=== PATIENT | female | born 1945 | race Caucasian/White ===

== ENCOUNTER 2021-07-23 14:04 | Emergency (ER) | payer OTHER, SELFPAY ==
--- NOTE | 2021-07-23 14:10 | ED.URI ---
HPI - URI/Sore Throat General Chief Complaint: Upper Respiratory Infection Stated Complaint: cough Time Seen by Provider: 07/23/21 14:10 Source: patient and RN notes reviewed History of Present Illness HPI Narrative: Patient is a 75-year-old female who presents the urgent care with complaints of a harsh wet cough. Patient states that she does have an inhaler and has been using it approximately 3 times per day which does help with her symptoms. Patient also reports of using Tylenol. Denies of any fevers, nausea, vomiting. Denies of any chest pain. States that she has had one Covid vaccine in the denies of any known Covid exposure. Patient states that she gets bronchitis yearly and typically treats it with a Z-Michael . No other acute complaints. No acute distress noted. Patient aware of the plan of care. Some parts of this dictation were generated by voice recognition software and may contain typographical and/or grammatical inaccuracies. Related Data Allergies Allergy/AdvReac Type Severity Reaction Status Date / Time No Known Allergies Allergy Verified 07/23/21 14:24 Review of Systems Review of Systems: CONSTITUTIONAL: Denies fever, chills, or sweats. EYES: Denies visual changes, redness, or discharge. ENT: Denies rhinorrhea, congestion, sore throat, or otalgia. Reports of postnasal drainage CARDIOVASCULAR: Denies chest pain, palpitations, or edema. RESPIRATORY: Reports of wet cough with intermittent dyspnea GASTROINTESTINAL: Denies abdominal pain, nausea, vomiting, or diarrhea. GENITOURINARY: Denies dysuria or hematuria. SKIN: Denies rash or itching. MUSCULOSKELETAL: Denies back pain, joint pain, or myalgia. NEUROLOGIC: Denies headache, numbness, or weakness. All other systems reviewed are negative, except as documented in HPI. PMFSH Comments At the time of my signature, I reviewed and agree with the nursing past medical, surgical, social, and family history. There is no relevant family history pertinent to the patient complaint. Exam Narrative: GENERAL: This is a well-nourished, well-developed patient, in no apparent distress. HEAD: normocephalic, atraumatic. EYES: PERRL. Sclera clear/white. Vision is grossly intact. EARS: External ears normal, auditory canals clear and without drainage, TMs normal without perforation. Hearing grossly intact. NOSE: External nose normal with no obvious nasal discharge, nares without redness, no rhinorrhea. THROAT: Mucous membranes moist, posterior pharynx clear. Moderate postnasal drainage NECK: Neck supple, non-tender without lymphadenopathy, masses or thyromegaly. CARDIOVASCULAR: Regular rate and rhythm without murmurs, gallops, or rubs. RESPIRATORY: Wet productive cough. Coarse throughout. No wheezes SKIN: warm, intact with no suspicious lesions or rash, good texture and turgor. NEURO: awake, alert, and oriented to person, place and time. There were no obvious focal neurologic abnormalities. EXTREMITIES: No clubbing, cyanosis, or edema. Course Vital Signs Vital signs: Vital Signs Temperature 97.1 F L 07/23/21 14:18 Pulse Rate 77 07/23/21 14:18 Respiratory Rate 18 07/23/21 14:18 Blood Pressure 137/71 07/23/21 14:18 Pulse Oximetry 95 07/23/21 14:18 Temperature 97.1 F L 07/23/21 14:18 Pulse Rate 77 07/23/21 14:18 Respiratory Rate 18 07/23/21 14:18 Blood Pressure 137/71 07/23/21 14:18 Pulse Oximetry 95 07/23/21 14:18 Reviewed MDM - URI/Sore Throat MDM Narrative Medical decision making narrative: Advised the patient to complete the steroid regimen as prescribed. Be sure to eat and drink with the medication. Complete your oral antibiotic medication as prescribed. Use your inhaler as needed for shortness of breath. Continue your [id number] cough medication. If you develop any increase in symptoms associated with fever, chest pain or persistent shortness of breath?go to the emergency room. Follow-up with your PCP within 2 to 5 days or for wo
[2021-07-23 14:18] VITALS: BP 137/71; PULSE 77; RESP 18; TEMP 36.2; O2SAT 95
== END 2021-07-23 14:35 | disposition home or self-care (01) ==
PROVIDERS: Emergency Provider Nurse Practitioner Family
DX: J40 Bronchitis, not specified as acute or chronic (principal)
CPT/HCPCS: 99213; G0463

== ENCOUNTER 2022-11-20 14:48 | Observation (INO) | payer OTHER, SELFPAY ==
[2022-11-20] VITALS (13 sets, daily range): BP systolic 137–170; BP diastolic 63–80; PULSE 92–109; RESP 14–22; TEMP 36.3–36.6; O2SAT 92–100; BMI 31.8
--- NOTE | ~2022-11-20 | XR_ITS ---
EXAMINATION: XR chest 2V Exam Date/Time: 11/20/2022 15:05 [employer]ING [employer] HISTORY: sob Comparison: None available. RESULT: Lines, tubes, and devices: None. Lungs and pleura: Mild senescent change, with bibasilar scar/atelectasis, otherwise clear. Cardiomediastinal silhouette: Stable. Other: No acute osseous or upper abdominal finding. IMPRESSION: No acute cardiopulmonary process. Reviewed, dictated and finalized at location K. [employer]ING [employer]ER
--- NOTE | 2022-11-20 14:57 | ECG_ITS ---
Measurements Intervals [place] Rate: 104 P: 54 MS: 139 QRS: 50 QRSD: 94 T: 19 QT: 336 QTc: 443 Interpretive Statements SINUS TACHYCARDIA ATRIAL PREMATURE COMPLEX BORDERLINE ECG NO PREVIOUS ECG AVAILABLE FOR COMPARISON Electronically Signed On 11-20-2022 20:22:33 D[employer]RAKER by John Rivera D.O.
[2022-11-20] MEDS: IPRATROPIUM BR 0.02% INH SOLN 0.5 MG/2.5 ML VIAL INHALATION ×3 (16:36→20:48)
[2022-11-20] MEDS: ALBUTEROL SULFATE NEB 2.5 MG/3 ML INH 5 MG INHALATION ×3 (16:36→20:48)
--- NOTE | 2022-11-20 16:52 | ED.SOB ---
HPI - SOB/Dyspnea General Chief Complaint: Shortness of Breath/Dyspnea Stated Complaint: LOW O2 Time Seen by Provider: 11/20/22 15:54 Source: patient, EMS and RN notes reviewed Mode of arrival: EMS Limitations: no limitations History of Present Illness HPI Narrative: This is a 77 year old female that presents to the ER for worsening shortness of breath. Reports she was seen by her PCP and started on a steroid and antibiotic. She has history of COPD. She has been taking these medications and using her nebulizer with little relief. Noted to be hypoxic by EMS and is currently on 2L via NC. Denies chest pain or lower extremity edema. Related Data Home Medications Medication Instructions Recorded Confirmed albuterol sulfate 90 mcg/actuation 2 puff inhalation Q4-6H PRN 07/23/21 07/23/21 aerosol inhaler Shortness Of Breath atenolol 25 mg tablet 25 mg PO DAILY 07/23/21 07/23/21 atorvastatin 40 mg tablet 40 mg PO DAILY 07/23/21 07/23/21 Allergies Allergy/AdvReac Type Severity Reaction Status Date / Time No Known Allergies Allergy Unverified 02/16/22 12:53 Review of Systems Review of Systems: CONSTITUTIONAL: Denies fever ENT: Reports congestion CARDIOVASCULAR: Denies chest pain, or edema. RESPIRATORY: Reports cough and dyspnea. All systems reviewed & are unremarkable except as noted in HPI and below PMFSH Past Medical History Medical History (Updated 11/20/22 @ 17:54 by Evette Caro PA-C) History of COPD History of hyperlipidemia History of hypertension Family History Family History (System 02/16/22 @ 12:53 by Jaylene Vogel) Other Cerebrovascular accident Family history of arthritis Family history of blood dyscrasia Family history of seizure disorder Social History Social History (System 02/16/22 @ 12:53 by Jaylene Vogel) Smoking status: Current every day smoker Alcohol intake: never Exam Narrative: GENERAL: Well-appearing, well-nourished, and in no acute distress. HEAD: Normocephalic, atraumatic. EYES: EOMI. ENT: Nares clear, no rhinorrhea or epistaxis. Mucous membranes moist. Oropharynx without tonsillar hypertrophy exudate or other lesions. NECK: Supple. No adenopathy or masses. CHEST: Lungs sounds with diffuse wheezing. No respiratory distress. No rales or rhonchi HEART: Regular rate and rhythm. No murmur heard. Normal peripheral pulses. EXTREMITIES: Normal range of motion. No edema. SKIN: Warm, dry, no rash. NEURO: No focal deficits. Alert and oriented x3. PSYCH: Normal mood and affect Course Course Emergency Course: Patient and family updated on work-up and need for admission. She does report she feels better after her initial breathing treatment. She does have improved aeration, but still with diffuse wheezing. I did order another nebulizer treatment Consultations Consultation #1: Spoke with hospitalist about patient and workup who accepts admission Date: 11/20/22 Vital Signs Vital signs: Vital Signs Pulse Rate 104 H 11/20/22 14:51 Respiratory Rate 20 11/20/22 14:51 Blood Pressure 160/65 H 11/20/22 14:51 Pulse Oximetry 92 11/20/22 14:51 Oxygen Delivery Room Air 11/20/22 14:51 Oxygen Flow Rate 2 11/20/22 14:51 Temperature 97.3 F L 11/20/22 17:05 Pulse Rate 100 11/20/22 17:14 Respiratory Rate 16 11/20/22 17:14 Blood Pressure 138/67 11/20/22 17:05 Pulse Oximetry 100 11/20/22 17:05 Oxygen Delivery Nasal Cannula 11/20/22 14:51 Oxygen Flow Rate 2 11/20/22 14:51 MDM - SOB/Dyspnea MDM Narrative Medical decision making narrative: Patient presents to the ER for shortness of breath. History of COPD. Has been treated by her PCP with oral steroids and an antibiotic without relief. Hypoxic on arrival of EMS, placed on 2L via NC with relief. Noted to have diffuse wheezing on arrival. Given nebulizer treatments with improvement in aeration. She is afebrile and nontoxic-appearing. CBC is without leukocytosis. Metabolic panel
[2022-11-20 16:59] LABS: Alveolar/Arterial O2 Gradient 69.2 mmHg; Base Excess ABG 1.4 mEq/l (+/-2.0); Fractional Inspired Oxygen 26 %; HCO3 ABG 25.8 mEq/l (22.0-26.0); Methemoglobin ABG 0.3 %THb (0-1.5); Oxygen Content ABG 14.7 %vol (16.0-22.0); Oxygen Saturation ABG 94.4 % (95.0-100.0); Oxyhemoglobin 90.5 % THb (90.0-100.0); PCO2 ABG 39.6 mmHg (35.0-45.0); PO2 ABG 69.3 mmHg (80.0-100.0); PO2 FiO2 Ratio Arterial Blood 2.67 %; Reduced Hemoglobin 7.2 %THb (0-5.0); Total Hemoglobin 11.5 g/dL (12.0-18.0); pH ABG 7.431 (7.350-7.450)
[2022-11-20 17:01] LABS: Device NASAL CANNULA; Liters per Minute 1.5 LPM; Site Drawn LEFT BRACHIAL
[2022-11-20] MEDS: methylPREDNISolone SOD SUCC 125 MG VIAL IV PUSH (17:07)
[2022-11-20 17:19] LABS: Basophils Percent Auto 0.3 % (0.2-1.2); Eosinophils Percent Auto 0.3 % (0-4.4); Hematocrit 35.8 % (37.0-47.0); Hemoglobin 11.6 g/dL (12.0-15.0); Immature Granulocyte Absolute 0.11 K/mm3 (0.00-0.031); Immature Granulocyte Percent A 1.5 % (0-0.5); Lymphocytes Absolute Auto 1.38 K/mm3 (0.9-3.2); Lymphocytes Percent Auto 18.9 % (18.3-44.2); Mean Corpuscular HGB Conc 32.4 g/dl (32-36); Mean Corpuscular Hemoglobin 30.8 pg (26-34); Monocytes Absolute Auto 0.4 K/mm3 (0.1-0.6); Monocytes Percent Auto 4.8 % (2.6-8.5); Neutrophils Absolute Auto 5.4 K/mm3 (1.3-6.7); Neutrophils Percent Auto 74.2 % (45.5-73.1); Platelet Count Result 314 k/mm3 (150-375); Red Blood Count 3.77 M/mm3 (4.2-5.4); Red Cell Distribution Width 16.8 % (11.5-14.5); White Blood Count 7.3 K/mm3 (4.5-10.0)
[2022-11-20 17:31] LABS: Alanine Aminotransferase 28 U/L (6-35); Albumin Level 4.5 g/dL (3.5-5.1); Alkaline Phosphatase 71 U/L (38-126); Anion Gap 9 mmol/L (8-16); Aspartate Amino Transferase 35 U/L (14-36); Bilirubin,Total 0.5 mg/dL (0.2-1.3); Blood Urea Nitrogen 19 mg/dL (7-17); Calcium 9.5 mg/dL (8.4-10.2); Carbon Dioxide 30 mmol/L (22-30); Chloride 94 mmol/L (98-107); Estimated CRCL calculation 40 ml/min; Estimated Glomerular Filt Rate 54; Glucose 152 mg/dL (65-110); Potassium 4.4 mmol/L (3.4-5.0); Sodium 133 mmol/L (137-145)
[2022-11-20 17:40] LABS: NT Pro B Type Natriuretic Pept 231 pg/mL (19.9-100)
[2022-11-20 17:53] LABS: Influenza A QL RT-PCR Negative (Negative); Influenza B QL RT-PCR Negative (Negative); SARS-CoV-2 RNA PCR Negative
--- NOTE | 2022-11-20 18:00 | PM.IMHP ---
H&P: HPI History of Present Illness Date/Time: 11/20/22 18:00 Chief Complaint: Shortness of breath. Narrative: This is a 77-year-old female smoker with COPD who presented to the ED for evaluation of shortness of breath. At baseline she is pretty active, able to run her household, go to the grocery store, worked out in the yd, etc.. She does however avoid stairs and she uses a cart while shopping. It is not unusual for her to have a dry cough. Over the past week or so she has been coughing more than usual though it remains nonproductive. She has also had increasing dyspnea on lesser and lesser exertion and continues to have pretty significant wheezing despite using her nebulizers 3 to 4 times a day. She was started p.o. prednisone and doxycycline by her primary care provider several days ago unfortunately she has not felt any better. She denies fever, chills, sweats, sinus congestion, sore throat, chest and pleuritic pain, nausea, vomiting, and diarrhea. She came in today via EMS and on their arrival her SpO2 was 88% on room air. She received a DuoNeb in route to the ER with some benefit. She had another DuoNeb and was given Solu-Medrol in the ED with continued improvement. She continues to have oxygen requirement however and she is being admitted in this setting for further treatment. She tested negative for influenza and COVID. Chest x-ray showed no acute findings. Review of Systems Review of Systems: Twelve systems were reviewed and are negative except for as per HPI. [facility] Past Medical History Medical History (Updated 11/22/22 @ 01:36 by Luciana Nichols PA-C) Chronic obstructive pulmonary disease Gastroesophageal reflux disease Hyperlipidemia Hypertension Tobacco abuse Tobacco dependence Type 2 diabetes mellitus Surgical History Surgical History (Updated 11/22/22 @ 01:36 by Luciana Nichols PA-C) History of bladder suspension procedure History of cholecystectomy History of hysterectomy Family History Family History Other Cerebrovascular accident Family history of arthritis Family history of blood dyscrasia Family history of seizure disorder Social History Social History (Updated 11/22/22 @ 01:36 by Luciana Nichols PA-C) Social History: Surrogate medical decision maker: Rashmi Leger, daughter. Code status: Full code. Smoking status: Current every day smoker Alcohol intake: never Lack of Transportation: No Lack of Food: Never True Current Housing: I Have Housing Concerned About Future Housing: No Difficulty Paying Gas/Electric Bills: No Difficulty Paying for Meds: No Currently Unemployed: No Education: High School Diploma/GED Difficulty w/ Childcare or Family Care: No Spiritual care concerns: No Meds Home Medications and Allergies Home Medications Medication Instructions Recorded Confirmed Type albuterol sulfate 90 mcg/actuation 2 puff inhalation Q4-6H PRN 07/23/21 11/20/22 History aerosol inhaler Shortness Of Breath atenolol 25 mg tablet 25 mg PO HS 07/23/21 11/20/22 History atorvastatin 40 mg tablet 40 mg PO HS 07/23/21 11/20/22 History allopurinol 100 mg tablet 100 mg PO HS 11/20/22 11/20/22 History blood sugar diagnostic ([facility] 11/20/22 11/20/22 History Verio test strips) [facility] 11[facility] 11/20/22 History Verio Flex Meter) budesonide-formoterol HFA 160 2 inh inhalation BID 11/20/22 11/20/22 History mcg-4.5 mcg/actuation aerosol inhaler (Symbicort) celecoxib 100 mg capsule 100 mg PO BID 11/20/22 11/20/22 History doxycycline hyclate 100 mg capsule 100 mg PO BID 11/20/22 11/20/22 History fluticasone 250 mcg-salmeterol 50 1 inh inhalation BID 11/20/22 11/20/22 History mcg/dose blistr powdr for inhalation (Advair Diskus) hydrocodone 10 mg-acetaminophen 1 tablet PO Q8H PRN Insomnia 11/20/22 11/20/22 History 325 mg tablet pantoprazole 40 mg tabletkatherine
[2022-11-20] MEDS: SODIUM CHLORIDE 0.9% IV 500 ML 999 ML IV CONT (18:55)
--- NOTE | 2022-11-20 21:43 | ADMGEN ---
This patient, Janet Joiner, was admitted to [facility] Surg Room 317-02. Patient/family oriented to hospital policies and general routines including ID bracelet, bed and alarms, visiting hours, pain management, procedures, bathroom and other care routines, personal items, smoking policy, room service/diet, and visiting hours. Information on how to activate the Rapid Response Team has been discussed. Patient/Family are encouraged to report perceived risks to care and to ask questions if they do not understand what they are told or what they should do.
[2022-11-21] VITALS (16 sets, daily range): BP systolic 136–142; BP diastolic 62–71; PULSE 83–101; RESP 13–18; TEMP 36.3–36.6; O2SAT 87–96
[2022-11-21] MEDS: ALBUTEROL SULFATE NEB 2.5 MG/3 ML INH 5 MG INHALATION ×3 (01:57→13:33)
[2022-11-21] MEDS: IPRATROPIUM BR 0.02% INH SOLN 0.5 MG/2.5 ML VIAL INHALATION ×3 (01:58→13:34)
[2022-11-21] MEDS: methylPREDNISolone SOD SUCC 40 MG VIAL IV PUSH ×2 (06:32→12:15)
[2022-11-21] MEDS: FLUTICASONE/SALMETEROL 115-21 MCG INHALER 1 PUFF 2 PUFF INHALATION (08:29)
[2022-11-21] MEDS: CELECOXIB 100 MG CAPSULE PO (08:45)
[2022-11-21] MEDS: ENOXAPARIN 40 MG/0.4 ML SYRINGE SUB-Q (08:45)
[2022-11-21] MEDS: DOXYCYCLINE HYCLATE 100 MG TABLET PO (08:45)
[2022-11-21] MEDS: PREGABALIN (*CRX) 75 MG CAPSULE 150 MG PO ×2 (08:48→12:15)
--- NOTE | 2022-11-21 13:43 | HOMEO2EVAL ---
Evaluation was performed at [facility] Home Oxygen Evaluation RC: Home Oxygen (O2) Evaluation Start: 11/21/22 11:41 Freq: ONCE Status: Active Protocol: RPE Activity Type Activity Date Activity User E-sign Co-sign Detail Recorded Client Recorded Date Recorded By Document 11/21/22 13:00 MARK [email or web address] 11/21/22 13:43 MARK Document 11/21/22 13:03 MARK [email or web address] 11/21/22 13:43 MARK Document 11/21/22 13:05 MARK [email or web address] 11/21/22 13:43 MARK Document 11/21/22 13:06 MARK [id number] 11/21/22 13:43 MARK Document 11/21/22 13:15 MARK [email or web address] 11/21/22 13:43 MARK 11/21/22 11/21/22 11/21/22 13:00 13:03 13:05 Home O2 Evaluation [Oxygen] -Test Phase Resting Exercise Exercise -Oxygen Delivery Room Air Room Air Nasal Cannula -Oxygen Flow Rate (L/min) 1 [Pulse Oximetry] -Pulse Oximetry (90-100 %) 92 87 L 88 L [Exercise] -Ambulation Distance (feet) -Ambulation Distance (meters) [Comments] -Home Oxygen Evaluation Comments [Charges] -Treatment Charges O2 Evaluation - Inpatient 11/21/22 11/21/22 13:06 13:15 Home O2 Evaluation [Oxygen] -Test Phase Exercise Resting -Oxygen Delivery Nasal Cannula Room Air -Oxygen Flow Rate (L/min) 2 [Pulse Oximetry] -Pulse Oximetry (90-100 %) 90 93 [Exercise] -Ambulation Distance (feet) 600 -Ambulation Distance (meters) 182.87 [Comments] -Home Oxygen Evaluation Comments Pt requires 2 liters O2 with activity [Charges] -Treatment Charges
--- NOTE | 2022-11-21 13:49 | PM.DS ---
DS: Admitting Diagnosis Discharge Date 11/21/2022 Admitting Diagnosis COPD exacerbation DS: Discharge Diagnosis Discharge Diagnosis (1) Hypoxia: Code(s): R09.02 - Hypoxemia Status: Acute Assessment and Plan: (2) Acute exacerbation of chronic obstructive airways disease: Code(s): J44.1 - Chronic obstructive pulmonary disease with (acute) exacerbation Status: Acute Assessment and Plan: (3) Tobacco abuse: Code(s): Z72.0 - Tobacco use Status: Acute Assessment and Plan: DS: Summary Hospital Course Hospital Course: date of admission: 11/20/2022 date of discharge: 11/21/2022 Janet Joiner is a 77-year-old female with a history of COPD, hypertension, hyperlipidemia and tobacco abuse who presented to the emergency department on 11/20/2022 with complaints of worsening shortness of breath. She had recently started prednisone and doxycycline as an outpatient prescribed by her PCP. She was noted to be hypoxic on arrival and required 2 L supplemental O2 , her chest x-ray showed no acute cardiopulmonary disease. She was admitted to the hospitalist service for further evaluation and management. Please see above for further details. She received IV Solu-Medrol and scheduled albuterol and ipratropium nebs. Patient had significant symptomatic improvement, stating she was 100% better and felt back to her baseline state of health. Her wheezing resolved. 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 Did discuss with the patient that typically we would wean down steroids more slowly and transition back to oral prednisone, however patient adamant for discharge home. Patient aware that symptoms could worsen with discontinuation of IV steroids, however patient felt strongly that she was back to baseline and no longer required IV steroids. Home oxygen evaluation was completed on 11/21/2022 and patient requires 2 L supplemental oxygen with activity. She will continue p.o. prednisone 40 mg for 5 additional days and complete the course of doxycycline which was initiated by her PCP. Given prescriptions for albuterol and ipratropium nebs to continue at home as needed. She will follow-up with her PCP as an outpatient in 1 week and may consider referral to pulmonology. Discussed with the patient worrisome signs and symptoms for which to return and she was educated on her medications. She was discharged in hemodynamically stable condition on 11/21/2022. Time spent discussing smoking cessation with patient: 3 to 10 minutes Time Spent with Patient Time attestation: Total time spent providing and/or coordinating discharge services: 40 minutes Time spent: Greater than 30 minutes Exam Narrative: General: well-nourished, well-appearing 77year-old female, sitting up in bed , comfortable, NARD Neuro: awake, alert and oriented x4, speech clear, no focal neuro deficits noted HEENMT: normocephalic, atraumatic, EOMI, sclerae anicteric, moist oral mucosa Respiratory: clear to auscultation bilaterally, nonlabored breathing Cardio: regular rate, regular rhythm with S1-S2 Abdomen: nondistended, normoactive bowel sounds, soft, nontender to palpation Extremities: no edema, erythema, or tenderness to palpation, DP pulses 2+ bilaterally Skin: no rashes or lesions, warm and dry Psych: appropriate mood and affect, judgment and insight intact DS: Data Data Completed and Pending Labs on day of discharge: Labs from last 24 hours 11/20/22 11/20/22 11/20/22 17:05 17:05 17:04 WBC RBC Hgb Hct MCV MCH MCHC RDW Plt Count MPV Immature Gran % (Auto) Neut % (Auto) Lymph % (Auto) [place] % (Auto) Eos % (Auto) Baso % (Auto) Lymph # (Auto) [place] # (Auto) Eos # (Auto) Baso # (Auto) Abs Immat Gran (auto) Absolute Neuts (auto) Absolute
== END 2022-11-21 14:50 | disposition home or self-care (01) ==
LOC: ANHED 18:16 → ANH3MEDSUR 20:37
PROVIDERS: Physician Assistant; Admitting Provider Internal Medicine; Emergency Provider Emergency Medicine; Visit Provider Physician Assistant
DX: R09.02 Hypoxemia (principal); J44.1 Chronic obstructive pulmonary disease with (acute) exacerbation; E78.5 Hyperlipidemia, unspecified; I10 Essential (primary) hypertension; R00.0 Tachycardia, unspecified; K21.9 Gastro-esophageal reflux disease without esophagitis; E11.9 Type 2 diabetes mellitus without complications; E86.0 Dehydration; Z20.822 Contact with and (suspected) exposure to COVID-19; F17.210 Nicotine dependence, cigarettes, uncomplicated; Z79.51 Long term (current) use of inhaled steroids; Z79.52 Long term (current) use of systemic steroids; Z79.891 Long term (current) use of opiate analgesic; Z79.899 Other long term (current) drug therapy
CPT/HCPCS: 36415; 36600; 71046; 80053; 82375; 82805; 83050; 83880; 85025; 87636; 93005; 94618; 94640; 96361; 96372; 96374; 96376; 99291; A9270; G0378; G0379; J1650; J2920; J2930; J7040

== ENCOUNTER 2024-07-28 08:52 | Outpatient (CLI) | payer OTHER, SELFPAY ==
--- NOTE | ~2024-07-28 | XR_ITS ---
Lumbosacral Spine: AP and lateral views Clinical History: Pain Findings: The normal lordotic curve is maintained. There is 7 mm anterolisthesis of L4 over L5. There is probably chronic compression fracture for L5. There is minimal grade 1 retrolisthesis of L2 over L3. No instability evident on flexion or extension. There are mild disc changes throughout the lumbar spine. There is severe facet arthropathy throughout the lumbar spine, especially from L3 through S1. The sacroiliac joints are normally outlined. Impression: Advanced degenerative spondylosis. 7 mm anterolisthesis of L4 over L5. Minimal grade 1 retrolisthesis of L2 over L3. No instability evident. Chronic compression deformity of L5. Reviewed, dictated and finalized at location . Impression: Advanced degenerative spondylosis. 7 mm anterolisthesis of L4 over L5. Minimal grade 1 retrolisthesis of L2 over L3. No instability evident. Chronic compression deformity of L5.
--- NOTE | ~2024-07-28 | MR_ITS ---
EXAMINATION: MR cervical spine wo con DATE: 07/28/2024 09:25 INDICATION: Spondylolisthesis. Spinal stenosis. Bilateral leg numbness. TECHNIQUE: Magnetic resonance imaging (MRI) of the cervical spine was performed without intravenous c ontrast. COMPARISON: None FINDINGS: There is 2 mm anterolisthesis of C7 on T1. There is mild chronic anterior wedging of T4 kera tebral body. Intervertebral disc heights are normal. The spinal cord signal intensity is normal. The following disc levels are specifically discussed: C2-C3: There is a central extrusion. There is no uncovertebral joint osteoarthritis. There is mild bi lateral facet joint osteoarthritis. There is no neural foraminal stenosis. There is mild central danyelle l stenosis. C3-C4: There is a central extrusion. There is mild bilateral uncovertebral joint osteoarthritis. Ther e is severe bilateral facet joint osteoarthritis. There is mild bilateral neural foraminal stenosis. There is moderate central canal stenosis with ventral and dorsal indentation of the spinal cord. C4-C5: There is a central protrusion. There is mild bilateral uncovertebral joint osteoarthritis. The re is severe bilateral facet joint osteoarthritis. There is mild left neural foraminal stenosis. Ther e is mild central canal stenosis. C5-C6: The disc is bulging. There is mild bilateral uncovertebral joint osteoarthritis. There is mode rate right and severe left facet joint osteoarthritis. There is mild left neural foraminal stenosis. There is mild central canal stenosis. C6-C7: The disc does not extend beyond the endplate margin. There is mild bilateral uncovertebral [place] nt osteoarthritis. There is moderate right and severe left facet joint osteoarthritis. There is mild left neural foraminal stenosis. There is no central canal stenosis. C7-T1: The disc does not extend beyond the endplate margin. There is no uncovertebral joint osteoarth ritis. There is severe bilateral facet joint osteoarthritis. There is mild bilateral neural foraminal stenosis. There is no central canal stenosis. IMPRESSION: 1. Moderate spondylosis at C3-C4 and mild spondylosis at other levels. Reviewed, dictated and finalized at location A.
== END 2024-07-28 08:53 | disposition home or self-care (01) ==
LOC: ANHIMG 08:54
PROVIDERS: Visit Provider Neurological Surgery
DX: M43.16 Spondylolisthesis, lumbar region (principal); M48.061 Spinal stenosis, lumbar region without neurogenic claudication; M47.892 Other spondylosis, cervical region
CPT/HCPCS: 72110; 72141

== ENCOUNTER 2024-09-05 12:48 | Outpatient (CLI) | payer OTHER, SELFPAY ==
--- NOTE | ~2024-09-05 | XR_ITS ---
EXAMINATION: XR chest 2V DATE: 09/05/2024 15:27 INDICATION: COPD TECHNIQUE: PA and lateral views of the chest were obtained. COMPARISON: Chest radiograph dated 11/20/2022 FINDINGS: The lungs are clear with no focal airspace opacities, pulmonary edema, pleural effusion or pneumothor ax. The cardiomediastinal silhouette is normal. Mild thoracic spondylosis with bridging osteophytes a t multiple levels consistent with diffuse idiopathic skeletal hyperostosis (DISH). IMPRESSION: 1. No acute cardiopulmonary disease. Reviewed, dictated and finalized at location A.
--- NOTE | 2024-09-05 14:09 | ECG_ITS ---
Test Date: 2024-09-05 14:41:57 Measurements Intervals [place] Rate: 80 P: 53 ID: [id number] QRS: 42 QRSD: 90 T: 13 QT: 381 QTc: 440 Interpretive Statements SINUS RHYTHM POSSIBLE LEFT ATRIAL ENLARGEMENT BORDERLINE ST-T WAVE ABNORMALITY- INFERIOR LEADS BASELINE ARTIFACT- II, III, AVF, V3-V5 BORDERLINE ECG No previous ECG available for comparison Electronically Signed On 09-05-2024 14:45:18 CDT by John Rivera D.O.
[2024-09-05 15:07] LABS: Hematocrit 28.2 % (37.0-47.0); Hemoglobin 9.7 g/dL (12.0-15.0); Mean Corpuscular HGB Conc 34.4 g/dl (32-36); Mean Corpuscular Hemoglobin 33.6 pg (26-34); Mean Corpuscular Volume 97.6 fl (80-100); Mean Platelet Volume 9.8 fl (7.4-10.4); Platelet Count Result 156 k/mm3 (150-375); Red Blood Count 2.89 M/mm3 (4.2-5.4); Red Cell Distribution Width 15.1 % (11.5-14.5)
[2024-09-05 15:18] LABS: Anion Gap 6 mmol/L (4-12); Blood Urea Nitrogen 18 mg/dL (7-17); Calcium 9.4 mg/dL (8.4-10.2); Carbon Dioxide 29 mmol/L (22-30); Chloride 91 mmol/L (98-107); Estimated Glomerular Filt Rate 43; Glucose 77 mg/dL (65-110); Potassium 4.6 mmol/L (3.4-5.0); Sodium 126 mmol/L (137-145)
[2024-09-05 15:19] LABS: Partial Thromboplastin Time 33.8 Seconds (22.3-36.8)
[2024-09-05 15:36] LABS: Hemoglobin A1C 4.9 % (<5.7)
[2024-09-05 15:47] LABS: Add Urine Microscopic? YES; Appearance Urine Clear (Clear); Bacteria Urine None Seen /hpf; Bilirubin Urine Negative (Negative); Blood Urine Negative (Negative); Color Urine Yellow (Yellow); Glucose Urine UA Negative (Negative); Ketones Urine Negative (Negative); Leukocyte Esterase Ur Trace LEU/UL (Negative); Nitrate Urine Negative (Negative); Non Pathogenic Casts 0-2; Protein Urine Negative (Negative); RBC Urine 0-2 /hpf (0-2); Specific Grav Ur 1.007 (1.001-1.035); Squamous Epithelial Cell Urine None Seen /hpf (Few); Urobilinogen Urine 0.2 mg/dL (<2.0); WBC Urine 0-5 /hpf (0-3)
== END 2024-09-05 12:49 | disposition home or self-care (01) ==
PROVIDERS: PCP Physician Assistant; Referring Provider Physician Assistant; Visit Provider Neurological Surgery
DX: J44.9 Chronic obstructive pulmonary disease, unspecified (principal); G95.9 Disease of spinal cord, unspecified; I10 Essential (primary) hypertension
CPT/HCPCS: 36415; 71046; 80048; 81001; 83036; 85027; 85610; 85730; 86850; 86880; 86900; 86901; 86902; 86922; 93005

== ENCOUNTER 2024-09-17 10:41 | Observation (INO) | payer OTHER, SELFPAY ==
[2024-09-17] VITALS (8 sets, daily range): BP systolic 139–192; BP diastolic 50–71; PULSE 81–97; RESP 12–23; TEMP 36.4; O2SAT 97–100; BMI 23.9
--- NOTE | ~2024-09-17 | XR_ITS ---
HISTORY: status post cervical arthrodesis X 8 DAYS AGO COMPARISON: Reference is made to an MRI of the cervical spine dated 07/28/2024 TECHNIQUE: 3 views of the cervical spine were performed FINDINGS: Visualization of the cervical spine to the inferior endplate of C7. Fixation hardware within the C3 and C4 vertebral bodies. Preservation of the curvature of the cervical spine is identified. Expected perioperative prevertebral soft tissue swelling is appreciated. No acute compression fracture is noted. The dens is equidistant between the pillars, without asymmetry. Air column within the trachea is minimally to the left, of midline. The visualized portions of the bilateral upper lung [place] are unremarkable. IMPRESSION: Anterior fixation hardware in good position at the level of C3/C4. Mild to moderate amount of prevertebral soft tissue swelling - to be expected postoperative day 8. No acute fracture is appreciated. Reviewed, dictated and finalized at location A. R POLISHER IMPRESSION: Anterior fixation hardware in good position at the level of C3/C4. Mild to moderate amount of prevertebral soft tissue swelling - to be expected p ostoperative day 8. No acute fracture is appreciated.
--- NOTE | ~2024-09-17 | XR_ITS ---
EXAMINATION: XR chest 2V DATE: 09/17/2024 13:48 INDICATION: Weakness. TECHNIQUE: Frontal and lateral views of the chest were obtained. COMPARISON: Chest 2 views 09/05/2024, CT abdomen and pelvis 05/07/2014 FINDINGS: There is no pneumonia, pleural effusion, or pneumothorax. The heart size is normal. There a re changes of anterior fusion procedure in cervical spine. IMPRESSION: 1. No acute cardiopulmonary disease. Reviewed, dictated and finalized at location A. CAR LOADER
--- NOTE | 2024-09-17 13:00 | ED_ITS ---
HPI - Recheck/Abnormal Lab/Rx General Chief Complaint: Recheck/Abnormal Lab/Rx <Evette Caro PA-C - Last Filed: 09/19/24 10:58> Stated Complaint: post op problems <Evette Caro PA-C - Last Filed: 09/19/24 10:58> Time Seen by Provider: 09/17/24 13:00 <Evette Caro PA-C - Last Filed: 09/19/24 10:58> Focused HPI: This is a 79 year old female that presents to the ER for weakness. Reports she is very nauseated. Reports vomiting. She has not been able to eat or drink anything. Denies fever, chest pain, shortness of breath. GENERAL: Well-appearing, well-nourished, and in no acute distress. HEAD: Normocephalic, atraumatic. CHEST: Clear to auscultation. ?No respiratory distress. HEART: Regular rate and rhythm.? NEURO: ?Alert and oriented x3. Patient screened in triage and initial orders placed.? ?Additional care and disposition to be based upon?diagnostic testing and treatment. <Evette Caro PA-C - Last Filed: 09/19/24 10:58> History of Present Illness HPI narrative: 79-year-old female presenting with nausea and weakness. Patient's family is at bedside and helps with the history. Patient had an anterior fusion of some of her cervical vertebrae last week. Since going home she has been increasingly weak, nauseated. States that she has been barely able to eat or drink anything. Also complains of a lot of pain despite taking hydrocodone. No numbness or weakness. No pain other than in her neck. <Shilpa Valle MD - Last Filed: 09/19/24 12:23> Related Data Home Medications: Home Medications Medication Instructions Recorded Confirmed albuterol sulfate 90 mcg/actuation 2 puff inhalation Q4-6H PRN 07/23/21 09/17/24 aerosol inhaler Shortness Of Breath atenolol 25 mg tablet 25 mg PO HS 07/23/21 09/17/24 atorvastatin 40 mg tablet 40 mg PO HS 07/23/21 09/17/24 allopurinol 100 mg tablet 100 mg PO HS 11/20/22 09/17/24 budesonide-formoterol HFA 160 2 inh inhalation BID 11/20/22 09/17/24 mcg-4.5 mcg/actuation aerosol inhaler (Symbicort) hydrocodone 10 mg-acetaminophen 1 tablet PO Q8H PRN Pain 11/20/22 09/17/24 325 mg tablet pantoprazole 40 mg tablet,delayed 40 mg PO HS 11/20/22 09/17/24 release pregabalin 150 mg capsule 150 mg PO TID 11/20/22 09/17/24 tizanidine 4 mg tablet 4 mg PO Q6H PRN Muscle Spasm 11/20/22 09/17/24 trazodone 150 mg tablet 150 mg PO HS 11/20/22 09/17/24 azelastine 137 mcg (0.1 %) nasal 2 spray intranasal BID 09/02/24 09/17/24 spray celecoxib 200 mg capsule 200 mg PO BID 09/02/24 09/17/24 dulaglutide 3 mg/0.5 mL 3 mg subcut WEEKLY 09/02/24 09/17/24 subcutaneous pen injector (Trulicity) furosemide 40 mg tablet 40 mg PO QAM 09/02/24 09/17/24 hydroxychloroquine 200 mg tablet 400 mg PO DAILY 09/02/24 09/17/24 magnesium oxide 400 mg PO DAILY 09/02/24 09/17/24 omega 1-iwv-qgm-fish oil 1,000 mg 1 cap PO DAILY 09/02/24 09/17/24 (120 mg-180 mg) capsule (Fish Oil) pediatric multivitamin 2 tablet PO DAILY 09/02/24 09/17/24 potassium chloride 10 mEq 10 meq PO DAILY 09/02/24 09/17/24 tablet,extended release vitamins A,C,U-rwed-nrjkzl 4,296 1 cap PO DAILY 09/02/24 09/17/24 mcg-226 mg-90 mg capsule (PreserVision AREDS) ipratropium bromide 0.02 % 0.5 mg inhalation Q6HRT PRN 09/17/24 09/17/24 solution for inhalation Shortness of Breath <Evette Caro PA-C - Last Filed: 09/19/24 10:58> Allergies/Adverse Reactions: Allergies Allergy/AdvReac Type Severity Reaction Status Date / Time No Known Allergies Allergy Verified 09/17/24 21:19 <Evette Caro PA-C - Last Filed: 09/19/24 10:58> Review of Systems Review of Systems: All systems reviewed & are unremarkable except as noted in HPI and below <Shilpa Valle MD - Last Filed: 09/19/24 12:23> [facility] Past Medical History Medical History: Medical History Arthritis Cervical myelopathy s/p cervical arthrodesis on 09/10/24 Chronic obstructive pulmonary disease Gastroesophageal reflux disease Hyperlipidemia Hypertension Lumbar stenosis without neurogenic claudication Spondylolisthesis, lumbar region Tobacco abuse Tobacco dependence Type 2 diabetes mellitus <Evette Caro PA-C - Last Filed: 09/19/24 10:58> Surgical History Surgical History: Surgical History History of bladder suspension procedure History of cholecystectomy History of hysterectomy Status post cervical arthrodesis <Evette Caro PA-C - Last Filed: 09/19/24 10:58> Family History Family History: Family History Other Cerebrovascular accident Family history of arthritis Family history of blood dyscrasia Family history of seizure disorder <Evette Caro PA-C - Last Filed: 09/19/24 10:58> Social History Social History: Social History Social History: Surrogate medical decision maker: Rashmi Leger, daughter. Code status: Full code. Smoking packs per day: 0.5 Smoking cigarettes per day: 10.0 Years smoked: 69 Smoking pack-years: 34.50 Smoking status: Current every day smoker Tobacco type: cigarettes Second hand tobacco smoke exposure: Yes Alcohol intake: never Substance use: never Substance use type: does not use Do You Feel Safe in your Home?: Yes Lack of Transportation: No Lack of Food: Never True Current Housing: I Have Housing Concerned About Future Housing: No Difficulty Paying Gas/Electric Bills: No Difficulty Paying for Meds: No Currently Unemployed: No Education: Grade School Difficulty w/ Childcare or Family Care: No Living arrangements: with family Additional living arrangements comments: [facility] Spiritual care concerns: No <Evette Caro PA-C - Last Filed: 09/19/24 10:58> Exam Narrative: GENERAL: Nontoxic, no acute distress, pleasant cooperative HEAD: Normocephalic, atraumatic. EYES: PERRLA and EOMI. ENT: anterior neck incision appears to be well healing without evidence of infection Mucous membranes dry NECK: Supple. CHEST: Clear to auscultation. No respiratory distress. HEART: Regular rate and rhythm ABDOMEN: Soft, nontender, nondistended EXTREMITIES: Normal range of motion SKIN: Warm, dry, no rash. NEURO: Alert and oriented x3. PSYCH: Normal mood and affect. <Shilpa Valle MD - Last Filed: 09/19/24 12:23> Course Vital Signs Vital signs: Vital Signs Temperature 97.6 F 09/17/24 10:45 Pulse Rate 93 09/17/24 10:45 Respiratory Rate 20 09/17/24 10:45 Blood Pressure 150/65 H 09/17/24 10:45 Pulse Oximetry 98 09/17/24 10:45 Temperature 97.1 F L 09/18/24 14:00 Pulse Rate 80 09/18/24 14:00 Respiratory Rate 16 09/18/24 14:00 Blood Pressure 113/58 L 09/18/24 14:00 Pulse Oximetry 95 09/18/24 14:00 Oxygen Delivery Room Air 09/18/24 14:40 <Evette Caro PA-C - Last Filed: 09/19/24 10:58> Vital Signs Temperature 97.6 F 09/17/24 10:45 Pulse Rate 93 09/17/24 10:45 Respiratory Rate 20 09/17/24 10:45 Blood Pressure 150/65 H 09/17/24 10:45 Pulse Oximetry 98 09/17/24 10:45 Temperature 97.1 F L 09/18/24 14:00 Pulse Rate 80 09/18/24 14:00 Respiratory Rate 16 09/18/24 14:00 Blood Pressure 113/58 L 09/18/24 14:00 Pulse Oximetry 95 09/18/24 14:00 Oxygen Delivery Room Air 09/18/24 14:40 <Shilpa Valle MD - Last Filed: 09/19/24 12:23> MDM - Recheck/Abnormal Lab/Rx MDM Narrative Medical decision making narrative: 79-year-old female presenting with poor p.o. intake, weakness, pain the setting of recent anterior cervical fusion. <Evette Caro PA-C - Last Filed: 09/19/24 10:58> 79-year-old female presenting with poor p.o. intake, weakness, pain the setting of recent anterior cervical fusion. Vital stable. Exam remarkable for the above. Workup remarkable for UTI. Patient has been given fluids, Rocephin, Zofran, morphine. She requires admission for further management of her po stoperative nausea and vomiting. I spoke with the hospitalist who has accepted her for admission. <Shilpa Valle MD - Last Filed: 09/19/24 12:23> Differential Diagnosis Differential diagnosis: Likely other (Nausea and vomiting, postoperative complication, generalized weakness) <Shilpa Valle MD - Last Filed: 09/19/24 12:23> Medical Records Attestation: I reviewed the patient's medical records. <Shilpa Valle MD - Last Filed: 09/19/24 12:23> Lab Data Attestation: I reviewed the patient's lab results. <Shilpa Valle MD - Last Filed: 09/19/24 12:23> Result diagrams: 09/17/24 13:21 09/17/24 13:21 <Evette Caro PA-C - Last Filed: 09/19/24 10:58> Labs: Lab Results 09/17/24 09/17/24 Range/Units 13:21 14:54 WBC 7.2 (4.5-10.0) K/mm3 RBC 3.43 L (4.2-5.4) M/mm3 Hgb 11.2 L (12.0-15.0) g/dL Hct 34.4 L (37.0-47.0) % MCV 100.3 H (80-100) fl MCH 32.7 (26-34) pg MCHC 32.6 (32-36) g/dl RDW 14.4 (11.5-14.5) % Plt Count 280 D (150-375) k/mm3 MPV 9.7 (7.4-10.4) fl Immature Gran % (Auto) 1.4 H (0-0.5) % Neut % (Auto) 38.0 L (45.5-73.1) % Lymph % (Auto) 38.9 (18.3-44.2) % [place] % (Auto) 20.2 H (2.6-8.5) % Eos % (Auto) 0.3 (0-4.4) % Baso % (Auto) 1.2 (0.2-1.2) % Lymph # (Auto) 2.81 (0.9-3.2) K/mm3 [place] # (Auto) 1.5 H (0.1-0.6) K/mm3 Eos # (Auto) 0.0 (0-0.3) K/mm3 Baso # (Auto) 0.1 (0.0-0.1) K/mm3 Abs Immat Gran (auto) 0.10 H (0.00-0.031) K/mm3 Absolute Neuts (auto) 2.8 (1.3-6.7) K/mm3 Absolute Nucleated RBC 0.000 (0.0-0.012) K/mm3 Nucleated RBC % 0.0 (0.0-0.2) % Sodium 139 (137-145) mmol/L Potassium 4.1 (3.4-5.0) mmol/L Chloride 104 (98-107) mmol/L Carbon Dioxide 25 (22-30) mmol/L Anion Gap 10 (4-12) mmol/L BUN 19 H (7-17) mg/dL Creatinine 0.90 (0.7-1.0) mg/dL Estim Creat Clear Calc 35 ml/min Estimated GFR 60 (59 - ) Glucose 93 (65-110) mg/dL Calcium 10.0 (8.4-10.2) mg/dL Total Bilirubin 0.6 (0.2-1.3) mg/dL AST 38 H (14-36) U/L ALT 18 (6-35) U/L Alkaline Phosphatase 91 (38-126) U/L Total Protein 9.0 H (6.3-8.2) g/dL Albumin 4.7 (3.5-5.1) g/dL Lipase 151 (23-300) U/L Urine Color Dark yellow (Yellow) Urine Appearance Cloudy H (Clear) Urine pH 5.5 (5.0-9.0) Ur Specific [place] 1.025 (1.001-1.035) Urine Protein 2+ H (Negative) mg/dL Urine Glucose (UA) Negative (Negative) mg/dL Urine Ketones 1+ H (Negative) mg/dL Ur Blood (Man) Negative (Negative) Urine Nitrate Negative (Negative) Urine Bilirubin 1+ H (Negative) Urine Urobilinogen 1.0 (<2.0) mg/dL Add Ur Microanalysis Reviewed Leukocyte Esterase Rfl 1+ H (Negative) KAREN/UL Urine RBC 3-5 H (0-2) /hpf Urine WBC 11-20 H (0-3) /hpf Ur Squamous Epith Cells Moderate (Few) /hpf Urine Bacteria 3+ H /hpf Urine Casts 3-5 <Evette Caro PA-C - Last Filed: 09/19/24 10:58> Lab Results 09/17/24 09/17/24 Range/Units 13:21 14:54 WBC 7.2 (4.5-10.0) K/mm3 RBC 3.43 L (4.2-5.4) M/mm3 Hgb 11.2 L (12.0-15.0) g/dL Hct 34.4 L (37.0-47.0) % MCV 100.3 H (80-100) fl MCH 32.7 (26-34) pg MCHC 32.6 (32-36) g/dl RDW 14.4 (11.5-14.5) % Plt Count 280 D (150-375) k/mm3 MPV 9.7 (7.4-10.4) fl Immature Gran % (Auto) 1.4 H (0-0.5) % Neut % (Auto) 38.0 L (45.5-73.1) % Lymph % (Auto) 38.9 (18.3-44.2) % [place] % (Auto) 20.2 H (2.6-8.5) % Eos % (Auto) 0.3 (0-4.4) % Baso % (Auto) 1.2 (0.2-1.2) % Lymph # (Auto) 2.81 (0.9-3.2) K/mm3 [place] # (Auto) 1.5 H (0.1-0.6) K/mm3 Eos # (Auto) 0.0 (0-0.3) K/mm3 Baso # (Auto) 0.1 (0.0-0.1) K/mm3 Abs Immat Gran (auto) 0.10 H (0.00-0.031) K/mm3 Absolute Neuts (auto) 2.8 (1.3-6.7) K/mm3 Absolute Nucleated RBC 0.000 (0.0-0.012) K/mm3 Nucleated RBC % 0.0 (0.0-0.2) % Sodium 139 (137-145) mmol/L Potassium 4.1 (3.4-5.0) mmol/L Chloride 104 (98-107) mmol/L Carbon Dioxide 25 (22-30) mmol/L Anion Gap 10 (4-12) mmol/L BUN 19 H (7-17) mg/dL Creatinine 0.90 (0.7-1.0) mg/dL Estim Creat Clear Calc 35 ml/min Estimated GFR 60 (59 - ) Glucose 93 (65-110) mg/dL Calcium 10.0 (8.4-10.2) mg/dL Total Bilirubin 0.6 (0.2-1.3) mg/dL AST 38 H (14-36) U/L ALT 18 (6-35) U/L Alkaline Phosphatase 91 (38-126) U/L Total Protein 9.0 H (6.3-8.2) g/dL Albumin 4.7 (3.5-5.1) g/dL Lipase 151 (23-300) U/L Urine Color Dark yellow (Yellow) Urine Appearance Cloudy H (Clear) Urine pH 5.5 (5.0-9.0) Ur Specific [place] 1.025 (1.001-1.035) Urine Protein 2+ H (Negative) mg/dL Urine Glucose (UA) Negative (Negative) mg/dL Urine Ketones 1+ H (Negative) mg/dL Ur Blood (Man) Negative (Negative) Urine Nitrate Negative (Negative) Urine Bilirubin 1+ H (Negative) Urine Urobilinogen 1.0 (<2.0) mg/dL Add Ur Microanalysis Reviewed Leukocyte Esterase Rfl 1+ H (Negative) KAREN/UL Urine RBC 3-5 H (0-2) /hpf Urine WBC 11-20 H (0-3) /hpf Ur Squamous Epith Cells Moderate (Few) /hpf Urine Bacteria 3+ H /hpf Urine Casts 3-5 <Shilpa Valle MD - Last Filed: 09/19/24 12:23> Imaging Data Radiologist's impression: ITS Impressions Chest X-Ray 09/17/24 14:01 IMPRESSION: 1. No acute cardiopulmonary disease. <Evette Caro PA-C - Last Filed: 09/19/24 10:58> Critical Care Time Critical Care Time Critical Care Time: No <Evette Caro PA-C - Last Filed: 09/19/24 10:58> Discharge Plan Discharge Clinical Impression: Acute UTI, Weakness, Poor fluid intake <Evette Caro PA-C - Last Filed: 09/19/24 10:58> Patient Disposition: Still a Patient <Evette Caro PA-C - Last Filed: 09/19/24 10:58> Condition: Stable <Evette Caro PA-C - Last Filed: 09/19/24 10:58>
--- NOTE | 2024-09-17 13:02 | ECG_ITS ---
Test Date: 2024-09-17 13:20:48 Measurements Intervals Roff Rate: 92 P: 64 [place]: 152 QRS: 67 QRSD: 83 T: 44 QT: 348 QTc: 430 Interpretive Statements SINUS RHYTHM POSSIBLE LEFT ATRIAL ENLARGEMENT BASELINE ARTIFACT- I, II, III, AVR, AVL, V1-V2 BORDERLINE ECG Compared to ECG 09/05/2024 14:41:57 NO SIGNIFICANT CHANGE Electronically Signed On 09-17-2024 13:31:44 [employer] by John Rivera D.O.
[2024-09-17 13:41] LABS: Basophils Absolute Auto 0.1 K/mm3 (0.0-0.1); Basophils Percent Auto 1.2 % (0.2-1.2); Eosinophils Percent Auto 0.3 % (0-4.4); Hematocrit 34.4 % (37.0-47.0); Hemoglobin 11.2 g/dL (12.0-15.0); Immature Granulocyte Percent A 1.4 % (0-0.5); Lymphocytes Absolute Auto 2.81 K/mm3 (0.9-3.2); Lymphocytes Percent Auto 38.9 % (18.3-44.2); Mean Corpuscular HGB Conc 32.6 g/dl (32-36); Mean Corpuscular Hemoglobin 32.7 pg (26-34); Mean Corpuscular Volume 100.3 fl (80-100); Mean Platelet Volume 9.7 fl (7.4-10.4); Monocytes Absolute Auto 1.5 K/mm3 (0.1-0.6); Monocytes Percent Auto 20.2 % (2.6-8.5); Neutrophils Absolute Auto 2.8 K/mm3 (1.3-6.7); Platelet Count Result 280 k/mm3 (150-375); Red Blood Count 3.43 M/mm3 (4.2-5.4); Red Cell Distribution Width 14.4 % (11.5-14.5); White Blood Count 7.2 K/mm3 (4.5-10.0)
[2024-09-17 13:55] LABS: Lipase 151 U/L (23-300)
[2024-09-17 15:33] LABS: Add Urine Microscopic? YES; Appearance Urine Cloudy (Clear); Bacteria Urine 3+ /hpf; Bilirubin Urine 1+ (Negative); Blood Urine Negative (Negative); Color Urine Dark Yellow (Yellow); Glucose Urine UA Negative (Negative); Ketones Urine 1+ mg/dL (Negative); Leukocyte Esterase Ur 1+ LEU/UL (Negative); Need Manual Microscopic Reviewed; Nitrate Urine Negative (Negative); Protein Urine 2+ mg/dL (Negative); Specific Grav Ur 1.025 (1.001-1.035); Squamous Epithelial Cell Urine Moderate /hpf (Few); pH Urine 5.5 (5.0-9.0)
[2024-09-17 16:26] LABS: Alanine Aminotransferase 18 U/L (6-35); Albumin Level 4.7 g/dL (3.5-5.1); Alkaline Phosphatase 91 U/L (38-126); Anion Gap 10 mmol/L (4-12); Aspartate Amino Transferase 38 U/L (14-36); Bilirubin,Total 0.6 mg/dL (0.2-1.3); Blood Urea Nitrogen 19 mg/dL (7-17); Carbon Dioxide 25 mmol/L (22-30); Chloride 104 mmol/L (98-107); Estimated CRCL calculation 35 ml/min; Estimated Glomerular Filt Rate 60; Glucose 93 mg/dL (65-110); Potassium 4.1 mmol/L (3.4-5.0); Sodium 139 mmol/L (137-145)
[2024-09-17] MEDS: SODIUM CHLORIDE 0.9% IV 1,000 ML 999 ML IV CONT (16:56)
[2024-09-17] MEDS: ONDANSETRON INJ 4 MG/2 ML VIAL IV PUSH (16:56)
[2024-09-17] MEDS: MORPHINE SULFATE (*CRX) 4 MG/ML INJ IV PUSH (16:57)
[2024-09-17] MEDS: cefTRIAXone 2 GM/NS 100 ML 2 GM/100 ML BAG IVPB (17:03)
--- NOTE | 2024-09-17 19:28 | P.HP_ITS ---
H&P: HPI History of Present Illness Date/Time: 09/17/24 19:28 Chief Complaint: Weakness, Decreased Appetite Narrative: 79 y/o F presents here with weakness and decreased appetite with PMH of COPD, GERD, HLD, HTN, smoker, and diabetes. The patient presents here from home for further evaluation of generalized weakness, severe pain, and N/V. The patient underwent a anterior diskectomy C3- 4, anterior cervical arthrodesis C3-4 with i-factor, and anterior cervical interbody placement at C3-4 for cervical myelopathy on 09/10/24. She was able to be discharged home on 09/11 with instructions to follow-up with neurosurgery in 2-3 weeks and to take the oxycodone that was prescribed, once it was out to transition back to her home [place]. She reports taking one dose of the Oxycodone and had no relief, she self-transitioned back to her home [place] dose after that. Since then she reports since going home she has slowly been worsening and her appetite has been poor. Pain is most severe at the base of her skull and cervical spine. Due to the severity of her pain, she reports she has been noncompliant with her home medications since discharge and has only taken her pain medication. She denies dysuria, urinary frequency, fever, chills, or body aches. Denies any falls or trauma since surgery. Initial VS at presentation: 97.6? F HR 93, RR 21, 150/65, 98% on RA. ED workup showed: No leukocytosis, hemoglobin 11.2 (previously 9.7 on 09/05/24), creatinine 0.9 and GFR 60. UA suspicious for UTI. CXR showed no acute cardiopulmonary disease. EKG showed NSR, possible left atrial enlargement, and baseline artifact. Review of Systems Review of Systems: All systems reviewed & are unremarkable except as noted in HPI and below [facility] Past Medical History Medical History Arthritis Cervical myelopathy s/p cervical arthrodesis on 09/10/24 Chronic obstructive pulmonary disease Gastroesophageal reflux disease Hyperlipidemia Hypertension Lumbar stenosis without neurogenic claudication Spondylolisthesis, lumbar region Tobacco abuse Tobacco dependence Type 2 diabetes mellitus Surgical History Surgical History History of bladder suspension procedure History of cholecystectomy History of hysterectomy Status post cervical arthrodesis Family History Family History Other Cerebrovascular accident Family history of arthritis Family history of blood dyscrasia Family history of seizure disorder Social History Social History Social History: Surrogate medical decision maker: Rashmi Leger, daughter. Code status: Full code. Smoking packs per day: 0.5 Smoking cigarettes per day: 10.0 Years smoked: 69 Smoking pack-years: 34.50 Smoking status: Current every day smoker Tobacco type: cigarettes Second hand tobacco smoke exposure: Yes Alcohol intake: never Substance use: never Substance use type: does not use Do You Feel Safe in your Home?: Yes Lack of Transportation: No Lack of Food: Never True Current Housing: I Have Housing Concerned About Future Housing: No Difficulty Paying Gas/Electric Bills: No Difficulty Paying for Meds: No Currently Unemployed: No Education: Grade School Difficulty w/ Childcare or Family Care: No Living arrangements: with family Additional living arrangements comments: [facility] Spiritual care concerns: No Meds Home Medications and Allergies Home Medications Medication Instructions Recorded Confirmed Type albuterol sulfate 90 mcg/actuation 2 puff inhalation Q4-6H PRN 07/23/21 09/17/24 History aerosol inhaler Shortness Of Breath atenolol 25 mg tablet 25 mg PO HS 07/23/21 09/17/24 History atorvastatin 40 mg tablet 40 mg PO HS 07/23/21 09/17/24 History allopurinol 100 mg tablet 100 mg PO HS 11/20/22 09/17/24 History budesonide-formoterol HFA 160 2 inh inhalation BID 11/20/22 09/17/24 History mcg-4.5 mcg/actuation aerosol inhaler (Symbicort) hydrocodone 10 mg-acetaminophen 1 tablet PO Q8H PRN Pain 11/20/22 09/17/24 History 325 mg tablet pantoprazole 40 mg tablet,delayed 40 mg PO HS 11/20/22 09/17/24 History release pregabalin 150 mg capsule 150 mg PO TID 11/20/22 09/17/24 History tizanidine 4 mg tablet 4 mg PO Q6H PRN Muscle Spasm 11/20/22 09/17/24 History trazodone 150 mg tablet 150 mg PO HS 11/20/22 09/17/24 History albuterol sulfate 2.5 mg/3 mL 5 mg (6 mL) inhalation Q6HRT #75 mL 11/21/22 09/17/24 Rx (0.083 %) solution for nebulization azelastine 137 mcg (0.1 %) nasal 2 spray intranasal BID 09/02/24 09/17/24 History spray celecoxib 200 mg capsule 200 mg PO BID 09/02/24 09/17/24 History dulaglutide 3 mg/0.5 mL 3 mg subcut WEEKLY 09/02/24 09/17/24 History subcutaneous pen injector (Trulicity) furosemide 40 mg tablet 40 mg PO QAM 09/02/24 09/17/24 History hydroxychloroquine 200 mg tablet 400 mg PO DAILY 09/02/24 09/17/24 History magnesium oxide 400 mg PO DAILY 09/02/24 09/17/24 History omega 7-abt-coa-fish oil 1,000 mg 1 cap PO DAILY 09/02/24 09/17/24 History (120 mg-180 mg) capsule (Fish Oil) pediatric multivitamin 2 tablet PO DAILY 09/02/24 09/17/24 History potassium chloride 10 mEq 10 meq PO DAILY 09/02/24 09/17/24 History tablet,extended release vitamins A,C,U-etoq-njiddk 4,296 1 cap PO DAILY 09/02/24 09/17/24 History mcg-226 mg-90 mg capsule (PreserVision AREDS) cyclobenzaprine 10 mg tablet 10 mg PO TID PRN Muscle Spasms 10 09/10/24 09/17/24 Rx days #30 tabs ipratropium bromide 0.02 % 0.5 mg inhalation Q6HRT PRN 09/17/24 09/17/24 History solution for inhalation Shortness of Breath Allergies Allergy/AdvReac Type Severity Reaction Status Date / Time No Known Allergies Allergy Verified 09/17/24 21:19 Vital Signs Vital Signs - 24 hr 09/17/24 10:45 09/17/24 14:21 09/17/24 16:43 Temperature 97.6 F 97.5 F L Pulse Rate 93 97 81 Respiratory Rate 20 17 18 Blood Pressure 150/65 H 192/71 H 151/50 H Pulse Oximetry 98 100 99 Oxygen Delivery Room Air 09/17/24 18:16 Temperature Pulse Rate 85 Respiratory Rate 23 H Blood Pressure 142/66 H Pulse Oximetry 97 Oxygen Delivery Exam Narrative: anterior neck surgical incision is CDI, no erythema or echymosys, no active drainage. tenderess with palpation of c-spine. Const: General: comfortable and no acute distress Other: , female, nontoxic appearance HENMT: Face/Nose/Sinus: Normal nares present Mouth: Yes moist mucous membranes Eyes: General: appearance normal, both eyes and all related structures S clera: sclerae normal Pupils: Equal, round and reactive pupils present EOM: EOMs intact bilaterally Neck: Other: Postsurgical incision to air to her neck. Mild cervical tenderness without underlying deformity. Resp: Effort & Inspection: normal respiratory effort Auscultation: clear to auscultation bilaterally Cardio: Rate: regular rate Rhythm: regular rhythm Other: S1-S2 present without murmur, rub, ectopy GI: Other: Abdomen soft, nondistended, nontender Skin: General skin exam: normal color and no rashes or lesions noted Other: Postsurgical wound to anterior neck. CDI, no active drainage, no ecchymosis, no erythema. Neuro: Speech: normal speech Motor exam (neuro): 5/5 motor strength present throughout Sensory Exam: normal sensation Other: A&O x4 Extrem: General: normal to inspection Psych: Mental Status: mental status grossly normal Affect: normal affect Other: Good insight and judgment H&P: Results Labs Labs: Short CBC 09/17/24 Range/Units 13:21 WBC 7.2 (4.5-10.0) K/mm3 Hgb 11.2 L (12.0-15.0) g/dL Hct 34.4 L (37.0-47.0) % Plt Count 280 D (150-375) k/mm3 BMP 09/17/24 13:21 Sodium 139 Potassium 4.1 Chloride 104 Carbon Dioxide 25 BUN 19 H Creatinine 0.90 Glucose 93 Calcium 10.0 Liver Function 09/17/24 Range/Units 13:21 Total Bilirubin 0.6 (0.2-1.3) mg/dL AST 38 H (14-36) U/L ALT 18 (6-35) U/L Alkaline Phosphatase 91 (38-126) U/L Albumin 4.7 (3.5-5.1) g/dL Urine 09/17/24 Range/Units 14:54 Urine Color Dark yellow (Yellow) Urine Appearance Cloudy H (Clear) Urine pH 5.5 (5.0-9.0) Ur Specific [place] 1.025 (1.001-1.035) Urine Protein 2+ H (Negative) mg/dL Urine Glucose (UA) Negative (Negative) mg/dL Assessment and Plan Assessment and plan (1) Weakness: Code(s): R53.1 - Weakness Status: Acute Assessment and Plan: - CXR: No acute cardiopulmonary disease. - EKG, initial: NSR, rate 92, possible left atrial enlargement, and baseline artifact. - UA concerning for UTI - PT/OT eval and treat - suspect weakness is multifactorial: UTI and deconditioning secondary to pain/sedentary over the last week. PT/OT and abx. (2) UTI (urinary tract infection): Qualifiers: Hematuria presence: without hematuria Urinary tract infection type: acute cystitis Qualified Code(s): N30.00 - Acute cystitis without hematuria Code(s): N39.0 - Urinary tract infection, site not specified Status: Acute Assessment and Plan: - UA: Cloudy, 2+ protein, 1+ ketones, 1+ bilirubin disease, 1+ leuk esterase, 3-5 rbc's, 11-20 WBC, 3+ bacteria, moderate epithelial cells - UC pending - previous micro reviewed, none available - started on Ceftriaxone on 09/07 (3) Status post cervical arthrodesis: Code(s): Z98.1 - Arthrodesis status Status: Acute Assessment and Plan: - s/p cervical arthrodesis on 09/10 - follows with Alyssa PARKER, neurosurgery consulted - analgesics prn - PT/OT eval and treat (4) Type 2 diabetes mellitus: Qualifiers: Diabetes mellitus complication status: without complication Diabetes mellitus half-way insulin use: without intermediate designer use Qualified Code(s): E11.9 - Type 2 diabetes mellitus without complications Code(s): E11.9 - Type 2 diabetes mellitus without complications Status: Chronic Assessment and Plan: - hypoglycemia protocol - POC blood glucose ACHS - home medication: Hold Trulicity (NF), injection day on Sundays. - correct regimen ordered - low/high dose TIDWM - A1C 4.9% on 09/05/2024 (5) Hypertension: Qualifiers: Hypertension type: primary hypertension Qualified Code(s): I10 - Essential (primary) hypertension Code(s): I10 - Essential (primary) hypertension Status: Chronic Assessment and Plan: - chronic, currently 150/65 - continue home medications: Atenolol 25 mg HS, Lasix 40 mg daily - monitor Plan Diet: Heart healthy GI Prophylaxis: Not currently indicated DVT Prophylaxis: SCDs Lines: Peripheral Code Status: Full code Quality VTE Prophylaxis VTE prophylaxis: mechanical ordered Hospitalist MIPS Advance Care Plan I have confirmed that the patient's Advanced Care Plan is present, code status is documented, or surrogate decision maker is listed in patient medical record.: Yes Medication Reconciliation I have utilized all available resources to obtain, update and review the patients current medications (includes all prescriptions, OTC, herbals, cannabis, and nutritional supplements).: Yes
[2024-09-17] MEDS: MORPHINE SULFATE (*CRX) 2 MG/ML INJ IV PUSH (19:51)
[2024-09-17] MEDS: HYDROcodone/acetaminophen (*CRX) 10-325 MG TABLET 1 TAB PO (21:47)
[2024-09-17] MEDS: LACTATED RINGERS 1,000 ML 100 ML IV CONT (21:47)
[2024-09-18] VITALS (9 sets, daily range): BP systolic 113–125; BP diastolic 52–58; PULSE 80–91; RESP 16–20; TEMP 36.2–36.7; O2SAT 95–96; BMI 23.9
[2024-09-18] MEDS: ALBUTEROL SULFATE NEB 2.5 MG/3 ML INH 5 MG INHALATION ×3 (03:18→13:10)
[2024-09-18] MEDS: FLUTICASONE/SALMETEROL 115-21 MCG INHALER 1 PUFF 2 PUFF INHALATION (06:57)
[2024-09-18] MEDS: HYDROcodone/acetaminophen (*CRX) 10-325 MG TABLET 1 TAB PO ×2 (08:55→14:49)
[2024-09-18] MEDS: CYCLOBENZAPRINE HCL 10 MG TABLET PO (08:55)
[2024-09-18] MEDS: MAGNESIUM OXIDE 400 MG TABLET PO (08:56)
[2024-09-18] MEDS: FUROSEMIDE 40 MG TABLET PO (08:56)
[2024-09-18] MEDS: PREGABALIN (*CRX) 75 MG CAPSULE 150 MG PO ×2 (08:56→14:54)
[2024-09-18] MEDS: HYDROXYCHLOROQUINE SULFATE 200 MG TABLET 400 MG PO (08:56)
[2024-09-18] MEDS: OMEGA 3 POLYUNSAT FATTY ACIDS 1 GM CAP PO (08:56)
[2024-09-18] MEDS: OPTI-GEN TAB 1 TABLET PO (08:56)
[2024-09-18] MEDS: POTASSIUM CHLORIDE 10 MEQ ER TABLET PO (08:56)
[2024-09-18] MEDS: AZELASTINE HCL NASAL 0.1% 137 MCG/SPR 30 ML BTL 2 SPRAY NASAL (08:57)
[2024-09-18] MEDS: MULTIVITS W-FE,MIN CHEWABLE TABLET 2 TABLET PO (09:00)
[2024-09-18] MEDS: LACTATED RINGERS 1,000 ML 100 ML IV CONT (09:02)
--- NOTE | 2024-09-18 13:39 | P.CONNS_ITS ---
Assessment and Plan Assessment and plan (1) UTI (urinary tract infection): Qualifiers: Urinary tract infection type: acute cystitis Hematuria presence: without hematuria Qualified Code(s): N30.00 - Acute cystitis without hematuria Code(s): N39.0 - Urinary tract infection, site not specified Status: Acute (2) Status post cervical arthrodesis: Code(s): Z98.1 - Arthrodesis status Status: Acute Plan Ms. Joiner is a 79-year-old female who underwent ACDF C3-4 on September 10 for cervical myelopathy who was admitted yesterday with pain at the base of the neck, a UTI, and anorexia. Today she is feeling somewhat improved and has been able to eat and drink difficulty. Her incision appears to be healing well, I do not detect any new or focal neurologic deficits. I suspect that her symptoms are due to a combination of poor oral intake, difficulty with pain control due to chronic narcotic use, and not taking her home medications. We discussed that it is very normal to have pain at the base of the neck after this type of surgery, and while I do not want her pain to be excruciating, I also do not e xpect her to be pain-free at this time. We discussed that it can be more difficult to manage people's pain when they have been regularly taking narcotics prior to surgery. We discussed the importance of her taking her home medications as prescribed and that including the muscle relaxer I had prescribed at discharge could also be helpful for pain management. She can try ice or heat as well as OTC lidocaine patches. I would like to check an x-ray of her cervical spine to ensure there is no complication regarding her hardware. I would recommend physical therapy assessments to help mobilize her during her hospitalization. I had sent a prescription for Medrol Dosepak yesterday, but it may be helpful to have her on a short course of steroids in the hospital to help with her pain as well. Consult date: 09/18/24 HPI: Janet Joiner is a 79 year old female with history of chronic narcotic use who underwent ACDF C3-4 on September 10 for cervical myelopathy. She did very well after that surgery and was discharged home on postoperative day 1. She and her daughter state that, the way home from the hospital, she started to develop more pain at the base of her neck. Since leaving the hospital, she has had progressive pain in this area as well as headaches, to the point that she has not felt like eating or drinking. She developed some issues with phlegm in her throat that made it difficult to swallow, but this has since improved. Because of her pain, she has not been taking her normal home medications and also has not been very mobile. She presented to the hospital yesterday and was found to have a UTI. Today, she states that she is feeling somewhat better and has been able to eat and drink. She denies any significant difficulty with swallowing currently. She again expressed that she has been having significant pain at the base of her neck and headaches. She feels a sense of weakness when walking. She did start taking the [place] upon discharge home and said the oxycodone as she found this m ore helpful but was not taking any of her other normal medications. Review of Systems Review of Systems: All systems reviewed & are unremarkable except as noted in HPI and below PMFSH Past Medical History Medical History Arthritis Cervical myelopathy s/p cervical arthrodesis on 09/10/24 Chronic obstructive pulmonary disease Gastroesophageal reflux disease Hyperlipidemia Hypertension Lumbar stenosis without neurogenic claudication Spondylolisthesis, lumbar region Tobacco abuse Tobacco dependence Type 2 diabetes mellitus Surgical History Surgical History History of bladder suspension procedure History of cholecystectomy History of hysterectomy Status post cervical arthrodesis Family History Family History Other Cerebrovascular accident Family history of arthritis Family history of blood dyscrasia Family history of seizure disorder Social History Social History Social History: Surrogate medical decision maker: Rashmi Leger, daughter. Code status: Full code. Smoking packs per day: 0.5 Smoking cigarettes per day: 10.0 Years smoked: 69 Smoking pack-years: 34.50 Smoking status: Current every day smoker Tobacco type: cigarettes Second hand tobacco smoke exposure: Yes Alcohol intake: never Substance use: never Substance use type: does not use Do You Feel Safe in your Home?: Yes Lack of Transportation: No Lack of Food: Never True Current Housing: I Have Housing Concerned About Future Housing: No Difficulty Paying Gas/Electric Bills: No Difficulty Paying for Meds: No Currently Unemployed: No Education: Grade School Difficulty w/ Childcare or Family Care: No Living arrangements: with family Additional living arrangements comments: [facility] Spiritual care concerns: No Meds Home Medications and Allergies Home Medications Medication Instructions Recorded Confirmed Type albuterol sulfate 90 mcg/actuation 2 puff inhalation Q4-6H PRN 07/23/21 09/17/24 History aerosol inhaler Shortness Of Breath atenolol 25 mg tablet 25 mg PO HS 07/23/21 09/17/24 History atorvastatin 40 mg tablet 40 mg PO HS 07/23/21 09/17/24 History allopurinol 100 mg tablet 100 mg PO HS 11/20/22 09/17/24 History budesonide-formoterol HFA 160 2 inh inhalation BID 11/20/22 09/17/24 History mcg-4.5 mcg/actuation aerosol inhaler (Symbicort) hydrocodone 10 mg-acetaminophen 1 tablet PO Q8H PRN Pain 11/20/22 09/17/24 History 325 mg tablet pantoprazole 40 mg tablet,delayed 40 mg PO HS 11/20/22 09/17/24 History release pregabalin 150 mg capsule 150 mg PO TID 11/20/22 09/17/24 History tizanidine 4 mg tablet 4 mg PO Q6H PRN Muscle Spasm 11/20/22 09/17/24 History trazodone 150 mg tablet 150 mg PO HS 11/20/22 09/17/24 History albuterol sulfate 2.5 mg/3 mL 5 mg (6 mL) inhalation Q6HRT #75 mL 11/21/22 09/17/24 Rx (0.083 %) solution for nebulization azelastine 137 mcg (0.1 %) nasal 2 spray intranasal BID 09/02/24 09/17/24 History spray celecoxib 200 mg capsule 200 mg PO BID 09/02/24 09/17/24 History dulaglutide 3 mg/0.5 mL 3 mg subcut WEEKLY 09/02/24 09/17/24 History subcutaneous pen injector (Trulicity) furosemide 40 mg tablet 40 mg PO QAM 09/02/24 09/17/24 History hydroxychloroquine 200 mg tablet 400 mg PO DAILY 09/02/24 09/17/24 History magnesium oxide 400 mg PO DAILY 09/02/24 09/17/24 History omega 2-xky-eax-fish oil 1,000 mg 1 cap PO DAILY 09/02/24 09/17/24 History (120 mg-180 mg) capsule (Fish Oil) pediatric multivitamin 2 tablet PO DAILY 09/02/24 09/17/24 History potassium chloride 10 mEq 10 meq PO DAILY 09/02/24 09/17/24 History tablet,extended release vitamins A,C,E-fshk-zspyse 4,296 1 cap PO DAILY 09/02/24 09/17/24 History mcg-226 mg-90 mg capsule (PreserVision AREDS) cyclobenzaprine 10 mg tablet 10 mg PO TID PRN Muscle Spasms 10 09/10/24 09/17/24 Rx days #30 tabs ipratropium bromide 0.02 % 0.5 mg inhalation Q6HRT PRN 09/17/24 09/17/24 History solution for inhalation Shortness of Breath Allergies Allergy/AdvReac Type Severity Reaction Status Date / Time No Known Allergies Allergy Verified 09/17/24 21:19 Vital Signs Vital Signs - 24 hr 09/17/24 14:21 09/17/24 16:43 09/17/24 18:16 Temperature 97.5 F L Pulse Rate 97 81 85 Respiratory Rate 17 18 23 H Blood Pressure 192/71 H 151/50 H 142/66 H Pulse Oximetry 100 99 97 Oxygen Delivery Room Air 09/17/24 19:54 09/17/24 20:12 09/17/24 21:17 Temperature 97.6 F Pulse Rate 88 83 84 Respiratory Rate 16 12 16 Blood Pressure 150/61 H 150/61 H 139/65 Pulse Oximetry 97 97 98 Oxygen Delivery 09/18/24 03:19 09/18/24 03:25 09/18/24 06:00 Temperature 98.0 F Pulse Rate 84 81 91 Respiratory Rate 16 18 20 Blood Pressure 125/52 L Pulse Oximetry 96 Oxygen Delivery 09/18/24 06:55 09/18/24 06:55 09/18/24 07:05 Temperature Pulse Rate 81 81 83 Respiratory Rate 18 18 18 Blood Pressure Pulse Oximetry 96 Oxygen Delivery Room Air 09/18/24 13:10 09/18/24 13:20 09/17/24 21:35 Temperature 97.6 F Pulse Rate 85 84 84 Respiratory Rate 18 18 16 Blood Pressure 139/65 Pulse Oximetry 98 Oxygen Delivery Exam Narrative: Incision c/d/i with skin glue intact Unless otherwise stated above, the patient's physical exam is as follows: General: -Well developed and well nourished. No a cute distress. Cooperative with exam. Mental status: -Awake and oriented to person, place, an d time. Integumentary: -No obvious skin lesions or masses Motor: -Muscle tone normal without spasticity o f flaccidity. No atrophy. No fasci culations. -No pronator drift -Right upper extremity: deltoid 5/5, bic eps 5/5, triceps 5/5, wrist extensors 5/5, wrist flexors 5/5, intrinsics 5/5 -Left upper extremity: deltoid 5/5, adriana ps 5/5, triceps 5/5, wrist extensors 5/5, wrist flexors 5/5, intrinsics 5/5 -Right lower extremity: iliopsoas 5/5, q uadriceps 5/5, hamstrings 5/5, tibialis anterior 5/5, gastroc-soleus 5/5, EHL 5/5 -Left lower extremity: iliopsoas 5/5, qu adriceps 5/5, hamstrings 5/5, tibialis anterior 5/5, gastroc-soleus 5/5, EHL 5/5 Sensory: -Intact to light touch throughout -Normal proprioception throughout Results Labs 09/17/24 13:21 09/17/24 13:21 Labs: Short CBC 09/17/24 Range/Units 13:21 WBC 7.2 (4.5-10.0) K/mm3 Hgb 11.2 L (12.0-15.0) g/dL Hct 34.4 L (37.0-47.0) % Plt Count 280 D (150-375) k/mm3 BMP 09/17/24 13:21 Sodium 139 Potassium 4.1 Chloride 104 Carbon Dioxide 25 BUN 19 H Creatinine 0.90 Glucose 93 Calcium 10.0 Liver Function 09/17/24 Range/Units 13:21 Total Bilirubin 0.6 (0.2-1.3) mg/dL AST 38 H (14-36) U/L ALT 18 (6-35) U/L Alkaline Phosphatase 91 (38-126) U/L Albumin 4.7 (3.5-5.1) g/dL Urine 09/17/24 Range/Units 14:54 Urine Color Dark yellow (Yellow) Urine Appearance Cloudy H (Clear) Urine pH 5.5 (5.0-9.0) Ur Specific [place] 1.025 (1.001-1.035) Urine Protein 2+ H (Negative) mg/dL Urine Glucose (UA) Negative (Negative) mg/dL
[2024-09-18] MEDS: ACETAMINOPHEN 325 MG TABLET PO (14:49)
--- NOTE | 2024-09-18 16:08 | PM.IMPN ---
Progress Note: A&P Assessment and Plan (1) Weakness: Code(s): R53.1 - Weakness Status: Acute Assessment and Plan: - CXR: No acute cardiopulmonary disease. - EKG, initial: NSR, rate 92, possible left atrial enlargement, and baseline artifact. - UA concerning for UTI - PT/OT eval and treat - suspect weakness is multifactorial: UTI and deconditioning secondary to pain/sedentary over the last week. monitor urine culture (2) UTI (urinary tract infection): Qualifiers: Urinary tract infection type: acute cystitis Hematuria presence: without hematuria Qualified Code(s): N30.00 - Acute cystitis without hematuria Code(s): N39.0 - Urinary tract infection, site not specified Status: Acute Assessment and Plan: - UA: Cloudy, 2+ protein, 1+ ketones, 1+ bilirubin disease, 1+ leuk esterase, 3-5 rbc's, 11-20 WBC, 3+ bacteria, moderate epithelial cells - UC pending - started on Ceftriaxone on 09/07 (3) Status post cervical arthrodesis: Code(s): Z98.1 - Arthrodesis status Status: Acute Assessment and Plan: - s/p cervical arthrodesis on 09/10 - follows with Alyssa PARKER, neurosurgery consulted - analgesics prn - PT/OT eval and treat (4) Type 2 diabetes mellitus: Qualifiers: Diabetes mellitus ferry terminal agent insulin use: without senior care use Diabetes mellitus complication status: without complication Qualified Code(s): E11.9 - Type 2 diabetes mellitus without complications Code(s): E11.9 - Type 2 diabetes mellitus without complications Status: Chronic Assessment and Plan: - hypoglycemia protocol - POC blood glucose ACHS - home medication: Hold Trulicity (NF), injection day on Sundays. - correct regimen ordered - low/high dose TIDWM - A1C 4.9% on 09/05/2024 (5) Hypertension: Qualifiers: Hypertension type: primary hypertension Qualified Code(s): I10 - Essential (primary) hypertension Code(s): I10 - Essential (primary) hypertension Status: Chronic Assessment and Plan: - chronic, currently 150/65 - continue home medications: Atenolol 25 mg HS, Lasix 40 mg daily - monitor Plan FTT/protein energy malnutrition Patient noted loss of appetite and daughter noted that patient ahs not been eating the past week Dronabinol started and Dietitian consulted Headache patient complained of throbbing headache CT head ordered continue [place] PRN monitor Diet: Heart healthy GI Prophylaxis: Not currently indicated DVT Prophylaxis: Lovenox Lines: Peripheral Code Status: Full code Subjective Date/time seen: 09/18/24 16:08 Interval history: Patient was comfortable at bedside at the time of encounter this morning, denies any chest pain or SOB. However daughter noted she has not been eating well the past week and patient complained of loss of appetite. SHe also complained of headache. Review of Systems Review of Systems: All systems reviewed & are unremarkable except as noted in HPI and below Exam Narrative: anterior neck surgical incision is CDI, no erythema or echymosys, no active drainage. tenderess with palpation of c-spine. Const: General: comfortable and no acute distress Other: , female, nontoxic appearance HENMT: Face/Nose/Sinus: Normal nares present Mouth: Yes moist mucous membranes Eyes: General: appearance normal, both eyes and all related structures Sclera: sclerae normal Pupils: Equal, round and reactive pupils present EOM: EOMs intact bilaterally Neck: Other: Postsurgical incision to air to her neck. Mild cervical tenderness without underlying deformity. Resp: Effort & Inspection: normal respiratory effort Auscultation: clear to auscultation bilaterally Cardio: Rate: regular rate Rhythm: regular rhythm Other: S1-S2 present without murmur, rub, ectopy GI: Other: Abdomen soft, nondistended, nontender Skin: General skin exam: normal color and no rashes or lesions noted Other: Postsurgical wound to anterior neck. CDI, no active drainage, no ecchymosis, no erythema. Neuro: Cranial nerves: Yes Equal, round and reactive pupils present Speech: normal speech Motor exam (neuro): 5/5 motor strength present throughout Sensory Exam: normal sensation Other: A&O x4 Extrem: General: normal to inspection Psych: Mental Status: mental status grossly normal Affect: normal affect Other: Good insight and judgment Objective Data Vital Signs Vital Signs: Vital Signs - 24 hr 09/17/24 16:43 09/17/24 18:16 09/17/24 19:54 Temperature Pulse Rate 81 85 88 Respiratory Rate 18 23 H 16 Blood Pressure 151/50 H 142/66 H 150/61 H Pulse Oximetry 99 97 97 Oxygen Delivery 09/17/24 20:12 09/17/24 21:17 09/18/24 03:19 Temperature 97.6 F Pulse Rate 83 84 84 Respiratory Rate 12 16 16 Blood Pressure 150/61 H 139/65 Pulse Oximetry 97 98 Oxygen Delivery 09/18/24 03:25 09/18/24 06:00 09/18/24 06:55 Temperature 98.0 F Pulse Rate 81 91 81 Respiratory Rate 18 20 18 Blood Pressure 125/52 L Pulse Oximetry 96 96 Oxygen Delivery Room Air 09/18/24 06:55 09/18/24 07:05 09/18/24 13:10 Temperature Pulse Rate 81 83 85 Respiratory Rate 18 18 18 Blood Pressure Pulse Oximetry Oxygen Delivery 09/18/24 13:20 09/18/24 14:00 09/18/24 14:40 Temperature 97.1 F L Pulse Rate 84 80 Respiratory Rate 18 16 Blood Pressure 113/58 L Pulse Oximetry 95 Oxygen Delivery Room Air 09/18/24 08:00 09/17/24 21:35 Temperature 97.6 F Pulse Rate 80 84 Respiratory Rate 16 16 Blood Pressure 139/65 Pulse Oximetry 95 98 Oxygen Delivery Room Air Intake/Output Intake/Output: Intake & Output 09/15/24 09/16/24 09/17/24 09/18/24 23:59 23:59 23:59 23:59 Intake Total 1100 1630 Balance 1100 1630 Meds/Results Medications: Active Medications Generic Name Dose Route Start Last Admin Trade Name Freq PRN Reason Stop Dose Admin Acetaminophen 325 mg 09/17/24 19:33 09/18/24 14:49 Acetaminophen 325 Mg Tablet PO 325 mg Q6H PRN Administration Mild Pain (1-3) or Fever Hydrocodone Bitart/Acetaminophen 1 tab 09/17/24 19:33 09/18/24 14:49 Hydrocodone/Acetaminophen (*Crx) 10-325 Mg Tablet PO 1 tab Q6H PRN Administration Pain Rated 4-6 Albuterol 5 mg 09/18/24 02:00 09/18/24 13:10 Albuterol Sulfate Neb 2.5 Mg/3 Ml Inh INHALATION 5 mg Q6HRT ALICE Administration Albuterol 2 puff 09/18/24 00:41 Albuterol Sulfate (*Sp) Aerosol 1 Puff INHALATION Q4-6H PRN Shortness Of Breath Allopurinol 100 mg 09/18/24 21:00 Allopurinol 100 Mg Tablet PO HS ALICE Atenolol 25 mg 09/18/24 21:00 Atenolol 25 Mg Tablet PO HS ALICE Atorvastatin Calcium 40 mg 09/18/24 21:00 Atorvastatin 40 Mg Tablet PO HS ALICE Azelastine HCl 2 spray 09/18/24 09:00 09/18/24 08:57 Azelastine Hcl Nasal 0.1% 137 Mcg/Spr 30 Ml Btl NASAL 2 spray BID ALICE Administration Cyclobenzaprine HCl 10 mg 09/18/24 00:41 09/18/24 08:55 Cyclobenzaprine Hcl 10 Mg Tablet PO 10 mg TID PRN Administration Muscle Spasms Fish Oil 1 gm 09/18/24 09:00 09/18/24 08:56 [place] 3 Polyunsat Fatty Acids 1 Gm Cap PO 1 gm DAILY ALICE Administration Furosemide 40 mg 09/18/24 09:00 09/18/24 08:56 Furosemide 40 Mg Tablet PO 40 mg QAM ALICE Administration Hydroxychloroquine Sulfate 400 mg 09/18/24 09:00 09/18/24 08:56 Hydroxychloroquine Sulfate 200 Mg Tablet PO 400 mg DAILY ALICE Administration Lactated Ringer's 1,000 mls @ 100 mls/hr 09/17/24 20:30 09/18/24 09:02 Lr - Lactated Ringers Iv IV CONT 09/18/24 16:29 100 mls/hr .Q10H ALICE Administration Ceftriaxone Sodium 1 gm in 50 mls @ 100 mls/hr 09/18/24 17:00 Rocephin 1 Gm/Ns 50 Ml IVPB Q24H ALICE Ipratropium [place] 0.5 mg 09/18/24 00:41 Ipratropium Br 0.02% Inh Soln 0.5 Mg/2.5 Ml Vial INHALATION Q6HRT PRN Shortness of Breath Magnesium Oxide 400 mg 09/18/24 09:00 09/18/24 08:56 Magnesium Oxide 400 Mg Tablet PO 400 mg DAILY ALICE Administration Morphine Sulfate 2 mg 09/17/24 19:34 09/17/24 19:51 Morphine Sulfate (*Crx) 2 Mg/Ml Inj IV PUSH 2 mg Q4H PRN Administration Pain Rated 7-10 Multivitamins/Minerals 2 tablet 09/18/24 09:00 09/18/24 09:00 Multivits W-Fe,Min Chewable Tablet PO 2 tablet DAILY [facility] Administration Multivitamins/Minerals 1 tablet 09/18/24 09:00 09/18/24 08:56 Opti-Gen Tab PO 1 tablet QAM [facility] Administration Pantoprazole Sodium 40 mg 09/18/24 21:00 Pantoprazole [address] [facility] Potassium Chloride 10 meq 09/18/24 09:00 09/18/24 08:56 Potassium Chloride 10 Meq Er Tablet PO 10 meq DAILY ALICE Administration Pregabalin 150 mg 09/18/24 09:00 09/18/24 14:54 Pregabalin (*Crx) 75 Mg Capsule PO 150 mg TID [facility] Administration Fluticasone/Salmeterol 2 puff 09/18/24 08:00 09/18/24 06:57 Fluticasone/Salmeterol 115-21 Mcg Inhaler 1 Puff INHALATION 2 puff Q12HRT [facility] Administration Tizanidine HCl 4 mg 09/18/24 00:41 Tizanidine Hcl 4 Mg Tablet PO Q6H PRN Muscle Spasm Trazodone HCl 150 mg 09/18/24 21:00 Trazodone Hcl [address] [facility] Radiology Results: ITS Impressions Chest X-Ray 09/17/24 14:01 IMPRESSION: 1. No acute cardiopulmonary disease. Cervical Spine X-Ray 09/18/24 15:35 IMPRESSION: Anterior fixation hardware in good position at the level of C3/C4. Mild to moderate amount of prevertebral soft tissue swelling - to be expected postoperative day 8. No acute fracture is appreciated. Labs Labs: Laboratory Results - last 24 hr 09/17/24 13:21 Sodium 139 Potassium 4.1 Chloride 104 Carbon Dioxide 25 Anion Gap 10 BUN 19 H Creatinine 0.90 Estim Creat Clear Calc 35 Estimated GFR 60 Glucose 93 Calcium 10.0 Total Bilirubin 0.6 AST 38 H ALT 18 Alkaline Phosphatase 91 Total Protein 9.0 H Albumin 4.7 Quality VTE Prophylaxis VTE prophylaxis: mechanical ordered
--- NOTE | 2024-09-18 16:31 | PC.NURSE ---
Pt requesting to sign herself out AMA due to not receiving even a damn tylenol for pain. This RN administered hydrocodone/acetaminophen to pt twice during this shift at approximately [address] Bradshaw called and made aware. Pt was instructed on risks of leaving AMA and signed paper form.
== END 2024-09-18 16:25 | disposition left against medical advice (07) ==
LOC: ANHED 14:23 → ANH3MEDSUR 21:44
PROVIDERS: Admitting Provider Hospitalist; Emergency Provider Physician Assistant; PCP Physician Assistant; Visit Provider Internal Medicine
DX: N30.90 Cystitis, unspecified without hematuria (principal); R53.1 Weakness; R11.2 Nausea with vomiting, unspecified; Z98.1 Arthrodesis status; F17.210 Nicotine dependence, cigarettes, uncomplicated; R51.9 Headache, unspecified; R62.7 Adult failure to thrive; E46 Unspecified protein-calorie malnutrition; Z68.23 Body mass index [BMI] 23.0-23.9, adult; J44.9 Chronic obstructive pulmonary disease, unspecified; K21.9 Gastro-esophageal reflux disease without esophagitis; E78.5 Hyperlipidemia, unspecified; I10 Essential (primary) hypertension; E11.9 Type 2 diabetes mellitus without complications; M48.061 Spinal stenosis, lumbar region without neurogenic claudication; M43.16 Spondylolisthesis, lumbar region; Z79.85 Long-term (current) use of injectable non-insulin antidiabetic drugs; Z79.51 Long term (current) use of inhaled steroids; Z79.899 Other long term (current) drug therapy
CPT/HCPCS: 36415; 71046; 72040; 80053; 81001; 83690; 85025; 93005; 94640; 96361; 96365; 96375; 96376; 97161; 99285; A9270; G0378; G0379; J0696; J2270; J2405; J7030; J7120

== ENCOUNTER 2024-12-31 11:34 | Outpatient (CLI) | payer OTHER, SELFPAY ==
--- NOTE | ~2024-12-31 | XR_ITS ---
EXAMINATION: XR_[id number]_CR DATE: 12/31/2024 12:03 INDICATION: Arthrodesis status. TECHNIQUE: 3 views of cervical spine were obtained. COMPARISON: Cervical spine radiographs 09/18/2024 FINDINGS: There is 10 degrees levoscoliosis of cervicothoracic spine. There are changes of anterior f usion procedure at C3-C4 with interbody device and anterior plate and screws. Vertebral body heights are normal. Intervertebral disc heights are normal. There is multilevel severe facet joint osteoarthr itis. No central canal stenosis or prevertebral soft tissue swelling. IMPRESSION: 1. Anterior fusion procedure at C3-C4. 2. Multilevel severe cervical facet joint osteoarthritis. 3. Cervicothoracic levoscoliosis. Reviewed, dictated and finalized at location A. NET FINISHER
--- OUTSIDE RECORDS SUMMARY | 2024-12-31 13:31 | XMS_ITS | Patient Health Summary ---
Author Organization [facility] Address [address] [place] [address] Care Team Providers Care Mold Operator Name Role Phone Luz Maria Riggins MD Primary Care Provider [phone] Note from [facility],non-owned Affiliates and Associated Physician Practices is amultiple site organization consisting of ambulatory clinics and hospital sitesin [place], [place], [place] and [place]. This disclosure is being madepursuant to the Care Everywhere program and may not contain all information available regarding this patient. Last updated 18.[facility] Allergies No known active allergies Medications * Be aware that medications may not be up to date on this document. Alwaysverify current medications with the patient. * ASPIRIN LOW DOSE 81 MG(Started 04/08/2019) Take 81 mg by mouth once daily * atorvastatin (LIPITOR) 40 MG tablet(Started 04/08/2019) Take 40 mg by mouth once daily * tiZANidine (ZANAFLEX) 4 MG tablet(Started 05/03/2020) TAKE 1 TABLET BY MOUTH EVERY 6 HOURS NEEDED FOR MUSCLE SPASMS * traZODone (DESYREL) 150 MG tablet(Started 05/20/2020) trazodone 150 mg tablet TAKE ONE TABLET BY MOUTH EVERY NIGHT AT BEDTIME * atenolol (TENORMIN) 25 MG tablet(Started 02/08/2021) Take 25 mg by mouth once daily * metFORMIN (GLUCOPHAGE) 500 MG tablet(Started 02/28/2021) * nicotine (NICODERM CQ) 21 MG/24HR patch(Started 01/10/2021) Apply 1 patch to skin * pregabalin (LYRICA) 150 MG capsule(Started 01/28/2021) Take 150 mg by mouth 3 times daily * albuterol HFA (PROVENTIL;VENTOLIN;PROAIR) 108 (90 Base) MCG/ACT inhaler Inhale 2 puffs by mouth * pantoprazole EC (PROTONIX) 40 MG tablet(Started 05/30/2021) Take 40 mg by mouth once daily Active Problems Problem Noted Date Diagnosed Date 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 Chronic renal disease 12/29/2020 Fatigue 12/29/2020 Gastroesophageal reflux disease 12/29/2020 Knee pain 12/29/2020 Neuropathy 12/29/2020 Onychomycosis 12/29/2020 Pleuritic pain 12/29/2020 Diabetes mellitus 12/29/2020 Facet arthropathy 12/05/2018 Spinal stenosis at L4-L5 level 12/05/2018 Lymphocytosis 11/27/2018 Numbness and tingling in both hands 11/20/2018 COPD with acute bronchitis 12/20/2017 Diabetic peripheral neuropathy 12/20/2017 Hyperlipidemia 12/20/2017 Renal cyst 12/20/2017 Hip pain 02/28/2017 Chronic low back pain 02/01/2017 Midline cystocele Rectocele Perineocele Social History Tobacco Use Types Packs/Day Years Used Date Smoking Tobacco: Smoker, Current Status Unknown Cigarettes 1 50 Smokeless Tobacco: Never Alcohol Use Standard Drinks/Week Comments No 0 (1 standard drink = 0.6 oz pur e alcohol) Sex and Gender Information Value Date Recorded Sex Assigned at Not on file Gender Identity Not on file Sexual Orientation Not on file Last Filed Vital Signs Vital Sign Reading Time Taken Comments Blood Pressure 132/68 07/20/2021 1:14 PM CDT Pulse 76 02/22/2021 7:20 AM CDT Temperature 36.7 C (98.1 F) 02/22/2021 7:20 AM CDT Respiratory Rate 18 02/22/2021 7:20 AM CDT Oxygen Saturation 98% 02/22/2021 7:20 AM CDT Inhaled Oxygen Concentration - - Weight 81.6 kg (180 lb) 07/20/2021 1:14 PM CDT Height 157.5 cm (5' 2 ) 07/20/2021 1:14 PM CDT Body Mass Index 32.92 07/20/2021 1:14 PM CDT Procedures * FLOW CYTOMETRY BONE MARROW(Performed 02/14/2024) Performed for Abnormality of plasma protein, unspecified, Anemia, unspecified * BONE MARROW BIOPSY (STL)(Performed 02/14/2024) Performed for Illness, unspecified * CARDIAC RHYTHM STRIP ORDER(Performed 02/23/2021) * GLUCOSE - POINT OF CARE(Performed 02/22/2021) * GLUCOSE - POINT OF CARE(Performed 02/21/2021) * GLUCOSE - POINT OF CARE(Performed 02/21/2021) * GLUCOSE - POINT OF CARE(Performed 02/21/2021) * CBC W AUTO DIFFERENTIAL(Performed 02/21/2021) Performed for Midline cystocele, Lateral cystocele, Rectocele, Perineocele, Vaginal vault prolapse * BASIC METABOLIC PANEL (CALCIUM TOTAL)(Performed 02/21/2021) Performed for Midline cystocele, Lateral cystocele, Rectocele, Perineocele, Vaginal vault prolapse * ENDOTRACHEAL TUBE NOTE(Performed 02/21/2021) * COLPORRHAPHY ANTERIOR/POSTERIOR REPAIR(Performed 02/21/2021) Performed for Diagnosis unknown * FL CYSTOURETHROSCOPY(Performed 01/04/2021) Performed for Urge incontinence, Nocturia * CULTURE URINE COMPREHENSIVE(Performed 12/29/2020) Performed for Urge incontinence, Nocturia * FL INSERT NON-INDWELLING BLADDER(Performed 12/29/2020) Performed for Urge incontinence, Nocturia * URINALYSIS AUTO - POINT OF CARE (AMB) [facility](Performed 12/29/2020) Performed for Urge incontinence, Nocturia * XR KNEE RIGHT 4VW OR MORE(Performed 06/20/2016) Performed for Right knee pain, unspecified chronicity Results * FLOW CYTOMETRY BONE MARROW (02/14/2024 8:15 AM CDT) Case Report Flow Cytometry Case: [id number] Authorizing Provider: Emanuel De Oliveira MD Collected: 02/14/2024 08:15 AM Ordering Location: [facility] - Received: 02/14/2024 12:18 PM Pathology Lab Pathologist: Sydney Penn MD Specimen: Bone Marrow 02/14/2024 4:38 PM CDT [facility] Final Diagnosis Bone marrow, flow cytometric immunophenotypic analysis: - No evidence of a monoclonal B-cell population, high-grade myeloid neoplasm, or plasma cell dyscrasia - See interpretation 02/14/2024 4:38 PM [facility] Flow Cytometry Interpretation Viability: 92% B-cells: polytypic, kappa:lambda ratio 1.3:1 Blasts: 0.5% of events Plasma cells: polytypic, kappa:lambda ratio 2.3:1, 0.1% of events A bone marrow aspirate smear prepared from the flow cytometry specimen has been reviewed for quality nurse purposes. 02/14/2024 4:38 PM [facility] Flow Cytometry Results Differential Result Comment Flow Cell Count /uL 65,500 Total Viability % 92.0 Lymphocytes % 5 Dim CD45 Region % 2 Monocytes % 16 Granulocytes % 77 02/14/2024 4:38 PM [facility] Reason for test Abnormality of plasma protein, unspecified Anemia, unspecified 285.9 02/14/2024 4:38 PM [facility] Client Specimen ID # [id number] 02/14/2024 4:38 PM [facility] Number of markers 14 were performed. A-2 Flow CD10 A-3 Flow CD13 A-5 Flow CD20 A-13 Flow CD117 A-14 FLOW CD138 A-1 Flow CD5 A-4 Flow CD19 A-6 Flow CD33 A-7 Flow CD34 A-8 Flow CD45 A-11 Flow CD38 A-12 Flow CD56 A-9 Rosholt+CD19+ A-10 Lambda+CD19+ A-15 cyKappa+CD138+ A-16 cyLambda+CD138 02/14/2024 4:38 PM [facility] Pathologist Location at [facility] 02/14/2024 4:38 PM [facility] Disclaimer Test performed at [facility], [address] [place] [address], [address]. *The established laboratory minimum viability is 70%. Values below the minimum may result in the failure to find an abnormal population of cells. This test was developed and its performance characteristics determined by the Flow Cytometry Laboratory. It has not been cleared by the [place] Food and Drug Administration (FDA). The FDA has determined that such clearance or approval is not necessary. This test is used for clinical purposes. It should not be regarded as investigational or for research. This laboratory is regulated under the Clinical Laboratory Improvement Amendments of 1998 (CLIA) as a qualified to perform high complexity clinical testing. 02/14/2024 4:38 PM CDT [facility] Embedded Images 4:38 PM CDT [facility] Pathology/Cytolo gy BONE MARROW SPECIMEN / Unknown 02/14/2024 8:15 AM CDT 02/14/2024 12:18 PM CDT Emanuel De Oliveira MD LAB - PATHOLOGY/CYTO LOGY ORDERABLES Performing Organization Address City/State/[facility] Co de Phone Number [facility] [address] [phone] * BONE MARROW BIOPSY (STL) (02/14/2024 8:14 AM CDT) Case Report Bone Marrow Patholog y Report Case: [id number] Authorizing Provider: Emanuel De Oliveira MD Collected: 02/14/2024 08:14 AM Ordering Location: [facility] - Received: 02/15/2024 02:55 PM Pathology Lab Pathologist: Sydney Penn MD Specimens: A) - Bone Marrow Core B) - Bone Marrow Clot 02/18/2024 9:30 AM CDT [facility] Final Diagnosis Bone marrow, aspirate, clot section, and core biopsy: - Hypercellular marrow with maturing trilineage hematopoiesis - No evidence of lymphoma, high-grade myeloid neoplasm, or plasma cell dyscrasia - See description Peripheral blood smear: - Macrocytic anemia - See description 02/18/2024 9:30 AM CDT [facility] Comment Overall, the bone marrow specimen is hypercellular for age with maturing trilineage hematopoiesis and no evidence of lymphoma, a high-grade myeloid neoplasm, significant dyspoiesis, or plasma cell dyscrasia. Correlation with clinical findings and relevant cytogenetic/molecular testing is required. 02/18/2024 9:30 AM [facility] Peripheral Smear Description CBC Data: WBC - 7.36, Hgb - 11.3, MCV - 96.5, MCHC - 33.8, and Platelets - 224. Manual Differential Count (100 cells): 40% neutrophils, 48% lymphocytes, and 12% monocytes. Leukocyte number: normal. Granulocyte morphology: normal. Lymphocyte morphology: normal. Erythrocyte number: decreased. Erythrocyte morphology: macrocytic. Anisopoikilocytosis: mild. Polychromasia: mild. Platelet number: normal. Platelet morphology: normal. 02/18/2024 9:30 AM [facility] Bone Marrow Aspirate Differential count (200 cells): 0.5% blasts, 63% maturing myeloid precursors, 32% erythroid progenitors, 0.5% monocytes, and 4% lymphocytes. Specimen quality: adequate. Spicules: present. Trilineage Hematopoiesis: present. Myeloid:Erythroid ratio: 2:1. Myeloid Maturation: normal. Erythroid Maturation: normal. Megakaryocyte morphology: normal nuclear lobation. Storage iron (by special stain): focal. Sideroblastic iron (by special stain): no ring sideroblasts. Control is appropriately reactive. 02/18/2024 9:30 AM [facility] Bone Marrow Core Biopsy and Clot Section Description Specimen quality: The decalcified bone marrow core biopsy is short with ~0.7 cm of evaluable marrow. Cellularity: hypercellular, ~60%. Trilineage Hematopoiesis: present. Myeloid to Erythroid ratio: normal. Myeloid maturation and localization: normal. Erythroid maturation and localization: normal. Megakaryocyte number: normal. Megakaryocyte distribution: small, loose clusters. Lymphoid aggregates: absent. Plasma cells: normal. Reticulin special stain shows no increase in marrow fibrosis (MF-0). Core biopsy iron (by special stain): focal. Clot section marrow particles: present, few/small. Clot section morphology: similar to core biopsy. Clot section iron (by special stain): absent, but limited particles present. To further assess the plasma cells given the patient's reported serum monoclonal protein, immunohistochemistry is performed on the core biopsy. All controls are appropriately reactive. CD138 shows that plasma cells are normally distributed and are not increased, comprising less than 5% of the marrow cellularity. Rosholt and lambda show a mix of expression with no demonstrable monoclonality. 02/18/2024 9:30 AM [facility] Flow Cytometry Summary Concurrent flow cytometry ([id number]) shows no evidence of a monoclonal B-cell population, high-grade myeloid neoplasm, or plasma cell dyscrasia. 02/18/2024 9:30 AM [facility] Clinical History 78 year old woman with anemia, exclude MDS. 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 02/18/2024 9:30 AM [facility] Materials Received Received are 20 slides and 2 blocks labeled [id number] along with a copy of the outside pathology report. The materials originate from [facility], [address] [place] [address]. All original materials are returned to the referring institution, along with a copy of our final report. 02/18/2024 9:30 AM [facility] Pathologist Location at [facility] 02/18/2024 9:30 AM [facility] Disclaimer The performance characteristics of all immunohistochemical and indirect immunofluorescence stains (if any) cited in this report were determined by the [facility] of [facility]. Some of these tests were developed by our own laboratory and have not been cleared or approved by the US Food and Drug Administration. The FDA does not require this test to go through premarket FDA review. These tests are used for clinical purposes. They should not be regarded as investigational or for research. This laboratory is certified under the Clinical Laboratory Improvement Amendments (CLIA) as qualified to perform high complexity clinical laboratory testing. This case has been personally reviewed and interpreted by the attending (teaching) pathologist. 02/18/2024 9:30 AM [facility] Embedded Images 02/18/2024 9:30 AM [facility] Pathology/Cytology BONE MARROW CLOT SPECIMEN / Unknown 02/14/2024 8:14 AM CDT 02/15/2024 2:55 PM CDT Miscellaneous samples (specimen) BONE MARROW CLOT SPECIMEN / Unknown 02/14/2024 8:14 AM CDT 02/15/2024 2:55 PM CDT Emanuel De Oliveira MD LAB - PATHOLOGY/CYTO LOGY ORDERABLES [facility] [address] [phone] * CARDIAC RHYTHM STRIP ORDER (02/23/2021 11:46 PM CDT) Narrative 02/23/2021 11:46 PM CDT Ordered by an unspecified provider. Scanned Document CARDIAC SERVICES ORD ERABLES * GLUCOSE - POINT OF CARE (02/22/2021 7:26 AM CDT) Only the most recent of4 resultswithin the time period is included. [facility] Glucose WB/POC 102 70 - 106 mg/dL 02/22/2021 7:36 AM CDT [facility] Specimen Type Arterial/C apillary 02/22/2021 7:36 AM CDT [facility] Blood BLOOD SPECIMEN / Unknown 02/22/2021 7:26 AM CDT 02/22/2021 7:36 AM CDT Rama Felix MD LAB - POINT OF CARE ORDERABLES Performing Organization Address [facility]/ZIP Co de Phone Number [facility] [address] [place] [address] * (ABNORMAL) CBC W AUTO DIFFERENTIAL (02/21/2021 12:57 PM CDT) [facility] WBC 8.1 4.4 - 10.7 x10E9/L 02/21/2021 1:16 PM CDT [facility] WBC Corrected 02/21/2021 1:16 PM CDT [facility] RBC 4.26 3.80 - 5.20 x10E12/L 02/21/2021 1:16 PM CDT [facility] Hemoglobin 12.9 12.0 - 15.6 gm/dL 02/21/2021 1:16 PM CDT [facility] Hematocrit 40.3 35.9 - 45.5 % 02/21/2021 1:16 PM CDT [facility] MCV 94.6 80.7 - 98.3 fl 02/21/2021 1:16 PM CDT [facility] MCH 30.3 26.7 - 34.0 pg 02/21/2021 1:16 PM CDT [facility] MCHC 32.0 30.8 - 35.9 gm/dL 02/21/2021 1:16 PM CDT [facility] Platelet Count 247 153 - 416 x10E9/L 02/21/2021 1:[facility] RDW-CV 14.6 12.1 - 14.9 % 02/21/2021 1:16 PM T [facility] MPV 9.8 9.4 - 12.9 fl 02/21/2021 1:16 [facility] Neutrophils % 79.3(H) 44.0 - 73.0 % 02/21/2021 1:[address] [facility] Lymphocytes % 17.8(L) 20.0 - 43.0 % 02/21/2021 1:[address] [facility] Monocytes % 1.7(L) 5.0 - 13.0 % 02/21/2021 1:[address] [facility] Eosinophils % 0.2 0.0 - 6.0 % 02/21/2021 1:[address] [facility] Basophils % 0.6 0.0 - 2.0 % 02/21/2021 1:[address] [facility] Immature Granulocytes 0.4 0 - 1 % 02/21/2021 1:16 PM [facility] Neutrophil Absolute 6.43 2.01 - 7.14 x10E9/L 02/21/2021 1:[address] [facility] Lymphocytes Absolute 1.44 1.07 - 3.94 x10E9/L 02/21/2021 1:[address] [facility] Monocytes Absolute 0.14(L) 0.26 - 1.07 x10E9/L 02/21/2021 1:16 PM CDT [facility] Eosinophils Absolute 0.02 0 - 0.47 x10E9/L 02/21/2021 1:16 PM CDT [facility] Basophils Absolute 0.05 0 - 0.08 x10E9/L 02/21/2021 1:16 PM CDT [facility] Immature Granulocytes Absolute 0.03 0.00 - 0.06 x10E9/L 02/21/2021 1:16 PM CDT [facility] nRBC Auto 0 /100 WBC 02/21/2021 1:16 PM CDT [facility] Blood BLOOD SPECIMEN / Unknown Lab Venipuncture / Unknown 02/21/2021 12:57 PM CDT 02/21/2021 1:12 PM CDT Rama Felix MD LAB - HEMATOLOGY ORD ERABLES [facility] [address] [place] [address] * (ABNORMAL) BASIC METABOLIC PANEL (CALCIUM TOTAL) (02/21/2021 12:57 PM CDT) Glucose 135(H) 70 - 105 mg/dL 02/21/2021 1:37 PM CDT [facility] Sodium 140 136 - 145 mmol/L 02/21/2021 1:37 PM CDT [facility] Potassium 4.1 3.5 - 5.1 mmol/L 02/21/2021 1:37 PM CDT [facility] Chloride 106 98 - 107 mmol/L 02/21/2021 1:37 PM CDT [facility] CO2 23 23 - 31 mmol/L 02/21/2021 1:37 PM CDT [facility] Calcium 9.1 8.4 - 10.4 mg/dL 02/21/2021 1:37 PM CDT [facility] Anion Gap 11 8 - 18 mmol/L 02/21/2021 1:37 PM CDT [facility] Comment:Attention clinician: Reference Range change. BUN 16 9.8 - 20.1 mg/dL 02/21/2021 1:37 PM CDT [facility] Creatinine 1.08 0.57 - 1.11 mg/dL 02/21/2021 1:37 PM CDT [facility] eGFR by MDRD 49 mL/min/1.7 3m2 02/21/2021 1:37 PM CDT [facility] eGFR by MDRD 60 mL/min/1.7 3m2 02/21/2021 1:37 PM CDT [facility] Blood BLOOD SPECIMEN / Unknown Lab Venipuncture / Unknown 02/21/2021 12:57 PM CDT 02/21/2021 1:12 PM CDT Rama Felix MD LAB - CHEMISTRY [facility] [address] [place] [address] * ETT LINE PERFORMABLE (02/21/2021 9:11 AM CDT) Narrative Ivan Mott APRN-CRNA - 02/21/2021 9:11 AM CDT Ivan Mott APRN-CRNA 02/21/2021 9:12 AM Endotracheal Tube Placement: Patient Location: OR. Intubation Event Date/Time: 02/21/2021 9:02 AM Procedure: intubation ([id number]). Procedure Section: Sedation: IV sedation. Indications for Airway Management: airway protection Induction: standard IV Patient Position: sniffing and supine Mask Ventilation: easy. Blade Type: Thomas Blade Size: 4 Laryngoscopy View: grade 1 (full cords) Intubation Adjuncts: stylet Tube: endotracheal tube Placement: oral Tube type: cuff - inflated Tube Size (MM): 7 Depth of Insertion (CM): 20 Measured From: gums Cuff volume (mL): 6 Cuff Inflated With: air Number of Attempts: 1. Placement Verified By: direct visualization, bilateral breath sounds, chest auscultation, CO2 monitor and CO2 detector Tube secured with: adhesive tape. Dentition unchanged? Yes Difficult Airway? No. Procedure Start Time: 02/21/2021 9:02 AM. Staff Section Anesthesia Provider: Ivan Mott APRN-CRNA, Performed the procedure Provider #1: Raji Win MD. Additional Comments: Teeth, oral tissue and gums in same condition as prior to intubation. . Raji Win MD GENERAL ANESTHESIA ORDERABLES * FL CYSTOURETHROSCOPY (01/04/2021 1:24 PM CONTENT STRATEGIST) Narrative Rama Felix Che, MD - 01/04/2021 1:24 PM CONTENT STRATEGIST Rama Felix Che, MD 01/04/2021 1:25 PM Cystoscopy Procedure Note Indications: frequency and urgency Procedure Details: The patient was counseled about the procedure including risks, benefits, alternatives, and given a detailed description of what to expect. Cystoscopy was performed with a rigid 70 degree cystoscopy with a 17F sheath under aseptic conditions. The urethra was cleaned with Betadine solution (unless she was allergic to topical iodine when hibiclens was used). A careful examination of all quadrants was performed in a systematic fashion. The patient tolerated the procedure well and was allowed to watch the examination on a video monitor. Urethral visualization was also done. Findings: She was found to have trabeculations and bladder diverticula bilaterally. Efflux was noted from the both ureteral orifice. Squamous metaplasia was noted. No stones or other lesions. Condition: Good Complications: None Rama Felix MD PROCEDURE/MINOR SURG ICAL ORDERABLES * CULTURE URINE COMPREHENSIVE (12/29/2020 12:00 PM CONTENT STRATEGIST) Culture [facility] Comment: CULTURE, URINE, SPECIAL Micro Number: [id number] Test Status: Final Specimen Source: URINE, CATHETER Specimen Quality: Adequate Result: No Growth Test Performed at: [facility] [id number] [place] [address] MARCO ANTONIO KUMAR DO,MPH Microbiology URINE SPECIMEN COLLECTION, CATHETERIZED / Unknown 12/29/2020 12:00 PM CONTENT STRATEGIST 12/29/2020 12:48 PM CONTENT STRATEGIST Rama Felix MD LAB - MICROBIOLOGY O RDERABLES [facility] [address] [place] [address] * FL INSERT NON-INDWELLING BLADDER (12/29/2020 11:42 AM CONTENT STRATEGIST) Narrative Rama Felix Che, MD - 12/29/2020 11:42 AM CONTENT STRATEGIST Rama Felix Che, MD 12/29/2020 11:42 AM The patient was prepped with betadine (or with hibiclens or other antiseptic agent if allergic to topical iodine). She understood the rationale for the procedure and agreed to the procedure. A 14F short female catheter was then advanced into the urethra and urine was collected for bedside urinalysis as well as a urine culture and/or formal urinalysis as needed. The post void residual is as noted in the progress note, as are results of the dipstick taken. The patient tolerated the procedure well. Rama Felix MD PROCEDURE/MINOR SURG ICAL ORDERABLES * URINALYSIS AUTO - POINT OF CARE (AMB) [facility] (12/29/2020) Glucose UA neg Bilirubin UA POCT neg Ketones UA POCT neg Specific [place] UA 1.015 Blood Urine POCT neg pH UA 6.0 Protein UA neg Urobilinogen UA 0.2 Nitrite UA neg WBC UA neg Urine URINE / Unknown 12/29/2020 Rama Felix MD LAB - POINT OF CARE ORDERABLES * XR KNEE 4+ VW RIGHT (06/20/2016 9:13 AM CDT) Anatomical Region Laterality Modality Lower Extremity Radiographic Kiah ging 06/20/2016 10:3 4 AM CDT Impressions 06/20/2016 10:35 AM CDT Patellar spur. Narrative 06/20/2016 10:35 AM CDT Right knee 4 views. HISTORY: Knee pain. 4 views knee show well-maintained joint space. There is no fracture lytic or blastic lesion. Minimal spurring seen on the patella. Procedure Note Eliseo Castillo MD - 06/20/2016 Right knee 4 views. HISTORY: Knee pain. 4 views knee show well-maintained joint space. There is no fracture lytic or blastic lesion. Minimal spurring seen on the patella. IMPRESSION Patellar spur. Boyd Roberson MD DIAGNOSTIC IMAGING O [facility] Care Teams Mold Operator Relationship Specialty Start Date End Date Luz Maria Riggins MD PCP - General 12/29/20
--- OUTSIDE RECORDS SUMMARY | 2024-12-31 13:31 | XMS_ITS | Referral Summary ---
Author Organization [facility] Address [address] [place] [address] Care Team Providers Care Machinery Erector Name Role Phone Luz Maria Riggins MD Primary Care Provider [phone] Source Comments [facility],non-owned Affiliates and Associated Physician Practices is amultiple site organization consisting of ambulatory clinics and hospital sitesin [place], [place], [place] and [place]. This disclosure is being madepursuant to the Care Everywhere program and may not contain all information available regarding this patient. Last updated 18.[facility] Allergies No known active allergies Medications * Be aware that medications may not be up to date on this document. Alwaysverify current medications with the patient. Medication Sig Dispensed Refills Start Date End Date Status ASPIRIN LOW DOSE 81 MG Take 81 mg by mouth once daily 04/08/2019 Active atorvastatin (LIPITOR) 40 MG tablet Take 40 mg by mouth once daily 04/08/2019 Active tiZANidine (ZANAFLEX) 4 MG tablet TAKE 1 TABLET BY MOUTH EVERY 6 HOURS NEEDED FOR MUSCLE SPASMS 05/03/2020 Active traZODone (DESYREL) 150 MG tablet trazodone 150 mg tablet TAKE ONE TABLET BY MOUTH EVERY NIGHT AT BEDTIME 05/20/2020 Active atenolol (TENORMIN) 25 MG tablet Take 25 mg by mouth once daily 02/08/2021 Active metFORMIN (GLUCOPHAGE) 500 MG tablet 02/28/2021 Active nicotine (NICODERM CQ) 21 MG/24HR patch Apply 1 patch to skin 01/10/2021 Active pregabalin (LYRICA) 150 MG capsule Take 150 mg by mouth 3 times daily 01/28/2021 Active albuterol HFA (PROVENTIL;VENTOLIN;P ROAIR) 108 (90 Base) MCG/ACT inhaler Inhale 2 puffs by mouth Active pantoprazole EC (PROTONIX) 40 MG tablet Take 40 mg by mouth once daily 05/30/2021 Active Active Problems Problem Noted Date Diagnosed Date [...] Mass Index 32.92 07/20/2021 1:14 PM CDT Functional Status Functional Status Response Date of Assess ment Is person deaf or have serious hearing difficult y? No 02/22/2021 Is person blind or have serious difficulty seein g? No 02/22/2021 Does person have serious dif ficulty walking/climbing stairs? No 02/22/2021 Does person have difficulty dressing/bathing? No 02/22/2021 Does person have difficulty doing errands alone? No 02/22/2021 Cognitive Status Response Date of Assessm ent Does person have difficulty concentrating/remembering/making decisions? No 02/22/2021 Plan of Treatment Not on file Procedures Procedure Name Priority Date/Time Associated Diagnosis Comments BASIC METABOLIC PANEL (CALCIUM TOTAL) STAT 02/21/2021 12:57 PM CDT Midline cystocele Lateral cystocele Rectocele Perineocele Vaginal vault prolapse from Last 3 Months or Most Recently Relevant to Health Maintenance Results * (ABNORMAL) BASIC METABOLIC PANEL (CALCIUM TOTAL) (02/21/2021 12:57 PM CDT) Glucose 135(H) 70 - 105 mg/dL 02/21/2021 1:37 PM CDT [facility] Sodium 140 136 - 145 mmol/L 02/21/2021 1:37 PM CDT [facility] Potassium 4.1 3.5 - 5.1 mmol/L 02/21/2021 1:37 PM CDT [facility] Chloride 106 98 - 107 mmol/L 02/21/2021 1:37 PM CDT [facility] CO2 23 23 - 31 mmol/L 02/21/2021 1:37 PM CDT [facility] Calcium 9.1 8.4 - 10.4 mg/dL 02/21/2021 1:37 PM CDT [facility] Anion Gap 11 8 - 18 mmol/L 02/21/2021 1:37 PM CDT [facility] Comment:Attention clinician: Reference Range change. BUN 16 9.8 - 20.1 mg/dL 02/21/2021 1:37 PM CDT [facility] Creatinine 1.08 0.57 - 1.11 mg/dL 02/21/2021 1:37 PM CDT [facility] eGFR by MDRD 49 mL/min/1.7 3m2 02/21/2021 1:37 PM CDT [facility] eGFR by MDRD 60 mL/min/1.7 3m2 02/21/2021 1:37 PM CDT [facility] Blood BLOOD SPECIMEN / Unknown Lab Venipuncture / Unknown 02/21/2021 12:57 PM CDT 02/21/2021 1:12 PM CDT [facility] Kay Felix MD LAB - CHEMISTRY MIL SIDHU [facility] Organization Address City/State/ZIP Co de Phone Number [facility] [address] [place] [address] from Last 3 Months or Most Recently Relevant to Health Maintenance Care Teams Machinery Erector Relationship Specialty Start Date End Date Luz Maria Riggins MD PCP - General 12/29/20
--- OUTSIDE RECORDS SUMMARY | 2024-12-31 13:31 | XMS_ITS | Encounter Summary ---
Author Organization [facility] Address [address] [facility] [place] [address] Phone Care Team Providers Care Vehicle Safety Inspector Name Role Phone Dav Barillas MD Unavailable [phone] Reggie Lazar MD Unavailable [phone] Angie Egan [facility] Primary Care Provider + Alvarez Rivera MD Unavailable Bunny Cruz MD Unavailable [phone] Reason for Visit * Reason Comments Medication Refill Encounter Details Date Type Department Care Team (Late st Contact Info) Description 06/04/[address] [facility] - Family Medicine [facility] [address] [place] [address] Luz Maria Riggins MD [address] [place] [address] Medication Refill Social History Tobacco Use Types Packs/Day Years Used Date Smoking Tobacco: Some Days Cigarettes 0.5 69.6 Started: 05/25/1955 Smokeless Tobacco: Never Alcohol Use Standard Drinks/Week Comments No 0 (1 standard drink = 0.6 oz pur e alcohol) PHQ-2 Answer Date Recorded Total Score - Questions 1-9 0 07/07 Sexually Active Control Partners Comments Not Currently Male Comments No Sex and Gender Information Value Date Recorded Sex Assigned at Not on file Legal Sex Female 12:07 PM CDT Gender Identity Not on file Sexual Orientation Not on file COVID-19 Exposure Response Date Recorded In the last 10 days, have yo u been in contact with someone who was confirmed or suspected to have Coronavirus/COVID-19? No / Unsure 05/24/2022 1:39 PM CDT documented as of this encounter Miscellaneous Notes * Telephone Encounter - Sofía Joe RN - 06/05/2022 1:00 PM CDT Medication failed the protocol, provider to review and approve the medication order if appropriate. Requested Prescriptions Pending Prescriptions Disp Refills pregabalin (LYRICA) 150 MG Capsule [Pharmacy Med Name: PREGABALIN 150MG CAPSULES] 90 Capsule 0 Sig: TAKE 1 CAPSULE BY MOUTH THREE TIMES DAILY Not Delegated - Anticonvulsants Excluding Benzodiazepines Protocol Failed - 06/04/2022 10:05 AM Failed - This refill cannot be delegated Passed - Visit with relevant provider in past 12 months or upcoming 90 days Recent Visits Date Type Provider Dept 05/23/22 Office Visit Angie Egan, PAC [facility] 03/20/22 Office Visit Angie Egan, PAC [facility] 03/14/22 Office Visit Angie Egan, PAC [facility] 12/13/21 Office Visit Angie Egan, PAC [facility] 09/13/21 Office Visit Angie Egan, PAC [facility] 08/19/21 Office Visit Angie Egan, PAC [facility] 07/29/21 Office Visit Angie Egan, PAC [facility] Showing recent visits within past 365 days and meeting all other requirements Future Appointments No visits were found meeting these conditions. Showing future appointments within next 90 days and meeting all other requirements documented in this encounter Plan of Treatment Upcoming Encounters Date Type Department Care Team (Late st Contact Info) Description 03/24/2025 10:30 AM CDT Office Visit [facility] - Family Medicine - [address] [place] [address] Angie Egan PAC [address] [place] [address] documented as of this encounter Visit Diagnoses Diagnosis Neuropathy Mononeuritis of unspecified site documented in this encounter Additional Health Concerns Infection Onset Date Last Indicated Resolved Time COVID - 19 Confirmed 05/24/2022 05/24/2022 022 12:16 AM CDT COVID - 19 03/08/2023 03/08/2023 03/18/2023 12:1 6 AM CDT Assessment Noted Time PHQ-9 Depression Total Score: 0 07/29/20 11:00 AM CDT documented as of this encounter Care Teams Vehicle Safety Inspector Relationship Specialty Start Date End Date Angie Egan [facility] [address] [place] [address] PCP - General Physician Cray Fishing Hand 12/07/17 Dav Barillas MD Consulting Physician Nephrology 03/26/17 Reggie Lazar MD Consulting Physician Urology 07/27/17 Alvarez Rivera MD [address] [place] [address] Consulting Physician Pulmonary Disease 07/19/23 Bunny Cruz MD [address] [place] [address] Consulting Physician Medical Oncology 02/25/24 documented as of this encounter
--- OUTSIDE RECORDS SUMMARY | 2024-12-31 13:31 | XMS_ITS | Encounter Summary ---
Author Organization [facility] Address [address] [place] [address] Phone Care Team Providers Care Survey Research Center Director Name Role Phone Dav Barillas MD Unavailable [phone] Reggie Lazar MD Unavailable [phone] Angie Egan PAC Primary Care Provider + Alvarez Rivera MD Unavailable Bunny Cruz MD Unavailable [phone] Reason for Visit * Reason Comments Medication Refill Encounter Details Date Type Department Care Team (Late st Contact Info) Description 09/08/2024 Refill [facility] - Family Medicine [facility] [address] [place] [address] Angie Egan, BLAYNE [address] [place] [address] Medication Refill Social History Tobacco Use Types Packs/Day Years Used Date Smoking Tobacco: Some Days Cigarettes 0.5 69.6 Started: 05/25/1955 Smokeless Tobacco: Never Alcohol Use Standard Drinks/Week Comments No 0 (1 standard drink = 0.6 oz pur e alcohol) [facility] Utilities Answer Date Recorded In the past 12 months has [employer] electric, gas, oil, or water company threatened to shut off services in your home? No 04/08/2024 Social Connection and Isolat ion Panel [NHANES] Answer Date Recorded In a typical week, how many times do you talk on the phone with family, friends, or neighbors? More than three times a week 04/08/2024 How often do you get togethe r with friends or relatives? More than three times a week 04/08/2024 How often do you attend chur ch or orthodoxy services? Never 04/08/2024 Do you belong to any clubs o r organizations such as jewish groups, unions, fraternal or athletic groups, or school groups? No 04/08/2024 How often do you attend meet ings of the clubs or organizations you belong to? Never 04/08/2024 Are you , , di vorced, , never , or living with a partner? 04/08/2024 AUDIT-C Answer Date Recorded Q1: How often do you have a drink containing alcohol? Never 04/08/2024 Q2: How many drinks containi ng alcohol do you have on a typical day when you are drinking? Patient does not drink Q3: How often do you have si x or more drinks on one occasion? Never 04/08/2024 Overall Financial Resource Strain (CARDIA) Answe r Date Recorded How hard is it for you to pa y for the very basics like food, housing, medical care, and heating? Somewhat hard 12/03/2023 PHQ-2 Answer Date Recorded Total Score - Questions 1-9 0 08/07 [facility] Answer Date Recorded Do you feel stress - tense, restless, nervous, or anxious, or unable to sleep at night because your mind is troubled all the time - these days? Not at all 04/08/2024 Exercise Vital Sign Answer Date Recorde d On average, how many days pe r week do you engage in moderate to strenuous exercise (like a brisk walk)? 0 days 04/08/2024 On average, how many minutes do you engage in exercise at this level? 0 min 04/08/2024 Hunger Vital Sign Answer Date Recorded Within the past 12 months, y ou worried that your food would run out before you got the money to buy more. Patient declined Within the past 12 months, t he food you bought just didn't last and you didn't have money to get more. Patient declined 02/2024 PRAPARE - Transportation Answer Date Re corded In the past 12 months, has l ack of transportation kept you from medical appointments or from getting medications? No 02/2024 In the past 12 months, has l ack of transportation kept you from meetings, work, or from getting things needed for daily living? No 04/08/2024 Housing Stability Vital Sign Answer Shemar e Recorded In the last 12 months, was t here a time when you were not able to pay the mortgage or rent on time? No 04/08/2024 In the last 12 months, how many places have you lived? 1 04/08/2024 In the last 12 months, was t here a time when you did not have a steady place to sleep or slept in a custodial (including now)? No 04/08/2024 Education Answer Date Recorded What is the highest level of school you have completed or the highest degree you have received? 12th grade 04/06/2023 Sexually Active Control Partners Comments Not Currently Male Comments No Sex and Gender Information Value Date Recorded Sex Assigned at Not on file Legal Sex Female 12:07 PM CDT Gender Identity Not on file Sexual Orientation Not on file documented as of this encounter Miscellaneous Notes * Telephone Encounter - Sofía Joe RN - 09/08/2024 1:21 PM CST Refill on file according to last Rx and fill Hx. ED EDGE SEWING MACHINE OPERATOR documented in this encounter Plan of Treatment Upcoming Encounters Date Type Department Care Team (Late st Contact Info) Description 03/24/2025 10:30 AM CDT Office Visit [facility] - [facility] - [facility] [address] [place] [address] Angie Egan, BLAYNE [address] [place] [address] documented as of this encounter Visit Diagnoses Diagnosis Type 2 diabetes mellitus with diabetic neuropathy, without long-term current use of insulin (HCC) documented in this encounter Additional Health Concerns Assessment Noted Time PHQ-9 Depression Total Score: 0 09/03/20 10:53 AM CDT documented as of this encounter Care Teams Survey Research Center Director Relationship Specialty Start Date End Date Josedalila Angie JacobsenBLAYNE [address] [place] [address] PCP - General Physician Surgical Appliances Salesperson 12/07/17 Dav Barillas MD Consulting Physician Nephrology 03/26/17 Reggie Lazar MD Consulting Physician Urology 07/27/17 Alvarez Rivera MD [address] [place] [id number] Consulting Physician Pulmonary Disease 07/19/23 Bunny Cruz MD [address] [place] [address] Consulting Physician Medical Oncology 02/25/24 documented as of this encounter
--- OUTSIDE RECORDS SUMMARY | 2024-12-31 13:31 | XMS_ITS | Clinical Summary ---
Author Organization [facility] Address [address] [place] [address] Care Team Providers Care Bearing Ring Assembler Name Role Phone Luz Maria Riggins MD Primary Care Provider [phone] Source Comments [facility] [employer] [employer],non-owned Affiliates and Associated Physician Practices is amultiple site organization consisting of ambulatory clinics and hospital sitesin [place] and [place]. This disclosure is being madepursuant to the Care Everywhere program and may not contain all information available regarding this patient. Last updated 18.[facility] Allergies No known active allergies Medications * [...] back pain 02/01/2017 Midline cystocele Rectocele Perineocele Family History Medical History Relation Name Comments CAD (Coronary Artery Disease) Other Diabetes - Type 2 Other Relation Name Status Comments Other Social History Tobacco Use Types Packs/Day Years [...] Mass Index 32.92 07/20/2021 1:14 PM CDT Plan of Treatment Health Maintenance Due Date Last Done Comments BONE DENSITY TESTING 1945 DTAP/TDAP/TD VACCINES (1 - Tdap) 1964 PNEUMOCOCCAL VACCINE 50+ (1 of 2 - PCV) 1964 LUNG CANCER SCREENING 1995 ZOSTER VACCINE (1 of 2) 1995 Respiratory Syncytial Virus (RSV) Vaccine Pt: or over 60 yrs (1 - 1-dose 75+ series) 2020 DIABETES RETINOPATHY SCREENING 12/29/2020 DIABETES-FOOT EXAM WITH MONOFILAMENT 12/29/2020 DIABETES-HGB A1C 07/14/2021 01/11/2021, 01/08/2019 DIABETES-SERUM CREATININE 04/26/20222020, 02/21/2021, 02/17/2021, Additional history exists COVID-19 VACCINE (2 - season) 2024 12/08/2020 INFLUENZA VACCINE (#1) 2024 0, 08/11/2019, 09/04/2018, Additional history exists DEPRESSION SCREENING 11/05/2024 DIABETES - URINE PROTEIN SCREENING 11/05/2024 01/08/2019 HEPATITIS B VACCINE Aged Out No longe r eligible based on patient's age to complete this topic HIB VACCINE Aged Out No longer eligi ble based on patient's age to complete this topic HPV VACCINE Aged Out No longer eligi ble based on patient's age to complete this topic MENINGOCOCCAL (Group B) VACCINE Aged Out No longer eligible based on patient's age to complete this topic MENINGOCOCCAL VACCINE Aged Out No fabienne dewey eligible based on patient's age to complete this topic Procedures Procedure Name Priority Date/Time Associated Diagnosis [...] - 20.1 mg/dL 02/21/2021 1:37 PM CDT [facility] Creatinine 1.08 0.57 - 1.11 mg/dL 02/21/2021 1:37 PM CDT [facility] eGFR by MDRD 49 mL/min/1.7 3m2 02/21/2021 1:37 PM CDT [facility] eGFR by MDRD 60 mL/min/1.7 3m2 02/21/2021 1:37 PM CDT [facility] Blood BLOOD SPECIMEN / Unknown Lab Venipuncture / Unknown 02/21/2021 12:57 PM CDT 02/21/2021 1:12 PM CDT Rama Felix MD LAB - CHEMISTRY MIL SIDHU [facility] Organization Address City/State/ZIP Co de Phone Number [facility] [address] [place] [address] from Last 3 Months or Most Recently Relevant to Health Maintenance Care Teams Bearing Ring Assembler Relationship Specialty Start Date End Date Luz Maria Riggins MD PCP - General 12/29/20
--- OUTSIDE RECORDS SUMMARY | 2024-12-31 13:32 | XMS_ITS ---
Author Organization [facility] Address [address], [address] [address] Phone Care Team Providers Care Basting Machine Operator Name Role Phone Dav Barillas MD Unavailable [phone] Reggie Lazar MD Unavailable [phone] Angie Egan [facility] Primary Care Provider + Alvarez Rivera MD Unavailable Bunny Cruz MD Unavailable [phone] [facility] Chronic Condition Monitoring Status:Enrolled (Active) Start date:10/17/2023 Enrollment date:10/18/2023 Current support & services provided:Diabetes Management, Hypertension Management Related social drivers of health:Intimate Partner Violence, Social Connections, Alcohol Use, Tobacco Use, Financial Resource Strain,Depression, Stress, Physical Activity, Food Insecurity, Transportation Needs, Housing Stability, Utilities Continued Care and Services Coordination
--- OUTSIDE RECORDS SUMMARY | 2024-12-31 13:32 | XMS_ITS | Encounter Summary ---
Author Organization [facility] Address [address] [facility] [place] [address] Phone Care Team Providers Care Hand Launderer Name Role Phone Dav Barillas MD Unavailable Reggie Lazar MD Unavailable Angie Egan PAC Primary Care Provider + Alvarez Rievra MD Unavailable Bunny Cruz MD Unavailable [phone] Reason for Visit * Reason Comments Medication Refill Encounter Details Date Type Department Care Team (Late st Contact Info) Description 08/24/2023 Refill [facility] - Family Medicine [facility] [address] [place] [address] Angie Egan, BLAYNE [address] [place] [address] Medication Refill Social History Tobacco Use Types Packs/Day Years Used Date Smoking Tobacco: Some Days Cigarettes 0.5 69.6 Started: 05/25/1955 Smokeless Tobacco: Never Alcohol Use Standard Drinks/Week Comments No 0 (1 standard drink = 0.6 oz pur e alcohol) PHQ-2 Answer Date Recorded Total Score - Questions 1-9 0 09/0 03/2023 Education Answer Date Recorded What is the [...] suspected to have Coronavirus/COVID-19? No / Unsure 08/01/2023 12:12 PM CDT documented as of this encounter Miscellaneous Notes * Telephone Encounter - Sofía Joe RN - 08/27/2023 8:10 AM CDT Medication failed the protocol, provider to review and approve the medication order if appropriate. Requested Prescriptions Pending Prescriptions Disp Refills Trulicity 1.5 MG/0.5ML Solution Pen-injector [Pharmacy Med Name: TRULICITY 1.5MG/0.5ML 4CT 1.5 INSU] 2 mL 2 Sig: INJECT 1.5MG SUBCUTANEOUSLY EVERY 7 DAYS GLP-1 Agonists Protocol Failed - 08/24/2023 5:55 PM Failed - HgA1C result on record in past 6 months HGB-A1C Date Value Ref Range Status 09/27/2022 5.9 4.0 - 6.0 % Final Passed - Lipid panel result on file in past 12 months LDL Date Value Ref Range Status 09/27/2022 56 5 - 130 mg/dL Final HDL CHOLESTEROL Date Value Ref Range Status 09/27/2022 58.5 >40 mg/dL Final CHOLESTEROL Date Value Ref Range Status 09/27/2022 148 <=200 mg/dL Final TRIGLYCERIDES Date Value Ref Range Status 09/27/2022 166 (H) <150 mg/dL Final VLDL Date Value Ref Range Status 09/27/2022 33 5 - 55 mg/dL Final CHOL/HDL RATIO Date Value Ref Range Status 09/27/2022 2.5 0.0 - 4.4 Final NON-HDL CHOLESTEROL Date Value Ref Range Status 09/27/2022 89.5 <130 mg/dL Final Passed - Visit with relevant provider in past 6 months or upcoming 90 days Recent Visits Date Type Provider Dept 07/19/23 Office Visit Angie Egan, BLAYNE [facility] 07/10/23 Office Visit Josedalila MoniBLAYNE [facility] 04/06/23 [facility] visits within past 182 days and meeting all other requirements Future Appointments Date Type Provider Dept 10/10/23 Appointment [facility] Showing future appointments within next 90 days and meeting all other requirements Passed - GFR on record in past 6 months GFR, EST. NONAFRICAN Date Value Ref Range Status 07/10/2023 45 (L) >=60 Final documented in this encounter Plan of Treatment Upcoming Encounters Date Type Department Care Team (Late st Contact Info) Description 03/24/2025 10:30 AM CDT Office Visit [facility] - Family [facility] [address] [place] [address] Angie Egan PAC [address] [place] [address] documented as of this encounter Visit Diagnoses Diagnosis Type 2 diabetes mellitus with diabetic neuropathy, without long-term current use of insulin (HCC) documented in this encounter Additional Health Concerns Assessment Noted Time PHQ-9 Depression Total Score: 0 07/10/20 10:27 AM CDT documented as of this encounter Care Teams Hand Launderer Relationship Specialty Start Date End Date Angie Egan PAC [address] [place] [address] PCP - General Physician [employer] Registrar 12/07/17 Dav Barillas MD Consulting Physician Nephrology 03/26/17 Reggie Lazar MD Consulting Physician Urology 07/27/17 Alvarez Rivera MD [address] [place] [address] Consulting Physician Pulmonary Disease 07/19/23 Bunny Cruz MD [address] [place] [address] Consulting Physician Medical Oncology 02/25/24 documented as of this encounter
--- OUTSIDE RECORDS SUMMARY | 2024-12-31 13:32 | XMS_ITS | Data Portability ---
Author Organization Kayy BABCOCKjenna Gutiérrez Address [address] [facility] [place] [address] Care Team Providers Care Water Superintendent Name Role Phone DAVIS THORNTON Primary Care Provider Assessment No assessment recorded. Plan of Treatment Reminders Order Date Submit Date Provider Last Modified By Organization Details Last Modified Time Details Appointments None recorded. Lab unlisted lab - complianc e drug analysis, ur 2016 017 [facility], [address], [address], [place], [address], 7 06:13:16 HbA1c (hemoglob in A1c), blood 2016 017 [facility], [address], [address], [place], [address], 7 08:19:53 CMP, serum or plasma 2016 017 [facility], [address], [address], [place], [address], 7 08:19:52 microalbu min, urine 2016 017 [facility] In-Office Order, Internal Use Only DO Not Attach Compendium DO Not Attach Compendium, Do Not Delete/merge, [id number] 7 15:16:20 lipid panel, serum 2016 017 [facility], [address], [address], [place], [address], 7 08:19:53 CBC 2016 017 [facility], [address], [address], [place], [address], 7 08:19:52 CBC 2015 016 [facility], [address], [address], [place], [address], 6 06:14:10 CMP, serum or plasma 2015 016 [facility], [address], [place], [address], 6 06:14:10 TSH, serum or plasma 2015 016 [facility], [address], [address], [place], [address], 6 06:14:11 HbA1c (hemoglob in A1c), blood 2015 016 [facility], [address], [address], [place], [address], 6 06:14:12 lipid panel, serum 2015 016 [facility], [address], [address], [place], [address], 6 06:14:11 albumin, urine 2015 016 [facility], [address], [address], [place], [address], 6 13:57:21 Referral urologist referral 2016 017 [email or web address] Lazar MD, [address] [place], [address], 7 13:20:27 physical therapy back referral - Please call patient to schedule. 2016 017 [email or web address] [facility], [address] [place], [address], 7 13:25:17 podiatris t referral - Please call patient to schedule 2015 016 [email or web address] Not available 7 00:30:12 Procedures None recorded. Surgeries None recorded. Imaging MAMMO, screening , bilateral 2016 017 [email or web address] Not available 7 10:03:57 XR, hip, unilatera l 2016 017 [facility] Not available 7 09:33:32 Medication Orders Premarin 0.625 mg/gram vaginal cream 2016 017 [email or web address] Not available 7 17:27:06 hydrocodo ne 5 mg-acetam inophen 325 mg tablet 2016 017 [facility], [address] [place], [address], 7 15:53:01 tramadol 50 mg tablet 2016 017 [email or web address] [facility], [address] [place], [address], 7 15:36:09 metformin 500 mg tablet 2015 016 DBA_PATCH_2 [id number] [facility], [address] [place], [address], 6 04:30:33 gabapenti n 600 mg tablet 2015 016 DBA_PATCH_2 [id number] [facility], [address] [place], [address], 6 04:31:17 tramadol 50 mg tablet 2015 016 DBA_PATCH_2 [id number] [facility], [address] [place], [address], 6 04:30:52 aspirin 81 mg tablet,de layed release 2015 016 INTERFACE [facility], [address] [place], [address], 6 13:56:48 gabapenti n 600 mg tablet 2015 016 [email or web address] [facility], [address] [place], [address], 6 17:45:19 Patient TargetsNo targets recorded. 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 Referring Physician: Davis Thornton, Internal Medicine, Encounter Date: 02/01/2017 Urologist Referral for Cysto sera history of hysterectomy and cystocele repair years ago Referring Physician: Salas Fletcher, EXCELSIOR MACHINE TENDER, Encounter Date: 03/29/2017 Results Created Date Observation Date Name Description Value Unit Range Abnormal Flag Note LastModifiedBy Organization Detail LastModifiedTime 06/29/20 16 06/30/2016 CMP, serum or plasm a glucose, serum 95 mg/dL 65-99 Not Available [facility]) [address] [facility] [place], [address], 07/04/2016 06:14:10 06/29/20 16 06/30/2016 CMP, serum or plasm a BUN 14 mg/dL 8-27 Not Available [facility] ([facility]) [address] [facility] [place], [address], 07/04/2016 06:14:10 06/29/20 16 06/30/2016 CMP, serum or plasm a creatinine, serum 0.96 mg/dL 0.57-1 .00 Not Available [facility] ([facility]) [address] [facility] [place], [address], 07/04/2016 06:14:10 06/29/20 16 06/30/2016 CMP, serum or plasm a eGFR if nonafricn AM 60 mL/mi n/1.7 3 >59 Not Available [facility] ([facility]) [address] [facility] [place], [address], 07/04/2016 06:14:10 06/29/20 16 06/30/2016 CMP, serum or plasm a eGFR if africn AM 69 mL/mi n/1.7 3 >59 Not Available [facility] ([facility]) [address] [facility], [place], [address], 07/04/2016 06:14:10 06/29/20 16 06/30/2016 CMP, serum or plasm a BUN/creatini ne ratio 15 11-26 Not Available [facility]) [address] [facility] [place], [address], 07/04/2016 06:14:10 06/29/20 16 06/30/2016 CMP, serum or plasm a sodium, serum 141 mmol/ L 134-14 4 Not Available [facility] ([facility]) [address] [facility] [place], [address], 07/04/2016 06:14:10 06/29/20 16 06/30/2016 CMP, serum or plasm a potassium, serum 4.8 mmol/ L 3.5-5. 2 Not Available [facility] ([facility]) [address] [place], [address], 07/04/2016 06:14:10 06/29/20 16 06/30/2016 CMP, serum or plasm a chloride, serum 97 mmol/ L 97-108 Not Available [facility] ([facility]) [address] [place], [address], 07/04/2016 06:14:10 06/29/20 16 06/30/2016 CMP, serum or plasm a carbon dioxide, total 25 mmol/ L 18-29 Not Available [facility] ([facility]) [address] [place], [address], 07/04/2016 06:14:10 06/29/20 16 06/30/2016 CMP, serum or plasm a calcium, serum 9.6 mg/dL 8.7-10 .3 Not Available [facility] ([facility]) [address] [place], [address], 07/04/2016 06:14:10 06/29/20 16 06/30/2016 CMP, serum or plasm a protein, total, serum 7.3 g/dL 6.0-8. 5 Not Available [facility] ([facility]) [address] [place], [address], 07/04/2016 06:14:10 06/29/20 16 06/30/2016 CMP, serum or plasm a albumin, serum 4.5 g/dL 3.5-4. 8 Not Available [facility] ([facility]) [address] [place], [address], 07/04/2016 06:14:10 06/29/20 16 06/30/2016 CMP, serum or plasm a globulin, total 2.8 g/dL 1.5-4. 5 Not Available [facility] ([facility]) [address] [place], [address], 07/04/2016 06:14:10 06/29/20 16 06/30/2016 CMP, serum or plasm a A/G ratio 1.6 1.1-2. 5 Not Available [facility] ([facility]) [address] [facility] [place], [address], 07/04/2016 06:14:10 06/29/20 16 06/30/2016 CMP, serum or plasm a bilirubin, total 0.4 mg/dL 0.0-1. 2 Not Available [facility] ([facility]) [address] [facility] [place], [address], 07/04/2016 06:14:10 06/29/20 16 06/30/2016 CMP, serum or plasm a alkaline phosphatase, S 62 IU/L 39-117 Not Available [facility]) [address] [place], [address], 07/04/2016 06:14:10 06/29/20 16 06/30/2016 CMP, serum or plasm a AST (SGOT) 18 IU/L 0-40 Not Available [facility]) [address] [facility] [place], [address], 07/04/2016 06:14:10 06/29/20 16 06/30/2016 CMP, serum or plasm a ALT (SGPT) 17 IU/L 0-32 Not Available [facility] ([facility]) [address] [place], [address], 07/04/2016 06:14:10 06/29/20 16 06/30/2016 CBC WBC 9.6 x10e3 /uL 3.4-10 .8 Not Available [facility] ([facility]) [address] [facility] [place], [address], 07/04/2016 06:14:10 06/29/20 16 06/30/2016 CBC RBC 4.14 x10e6 /uL 3.77-5 .28 Not Available [facility] ([place] [facility]) [address] [facility] [place], [address], 07/04/2016 06:14:10 06/29/20 16 06/30/2016 CBC hemoglobin 12.1 g/dL 11.1-1 5.9 Not Available [facility] ([facility]) [address] [facility] [place], [address], 07/04/2016 06:14:10 06/29/20 16 06/30/2016 CBC hematocrit 37.5 % 34.0-4 6.6 Not Available [facility] ([facility]) [address] [facility] [place], [address], 07/04/2016 06:14:10 06/29/20 16 06/30/2016 CBC MCV 91 fL 79-97 Not Available [facility]) [address] [facility] [place], [address], 07/04/2016 06:14:10 06/29/20 16 06/30/2016 CBC MCH 29.2 pg 26.6-3 3.0 Not Available [facility] ([facility]) [address] [facility] [place], [address], 07/04/2016 06:14:10 06/29/20 16 06/30/2016 CBC MCHC 32.3 g/dL 31.5-3 5.7 Not Available [facility]) [address] [facility] [place], [address], 07/04/2016 06:14:10 06/29/20 16 06/30/2016 CBC RDW 14.9 % 12.3-1 5.4 Not Available [facility]) [address] [facility] [place], [address], 07/04/2016 06:14:10 06/29/20 16 06/30/2016 CBC platelets 309 x10e3 /uL 150-37 9 Not Available [facility] ([facility]) [address], [place], [address], 07/04/2016 06:14:10 06/29/20 16 06/30/2016 CBC NRBC SOFTWARE TECHNICAL LEAD Not Available [facility] ([facility]) [address], [place], [address], 07/04/2016 06:14:10 06/29/20 16 06/30/2016 lipid panel , serum cholesterol, total 181 mg/dL 100-19 9 Not Available [facility] ([facility]) [address], [place], [address], 07/04/2016 06:14:11 06/29/20 16 06/30/2016 lipid panel , serum triglyceride s 244 mg/dL 0-149 above high normal Not Available [facility] ([facility]) [address] [facility], [place], [address], 07/04/2016 06:14:11 06/29/20 16 06/30/2016 lipid panel , serum HDL cholesterol 51 mg/dL >39 ACCOR DING TO ATP-I II GUIDE LINES , HDL-C >59 MG/DL IS CONSI DERED A NEGAT ANTONETTE RISK FACTO R FOR CHD. Not Available [facility] ([facility]) [address] [facility], [place], [address], 07/04/2016 06:14:11 06/29/20 16 06/30/2016 lipid panel , serum VLDL cholesterol yenny 49 mg/dL 5-40 above high normal Not Available [facility] ([facility]) [address] [facility], [place], [address], 07/04/2016 06:14:11 06/29/20 16 06/30/2016 lipid panel , serum LDL cholesterol calc 81 mg/dL 0-99 Not Available [facility]) [address] [facility], [place], [address], 07/04/2016 06:14:11 06/29/20 16 06/30/2016 lipid panel , serum comment: SOFTWARE TECHNICAL LEAD Not Available [facility] ([facility]) [address] [facility], [place], [address], 07/04/2016 06:14:11 06/29/20 16 06/30/2016 lipid panel , serum LDL/HDL ratio 1.6 ratio _unit s 0.0-3. 2 LDL/H DL RATIO MEN WOMEN 1/2 AVG.R ISK 1.0 1.5 AVG.R ISK 3.6 3.2 2X AVG.R ISK 6.2 5.0 3X AVG.R ISK 8.0 6.1 Not Available [facility] ([facility]) [address] [facility], [place], [address], 07/04/2016 06:14:11 06/29/20 16 07/03/2016 TSH, serum or plasm a TSH-icma 1.7 uu/mL REFER ENCE RANGE : PUBER ADRIANA CHILD JULIANA AND ADULT S: 0.5 - 4.8 Not Available [facility] [address] [place] [address], [address], 07/04/2016 06:14:11 06/29/20 16 06/30/2016 HbA1c (hemo globi n A1c), blood hemoglobin A1C 5.8 % 4.8-5. 6 above high normal PRE-D IABET ES: 5.7 - 6.4 DIABE VIOLA: >6.4 GLYCE LISSA CONTR OL FOR ADULT S WITH DIABE VIOLA: <7.0 Not Available [facility] ([facility]) [address] [facility], [place], [address], 07/04/2016 06:14:12 06/29/20 16 06/30/2016 micro album in, urine microalbumin , urine 17.7 ug/mL not estab. Not Available [facility] ([facility]) [address] [facility], [place], [address], 07/04/2016 06:14:12 02/02/20 17 02/02/2017 CMP, serum or plasm a glucose, serum 95 mg/dL 65-99 Not Available [facility]) [address] [place], [address], 02/02/2017 08:19:52 02/02/20 17 02/02/2017 CMP, serum or plasm a BUN 20 mg/dL 8-27 Not Available [facility] ([facility]) [address] [place], [address], 02/02/2017 08:19:52 02/02/20 17 02/02/2017 CMP, serum or plasm a creatinine, serum 0.96 mg/dL 0.57-1 .00 Not Available [facility] ([facility]) [address] [place], [address], 02/02/2017 08:19:52 02/02/20 17 02/02/2017 CMP, serum or plasm a eGFR if nonafricn AM 60 mL/mi n/1.7 3 >59 Not Available [facility] ([facility]) [address] [place], [address], 02/02/2017 08:19:52 02/02/2002/02/2017 CMP, serum or plasm a eGFR if africn AM 69 mL/mi n/1.7 3 >59 Not Available [facility] ([facility]) [address] [place], [address], 02/02/2017 08:19:52 02/02/20 17 02/02/2017 CMP, serum or plasm a BUN/creatini ne ratio 09-30 EFF ECTIV E FEBRUARY 05, 2017 BUN/C REATI NINE RATIO REFER ENCE INTER NATANAEL WILL BE BUTLER ING TO: AGE MALE FEMAL E 0 DAYS - 7 DAYS 9 - 25 9 - 26 8 DAYS - 30 DAYS 8 - 32 10 - 33 1 MONTH - 6 MONTH S 11 - 57 11 - 54 7 MONTH S - 1 YEAR 20 - 71 20 - 71 2 YEARS - 5 YEARS 19 - 51 19 - 49 6 YEARS - 12 YEARS 14 - 34 13 - 32 13 YEARS - 17 YEARS 10 - 22 10 - 22 18 YEARS - 59 YEARS 9 - 20 9 - 23 >59 YEARS 10 - 24 12 - 28 Not Available [facility] ([facility]) [address] [facility] [place], [address], 02/02/2017 08:19:52 02/02/20 17 02/02/2017 CMP, serum or plasm a sodium, serum 141 mmol/ L 134-14 4 Not Available [facility] ([facility]) [address] [facility] [place], [address], 02/02/2017 08:19:52 02/02/20 17 02/02/2017 CMP, serum or plasm a potassium, serum 4.9 mmol/ L 3.5-5. 2 Not Available [facility] ([facility]) [address] [place], [address], 02/02/2017 08:19:52 02/02/20 17 02/02/2017 CMP, serum or plasm a chloride, serum 97 mmol/ L 96-106 Not Available [facility] ([facility]) [address] [place], [address], 02/02/2017 08:19:52 02/02/20 17 02/02/2017 CMP, serum or plasm a carbon dioxide, total 26 mmol/ L 18-29 Not Available [facility] ([facility]) [address] [place], [address], 02/02/2017 08:19:52 02/02/20 17 02/02/2017 CMP, serum or plasm a calcium, serum 9.5 mg/dL 8.7-10 .3 Not Available [facility] ([facility]) [address] [place], [address], 02/02/2017 08:19:52 02/02/20 17 02/02/2017 CMP, serum or plasm a protein, total, serum 6.8 g/dL 6.0-8. 5 Not Available [facility] ([facility]) [address] [place], [address], 02/02/2017 08:19:52 02/02/20 17 02/02/2017 CMP, serum or plasm a albumin, serum 4.1 g/dL 3.5-4. 8 Not Available [facility] ([facility]) [address] [facility], [place], [address], 02/02/2017 08:19:52 02/02/20 17 02/02/2017 CMP, serum or plasm a globulin, total 2.7 g/dL 1.5-4. 5 Not Available [facility] ([facility]) [address] [facility] [place], [address], 02/02/2017 08:19:52 02/02/2002/02/2017 CMP, serum or plasm a A/G ratio 1.5 1.2-2. 2 PLE ASE NOTE REFER ENCE GABRIELA BUTLER E Not Available [facility] ([facility]) [address] [facility], [place], [address], 02/02/2017 08:19:52 02/02/2002/02/2017 CMP, serum or plasm a bilirubin, total 0.3 mg/dL 0.0-1. 2 Not Available [facility] ([facility]) [address] [facility], [place], [address], 02/02/2017 08:19:52 02/02/2002/02/2017 CMP, serum or plasm a alkaline phosphatase, S 60 IU/L 39-117 Not Available [facility] [address] [facility] [place], [address], 02/02/2017 08:19:52 02/02/2002/02/2017 CMP, serum or plasm a AST (SGOT) 12 IU/L 0-40 Not Available [facility]) [address] [facility] [place], [address], 02/02/2017 08:19:52 02/02/2002/02/2017 CMP, serum or plasm a ALT (SGPT) 15 IU/L 0-32 Not Available [facility]) [address] [facility] [place], [address], 02/02/2017 08:19:52 02/02/20 17 02/02/2017 CBC WBC 12.3 x10e3 /uL 3.4-10 .8 above high normal Not Available [facility]) [address] [facility] [place], [address], 02/02/2017 08:19:52 02/02/20 17 02/02/2017 CBC RBC 4.38 x10e6 /uL 3.77-5 .28 Not Available [facility]) [address] [facility] [place], [address], 02/02/2017 08:19:52 02/02/20 17 02/02/2017 CBC hemoglobin 12.5 g/dL 11.1-1 5.9 Not Available [facility]) [address] [facility] [place], [address], 02/02/2017 08:19:52 02/02/2002/02/2017 CBC hematocrit 37.5 % 34.0-4 6.6 Not Available [facility]) [address] [facility] [place], [address], 02/02/2017 08:19:52 02/02/2002/02/2017 CBC MCV 86 fL 79-97 Not Available [facility]) [address] [facility] [place], [address], 02/02/2017 08:19:52 02/02/2002/02/2017 CBC MCH 28.5 pg 26.6-3 3.0 Not Available [facility]) [address] [facility] [place], [address], 02/02/2017 08:19:52 02/02/2002/02/2017 CBC MCHC 33.3 g/dL 31.5-3 5.7 Not Available [facility]) [address] [facility] [place], [address], 02/02/2017 08:19:52 02/02/20 17 02/02/2017 CBC RDW 13.9 % 12.3-1 5.4 Not Available [facility] [address] [facility] [place], [address], 02/02/2017 08:19:52 02/02/20 17 02/02/2017 CBC platelets 364 x10e3 /uL 150-37 9 Not Available [facility] [address] [facility] [place], [address], 02/02/2017 08:19:52 02/02/20 17 02/02/2017 CBC NRBC SOFTWARE TECHNICAL LEAD Not Available [facility] [address] [facility] [place], [address], 02/02/2017 08:19:52 02/02/20 17 02/02/2017 lipid panel , serum cholesterol, total 172 mg/dL 100-19 9 Not Available [facility] [address] [facility] [place], [address], 02/02/2017 08:19:53 02/02/20 17 02/02/2017 lipid panel , serum triglyceride s 211 mg/dL 0-149 above high normal Not Available [facility] [address] [facility] [place], [address], 02/02/2017 08:19:53 02/02/20 17 02/02/2017 lipid panel , serum HDL cholesterol 50 mg/dL >39 Not Available [facility] [address] [facility] [place], [address], 02/02/2017 08:19:53 02/02/20 17 02/02/2017 lipid panel , serum VLDL cholesterol yenny 42 mg/dL 5-40 above high normal Not Available [facility] [address] [facility], [place], [address], 02/02/2017 08:19:53 02/02/2002/02/2017 lipid panel , serum LDL cholesterol calc 80 mg/dL 0-99 Not Available [facility] [address] [facility], [place], [address], 02/02/2017 08:19:53 02/02/2002/02/2017 lipid panel , serum comment: SOFTWARE TECHNICAL LEAD Not Available [facility]) [address] [facility], [place], [address], 02/02/2017 08:19:53 02/02/2002/02/2017 HbA1c (hemo globi n A1c), blood hemoglobin A1C 6.0 % 4.8-5. 6 above high normal PRE-D IABET ES: 5.7 - 6.4 DIABE VIOLA: >6.4 GLYCE LISSA CONTR OL FOR ADULT S WITH DIABE VIOLA: <7.0 Not Available [facility] ([facility]) [address] [facility], [place], [address], 02/02/2017 08:19:53 02/29/2003/06/2017 drug scree n, urine summary FINAL ===== ===== ===== ===== ===== ===== ===== ===== ===== ===== ===== ===== ===== === TOXAS SURE COMP DRUG KAREN SIS,U R ===== ===== ===== ===== ===== ===== ===== ===== ===== ===== ===== ===== ===== === TEST RESUL T FLAG UNITS DRUG PRESE NT HYDRO CODON E 827 NG/MG CREAT HYDRO MORPH ONE 73 NG/MG CREAT DIHYD ROCOD EINE 58 NG/MG CREAT NORHY DROCO DONE 862 NG/MG CREAT SOURC ES OF HYDRO CODON E INCLU DE SCHED ULED PRESC RIPTI ON MEDIC ATION S. HYDRO MORPH ONE, DIHYD ROCOD EINE AND NORHY DROCO DONE ARE EXPEC RANDY METAB OLITE S OF HYDRO CODON E. HYDRO MORPH ONE AND DIHYD ROCOD EINE ARE ALSO AVAIL ABLE SCHED ULED PRESC RIPTI ON MEDIC ATION S. TRAMA DOL PRESE NT O-CLIF METHY LTRAM ADOL PRESE NT N-CLIF METHY LTRAM ADOL PRESE NT SOURC E OF TRAMA DOL IS A PRESC RIPTI ON MEDIC ATION . O-CLIF METHY LTRAM ADOL AND N-CLIF METHY LTRAM ADOL ARE EXPEC RANDY METAB OLITE S OF TRAMA DOL. GABAP ENTIN PRESE NT TRAZO DONE PRESE NT 1,3 CHLOR OPHEN YL PIPER AZINE PRESE NT 1,3-C HLORO PHENY L PIPER AZINE IS AN EXPEC RANDY METAB OLITE OF TRAZO DONE. ACETA MINOP HEN PRESE NT ATENO LOL PRESE NT ===== ===== ===== ===== ===== ===== ===== ===== ===== ===== ===== ===== ===== === TEST RESUL T FLAG UNITS REF RANGE CREAT ININE 165 MG/DL >=20 ===== ===== ===== ===== ===== ===== ===== ===== ===== ===== ===== ===== ===== === DECLA RED MEDIC ATION S: MEDIC ATION LIST WAS NOT PROVI DED. ===== ===== ===== ===== ===== ===== ===== ===== ===== ===== ===== ===== ===== === FOR CLINI YENNY CONSU LTATI ON, PLEAS E CALL . ===== ===== ===== ===== ===== ===== ===== ===== ===== ===== ===== ===== ===== === Not Available [facility] [address] [place], [address], 03/06/2017 06:13:16 02/29/20 17 03/06/2017 drug scree n, urine pdf . Not Available [facility] [address], [place], [address], 03/06/2017 06:13:16 01/16/20 17 01/15/2017 CT, lumba r spine , w/o contr ast No observ ation record ed. [address] (Imaging) [address] [place], [address], 01/19/2017 01:40:04 03/02/20 17 03/01/2017 XR, hip, unila teral No observ ation record ed. [facility] ([facility]) [address] [place], [address], 03/29/2017 18:27:29 11/20/19 23 11/20/2022 XR, chest , 2 view No observ ation record ed. [address], [address], 11/21/2022 11:42:21 Result Notes None recorded. Problems Name Problem SNOMED Code Status Onset Date Resolution Date Notes Provider Name and Address Organization Details Recorded Time Diabetes mellitus 92582921 Active SELWYN Torres, [place] - [facility] 7 15:51:49 Essential hypertension 06630395 Active SEL[place]YN [place] - [facility] 7 15:51:49 Chronic renal impairment Active SELWYN Torres, [place] - [facility] 7 15:51:49 Scapulalgia 07660174 Active Lexis Elise [place] null, [place] - [facility] 7 15:51:49 Pleuritic pain 7268258 Active [place]is El[place] [facility] 7 15:51:49 Hyperlipidemia 14138646 Active [place]is El[place] [facility] 7 15:51:49 Shoulder pain 40784849 Active [place]is El[place] [facility] 7 15:51:49 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 [place]is El[place] [facility] 7 15:51:49 Neuropathy 432242152 Active [place]is [place] [facility] 7 15:51:49 Gastroesophage al reflux disease 463376892 Active [place]is El[place] [facility] 7 15:51:49 Knee pain Active SELWYN [place] [facility] 7 15:51:49 Onychomycosis 017376942 Active [place]is [place] [facility] 7 15:51:49 Fatigue 48616986 Active [place]is [place] [facility] 7 15:51:49 Active immunization Active 2015 Lexis Elise MA [place], [place] [facility] 7 15:51:49 Chronic low back pain 867183737 Active 2016 Lexis Elise [place], [place] [facility] 7 15:51:49 Hip pain 28974760 Active 2016 Lexis El[place] [facility] 7 15:51:49 Medication monitoring Active 2016 SELWYN Torres, [place] [facility] 7 15:51:49 Problem Notes None recorded. Procedures Surgical History Date Name Laterality Status Provider Name and Address Organization Details Recorded Time 11/05/19 14 Date of Last Pap Smear completed SELWYN Torres - [facility] 03/29/2017 15:54:55 11/05/19 14 Most Recent Mammogram completed SELWYN Torres - [facility] 03/29/2017 15:55:56 Total hysterectomy completed Lexis CobbSELWYN caban [facility] 03/29/2017 16:04:35 Tubal Ligation completed Lexis CobbSELWYN caban [facility] 03/29/2017 16:04:41 Other completed Lexis CobbSELWYN caban [facility] 03/29/2017 16:05:08 Orthopedic Surgery completed Lexis SELWYN Elise [facility] 03/29/2017 16:05:41 Eye Surgery completed Kurt Cortés MA [facility] 12/09/2015 14:51:55 Imaging Results Imaging Date Name Status LastModified by Organiz ation Details LastModified Time 01/15/2017 CT, lumbar spine, w/o contrast completed [address] (Imaging) [address] [place], [address], 01/19/2017 01:40:04 03/01/2017 XR, hip, unilateral completed [facility] (Imaging) [address] [place], [address], 03/29/2017 18:27:29 11/20/2022 XR, chest, 2 view completed [address], [address], 11/21/2022 11:42:21 Procedure Notes None recorded. Medical Equipment None Reported. Allergies No known drug allergies Medications Name Sig Start Date Stop Date Status Note LastModified by Organization Details LastModified Time metformin 500 mg tablet TAKE ONE TABLET BY MOUTH TWICE DAILY. NEEDS APPOINTME NT FOR FUTHER REFILLS. 2016 active Not Available Not Available Not Avai lable gabapentin 600 mg tablet Take 1 tablet twice a day by oral route. 10/12 completed Not Available Not Available Not Available doxycycline hyclate 100 mg capsule active Not Available Not Available N ot Available albuterol sulfate 2.5 mg/3 mL (0.083 %) solution for nebulizatio n INHALE ONE VIAL VIA NEBULIZER EVERY 6 HOURS DIRECTED active Not Available Not Available No t Available azithromyci n 250 mg tablet 03/29 completed Not Available Not Available Not Available pravastatin 40 mg tablet active Not Available Not Available Not Available hydrocodone 5 mg-acetamin ophen 325 mg tablet Take 1 tablet every 12 hours by oral route. 03/29 completed Not Available Not Available Not Available prednisone 20 mg tablet active Not Available Not Available Not Available atenolol 25 mg tablet TAKE ONE TABLET BY MOUTH TWO TIMES A DAY active Not Available Not Available No t Available metronidazo le 500 mg tablet Take 1 tablet twice a day by oral route as directed for 10 days. active Not Available Not Available No t Available acetaminoph en 300 mg-codeine 30 mg tablet 03/29 completed Not Available Not Available Not Available ciprofloxac in 500 mg tablet active Not Available Not Available Not Available omeprazole 40 mg capsule,del ayed release TAKE ONE CAPSULE BY MOUTH EVERY MORNING BEFORE BREAKFAST active Not Available Not Available No t Available aspirin 81 mg tablet,adrianna yed release active Not Available Not Available Not Available tramadol 50 mg tablet Take 1 tablet every 12 hours by oral route as needed. active Not Available Not Available No t Available oxycodone-a cetaminophe n 5 mg-325 mg tablet 03/29 completed Not Available Not Available Not Available prednisolon e acetate 1 % eye drops,suspe nsion active Not Available Not Available Not Available baclofen 10 mg tablet 03/29 completed Not Available Not Available Not Available hydrocodone 7.5 mg-acetamin ophen 325 mg tablet active Not Available Not Available No t Available pantoprazol e 40 mg tablet,adrianna yed release TAKE 1 TABLET(S) EVERY DAY BY ORAL ROUTE BEFORE MEALS. active Not Available Not Available No t Available trazodone 150 mg tablet TAKE ONE TABLET BY MOUTH EVERY NIGHT AT BEDTIME active Not Available Not Available No t Available prednisone 50 mg tablet active Not Available Not Available Not Available gabapentin 300 mg capsule TAKE TWO CAPSULES BY MOUTH TWICE DAILY active Not Available Not Available No t Available omeprazole 20 mg capsule,del ayed release take two tablets by mouth once daily 10/18 completed Not Available Not Available Not Available allopurinol 300 mg tablet TAKE ONE TABLET BY MOUTH EVERY DAY 2014 active Not Available Not Available Not Avai lable levofloxaci n 500 mg tablet 03/29 completed Not Available Not Available Not Available methylpredn isolone 4 mg tablets in a dose pack 03/29 completed Not Available Not Available Not Available oxybutynin chloride 5 mg tablet 03/29 completed Not Available Not Available Not Available fluticasone propionate 50 mcg/actuati on nasal spray,suspe nsion 03/29 completed Not Available Not Available Not Available naproxen 500 mg tablet active Not Available Not Available Not Available metoclopram nicky 10 mg tablet active Not Available Not Available Not Available Ventolin HFA 90 mcg/actuati on aerosol inhaler active Not Available Not Available Not Available tobramycin 0.3 %-dexametha sone 0.1 % eye drops,suspe nsion active Not Available Not Available Not Available Lotrimin Ultra 1 % topical cream APPLY TO THE AFFECTED AND SURROUNDI NG AREAS OF SKIN BY TOPICAL ROUTE Twice DAILY 2015 active Not Available Not Available Not Avai lable Premarin 0.625 mg/gram vaginal cream INSERT 1 GRAM BY VAGINAL ROUTE TWO TIMES A WEEK active Not Available Not Available No t Available Premarin 0.625 mg tablet insert 1 gram by route by vaginal route two times a week active Not Available Not Available No t Available albuterol sulfate concentrate 2.5 mg/0.5 mL solution for nebulizatio n active Not Available Not Available Not Available Lyrica 300 mg capsule TAKE ONE CAPSULE BY MOUTH TWO TIMES A DAY active Not Available Not Available No t Available omeprazole 20 mg tablet,adrianna yed release TAKE TWO TABLETS BY MOUTH DAILY active Not Available Not Available No t Available Fermin Potter [facility] spacer active Not Available Not Available Not Available Vitals Date Recorded Body weight Body mass index (BMI) Body temperature Body height Systolic blood pressure Diastolic blood pressure Provider Name and Address Organization Details Last Updated DateTime 6 37447.8 8163 g 36.4 kg/m2 97.6 [degF] 157.48 cm 140 mm[Hg] 72 mm[Hg] Teresa Mercedes [place] - [facility] 6 13:12:01 Date Recorded Body height Body weight Body mass index (BMI) Body temperature Heart rate Oxygen saturation Oxygen saturation in Arterial blood by Pulse oximetry Systolic blood pressure Diastolic blood pressure Provider Name and Address Organization Details Last Updated DateTime 6 157.48 cm 96267.0 9 g 37 kg/m2 98 [degF] 84 /min 97 % 97 % 122 mm[Hg] 80 mm[Hg] Teresa Mercedes MA [facility] 6 12:06:14 Date Recorded Body height Body weight Body mass index (BMI) Heart rate Oxygen saturation Oxygen saturation in Arterial blood by Pulse oximetry Body temperature Systolic blood pressure Diastolic blood pressure Provider Name and Address Organization Details Last Updated DateTime 7 157.48 cm 30774.6 5 g 34.3 kg/m2 84 /min 97 % 97 % 98.3 [degF] 106 mm[Hg] 68 mm[Hg] Hellen Mendieta MA [facility] 7 14:43:52 Date Recorded Body height Body weight Body mass index (BMI) Body temperature Heart rate Oxygen saturation Oxygen saturation in Arterial blood by Pulse oximetry Systolic blood pressure Diastolic blood pressure Provider Name and Address Organization Details Last Updated DateTime 7 157.48 cm 46741.0 2 g 35.1 kg/m2 98.3 [degF] 78 /min 95 % 95 % 108 mm[Hg] 76 mm[Hg] Teresa Mercedes MA [facility] 7 10:43:49 Date Recorded Body height Body weight Body mass index (BMI) Systolic blood pressure Diastolic blood pressure Provider Name and Address Organization Details Last Updated DateTime 03/29/2017 157.48 cm 79351.74 g 35.1 kg/m2 102 mm[Hg] 60 mm[Hg] Lexis Elise MA [facility] 7 16:09:09 Social History Question Answer Notes LastModified by Organizat ion Details LastModified Time Tobacco Smoking Status Former Smoker SELWYN Escobar, [facility] 12/09/2015 14:51:55 Do You Have An Advance Directive? No Information not available 03/29/2017 What Is Your Level Of Alcohol Consumption? None Information not available 03/29/2017 Is Blood Transfusion Acceptable In An Emergency? Yes Information not available 03/29/2017 What Is Your Level Of Caffeine Consumption? Heavy Information not available 03/29/2017 How Much Tobacco Do You Chew? None Information not available 03/29/2017 Are You Currently Employed? No Information not available 03/29/2017 What Type Of Diet Are You Following? REGULAR Information not available 03/29/2017 Education Less Than 8th Grade Information not available 03/29/2017 What Is Your Occupation? [employer] Information not available 03/29/2017 Live Alone Or With Others? Alone Information not available 03/29/2017 How Many Children Do You Have? 4 Information not available 03/29/2017 Performs Monthly Self-breast Exam? Yes Information no t available 03/29/2017 What Is Your Relationship Status? Information not available 03/29/2017 Seat Belts Used Routinely Yes Information not available 03/29/2017 Are You Sexually Active? No Information not available 03/29/2017 At What Age Did You Start Smoking Tobacco? 10 Information not available 03/29/2017 How Much Tobacco Do You Smoke? 1 PPD Information not available 03/29/2017 General Stress Level Low Information not available 03/29/2017 Do You Use Sunscreen Routinely? No Information not available 03/29/2017 How Many Years Have You Smoked Tobacco? 60 Information not available 03/29/2017 Sex: Unknown Functional Status Question Answer Note LastModified by Organization D etails LastModified Time What is your exercise level? None Information not available 03/29/2017 Mental Status None recorded. Family History Relationship Description Onset Age of this Age Resolved Age Notes LastModified by Organization Details LastModified Time Brother Multiple sclerosis [email or web address] Not available 2016 14:45:11 Brother Myocardial infarction Not available 03/29 16:01:01 Son Multiple sclerosis X3 brothe rs Not available 03/29/2017 16:01:40 Sister Malignant neoplasm of skin Not available 2016 16:02:11 Medical History Condition Response Diabetes Y Ovarian Cancer N Muscle, Joint, or Bone Problems N Other N Blood Transfusions N High Blood Pressure Y Seizures/Epilepsy N Polyps N Breast Cancer N Acid Reflux (GERD) Y Cancer N Thyroid Problems N Kidney or Bladder Problems Y Asthma N GI Problems N Blood Clots N COPD Y Depression N Breast Problem N Eating Disorder N Endometriosis N High Cholesterol Y Liver Disease N Pre-Eclampsia N Osteoporosis N Gynecological History Statement/Question Response Abnormal Pap N On BCP's at Conception? N STIs/STDs N HPV Vaccine N Most Recent Mammogram 11/05/2013 Age at Menarche 10 Current Control Method Tubal Ligat ion Age at First Child 18 Sexually Active? N Menses Monthly N Date of Last Pap Smear 11/05/2013 Sexual Problems? N Obstetrics History GPAL:G 4 P 4 0 0 4 Type Value Full Term 4 Living 4 Total 4 Immunizations Vaccine Type Date Status Note Provider Nam e and Address Organization Details Recorded Time COVID-19, mRNA, LNP-S, PF, 100 mcg/0.5mL dose or 50 mcg/0.25mL dose 1 completed [facility] 05/10/2021 15:37:33 Influenza, split virus, quadrivalent, preservative 6 completed Not Available [facility] 11/22/2019 02:32:37 Past Encounters Encounter ID Performer Location Encounter Start Date Encounter Closed Date Diagnosis/Indication Diagnosis SNOMED-CT Code Diagnosis ICD10 Code Diagnosis Note [id number] Elana Doherty is [facility] ([facility]ult [facility] [address] [place] [address]9401-[address] 0 12/09/2015 14:31:33 12/09/2015 17:51:18 Diabetes mellitus 47182653 E13.9 Essential hypertension 13298532 I10 Chronic re nal impairment 571985044 N18.9 Scapulalgia 35119899 M89 .8X1 Need recent labs before possible nsaid use. 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 Neuropathy 643683542 G62 .9 Gastroesop hageal reflux disease 803738683 K21.9 [id number] Elana Doherty is [facility] (Adult [facility]) [address] [place] [address] 15371-535 0 05/15/2016 15:17:58 05/15/2016 18:08:54 Diabetes mellitus 56965697 E13.9 Neuropathy 740504704 G62 .9 Essential hypertension 76045170 I10 Knee pain 85199344 M25.5 [id number] Kurt Alfonso (Adult Med) [address] [place] [address] [id number] 0 06/29/2016 12:03:51 06/30/2016 10:30:05 Essential hypertension 25381512 I10 Diabetes mellitus 560955 09 E13.9 Onychomycosis 712922864 B35.1 Fatigue 93582560 R53.83 Hyperlipidemia 90844621 E78.5 Gastroesop hageal reflux disease 999671783 K21.9 Neuropathy 949678598 G62 .9 Awaiting PA for lyrica [id number] MD Naty Go[facility] (Adult Med) [address] [place] [address] [id number] 0 09/13/2016 11:43:31 09/13/2016 13:09:26 Diabetes mellitus 03466106 E13.9 Essential hypertension 75169562 I10 Hyperlipidemia 04474132 E78.5 Knee pain 07179091 M25.5 69 Chronic re nal impairment 734063458 N18.9 Gastroesop hageal reflux disease 142081482 K21.9 Neuropathy 255053840 G62 .9 Active immunization 3387 9002 Z23 [id number] MD Naty Goel (Adult Med) [address] [place] [address] [id number] 02/01/2017 14:33:44 02/01/2017 16:01:47 Diabetes mellitus 02638999 E13.9 Essential hypertension 21852074 I10 Shoulder pain 82276295 M 25.519 Also in right arm Knee pain 70576988 M25.5 69 Chronic low back pain 27 7727250 M54.5 [id number] MD Naty Goel (Adult Med) [address] [place] [address] [id number] 0 02/28/2017 10:12:47 02/28/2017 17:44:51 Chronic low back pain 362368206 M54.5 Hip pain 94384220 M25.55 2 Knee pain 58729881 M25.5 69 Medication monitoring 39 5843722 Z51.81 [id number] Salas Alfonso ([employer]) [address] [place] [address] 03/29/2017 15:03:24 04/04/2017 10:03:54 Screening mammography 23013036 Z12.31 Atrophic vaginitis 10701 000 N95.2 Cystocele 351637883 N81. 10 Health Concerns Section Related Observation LastModified by Organization Detai ls LastModified Time None Recorded Concern Status LastModified by Organization Details LastModified Time None Recorded Advance Directives Directive N: Payers Encounter Date Sequence Insurance Name Policy Number Policy Johnson Covered Member ID Johnson Member ID Guarantor Name 06/29/2016 1 [facility] PRIOR TO 05/05/2021 (MEDICAID REPLACEMENT - HMO) Janet Gonzalez [id number] Janet Gonzalez 09/13/2016 1 [facility] PRIOR TO 05/05/2021 (MEDICAID REPLACEMENT - HMO) Janet Gonzalez [id number] Janet Gonzalez 02/01/2017 1 [facility] PRIOR TO 05/05/2021 (MEDICAID REPLACEMENT - HMO) Janet Gonzalez [id number] Janet Gonzalez 02/28/2017 1 [facility] PRIOR TO 05/05/2021 (MEDICAID REPLACEMENT - HMO) Janet Gonzalez [id number] Janet Gonzalez 03/29/2017 1 [facility] PRIOR TO 05/05/2021 (MEDICAID REPLACEMENT - HMO) Janet Gonzalez [id number] Janet Gonzalez Notes Date Note Type Note Provider Name and Address Organization Details Recorded Time 06/29/2016 text/html Has been fatigue d for 3 months. falls asleep easily. No benefit from gabapentin. Needs to see doper. Davis Thornton MD Attn: Accounting,[address] [place], [address], [facility] 06/29/2016 13:58:44 02/01/2017 text/html Has had pain ion her lower back for at least two months. CT lumbar spine shows degenerative changes similar to findings from 2014 Davis Thornton MD Attn: Accounting,[address], [place], [address], [facility] 02/01/2017 15:45:30 02/28/2017 text/html Seen in ER for l ow back pain with radiation into herleft groin. Pain relieved by hydrocodone and prednisone 60mg/d x 5 days Davis Thornton MD Attn: Accounting[address] , [place], [address], [facility] - [facility] 02/28/2017 11:32:05 03/29/2017 text/html problems-FemaleRep orted bypatient.Onset/Ti miri:better Context:not sexually active; no sexual dysfunction; no prior history of STDs Associated Symptoms:no flank pain; no jaundice; no blood in the urine; no pain during urination; no vaginal discharge; no urgency 71 yowf , here to re-establish care. Voices no concerns. Salas ji, [facility] 03/29/2017 18:36:43 OBGyn Episode Ob Episode Information Episode Created Date Number of Fetuses Patient Bloodtype Patient rh Status Prepregnancy Weight lbs Domestic Partner Domestic Partner Phone Father Name J2Ee Developer Status 03/29/20 17 1 CLOSED Fetus Data First Name Last Name Admitted to NICU Weight (g) Sex Living Outcome Pediatric Complications Fetus ID Race Codes Race Delivery Type 2721.55 2 F Full Term [id number] Vaginal Hector Calculation Initial Hector Date Initial Exam Date Initial Exam Provider Initial Ultrasound Date Last Menstrual Period Date Ultra Sound Weeks Gestation 0 Eighteen To Twenty Week Hector Update Ultra Sound Date Fundal Height At Umbil Quickening Date Ultra Sound Latest Weeks Gestation Final Hector Confirmed By Final Hector Confirmed Date Final Hector Date Ultra Sound Latest Days Gestation 0 0 Menstrual History Last Menstrual Date Menses Monthly On Bcp Conception Prior Menses Frequency Hcg Plus Date Menarche Onset Age Delivery Information Delivery Date Delivery Type Labor Anesthesia Weeks Gestation Incision Type Labor Labor Length Hrs Delivered By Post Complications Tubal Sterilization Discharge Date Comments 8 40 false Baby was born in [facility] Discharge Information Feeding Method Contraceptive Method Maternal HG B and HCT Levels Ob Episode Information Episode Created Date Number of Fetuses Patient Bloodtype Patient rh Status Prepregnancy Weight lbs Domestic Partner Domestic Partner Phone Father Name J2Ee Developer Status 03/29/20 17 1 CLOSED Fetus Data First Name Last Name Admitted to NICU Weight (g) Sex Living Outcome Pediatric Complications Fetus ID Race Codes Race Delivery Type 3175.14 4 M Full Term 80212 Vaginal Hector Calculation Initial Hector Date Initial Exam Date Initial Exam Provider Initial Ultrasound Date Last Menstrual Period Date Ultra Sound Weeks Gestation 0 Eighteen To Twenty Week Hector Update Ultra Sound Date Fundal Height At Umbil Quickening Date Ultra Sound Latest Weeks Gestation Final Hector Confirmed By Final Hector Confirmed Date Final Hector Date Ultra Sound Latest Days Gestation 0 0 Menstrual History Last Menstrual Date Menses Monthly On Bcp Conception Prior Menses Frequency Hcg Plus Date Menarche Onset Age Delivery Information Delivery Date Delivery Type Labor Anesthesia Weeks Gestation Incision Type Labor Labor Length Hrs Delivered By Post Complications Tubal Sterilization Discharge Date Comments 9 General 40 false [place] wa s born in [facility] Discharge Information Feeding Method Contraceptive Method Maternal HG B and HCT Levels Ob Episode Information Episode Created Date Number of Fetuses Patient Bloodtype Patient rh Status Prepregnancy Weight lbs Domestic Partner Domestic Partner Phone Father Name J2Ee Developer Status 03/29/20 17 1 CLOSED Fetus Data First Name Last Name Admitted to NICU Weight (g) Sex Living Outcome Pediatric Complications Fetus ID Race Codes Race Delivery Type 2267.96 F Full Term 23151 Vaginal Hector Calculation Initial Hector Date Initial Exam Date Initial Exam Provider Initial Ultrasound Date Last Menstrual Period Date Ultra Sound Weeks Gestation 0 Eighteen To Twenty Week Hector Update Ultra Sound Date Fundal Height At Umbil Quickening Date Ultra Sound Latest Weeks Gestation Final Hector Confirmed By Final Hector Confirmed Date Final Hector Date Ultra Sound Latest Days Gestation 0 0 Menstrual History Last Menstrual Date Menses Monthly On Bcp Conception Prior Menses Frequency Hcg Plus Date Menarche Onset Age Delivery Information Delivery Date Delivery Type Labor Anesthesia Weeks Gestation Incision Type Labor Labor Length Hrs Delivered By Post Complications Tubal Sterilization Discharge Date Comments 7 General 40 false Baby w as born in [facility] Discharge Information Feeding Method Contraceptive Method Maternal HG B and HCT Levels Ob Episode Information Episode Created Date Number of Fetuses Patient Bloodtype Patient rh Status Prepregnancy Weight lbs Domestic Partner Domestic Partner Phone Father Name J2Ee Developer Status 03/29/20 17 1 CLOSED Fetus Data First Name Last Name Admitted to NICU Weight (g) Sex Living Outcome Pediatric Complications Fetus ID Race Codes Race Delivery Type 3175.14 4 F Full Term 14086 Vaginal Hector Calculation Initial Hector Date Initial Exam Date Initial Exam Provider Initial Ultrasound Date Last Menstrual Period Date Ultra Sound Weeks Gestation 0 Eighteen To Twenty Week Hector Update Ultra Sound Date Fundal Height At Umbil Quickening Date Ultra Sound Latest Weeks Gestation Final Hector Confirmed By Final Hector Confirmed Date Final Hector Date Ultra Sound Latest Days Gestation 0 0 Menstrual History Last Menstrual Date Menses Monthly On Bcp Conception Prior Menses Frequency Hcg Plus Date Menarche Onset Age Delivery Information Delivery Date Delivery Type Labor Anesthesia Weeks Gestation Incision Type Labor Labor Length Hrs Delivered By Post Complications Tubal Sterilization Discharge Date Comments 5 General 40 false Baby w as born in [facility] Discharge Information Feeding Method Contraceptive Method Maternal HG B and HCT Levels
--- OUTSIDE RECORDS SUMMARY | 2024-12-31 13:32 | XMS_ITS | Encounter Summary ---
Author Organization [facility] Address [address] [place] [address] Phone Care Team Providers Care Computer Network Engineer Name Role Phone Dav Barillas MD Unavailable Reggie Lazar MD Unavailable [phone] Angie Egan PAC Primary Care Provider + Alvarez Rivera MD Unavailable Bunny Cruz MD Unavailable Reason for Visit * Reason Onset Date Comments Medication Refill 10/01/2020 norco Encounter Details Date Type Department Care Team (Late st Contact Info) Description 10/01/2020 Refill [facility] - Family [facility] [address] [place] [address] Angie Egan, PAC [address] [place] [address] Medication Refill (norco ) Social History Tobacco Use Types Packs/Day Years Used Date Smoking Tobacco: Former Cigarettes 1 50 Smokeless Tobacco: Never Alcohol Use Standard Drinks/Week Comments No 0 (1 standard drink = 0.6 oz pur e alcohol) PHQ-2 Answer Date Recorded Total Score - Questions 1-9 0 11/2019 Comments No Sex and Gender Information Value Date Recorded Sex Assigned at Not on file Legal Sex Female 12:07 PM CDT Gender Identity Not on file Sexual Orientation Not on file documented as of this encounter Miscellaneous Notes * Telephone Encounter - Kathryn Jimenez APN, CNP - 10/01/2020 4:05 PM BIOFUELS RESEARCH SCIENTIST [place] monitoring site reviewed, UDS UTD. approved UELS RESEARCH SCIENTIST * Telephone Encounter - Sofía Joe RN - 10/01/2020 3:44 PM CST Last OV 08/05/20 - follow up 12/07/20 - last fill 09/03/20 - next fill 10/03/20 Medication failed the protocol, provider to review and approve the medication order if appropriate. Requested Prescriptions Pending Prescriptions Disp Refills HYDROcodone-acetaminophen (NORCO) 10-325 MG Tablet 90 Tab 0 Sig: Take 1 Tab by mouth every 8 hours as needed for Severe pain. Not Delegated - Analgesics: Opioid Agonist Combinations Failed - 10/01/2020 3:07 PM Failed - This refill cannot be delegated Passed - Valid encounter within last 6 months Past Office Visits Recent Outpatient Visits 1 month ago Type 2 diabetes mellitus with diabetic neuropathy, without long-term current use of insulin ([facility]) [facility] Angie Salgado PAC 5 months ago Type 2 diabetes mellitus with diabetic neuropathy, without long- term current use of insulin ([facility]) [facility] Angie Salgado PAC 10 months ago Type 2 diabetes mellitus with diabetic neuropathy, without long- term current use of insulin ([facility]) [facility] Angie Salgado PAC 1 year ago Type 2 diabetes mellitus with diabetic neuropathy, without long-term current use of insulin ([facility]) [facility] Angie Salgado PAC 1 year ago Other diabetic neurological complication associated with type 2 diabetes mellitus ([facility]) [facility] Angie Salgado PAC Upcoming Appointments Future Appointments In 2 months Angie Egan PAC [facility] months Bunny Cruz MD [facility], [facility] COTTON MACHINE OPERATOR - Recent and Past Visits Recent Visits Date Type Provider Dept 08/05/20 Office Visit Angie Egan, PAC [facility] 04/27/20 Office Visit Angie Egan, PAC [facility] 11/11/19 Office Visit Angie Egan, PAC [facility] 08/11/19 Office Visit Angie Egan, PAC [facility] Showing recent visits within past 460 days with a meds authorizing provider and meeting all other requirements Future Appointments Date Type Provider Dept 12/07/20 Appointment Angie Egan PAC [facility] Showing future appointments within next 90 days with a meds authorizing provider and meeting all other requirements UELS RESEARCH SCIENTIST * Telephone Encounter - Leigh Cota - 10/01/2020 3:05 PM CST Received: []FAX [x]TELEPHONE CALL []MYCHART from: []PHARMACY [x]PATIENT/OTHER regarding medication management. Medication name and dose: Requested Prescriptions Pending Prescriptions Disp Refills ??? HYDROcodone-acetaminophen (NORCO) 10-325 MG Tablet 90 Tab 0 Sig: Take 1 Tab by mouth every 8 hours as needed for Severe pain. Script pended Quantity: (30 day, 90 day, 3 monthly scripts) 30 day Pharmacy preference for this medication: Juanito Outcome: [x]Medication pended, routed to surescripts []Medication refused []Informed caller of refills at pharmacy []Additional message to medication management RN []Verbal authorization for written order to pharmacy []Additional message to provider []Verified medication with pharmacy ramandeep Medication Management UELS RESEARCH SCIENTIST documented in this encounter Plan of Treatment Upcoming Encounters Date Type Department Care Team (Late st Contact Info) Description 03/24/2025 10:30 AM CDT Office Visit [facility] - [facility] [address] [place] [address] Angie Egan, PAC [address] [place] [address] documented as of this encounter Visit Diagnoses Diagnosis Chronic bilateral thoracic back pain documented in this encounter Additional Health Concerns Infection Onset Date Last Indicated Resolved Time COVID - 19 07/25/2021 07/25/2021 08/14/2021 12:1 6 AM CDT COVID - 19 09/30/2021 09/30/2021 10/20/2021 12:1 6 AM BIOFUELS RESEARCH SCIENTIST COVID - 19 Confirmed 05/24/2022 05/24/2022 022 12:16 AM CDT COVID - 19 03/08/2023 03/08/2023 03/18/2023 12:1 6 AM CDT Assessment Noted Time PHQ-9 Depression Total Score: 0 08/05/20 1:56 PM CDT documented as of this encounter Care Teams Computer Network Engineer Relationship Specialty Start Date End Date Angie Egan, BLAYNE [address] [place] [address] PCP - General Physician Parts Control Clerk 12/07/17 Dav Barillas MD Consulting Physician Nephrology 03/26/17 Reggie Lazar MD Consulting Physician Urology 07/27/17 Alvarez Rivera MD [address] [place] [phone] Consulting Physician Pulmonary Disease 07/19/23 Bunny Cruz MD [address] [place] [address] Consulting Physician Medical Oncology 02/25/24 documented as of this encounter
--- OUTSIDE RECORDS SUMMARY | 2024-12-31 13:32 | XMS_ITS | Encounter Summary ---
Author Organization [facility] Address [address] [facility] [address] [place] [address] Phone Care Team Providers Care Enforcement Manager Name Role Phone Dav Barillas MD Unavailable Reggie Lazar MD Unavailable Angie Egan PAC Primary Care Provider + Alvarez Rivera MD Unavailable Bunny Cruz MD Unavailable [phone] Reason for Visit * Reason Comments Medication Refill Encounter Details Date Type Department Care Team (Late st Contact Info) Description 10/06/[address] [facility] Medical [facility] - Family Medicine [facility] [address] [place] [address] Angie Egan, BLAYNE [address] [place] [address] Medication Refill Social History Tobacco Use Types [...] encounter Miscellaneous Notes * Telephone Encounter - Jesika Croft RN - 10/06/2023 2:35 PM LOAN SUPERVISOR Medication failed the protocol, provider to review and approve the medication order if appropriate. Requested Prescriptions Pending Prescriptions Disp Refills celecoxib (CeleBREX) 200 MG Capsule [Pharmacy Med Name: CELECOXIB 200MG CAPSULES] 60 Capsule 2 Sig: TAKE 1 CAPSULE BY MOUTH TWICE DAILY NSAIDs Protocol Failed - 10/06/2023 5:49 AM Failed - Normal serum creatinine in past 12 months CREATININE, BLOOD Date Value Ref Range Status 07/10/2023 1.17 (H) 0.60 - 1.00 mg/dL Final Failed - Not delegated, patient not between 1 and 65 years of age Passed - Visit with relevant provider in past 12 months or upcoming 90 days Recent Visits Date Type Provider Dept 07/19/23 Office Visit Angie Egan, PAC [facility] 07/10/23 Office Visit Angie Egan, PAC [facility] 04/06/23 Office Visit Angie Egan, PAC [facility] 02/23/23 Office Visit Angie Egan, PAC [facility] 01/01/23 Office Visit Angie Egan PAC [facility] 11/30/22 Office Visit Angie Egan, PAC [facility] 11/02/22 Office Visit Angie Egan, PAC [facility] Showing recent visits within past 365 days and meeting all other requirements Future Appointments Date Type Provider Dept 10/10/23 Appointment Angie Egan PAC [facility] Showing future appointments within next 90 days and meeting all other requirements Passed - No matching NSAID med order in past 45 days No matching medication orders between 08/22/2023 2:35 PM and 10/06/2023 2:35 PM Passed - AST less than 55 or ALT less than 90 in past 12 months SGOT (AST) Date Value Ref Range Status 07/10/2023 18 5 - 34 U/L Final SGPT (ALT) Date Value Ref Range Status 07/10/2023 13 0 - 55 U/L Final Passed - HGB greater than 10 or HCT greater than 30 in past 12 months HEMOGLOBIN (HGB) Date Value Ref Range Status 07/10/2023 11.9 (L) 12.0 - 15.8 g/dL Final HEMATOCRIT (HCT) Date Value Ref Range Status 07/10/2023 37.0 36.0 - 47.0 % Final SUPERVISOR documented in this encounter Plan of Treatment Upcoming Encounters Date Type Department Care Team (Late st Contact Info) Description 03/24/2025 10:30 AM CDT Office Visit [facility] Medical Group - [facility] [address] [place] [address] Angie Egan PAC [address] [place] [address] documented as of this encounter Visit Diagnoses Diagnosis Rheumatoid arthritis involving both hands, unspecified whether rheumatoid factor present (HCC) documented in this encounter Additional Health Concerns Assessment Noted Time PHQ-9 Depression Total Score: 0 07/10/20 10:27 AM CDT documented as of this encounter Care Teams Enforcement Manager Relationship Specialty Start Date End Date Angie Egan PAC [address] [place] [address] PCP - General Physician Braider Setter 12/07/17 Dav Barillas MD Consulting Physician Nephrology 03/26/17 Reggie Lazar MD Consulting Physician Urology 07/27/17 Alvarez Rivera MD [address] [place] [address] Consulting Physician Pulmonary Disease 07/19/23 Bunny Cruz MD [address] [place] [address] Consulting Physician Medical Oncology 02/25/24 documented as of this encounter
--- OUTSIDE RECORDS SUMMARY | 2024-12-31 13:32 | XMS_ITS | Encounter Summary ---
Author Organization [facility] Address [address] [facility] [place] [address] Phone Care Team Providers Care Hoisting Engine Operator Name Role Phone Dav Barillas MD Unavailable Reggie Lazar MD Unavailable [phone] Angie Egan [facility] Primary Care Provider + Alvarez Rivera MD Unavailable Bunny Cruz MD Unavailable Reason for Visit * Reason Comments Medication Refill Encounter Details Date Type Department Care Team (Late st Contact Info) Description 07/10/2021 [facility]ill [facility] [address] [place] [phone] Rolf Haider MD [address] [address] Medication Refill Social History Tobacco Use Types Packs/Day Years Used Date Smoking Tobacco: Some Days Cigarettes 0.5 69.6 Started: 05/25/1955 Smokeless Tobacco: Never Alcohol Use Standard Drinks/Week Comments No 0 (1 standard drink = 0.6 oz pur e alcohol) PHQ-2 Answer Date Recorded Total Score - Questions 1-9 0 10/0 11/2019 Sexually Active Control Partners Comments Not Currently Male Comments No Sex and Gender Information Value Date Recorded Sex Assigned at Not on file Legal Sex Female 12:07 PM CDT Gender Identity Not on file Sexual Orientation Not on file documented as of this encounter Miscellaneous Notes * Telephone Encounter - Uyen Garcia RN - 07/12/2021 7:47 AM CDT Duplicate request. Original request forwarded to Dr. Haider for approval. documented in this encounter Plan of Treatment Upcoming Encounters Date Type Department Care Team (Late st Contact Info) Description 03/24/2025 10:30 AM CDT Office Visit [facility] Medical Group - [facility] [address] [place] [address] Angie Egan PAC [address] [place] [address] documented as of this encounter Visit Diagnoses Not on filedocumented in this encounter Additional Health Concerns Infection Onset Date Last Indicated Resolved Time COVID - 19 07/25/2021 07/25/2021 08/14/2021 12:1 6 AM CDT COVID - 19 09/30/2021 09/30/2021 10/20/2021 12:1 6 AM IGNITION MECHANIC COVID - 19 Confirmed 05/24/2022 05/24/2022 022 12:16 AM CDT COVID - 19 03/08/2023 03/08/2023 03/18/2023 12:1 6 AM CDT Assessment Noted Time PHQ-9 Depression Total Score: 0 08/05/20 1:56 PM CDT documented as of this encounter Care Teams Hoisting Engine Operator Relationship Specialty Start Date End Date Angie Egan PAC [address] [place] [address] PCP - General Physician Testing Projects Administrator 12/07/17 Dav Barillas MD Consulting Physician Nephrology 03/26/17 Reggie Lazar MD Consulting Physician Urology 07/27/17 Alvarez Rivera MD [address] [place] [phone] Consulting Physician Pulmonary Disease 07/19/23 Bunny Cruz MD [address] [place] [address] Consulting Physician Medical Oncology 02/25/24 documented as of this encounter
--- OUTSIDE RECORDS SUMMARY | 2024-12-31 13:32 | XMS_ITS | Encounter Summary ---
Author Organization [facility] Address [address] [place] [address] Phone Care Team Providers Care Language Instructor Name Role Phone Dav Barillas MD Unavailable [phone] Reggie Lazar MD Unavailable Angie Egan PAC Primary Care Provider + Alvarez Rivera MD Unavailable Bunny Cruz MD Unavailable [phone] Reason for Visit * Reason Comments Medication Refill Encounter Details Date Type Department Care Team (Late st Contact Info) Description 01/08/2020 [facility] [address] [place] [address] Angie Egan, PAC [address] [place] [address] Medication Refill Social History Tobacco Use Types Packs/Day Years Used Date Smoking Tobacco: Former Cigarettes 1 50 Smokeless Tobacco: Never Alcohol Use Standard Drinks/Week Comments No 0 (1 standard drink = 0.6 oz pur e alcohol) PHQ-2 Answer Date Recorded PHQ-2 Score 0 07/03/2019 Comments No Sex and Gender Information Value Date Recorded Sex Assigned at Not on file Legal Sex Female 12:07 PM CDT Gender Identity Not on file Sexual Orientation Not on file documented as of this encounter Miscellaneous Notes * Telephone Encounter - Elaine Guo RN - 01/08/2020 8:28 AM POOL INSTALLER Medication(s) refilled and signed per [facility] Chronic Medication Refill Standing Order for Pediatric and Adult Patients. INSTALLER documented in this encounter Plan of Treatment Upcoming Encounters Date Type Department Care Team (Late st Contact Info) Description 03/24/2025 10:30 AM CDT Office Visit [facility] - Family [facility] [address] [place] [address] Angie Egan PAC [address] [place] [address] documented as of this encounter Visit Diagnoses Diagnosis Mixed hyperlipidemia documented in this encounter Additional Health Concerns Infection Onset Date Last Indicated Resolved Time COVID - 19 07/25/2021 07/25/2021 08/14/2021 12:1 6 AM CDT COVID - 19 09/30/2021 09/30/2021 10/20/2021 12:1 6 AM POOL INSTALLER COVID - 19 Confirmed 05/24/2022 05/24/2022 022 12:16 AM CDT COVID - 19 03/08/2023 03/08/2023 03/18/2023 12:1 6 AM CDT Assessment Noted Time PHQ-9 Depression Total Score: 0 11/11/19 20 1:48 PM POOL INSTALLER documented as of this encounter Care Teams Language Instructor Relationship Specialty Start Date End Date Angie Egan PAC [address] [place] [address] PCP - General Physician Eye Glass Frame Polisher 12/07/17 Dav Barillas MD Consulting Physician Nephrology 03/26/17 Reggie Lazar MD Consulting Physician Urology 07/27/17 Alvarez Rivera MD [address] [place] [address] Consulting Physician Pulmonary Disease 07/19/23 Bunny Cruz MD [address] [place] [address] Consulting Physician Medical Oncology 02/25/24 documented as of this encounter
--- OUTSIDE RECORDS SUMMARY | 2024-12-31 13:32 | XMS_ITS | Encounter Summary ---
Author Organization [facility] Address [address] [facility] [place] [address] Phone Care Team Providers Care Skidder Runner Name Role Phone Dav Barillas MD Unavailable Reggie Lazar MD Unavailable Angie Egan Primary Care Provider + Alvarez Rivera MD Unavailable Bunny Cruz MD Unavailable [phone] Reason for Visit * Reason Comments Medication Refill Encounter Details Date Type Department Care Team (Late st Contact Info) Description 04/09/2023 Refill [facility] Medical [facility] - Family Medicine [facility] [address] [place] [address] Angie Egan PAC [address] [place] [address] Medication Refill Social History Tobacco Use Types Packs/Day Years Used Date Smoking Tobacco: Some Days Cigarettes 0.5 69.6 Started: 05/25/1955 Smokeless Tobacco: Never Alcohol Use Standard Drinks/Week Comments No 0 (1 standard drink = 0.6 oz pur e alcohol) PHQ-2 Answer Date Recorded Total Score - Questions 1-9 0 07/07 Education Answer Date Recorded What is the [...] suspected to have Coronavirus/COVID-19? No / Unsure 04/06/2023 9:48 AM CDT documented as of this encounter Miscellaneous Notes * Telephone Encounter - Sofía Joe RN - 04/09/2023 4:28 PM CDT Should have refill on file according to last Rx documented in this encounter Plan of Treatment Upcoming Encounters Date Type Department Care Team (Late st Contact Info) Description 03/24/2025 10:30 AM CDT [facility] [place] [address] Angie Egan PAC [address] [place] [address] documented as of this encounter Visit Diagnoses Not on filedocumented in this encounter Additional Health Concerns Assessment Noted Time PHQ-9 Depression Total Score: 0 07/25/20 22 9:00 AM CDT documented as of this encounter Care Teams Skidder Runner Relationship Specialty Start Date End Date Angie Egan PAC [address] [place] [address] PCP - General Physician Frame Nailer 12/07/17 Dav Barillas MD Consulting Physician Nephrology 03/26/17 Reggie Lazar MD Consulting Physician Urology 07/27/17 Alvarez Rivera MD [address] [place] [address] Consulting Physician Pulmonary Disease 07/19/23 Bunny Cruz MD [address] [place], [place] [id number] Consulting Physician Medical Oncology 02/25/24 documented as of this encounter
--- OUTSIDE RECORDS SUMMARY | 2024-12-31 13:32 | XMS_ITS | Encounter Summary ---
Author Organization [facility] Address [address] [facility] [place] [address] Phone Care Team Providers Care Ssis Developer Name Role Phone Dav Barillas MD Unavailable [phone] Reggie Lazar MD Unavailable [phone] Angie Egan PAC Primary Care Provider + Alvarez Rivera MD Unavailable Bunny Cruz MD Unavailable Reason for Visit * Reason Comments Medication Refill Encounter Details Date Type Department Care Team (Late st Contact Info) Description 10/06/2023 Refill [facility] Medical [facility] - Family Medicine [facility] [address] [place] [address] Angie Egan, BLAYNE [address] [place] [address] Medication Refill Social History Tobacco Use Types [...] Notes * Telephone Encounter - Kathryn Jimenez APRN, CNP - 10/09/2023 8:41 AM REJECTED ITEMS CLERK duplicate CTED ITEMS CLERK * Telephone Encounter - Sofía Joe RN - 10/08/2023 8:42 AM CST Medication failed the protocol, provider to review and approve the medication order if appropriate. Requested Prescriptions Pending Prescriptions Disp Refills celecoxib (CeleBREX) 200 MG Capsule [Pharmacy Med Name: CELECOXIB 200MG CAPSULES] 60 Capsule 2 Sig: TAKE 1 CAPSULE BY MOUTH TWICE DAILY NSAIDs Protocol Failed - 10/06/2023 4:12 PM Failed - Normal serum creatinine in past [...] 07/19/23 Office Visit Angie Egan, PAC [facility] 07/10/23 Office Visit Angie Egan PAC [facility] 04/06/23 Office Visit Angie Egan, PAC [facility] 02/23/23 Office Visit Angie Egan PAC [facility] 01/01/23 Office Visit Angie Egan, PAC [facility] 11/30/22 Office Visit Angie Egan, PAC [facility] 11/02/22 Office Visit Angie Egan, PAC [facility] Showing recent visits within past 365 days and meeting all other requirements Future Appointments Date Type Provider Dept 12/06/23 Appointment Angie Egan PAC [facility] Showing future appointments within next 90 days and meeting all other requirements Passed - No matching NSAID med order in past 45 days No matching medication orders between 08/24/2023 8:42 AM and 10/08/2023 8:42 AM Passed - AST less than 55 or [...] 07/10/2023 37.0 36.0 - 47.0 % Final CTED ITEMS CLERK documented in this encounter Plan of Treatment Upcoming Encounters Date Type Department Care Team (Late st Contact Info) Description 03/24/2025 10:30 AM CDT [facility] Visit [facility] [address] [place] [address] Angie Egan PAC [address] [place] [address] documented as of this encounter Visit Diagnoses Diagnosis Rheumatoid arthritis involving both hands, unspecified whether rheumatoid factor present (HCC) documented in this encounter Additional Health Concerns Assessment Noted Time PHQ-9 Depression Total Score: 0 07/10/20 23 10:27 AM CDT documented as of this encounter Care Teams Ssis Developer Relationship Specialty Start Date End Date Angie Egan PAC [address] [place] [address] PCP - General Physician Forestry Support Specialist 12/07/17 Dav Barillas MD Consulting Physician Nephrology 03/26/17 Reggie Lazar MD Consulting Physician Urology 07/27/17 Alvarez Rivera MD [address] [place] [address] Consulting Physician Pulmonary Disease 07/19/23 Bunny Cruz MD [address] [place] [address] Consulting Physician Medical Oncology 02/25/24 documented as of this encounter
--- OUTSIDE RECORDS SUMMARY | 2024-12-31 13:32 | XMS_ITS | Encounter Summary ---
Author Organization [facility] Address [address] [facility] [place] [address] Phone Care Team Providers Care Motorized Squad Captain Name Role Phone Dav Barillas MD Unavailable [phone] Reggie Lazar MD Unavailable [phone] Angie Egan [facility] Primary Care Provider + Alvarez Rivera MD Unavailable Bunny Cruz MD Unavailable Reason for Visit * Reason Comments Medication Refill Encounter Details Date Type Department Care Team (Late st Contact Info) Description 07/09/2021 [facility]ill [facility] [address] [place] [phone] Rolf Haider MD [address] [address] Medication Refill Social History Tobacco Use Types [...] Exposure Response Date Recorded In the last month, have you been in contact with someone who was confirmed or suspected to have Coronavirus / COVID-19? No / Unsure 06/09/2021 8:27 AM CDT documented as of this encounter Miscellaneous Notes * Telephone Encounter - Rolf Haider MD - 07/12/2021 11:22 AM CDT One month should have been enough. documented in this encounter Plan of Treatment Upcoming Encounters Date Type Department Care Team (Late st Contact Info) Description 03/24/2025 10:30 AM CDT Office Visit [facility] Medical Group - Family [facility] [address] [place] [address] Angie Egan PAC [address] [place] [address] documented as of this encounter Visit Diagnoses Not on filedocumented in this encounter Additional Health Concerns Infection Onset Date Last Indicated Resolved Time COVID - 19 07/25/2021 07/25/2021 08/14/2021 12:1 6 AM CDT COVID - 19 09/30/2021 09/30/2021 10/20/2021 12:1 6 AM MESSENGER FLOORPERSON COVID - 19 Confirmed 05/24/2022 05/24/2022 022 12:16 AM CDT COVID - 19 03/08/2023 03/08/2023 03/18/2023 12:1 6 AM CDT Assessment Noted Time PHQ-9 Depression Total Score: 0 08/05/20 1:56 PM CDT documented as of this encounter Care Teams Motorized Squad Captain Relationship Specialty Start Date End Date Angie Egan PAC [address] [place] [address] PCP - General Physician Plastic Manager 12/07/17 Dav Barillas MD Consulting Physician Nephrology 03/26/17 Reggie Lazar MD Consulting Physician Urology 07/27/17 Alvarez Rivera MD [address] [place] [address] Consulting Physician Pulmonary Disease 07/19/23 Bunny Cruz MD [address] [place] [address] Consulting Physician Medical Oncology 02/25/24 documented as of this encounter
--- OUTSIDE RECORDS SUMMARY | 2024-12-31 13:32 | XMS_ITS | Clinical Summary ---
Author Organization Formerly [facility] Facility Address [address] [address] Care Team Providers Care Cnc Wood Lathe Operator Name Role Phone Unavailable Primary Care Provider Unavailabl e Allergies No known active allergies Medications albuterol (2.5 MG/3ML) 0.083% nebulizer solution albuterol sulfate 2.5 mg/3 mL (0.083 %) solution for nebulization Active allopurinol (ZYLOPRIM) 300 MG tablet Take 1 tablet by mouth 1 (one) time each day Active atenolol (TENORMIN) 25 MG tablet Take 1 tablet by mouth 1 (one) time each day 1 Active doxycycline (VIBRAMYCIN) 100 MG capsule Take 100 mg by mouth 1 (one) time each day Active HYDROcodone-vale taminophen (NORCO) 7.5-325 MG per tablet Take 1 tablet by mouth every 6 (six) hours if needed Active naproxen (NAPROSYN) 500 MG tablet Take 500 mg by mouth if needed Active pantoprazole (PROTONIX) 40 MG EC tablet Take 40 mg by mouth at bed time Active pravastatin (PRAVACHOL) 40 MG tablet Take 1 tablet by mouth at bed time Active pregabalin (LYRICA) 100 MG capsule Take 1 capsule by mouth 2 (two) times a day Active traZODone (DESYREL) 150 MG tablet trazodone 150 mg tablet TAKE ONE TABLET BY MOUTH EVERY NIGHT AT BEDTIME 1 Active Cholecalciferol (Vitamin D3) 50 MCG (1999) tablet Take 1 tablet by mouth 1 (one) time each day Active Calcium Carbonate (CALCIUM 500 PO) Take 1 tablet by mouth 1 (one) time each day Active predniSONE 5 MG tablet Take 5 mg by mouth 1 (one) time each day 2 Active Active Problems Problem Noted Date Diagnosed Date Smoker 05/02/2022 Benign hypertensive renal disease 09/14/2021 Chronic gouty arthritis 09/14/2021 Chronic kidney disease, stage 2 (mild) Chronic obstructive pulmonary disease 09/14/2021 Essential hypertension 09/14/2021 Gastroesophageal reflux disease 09/14/2021 Fatigue 09/14/2021 Hyperkalemia 09/14/2021 Hyperlipidemia 09/14/2021 Neuropathy 09/14/2021 Obstructive sleep apnea syndrome 09/14/2021 Onychomycosis 09/14/2021 Osteoarthritis 09/14/2021 Diabetes mellitus 09/14/2021 Immunizations Name Administration Dates Next Due Influenza TIV (IM) 10/13/2019,08/26/2018, 017 Influenza, Quadrivalent, Pre servative Free 08/05/2020,08/11/2019,09/04/2018,07/27 Influenza, Quadrivalent, Wit h Preservative 09/13/2016,08/30/2015 Moderna SARS-COV-2 12/08/2020 Pneumococcal Conjugate 13-Valent 07/27/2017 Pneumococcal Polysaccharide 04/09/2016, 2 Tdap 04/11/2019 Social History Tobacco Use Types Packs/Day Years Used Date Smoking Tobacco: Every Day Cigarettes Smokeless Tobacco: Never Alcohol Use Standard Drinks/Week Comments No 0 (1 standard drink = 0.6 oz pur e alcohol) Comments Unknown Sex and Gender Information Value Date Recorded Sex Assigned at Not on file Legal Sex Female 2:51 PM EDT Gender Identity Not on file Sexual Orientation Not on file Last Filed Vital Signs Vital Sign Reading Time Taken Comments Blood Pressure 122/60 10/17/2022 11:[address] JUDGE Pulse 84 10/17/2022 11:[address] JUDGE Temperature 36.2 C (97.2 F) 10/17/2022 11:[address] JUDGE Respiratory Rate 18 10/17/2022 11:[address] JUDGE Oxygen Saturation 90% 10/17/2022 11:[address] JUDGE Inhaled Oxygen Concentration - - Weight 78.9 kg (174 lb) 10/17/2022 11:[address] JUDGE Height 157.5 cm (5' 2 ) 10/17/2022 11:[address] JUDGE Body Mass Index 31.83 10/17/2022 11:[address] JUDGE Plan of Treatment Health Maintenance Due Date Last Done Comments Hepatitis B Vaccine (1 of 3 - Risk 3-dose series) 2005 Diabetes: Ophthalmology Exam 03/31/2021 Diabetes: Pedal Pulse Checked 03/31/2021 Diabetes: Sensory Foot Exam 03/31/2021 Diabetes: Visual Foot Exam 03/31/2021 Diabetes: Hemoglobin A1C 01/14/2023 022, 09/27/2022, 05/01/2022, Additional history exists Influenza Vaccine (#1) 2024 2, 08/19/2021, 08/05/2020, Additional history exists Pneumococcal Vaccine: 65+ Years Completed 07/27/2017, 04/09/2016, 11/05/2011 Procedures Procedure Name Priority Date/Time Associated Diagnosis Comments EXT RESULT ENTRY Routine 10/16/2022 from Last 3 Months or Most Recently Relevant to Health Maintenance Results * (ABNORMAL) EXT RESULT ENTRY (10/16/2022) WBC 12.8(A) 3.3 - 10.0 10*3/ML Red Blood Cell Count 3.99 Hemoglobin 12.1 12.0 - 16.0 Hematocrit 37.8 36.0 - 46.0 Platelets 280 150 - 399 10*3/UL Sodium 132(A) 137 - 147 Potassium 4.6 3.4 - 5.5 Chloride 97.0(A) 99.0 - 108.0 Carbon Dioxide 27 mmol/L Anion Gap 13 <=30 MMOL/L Glucose 114 60 - 200 BUN 22(A) 4 - 21 mg/dL Creatinine 1.07 0.50 - 1.10 mg/dL Total Protein 6.9 6.4 - 8.2 G/DL Albumin 4.1 3.5 - 5.0 g/dL Calcium 9.6 8.7 - 10.7 mg/dL Phosphorus, Serum 3.7 eGFR Non-Afr Rwandan 50 Vitamin D, 25-OH, Total 45.4 ng/mL Hemoglobin A1C 6.4(A) 4.0 - 6.0 Protein Urine Random 9 Creatinine, Urine Random 62.35 mg/dL Urine Protein/Creatin ine Ratio 0.1 mg/g creat 10/16/2022 us Historical Provider LAB BLOOD ORDERABLES Felisa l Result from Last 3 Months or Most Recently Relevant to Health Maintenance Insurance [employer]
--- OUTSIDE RECORDS SUMMARY | 2024-12-31 13:32 | XMS_ITS | Continuity of Care Document ---
Author Organization [facility] Address [address] [place] [address] [address] [place] [address] Phone Care Team Providers Care Exchange Trouble Shooter Name Role Phone Estrellita Garrido Unavailable Unavailable Procedures Procedure Date Eye Exam, New Patient Advance Directives Directive Yes / No Effective Date File Name No Information Encounters Encounter Description Practice Location Reason(s) For Visit Diagnoses Date Provider Providers Copied on Encounter [facility], [id number] [place] [address] [address], [place], [place], [id number], [place] tel:[phone] SEC [facility] No Information [address] Radhika Haro. [address] , [address], [place], [address], [place]. tel:[phone] Family History Family Member Type Diagnosis Age At Onset No Information Payers Payer name Insurance type Covered libertarian ID Authoriza tion(s) Medicaid [facility] [id number] Social History Type Description Quantity Date Captured Comments Sex Female Smoking Status No Information Chief Complaint And Reason For Visit No Information Reason For Referral Reason For Referral No Information History Of Present Illness Encounter Date Complaint History Of Prese nt Illness No Information Functional Status Date Functional Assessmen t No Information Instructions Date Instruction Additional Infor mation No Information Assessments Type Assessment Date No Information Patient Care Teams Name Effective Dates (start - stop) Status Members No Information
--- OUTSIDE RECORDS SUMMARY | 2024-12-31 13:32 | XMS_ITS | Encounter Summary ---
Author Organization [facility] Address [address] [facility] [place] [address] Phone Care Team Providers Care Nitro Worker Name Role Phone Dav Barillas MD Unavailable Reggie Lazar MD Unavailable [phone] Angie Egan PAC Primary Care Provider + Alvarez Rivera MD Unavailable Bunny Cruz MD Unavailable Reason for Visit * Reason Comments Medication Refill Encounter Details Date Type Department Care Team (Late st Contact Info) Description 05/10/2022 Refill [facility] - Family Medicine [facility] [address] [place] [address] Angie Egan, [facility] [address] [place] [address] Medication Refill Social History Tobacco Use Types [...] on file documented as of this encounter Plan of Treatment Upcoming Encounters Date Type Department Care Team (Late st Contact Info) Description 03/24/2025 10:30 AM CDT Office Visit [facility] Medical Group - [facility] [address] [place] [address] Angie Egan PAC [address] [place] [address] documented as of this encounter Visit Diagnoses Not on filedocumented in this encounter Additional Health Concerns Infection Onset Date Last Indicated Resolved Time COVID - 19 Confirmed 05/24/2022 05/24/2022 022 12:16 AM CDT COVID - 19 03/08/2023 03/08/2023 03/18/2023 12:1 6 AM CDT Assessment Noted Time PHQ-9 Depression Total Score: 0 07/29/20 21 11:00 AM CDT documented as of this encounter Care Teams Nitro Worker Relationship Specialty Start Date End Date Angie Egan PAC [address] [place] [address] PCP - General Physician Java Lead 12/07/17 Dav Barillas MD Consulting Physician Nephrology 03/26/17 Reggie Lazar MD Consulting Physician Urology 07/27/17 Alvarez Rivera MD [address] [place] [address] Consulting Physician Pulmonary Disease 07/19/23 Bunny Cruz MD [address] [place] [address] Consulting Physician Medical Oncology 02/25/24 documented as of this encounter
--- OUTSIDE RECORDS SUMMARY | 2024-12-31 13:32 | XMS_ITS | Encounter Summary ---
Author Organization [facility] Address [address] [facility] [place] [address] Care Team Providers Care Inspector Motor Vehicles Name Role Phone Luz Maria Riggins MD Primary Care Provider [phone] Encounter Details Date Type Department Care Team (Late st Contact Info) Description 02/15/2024 Lab Requisition [facility] - Pathology Lab [address] [place] [address] Emanuel De Oliveira MD [facility] [address] [address] Illness, unspecified Social History Tobacco Use Types Packs/Day Years [...] on file documented as of this encounter Functional Status Functional Status Response Date of [...] person have difficulty concentrating/remembering/making decisions? No 02/22/2021 documented as of this encounter Plan of Treatment Not on file documented as of this encounter Procedures Procedure Name Priority Date/Time Associated Diagnosis Comments BONE MARROW BIOPSY (STL) Routine 02/14/2024 8:14 AM CDT Illness, unspecified documented in this encounter Results * BONE MARROW BIOPSY (STL) (02/14/2024 8:14 AM CDT) Case Report Bone Marrow Patholog y Report Case: [id number] Authorizing Provider: Emanuel De Oliveira MD Collected: 02/14/2024 08:14 AM Ordering Location: [facility] - Received: 02/15/2024 02:55 PM Pathology Lab Pathologist: Sydney Penn MD Specimens: A) - Bone Marrow Core B) - Bone Marrow Clot 02/18/2024 9:30 AM T [facility] Final Diagnosis Bone marrow, aspirate, clot section, and core biopsy: - Hypercellular marrow with maturing trilineage hematopoiesis - No evidence of lymphoma, high-grade myeloid neoplasm, or plasma cell dyscrasia - See description Peripheral blood smear: - Macrocytic anemia - See description 02/18/2024 9:30 AM T [facility] Comment Overall, the bone marrow specimen is hypercellular for age with maturing trilineage hematopoiesis and no evidence of lymphoma, a high-grade myeloid neoplasm, significant dyspoiesis, or plasma cell dyscrasia. Correlation with clinical findings and relevant cytogenetic/molecular testing is required. 02/18/2024 9:30 AM CDT [facility] Peripheral Smear Description CBC Data: WBC - 7.36, Hgb - 11.3, MCV - 96.5, MCHC - 33.8, and Platelets - 224. Manual Differential Count (100 cells): 40% neutrophils, 48% lymphocytes, and 12% monocytes. Leukocyte number: normal. Granulocyte morphology: normal. Lymphocyte morphology: normal. Erythrocyte number: decreased. Erythrocyte morphology: macrocytic. Anisopoikilocytosis: mild. Polychromasia: mild. Platelet number: normal. Platelet morphology: normal. 02/18/2024 9:30 AM [facility] Bone Marrow Aspirate [...] Control is appropriately reactive. 02/18/2024 9:30 AM [facility] Bone Marrow Core [...] less than 5% of the marrow cellularity. False Pass and lambda show a mix of expression with no demonstrable monoclonality. 02/18/2024 9:30 AM [facility] Flow Cytometry Summary Concurrent flow cytometry ([id number]) shows no evidence of a monoclonal B-cell population, high-grade myeloid neoplasm, or plasma cell dyscrasia. 02/18/2024 9:30 AM [facility] Clinical History 78 year old woman with anemia, exclude MDS. 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 02/18/2024 9:30 AM [facility] Materials Received Received are 20 slides and 2 blocks labeled [id number] along with a copy of the outside pathology report. The materials originate from [facility], [address] [facility] [id number]. All original materials are returned to the referring institution, along with a copy of our final report. 02/18/2024 9:30 AM CDT [facility] Pathologist Location at [facility] 02/18/2024 9:30 AM CDT [facility] PATH[facility] LAB Disclaimer The performance characteristics of all immunohistochemical and indirect immunofluorescence stains (if any) cited in this report were determined by the Histopathology Laboratory of [facility]. Some of these tests were developed by [...] the attending (teaching) pathologist. 02/18/2024 9:30 AM CDT [facility] PATH[facility] Embedded Images 02/18/2024 9:30 AM CDT [facility] Pathology/Cytology BONE MARROW CLOT SPECIMEN / Unknown 02/14/2024 8:14 AM CDT 02/15/2024 2:55 PM CDT Miscellaneous samples (specimen) BONE MARROW CLOT SPECIMEN / Unknown 02/14/2024 8:14 AM CDT 02/15/2024 2:55 PM CDT Emanuel De Oliveira MD LAB - PATHOLOGY/CYTO LOGY ORDERABLES [facility] [address] [phone] documented in this encounter Visit Diagnoses Diagnosis Illness, unspecified documented in this encounter Care Teams Inspector Motor Vehicles Relationship Specialty Start Date End Date Luz Maria Riggins MD PCP - General 12/29/20 documented as of this encounter
--- OUTSIDE RECORDS SUMMARY | 2024-12-31 13:32 | XMS_ITS | Encounter Summary ---
Author Organization [facility] Address [address] [facility] [address] [facility] [place] [place] [address] Phone Care Team Providers Care Business Office Representative Name Role Phone Dav Barillas MD Unavailable [phone] Reggie Lazar MD Unavailable [phone] Angie Egan PAC Primary Care Provider + Alvarez Rievra MD Unavailable Bunny Cruz MD Unavailable [phone] Reason for Visit * Reason Comments Medication Refill Encounter Details Date Type Department Care Team (Late st Contact Info) Description 02/18/2023 Refill [facility] - Family Medicine [facility] [address] [place] [address] Angie Egan, [facility] [address] [place] [address] Medication Refill Social History Tobacco Use Types [...] CDT Office Visit [facility] [address] [place] [address] Angie Egan PAC [address] [place] [address] documented as of this encounter Visit Diagnoses Diagnosis Rheumatoid arthritis involving both hands, unspecified whether rheumatoid factor present (HCC) documented in this encounter Additional Health Concerns Infection Onset Date Last Indicated Resolved Time COVID - 19 03/08/2023 03/08/2023 03/18/2023 12:1 6 AM CDT Assessment Noted Time PHQ-9 Depression Total Score: 0 07/25/20 9:00 AM CDT documented as of this encounter Care Teams Business Office Representative Relationship Specialty Start Date End Date Angie Egan PAC [address] [place] [address] PCP - General Physician Janitorial Tech 12/07/17 Dav Barillas MD Consulting Physician Nephrology 03/26/17 Reggie Lazar MD Consulting Physician Urology 07/27/17 Alvarez Rivera MD [address] [place] [address] Consulting Physician Pulmonary Disease 07/19/23 Bunny Cruz MD [address] [place] [address] Consulting Physician Medical Oncology 02/25/24 documented as of this encounter
--- OUTSIDE RECORDS SUMMARY | 2024-12-31 13:32 | XMS_ITS | Encounter Summary ---
Author Organization [facility] Address [address] [facility] [place] [address] Care Team Providers Care Antiquer Name Role Phone Luz Maria Riggins MD Primary Care Provider [phone] Encounter Details Date Type Department Care Team (Late st Contact Info) Description 02/14/2024 Lab Requisition [facility] - Pathology Lab [address] [place] [address] Emanuel De Oliveira MD [facility] [address] [address] Abnormality of plasma protein, unspecified; Anemia, unspecified Social History Tobacco Use Types Packs/Day [...] Procedure Name Priority Date/Time Associated Diagnosis Comments FLOW CYTOMETRY BONE MARROW Routine 02/14/2024 8:15 AM CDT Abnormality of plasma protein, unspecified Anemia, unspecified documented in this encounter Results * FLOW CYTOMETRY BONE MARROW (02/14/2024 8:15 AM CDT) Case Report Flow Cytometry Case: [id number] Authorizing Provider: Emanuel De Oliveira MD Collected: 02/14/2024 08:15 AM Ordering Location: [facility] - Received: 02/14/2024 12:18 PM Pathology Lab Pathologist: Sydney Penn MD Specimen: Bone Marrow 02/14/2024 4:38 PM CDT [facility] PATH[facility] Final Diagnosis Bone marrow, flow cytometric immunophenotypic analysis: - No evidence of a monoclonal B-cell population, high-grade myeloid neoplasm, or plasma cell dyscrasia - See interpretation 02/14/2024 4:38 PM CDT [facility] PATH[facility] Flow Cytometry Interpretation Viability: 92% B-cells: polytypic, kappa:lambda ratio 1.3:1 Blasts: 0.5% of events Plasma cells: polytypic, kappa:lambda ratio 2.3:1, 0.1% of events A bone marrow aspirate smear prepared from the flow cytometry specimen has been reviewed for business quality assurance analyst purposes. 02/14/2024 4:38 PM CDT [facility] PATH[facility] Flow Cytometry Results Differential Result Comment Flow Cell Count /uL 65,500 Total Viability % 92.0 Lymphocytes % 5 Dim CD45 Region % 2 Monocytes % 16 Granulocytes % 77 02/14/2024 4:38 PM CDT [facility] PATH[facility] Reason for test Abnormality of plasma protein, unspecified Anemia, unspecified 285.9 02/14/2024 4:38 PM CDT [facility] PATH[facility] LAB Client Specimen ID # [id number] 02/14/2024 4:38 PM CDT [facility] Number of markers 14 were performed. A-2 Flow CD10 A-3 Flow CD13 A-5 Flow CD20 A-13 Flow CD117 A-14 FLOW CD138 A-1 Flow CD5 A-4 Flow CD19 A-6 Flow CD33 A-7 Flow CD34 A-8 Flow CD45 A-11 Flow CD38 A-12 Flow CD56 A-9 Crete+CD19+ A-10 Lambda+CD19+ A-15 cyKappa+CD138+ A-16 cyLambda+CD138 02/14/2024 4:38 PM CDT U PATHOLOGY LAB Pathologist Location at [facility] 02/14/2024 4:38 PM CDT U PATHOLOGY LAB Disclaimer Test performed at [facility], [address] [place] [address], [address]. *The established laboratory minimum viability is 70%. [...] complexity clinical testing. 02/14/2024 4:38 PM CDT U PATHOLOGY LAB Embedded Images 4:38 PM CDT [facility] Pathology/Cytolo gy BONE MARROW SPECIMEN / Unknown 02/14/2024 8:15 AM CDT 02/14/2024 12:18 PM CDT Emanuel De Oliveira MD LAB - PATHOLOGY/CYTO LOGY ORDERABLES [facility] [address] [place] [address]. [address] [phone] documented in this encounter Visit Diagnoses Diagnosis Abnormality of plasma protein, unspecified Anemia, unspecified documented in this encounter Care Teams Antiquer Relationship Specialty Start Date End Date Luz Maria Riggins MD PCP - General 12/29/20 documented as of this encounter
--- OUTSIDE RECORDS SUMMARY | 2024-12-31 13:32 | XMS_ITS | Encounter Summary ---
Author Organization [facility] Address [address] [facility] [place] [address] Phone Care Team Providers Care Numerical Tool Programmer Name Role Phone Dav Barillas MD Unavailable Reggie Lazar MD Unavailable Angie Egan Primary Care Provider + Alvarez Rivera MD Unavailable Bunny Cruz MD Unavailable Reason for Visit * Reason Comments Medication Refill Encounter Details Date Type Department Care Team (Late st Contact Info) Description 04/20/2023 Refill [facility] - Family Medicine [facility] [address] [place] [address] Angie Egan PAC [address] [place] [address] Medication Refill Social History Tobacco Use Types [...] Telephone Encounter - Sofía Joe RN - 04/20/2023 11:21 AM CDT Medication failed the protocol, provider to review and approve the medication order if appropriate. Requested Prescriptions Pending Prescriptions Disp Refills pregabalin (LYRICA) 150 MG Capsule [Pharmacy Med Name: PREGABALIN 150MG CAPSULES] 90 Capsule 3 Sig: TAKE 1 CAPSULE BY MOUTH THREE TIMES DAILY Not Delegated - Anticonvulsants Excluding Benzodiazepines Protocol Failed - 04/20/2023 10:22 AM Failed - This refill cannot be delegated Passed - Visit with relevant provider in past 12 months or upcoming 90 days Recent Visits Date Type Provider Dept 04/06/23 Office Visit Angie Egan PAC [facility] 02/23/23 Office Visit Angie Egan, PAC [facility] 01/01/23 Office Visit Angie Egan PAC [facility] 11/30/22 Office Visit Angie Egan PAC [facility] 11/02/22 Office Visit Angie Egan PAC [facility] 09/27/22 Office Visit Angie Egan PAC [facility] 07/25/22 Office Visit Kathryn Jimenez APRN, CHAIRMAN & [employer] F[employer]ER [facility] 05/23/22 Office Visit Angie Egan PAC [facility] Showing recent visits within past 365 days and meeting all other requirements Future Appointments Date Type Provider Dept 07/10/23 Appointment Angie Egan PAC [facility] Showing future appointments within next 90 days and meeting all other requirements documented in this encounter Plan of Treatment Upcoming Encounters Date Type Department Care Team (Late st Contact Info) Description 03/24/2025 10:30 AM CDT Office Visit [facility] - [facility] [address] [place] [address] Angie Egan PAC [address] [place] [address] documented as of this encounter Visit Diagnoses Diagnosis Neuropathy Mononeuritis of unspecified site documented in this encounter Additional Health Concerns Assessment Noted Time PHQ-9 Depression Total Score: 0 07/25/20 9:00 AM CDT documented as of this encounter Care Teams Numerical Tool Programmer Relationship Specialty Start Date End Date Angie Egan PAC [address] [place] [address] PCP - General Physician Data Quality Consultant 12/07/17 Dav Barillas MD Consulting Physician Nephrology 03/26/17 Reggie Lazar MD Consulting Physician Urology 07/27/17 Alvarez Rivera MD [address] [place] [address] Consulting Physician Pulmonary Disease 07/19/23 Bunny Cruz MD [address] [place] [address] Consulting Physician Medical Oncology 02/25/24 documented as of this encounter
--- OUTSIDE RECORDS SUMMARY | 2024-12-31 13:32 | XMS_ITS | Encounter Summary ---
Author Organization [facility] Address [address] [place] [address] Phone Care Team Providers Care Vein Pumper Name Role Phone Dav Barillas MD Unavailable Reggie Lazar MD Unavailable [phone] Angie Egan [facility] Primary Care Provider + Alvarez Rivera MD Unavailable Bunny Cruz MD Unavailable [phone] Reason for Visit * Reason Onset Date Comments Home Health Admission 12/05/2023 Encounter Details Date Type Department Care Team (Late st Contact Info) Description 12/05/2023 Telephone [facility] [address] [place] [id number] Cassie Ramirez, PT [place] Home Health Admission Social History Tobacco Use Types Packs/Day Years Used Date Smoking Tobacco: Some Days Cigarettes 0.5 69.6 Started: 05/25/1955 Smokeless Tobacco: Never Alcohol Use Standard Drinks/Week Comments No 0 (1 standard drink = 0.6 oz pur e alcohol) [facility] Utilities Answer Date Recorded In the past 12 months has [employer], gas, oil, or water company threatened to shut off services in your home? No 12/03/2023 Social Connection and Isolat ion Panel [NHANES] Answer Date Recorded In a typical week, how many times do you talk on the phone with family, friends, or neighbors? More than three times a week 12/03/2023 Frequency of Social Gatherin gs with Friends and Family Not on file 12/03/2023 Attends Scientology Services Not on file 12/03 Active Member of Clubs or Organizations Not on f ile 12/03/2023 Attends Club or Organization Meetings Not on leonel e 12/03/2023 Marital Status Not on file 12/03/2023 AUDIT-C Answer Date Recorded Q1: How often do you have a drink containing alcohol? Never 12/03/2023 Q2: How many drinks containi ng alcohol do you have on a typical day when you are drinking? Patient does not drink Q3: How often do you have si x or more drinks on one occasion? Never 12/03/2023 Overall Financial Resource Strain (CARDIA) Answe r Date Recorded How hard is it for you to pa y for the very basics like food, housing, medical care, and heating? Somewhat hard 12/03/2023 PHQ-2 Answer Date Recorded Total Score - Questions 1-9 0 09/0 03/2023 [facility] - Occupational Stress Questionnaire Answer Date Recorded Do you feel stress - tense, restless, nervous, or anxious, or unable to sleep at night because your mind is troubled all the time - these days? Not at all 12/03/2023 Exercise Vital Sign Answer Date Recorde d On average, how many days pe r week do you engage in moderate to strenuous exercise (like a brisk walk)? 0 days 12/03/2023 On average, how many minutes do you engage in exercise at this level? 0 min 12/03/2023 Hunger Vital Sign Answer Date Recorded Within the past 12 months, y ou worried that your food would run out before you got the money to buy more. Never true 12/03/19 24 Within the past 12 months, t he food you bought just didn't last and you didn't have money to get more. Never true 12/03/2023 PRAPARE - Transportation Answer Date Re corded In the past 12 months, has l ack of transportation kept you from medical appointments or from getting medications? No 11/06 In the past 12 months, has l ack of transportation kept you from meetings, work, or from getting things needed for daily living? No 12/03/2023 Housing Stability Vital Sign Answer Shemar e Recorded In the last 12 months, was t here a time when you were not able to pay the mortgage or rent on time? No 12/03/2023 In the last 12 months, how many places have you lived? 1 12/03/2023 In the last 12 months, was t here a time when you did not have a steady place to sleep or slept in a care home (including now)? No 12/03/2023 Education Answer Date Recorded What is the [...] encounter Miscellaneous Notes * Telephone Encounter - Cassie Ramirez, PT - 12/05/2023 4:18 PM CST Patient was admitted to home health on 12/04/23. Will you please follow and sign orders for PT/OT? Please advise, thank you GATION EXAMINER documented in this encounter Plan of Treatment Upcoming Encounters Date Type Department Care Team (Late st Contact Info) Description 03/24/2025 10:30 AM CDT [facility] [address] [place] [address] Angie Egan PAC [address] [place] [address] documented as of this encounter Visit Diagnoses Not on filedocumented in this encounter Additional Health Concerns Assessment Noted Time PHQ-9 Depression Total Score: 0 07/10/20 10:27 AM CDT documented as of this encounter Care Teams Vein Pumper Relationship Specialty Start Date End Date Angie Egan PAC [address] [place] [address] PCP - General Physician Pharmacy Scheduler 12/07/17 Dav Barillas MD Consulting Physician Nephrology 03/26/17 Reggie Lazar MD Consulting Physician Urology 07/27/17 Alvarez Rivera MD [address] [place] [address] Consulting Physician Pulmonary Disease 07/19/23 Bunny Cruz MD [address] [place] [address] Consulting Physician Medical Oncology 02/25/24 documented as of this encounter
--- OUTSIDE RECORDS SUMMARY | 2024-12-31 13:32 | XMS_ITS | Encounter Summary ---
Author Organization [facility] Address [address] [facility] [place] [address] Phone Care Team Providers Care Sensor Specialist Name Role Phone Dav Barillas MD Unavailable Reggie Lazar MD Unavailable [phone] Angie Egan PAC Primary Care Provider + Alvarez Rivera MD Unavailable Bunny Cruz MD Unavailable Reason for Visit * Reason Comments Medication Refill Encounter Details Date Type Department Care Team (Late st Contact Info) Description 01/02/2024 Refill [facility] [address] [place] [address] Angie Egan, BLAYNE [address] [place] [address] Medication Refill Social History Tobacco Use Types Packs/Day Years Used Date Smoking Tobacco: Some Days Cigarettes 0.5 69.6 Started: 05/25/1955 Smokeless Tobacco: Never Alcohol Use Standard Drinks/Week Comments No 0 (1 standard drink = 0.6 oz pur e alcohol) [facility] Utilities Answer Date Recorded In the past 12 months has [employer] electric, gas, oil, or water company threatened [...] and Family Not on file 12/03/2023 Attends [employer] Not on file 12/03 Active Member [...] Score - Questions 1-9 0 09/0 03/2023 [facility] - Occupational Stress Questionnaire Answer Date [...] place to sleep or slept in a detention (including now)? No 12/03/2023 Education Answer Date [...] Telephone Encounter - Sofía Joe RN - 01/02/2024 11:48 AM CST Images from the original note were not included. Name from pharmacy: TRULICITY 0.75MG/0.5ML SDP 0.5ML Will file in chart as: Trulicity 0.75 MG/0.5ML Solution Pen-injector The original prescription was discontinued on 06/20/2023 by Kathryn Jimenez APRN, SUBMARINE CABLE EQUIPMENT TECHNICIAN. Incorrect dose. TROPHYSIOLOGY TECH documented in this encounter Plan of Treatment Upcoming Encounters Date Type Department Care Team (Late st Contact Info) Description 03/24/2025 10:30 AM CDT [facility] [address] [place] [address] Angie Egan, PAC [address] [place] [address] documented as of this encounter Visit Diagnoses Diagnosis Type 2 diabetes mellitus with diabetic neuropathy, without long-term current use of insulin (HCC) documented in this encounter Additional Health Concerns Assessment Noted Time PHQ-9 Depression Total Score: 0 07/10/20 10:27 AM CDT documented as of this encounter Care Teams Sensor Specialist Relationship Specialty Start Date End Date Angie Egan PAC [address] [place] [address] PCP - General Physician Maintenance Department Technician 12/07/17 Dav Barillas MD Consulting Physician Nephrology 03/26/17 Reggie Lazar MD Consulting Physician Urology 07/27/17 Alvarez Rivera MD [address] [place] [address] Consulting Physician Pulmonary Disease 07/19/23 Bunny Cruz MD [address] [place] [address] Consulting Physician Medical Oncology 02/25/24 documented as of this encounter
--- OUTSIDE RECORDS SUMMARY | 2024-12-31 13:32 | XMS_ITS | Encounter Summary ---
Author Organization [facility] Address [address] [place] [address] Phone Care Team Providers Care Acid Dumper Name Role Phone Dav Barillas MD Unavailable Reggie Lazar MD Unavailable Angie Egan PAC Primary Care Provider + Alvarez Rivera MD Unavailable Bunny Cruz MD Unavailable [phone] Reason for Visit * Reason Comments Medication Refill Encounter Details Date Type Department Care Team (Late st Contact Info) Description [facility] [address] [place] [address] Angie Egan, PAC [address] [place] [address] Medication Refill Social History Tobacco Use Types [...] Telephone Encounter - Sofía Joe RN - 06/07/2021 12:18 PM CDT The original prescription was reordered on 06/07/2021 by Angie Egan PAC. documented in this encounter Plan of Treatment Upcoming Encounters Date Type Department Care Team (Late st Contact Info) Description 03/24/2025 10:30 AM CDT Office Visit [facility] [address] [place] [address] Angie Egan PAC [address] [place] [address] documented as of this encounter Visit Diagnoses Not on filedocumented in this encounter Additional Health Concerns Infection Onset Date Last Indicated Resolved Time COVID - 19 07/25/2021 07/25/2021 08/14/2021 12:1 6 AM CDT COVID - 19 09/30/2021 09/30/2021 10/20/2021 12:1 6 AM DOCUMENTATION SPEC COVID - 19 Confirmed 05/24/2022 05/24/2022 022 12:16 AM CDT COVID - 19 03/08/2023 03/08/2023 03/18/2023 12:1 6 AM CDT Assessment Noted Time PHQ-9 Depression Total Score: 0 08/05/20 1:56 PM CDT documented as of this encounter Care Teams Acid Dumper Relationship Specialty Start Date End Date Angie Egan PAC [address] [place] [address] PCP - General Physician Utility Hand 12/07/17 Dav Barillas MD Consulting Physician Nephrology 03/26/17 Reggie Lazar MD Consulting Physician Urology 07/27/17 Alvarez Rivera MD [address] [place] [address] Consulting Physician Pulmonary Disease 07/19/23 Bunny Cruz MD [address] [place], [place] [address] Consulting Physician Medical Oncology 02/25/24 documented as of this encounter
--- OUTSIDE RECORDS SUMMARY | 2024-12-31 13:32 | XMS_ITS | Encounter Summary ---
Author Organization [facility] Address [address] [place] [address] Phone Care Team Providers Care Benefits Coordinator Name Role Phone Dav Barillas MD Unavailable [phone] Reggie Lazar MD Unavailable Angie Egan PAC Primary Care Provider + Alvarez Rivera MD Unavailable Bunny Cruz MD Unavailable Reason for Visit * Reason Comments Medication Refill Encounter Details Date Type Department Care Team (Late st Contact Info) Description 08/29/2023 Refill [facility] - Family Medicine [facility] [address] [place] [address] Angie Egan, BLAYNE [address] [place] [address] Medication Refill Social History Tobacco Use Types [...] Telephone Encounter - Sofía Joe RN - 08/30/2023 9:42 AM CDT Signed Yesterday (08/29/2023): Trulicity 1.5 MG/0.5ML Solution Pen-injector Sig: INJECT 1.5MG SUBCUTANEOUSLY EVERY 7 DAYS Disp: 2 mL ? Refills: 2 Signed by: Angie Egan PAC [facility] documented in this encounter Plan of Treatment Upcoming Encounters Date Type Department Care Team (Late st Contact Info) Description 03/24/2025 10:30 AM CDT Office Visit [facility] [address] [place] [address] Angie Egan PAC [address] [place] [address] documented as of this encounter Visit Diagnoses Diagnosis Type 2 diabetes mellitus with diabetic neuropathy, without long-term current use of insulin (HCC) documented in this encounter Additional Health Concerns Assessment Noted Time PHQ-9 Depression Total Score: 0 07/10/20 10:27 AM CDT documented as of this encounter Care Teams Benefits Coordinator Relationship Specialty Start Date End Date Angie Egan PAC [address] [place] [address] PCP - General Physician Clinical Research Director 12/07/17 Dav Barillas MD Consulting Physician Nephrology 03/26/17 Reggie Lazar MD Consulting Physician Urology 07/27/17 Alvarez Rivera MD [address] [place] [address] Consulting Physician Pulmonary Disease 07/19/23 Bunny Cruz MD [address] [place] [address] Consulting Physician Medical Oncology 02/25/24 documented as of this encounter
--- OUTSIDE RECORDS SUMMARY | 2024-12-31 13:32 | XMS_ITS | Encounter Summary ---
Author Organization [facility] Address [address] [facility] [place] [address] Phone Care Team Providers Care Aws Architect Name Role Phone Dav Barillas MD Unavailable Reggie Lazar MD Unavailable [phone] Angie Egan PAC Primary Care Provider + Alvarez Rivera MD Unavailable Bunny Cruz MD Unavailable Reason for Visit * Reason Comments Medication Refill Encounter Details Date Type Department Care Team (Late st Contact Info) Description 01/16/2024 Refill [facility] - Family Medicine [facility] [address] [place] [address] Angie Egan, BLAYNE [address] [place] [address] Medication Refill Social History Tobacco Use Types Packs/Day Years Used Date Smoking Tobacco: Some Days Cigarettes 0.5 69.6 Started: 05/25/1955 Smokeless Tobacco: Never Alcohol Use Standard Drinks/Week Comments No 0 (1 standard drink = 0.6 oz pur e alcohol) [facility] Utilities Answer Date Recorded In the past 12 months has [employer] electric, gas, oil, or water company threatened [...] and Family Not on file 12/03/2023 Attends [employer] Services Not on file 12/03 Active Member [...] Recorded Total Score - Questions 1-9 0 03/0 02/2024 [facility] Occupat ional [facility] - Occupational Stress Questionnaire Answer Date [...] slept in a custodial (including now)? No 12/03/2023 Education Answer Date [...] Telephone Encounter - Sofía Joe RN - 01/17/2024 10:10 AM CDT Medication(s) refilled and signed per [facility] Chronic Medication Refill Standing Order for Pediatricand Adult Patients. Requested Prescriptions Pending Prescriptions Disp Refills allopurinol (ZYLOPRIM) 100 MG Tablet [Pharmacy Med Name: ALLOPURINOL 100 MG TABS 100 Tablet] 30 Tablet 10 Sig: Take 1 Tablet by mouth daily. Gout Agents Protocol Passed - 01/16/2024 6:24 PM Passed - Uric acid on record in past 12 months URIC ACID Date Value Ref Range Status 02/23/2023 5.5 2.4 - 5.7 mg/dL Final Passed - Visit with relevant provider in past 12 months or upcoming 90 days Recent Visits Date Type Provider Dept 01/07/24 Office Visit Angie Egan, BLAYNE [facility] 12/03/23 Office Visit Ira Jack APRN, MARGIN TRIMMER [facility] 10/10/23 Office Visit Angie Egan, PAC [facility] 07/19/23 Office Visit Angie Egan, PAC [facility] 07/10/23 Office Visit Julisa Angie JacobsenBLAYNE [facility] 04/06/23 Office Visit Viviennemarshadalila Angie JacobsenBLAYNE [facility] 02/23/23 Office Visit Viviennemarshadalila Angie JacobsenBLAYNE [facility] Showing recent visits within past 365 days and meeting all other requirements Future Appointments Date Type Provider Dept 02/12/24 Appointment Angie Egan PAC [facility] 04/10/24 Appointment Angie Egan MariBLAYNE montes [facility] Showing future appointments within next 90 days and meeting all other requirements Passed - Serum creatinine on record in past 12 months CREATININE, BLOOD Date Value Ref Range Status 01/07/2024 1.00 0.60 - 1.00 mg/dL Final documented in this encounter Plan of Treatment Upcoming Encounters Date Type Department Care Team (Late st Contact Info) Description 03/24/2025 10:30 AM CDT [facility] [address] [place] [address] Angie Egan PAC [address] [place] [address] documented as of this encounter Visit Diagnoses Not on filedocumented in this encounter Additional Health Concerns Assessment Noted Time PHQ-9 Depression Total Score: 0 01/07/20 10:02 AM MARINE SERVICES TECHNICIAN documented as of this encounter Care Teams Aws Architect Relationship Specialty Start Date End Date Angie Egan PAC [address] [place] [address] PCP - General Physician Veneer Supervisor 12/07/17 Dav Barillas MD Consulting Physician Nephrology 03/26/17 Reggie Lazar MD Consulting Physician Urology 07/27/17 Alvarez Rivera MD [address] [place] [address] Consulting Physician Pulmonary Disease 07/19/23 Bunny Cruz MD [address] [place] [address] Consulting Physician Medical Oncology 02/25/24 documented as of this encounter
--- OUTSIDE RECORDS SUMMARY | 2024-12-31 13:33 | XMS_ITS | Encounter Summary ---
Author Organization [facility] Address [address] [facility] [place] [address] Phone Care Team Providers Care Manager Immunology Name Role Phone Dav Barillas MD Unavailable [phone] Reggie Lazar MD Unavailable [phone] Angie Egan PAC Primary Care Provider + Alvarez Rivera MD Unavailable Bunny Cruz MD Unavailable Reason for Visit * Reason Comments Medication Refill Encounter Details Date Type Department Care Team (Late st Contact Info) Description 02/15/2024 Refill [facility] [address] [place] [address] Angie Egan, BLAYNE [address] [place] [address] Medication Refill Social History Tobacco Use Types Packs/Day Years Used Date Smoking Tobacco: Some Days Cigarettes 0.5 69.6 Started: 05/25/1955 Smokeless Tobacco: Never Alcohol Use Standard Drinks/Week Comments No 0 (1 standard drink = 0.6 oz pur e alcohol) [facility] Utilities Answer Date Recorded In the past 12 months has [employer], gas, oil, or water company threatened [...] and Family Not on file 12/03/2023 Attends [employer] Not on file 12/03 Active Member [...] Score - Questions 1-9 0 03/0 02/2024 [facility] - Occupational Stress Questionnaire Answer Date [...] place to sleep or slept in a [place] health care facility (including now)? No 12/03/2023 Education Answer Date [...] Telephone Encounter - Jesika Croft RN - 02/16/2024 2:10 PM CDT Medication failed the protocol, provider to review and approve the medication order if appropriate. Requested Prescriptions Pending Prescriptions Disp Refills traZODone (DESYREL) 150 MG Tablet [Pharmacy Med Name: TRAZODONE 150 MG TABS 150 Tablet] 30 Tablet 10 Sig: Take 1 Tablet by mouth nightly. Serotonin Modulators (6 Month Refill Only) Protocol Failed - 02/15/2024 5:51 PM Failed - Has an encounter in the past 6 months with a depression or anxiety visit diagnosis Passed - Visit with relevant provider in past 6 months or upcoming 90 days Recent Visits Date Type Provider Dept 01/07/24 Office Visit Angie Egan PAC [facility] 12/03/23 Office Visit Ira Jack APRN, TRANSMISSION CALIBRATION ENGINEER [facility] 10/10/23 Office Visit Angie Egan PAC [facility] Showing recent visits within past 182 days and meeting all other requirements Future Appointments Date Type Provider Dept 03/19/24 Appointment Angie Egan PAC [facility] 04/10/24 Appointment Angie Egan PAC [facility] Showing future appointments within next 90 days and meeting all other requirements Passed - No PRN Use for Trazodone Passed - Patient has established therapy with Serotonin Modulators for at least 6 months documented in this encounter Plan of Treatment Upcoming Encounters Date Type Department Care Team (Late st Contact Info) Description 03/24/2025 10:30 AM CDT Office Visit [facility] - [facility] Medicine [facility] [address] [place] [address] Angie Egan PAC [address] [place] [address] documented as of this encounter Visit Diagnoses Not on filedocumented in this encounter Additional Health Concerns Assessment Noted Time PHQ-9 Depression Total Score: 0 01/07/20 10:02 AM PERSONAL BANKER documented as of this encounter Care Teams Manager Immunology Relationship Specialty Start Date End Date Angie Egan PAC [address] [place] [address] PCP - General Physician Buzzle Buffer 12/07/17 Dav Barillas MD Consulting Physician Nephrology 03/26/17 Reggie Lazar MD Consulting Physician Urology 07/27/17 Alvarez Rivera MD [address] [facility] [place] [address] Consulting Physician Pulmonary Disease 07/19/23 [place] [address] [place] [address] Consulting Physician Medical Oncology 02/25/24 documented as of this encounter
--- OUTSIDE RECORDS SUMMARY | 2024-12-31 13:33 | XMS_ITS | Encounter Summary ---
Author Organization [facility] Address [address] [facility] [place] [address] Phone Care Team Providers Care Adult Basic Education Instructor Name Role Phone aDv Barillas MD Unavailable Reggie Lazar MD Unavailable [phone] Angie Egan Primary Care Provider + Alvarez Rivera MD Unavailable Bunny Cruz MD Unavailable Reason for Visit * Reason Comments Medication Refill Encounter Details Date Type Department Care Team (Late st Contact Info) Description 06/19/2023 Refill [facility] - Family Medicine [facility] [address] [place] [address] Angie Egan PAC [address] [place] [address] Medication Refill Social History Tobacco Use Types [...] encounter Miscellaneous Notes * Telephone Encounter - Brenna Meyer RN - 06/20/2023 9:15 AM CDT PDMP 05/25/23 28 day supply Medication failed the protocol, provider to review and approve the medication order if appropriate. Requested Prescriptions Pending Prescriptions Disp Refills Trulicity 0.75 MG/0.5ML Solution Pen-injector [Pharmacy Med Name: TRULICITY 0.75MG/0.5ML SDP 0.5ML]2 mL 0 Sig: ADMINISTER 0.75 MG UNDER THE SKIN 1 TIME WEEKLY GLP-1 Agonists Protocol Failed - 06/19/2023 7:23 PM Failed - HgA1C result on record [...] 04/06/23 Office Visit Angie Egan PAC [facility] 02/23/23 Office Visit Angie Egan PAC [facility] 01/01/23 Office Visit Angie Egan PAC [facility] Showing recent visits within past 182 days and meeting all other requirements Future Appointments Date Type Provider Dept 07/10/23 Appointment Angie Egan PAC [facility] Showing future appointments within next 90 days and meeting all other requirements Passed - GFR on record in past 6 months GFR, EST. NONAFRICAN Date Value Ref Range Status 03/08/2023 >60 >=60 Final documented in this encounter Plan of Treatment Upcoming Encounters Date Type Department Care Team (Late st Contact Info) Description 03/24/2025 10:30 AM CDT [facility] [address] [place] [address] Angie Egan PAC [address] [place] [address] documented as of this encounter Visit Diagnoses Diagnosis Type 2 diabetes mellitus with diabetic neuropathy, without long-term current use of insulin (HCC) documented in this encounter Additional Health Concerns Assessment Noted Time PHQ-9 Depression Total Score: 0 07/25/20 22 9:00 AM CDT documented as of this encounter Care Teams Adult Basic Education Instructor Relationship Specialty Start Date End Date Angie Egan PAC [address] [place] [address] PCP - General Physician Verse Writer 12/07/17 Dav Barillas MD Consulting Physician Nephrology 03/26/17 Reggie Lazar MD Consulting Physician Urology 07/27/17 Alvarez Rivera MD [address] [place] [address] Consulting Physician Pulmonary Disease 07/19/23 Bunny Cruz MD [address] [place] [address] Consulting Physician Medical Oncology 02/25/24 documented as of this encounter
--- OUTSIDE RECORDS SUMMARY | 2024-12-31 13:33 | XMS_ITS | Clinical Summary ---
Author Organization [facility] Address [address] [address] Phone Care Team Providers Care Chemical Dependency Counselor Name Role Phone Dav Barillas MD Unavailable [phone] Reggie Lazar MD Unavailable [phone] Angie Egan [facility] Primary Care Provider + Alvarez Rivera MD Unavailable Bunny Cruz MD Unavailable [phone] Allergies No known active allergies Medications Misc. Devices MiscIndications:T ype 2 diabetes mellitus with diabetic neuropathy, without long-term current use of insulin ([facility]) Supply and instructions: 1 Each 021 Active Multiple Vitamin (MULTIVITAMIN PO) Take 1 Tablet by mouth daily. [facility] Active Blood Glucose Monitoring Suppl (OneTouch Verio Flex System) w/Device Kit Use to check blood glucose daily 1 Kit 022 Active hydroxychloroquin e (PLAQUENIL) 200 MG Tablet Take 200 mg by mouth in the morning and at bedtime. [id number] 023 Active potassium chloride CR (KLORCON) 10 MEQ Tablet Controlled ReleaseIndication s:Bilateral leg edema Take 1 Tablet by mouth daily as needed (take potassium if takes furosemide). 30 Tablet 2 023 Active fluticasone-salme terol (Advair Diskus) 250-50 MCG/ACT AEROSOL POWDER, BREATH ACTIVATEDIndicati ons:Pulmonary emphysema, unspecified emphysema type (HCC) take 1 Puff by inhalation 2 times daily. 60 Each 3 Active OXYGEN CONCENTRATOR 2 L/ minute via nasal cannula continuously. Titrate O2 liter flow via pulse oximetry to achieve SpO2 of greater than 90% at rest and during activities of daily living. Active OXYGEN TANK PORTABLE 2 L/ minute via nasal cannula continuously. Titrate O2 liter flow via pulse oximetry to achieve SpO2 of greater than 90% at rest and during activities of daily living. Use portable tank when concentrator not available. Active Cholecalciferol 50 mcg Tablet Take 50 mcg by mouth daily. Active loratadine (CLARITIN) 10 MG Tablet Take 10 mg by mouth Daily as needed for Allergies. Active tiZANidine (ZANAFLEX) 4 MG TabletIndications :Spinal stenosis of lumbar region, unspecified whether neurogenic claudication present,Chronic bilateral thoracic back pain TAKE 1 TABLET BY MOUTH EVERY 6 HOURS NEEDED FOR MUSCLE SPASMS. 60 Tablet Active atenolol (TENORMIN) 25 MG Tablet TAKE 1 TABLET BY MOUTH DAILY. 30 Tablet Active magnesium oxide (MAG-OX) 400 MG TabletIndications :Low magnesium level TAKE 1 TABLET BY MOUTH DAILY. 30 Tablet Active pantoprazole (PROTONIX) 40 MG Tablet Delayed Response TAKE 1 TABLET BY MOUTH DAILY. 30 Tablet Active Trulicity 3 MG/0.5ML Solution Pen-injector injectionIndicati ons:Type 2 diabetes mellitus with diabetic neuropathy, without long-term current use of insulin ([facility]) ADMINISTER 3 MG UNDER THE SKIN 1 TIME A WEEK 6 mL 1 Active traZODone (DESYREL) 150 MG Tablet Take 1 Tablet by mouth nightly. 90 Tablet 1 Active OneTouch Ultra Test StripIndications: Type 2 diabetes mellitus with diabetic neuropathy, without long-term current use of insulin ([facility]) USE TO CHECK BLOOD GLUCOSE DAILY 50 Each 5 Active atorvastatin (LIPITOR) 40 MG TabletIndications :Mixed hyperlipidemia TAKE 1 TABLET BY MOUTH DAILY. 30 Tablet 5 Active Easy Touch Lancets 33G/Twist MiscIndications:T ype 2 diabetes mellitus with diabetic neuropathy, without long-term current use of insulin ([facility]) USE TO CHECK BLOOD GLUCOSE DAILY 100 Each 3 Active Glucose Blood (Glucose Meter Test) StripIndications: Type 2 diabetes mellitus with diabetic neuropathy, without long-term current use of insulin ([facility]) Test once daily 90 Strip 3 Active Shelby-3 Fatty Acids (FISH OIL PO) Take by mouth. Activ e cycloSPORINE (Restasis) 0.05 % EmulsionIndicatio ns:Dry Eye Syndrome Place 1 Drop in both eyes 2 times daily. Indications: Drying and Inflammation of Cornea and Conjunctiva of Eyes 60 Each 4 Active ipratropium (ATROVENT) 0.02 % Solution INHALE 1.25ML VIA NEBULIZER EVERY 6 HOURS 300 mL 10 Active furosemide (LASIX) 40 MG Tablet TAKE 1 TABLET BY MOUTH DAILY NEEDED FOR SWELLING IN LEGS 30 Tablet 10 Active Azelastine HCl 137 MCG/SPRAY Solution INSTILL TWO (2) SPRAYS IN EACH NOSTRIL TWICE DAILY DIRECTED 30 mL 10 Active albuterol 108 (90 Base) MCG/ACT Aerosol SolutionIndicatio ns:COPD without exacerbation ([facility]) INHALE 2 PUFFS BY MOUTH EVERY 4 HOURS NEEDED FOR WHEEZING OR COUGH 8.5 g 10 Active celecoxib (CeleBREX) 200 MG CapsuleIndication s:Rheumatoid arthritis involving both hands, unspecified whether rheumatoid factor present ([facility]) TAKE ONE (1) CAPSULE BY MOUTH TWICE DAILY 60 Capsule 10 024 Active pregabalin (LYRICA) 150 MG CapsuleIndication s:Neuropathy TAKE 1 CAPSULE BY MOUTH THREE TIMES DAILY 90 Capsule 3 025 Active triamcinolone (KENALOG) 0.1 % CreamIndications: Dermatitis Application Site: apply to hand as needed 45 g 025 Active HYDROcodone-aceta minophen (NORCO) 5-325 MG TabletIndications :Chronic bilateral thoracic back pain,Spinal stenosis of lumbar region, unspecified whether neurogenic claudication present Take 2 Tablets by mouth every 8 hours as needed for Moderate or more severe pain. 180 Tablet 025 Active allopurinol (ZYLOPRIM) 100 MG Tablet TAKE 1 TABLET BY MOUTH DAILY 90 Tablet 3 025 Active allopurinol (ZYLOPRIM) 100 MG Tablet TAKE 1 TABLET BY MOUTH DAILY. 30 Tablet 10 024 2024 Discontinued HYDROcodone-aceta minophen (NORCO) 5-325 MG TabletIndications :Chronic bilateral thoracic back pain,Spinal stenosis of lumbar region, unspecified whether neurogenic claudication present Take 2 Tablets by mouth every 8 hours as needed for Moderate or more severe pain. 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 chronic kidney disease Iron deficiency 02/25/2024 MGUS (monoclonal gammopathy of unknown significa nce) 02/25/2024 Anemia 01/25/2024 Other emphysema 07/19/2023 Rheumatoid arthritis involving both hands 2021 Tobacco use disorder 05/31/2020 Numbness and tingling of both lower extremities 12/13/2018 Spinal stenosis at L4-L5 level 12/05/2018 Facet arthropathy 12/05/2018 Lymphocytosis 11/27/2018 Acute midline low back pain without sciatica Numbness and tingling in both hands 11/20/2018 Right kidney mass 07/05/2018 DM2 (diabetes mellitus, type 2) Hyperlipidemia Hypertension, essential CKD (chronic kidney disease) Diabetic peripheral neuropathy Encounters Date Type Department Care Team Description 12/29/2024 Telephone [facility] [address] [place] [address] 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 12/22/2024 Telephone [facility] [address] [place] [address] eDanna Barragan RN Diabetes Mellitus 12/12/2024 Refill [facility] [address] [place] [address] Angie Egan, PAC Medication Refill 12/11/2024 [facility] [place] [address] Angie Egan, PAC 12/11/2024 [facility] [place] [address] Angie Egan, PAC Medication Refill 12/09/2024 11:20 AM DRAINLAYER Lab [facility] [address] [address] [facility]Ancillary Anemia, unspecified type; Paresthesia; Dysuria Discharge Disposition: Discharged to home or Selfcare 12/09/2024 10:30 AM DRAINLAYER Office Visit [facility] [address] [place] [address] Angie Egan, PAC Anemia, unspecified type (Primary Dx); Paresthesia; Dermatitis; Dysuria; Encounter for screening for lung cancer; Spinal stenosis of lumbar region, unspecified whether neurogenic claudication present Discharge Disposition: Discharged to home or Selfcare 12/09/2024 Travel 11/17/[address] [phone] Angie Egan, PAC Appointment 11/13/2024 [facility] [place] [address] Angie Egan, PAC Medication Refill 11/13/2024 Results Follow-Up [facility] [address] [place] [address] Angie Egan, PAC 10/15/2024 Documentation Only [facility] [address] [place] [address] Angie Egan, PAC 10/13/2024 [facility] [address] [place] [address] Angie Egan, PAC Medication Refill 10/13/2024 Refill [facility] [address] [place] [address] Angie Egan, PAC Medication Refill from Last 3 Months Immunizations Immunization Administration Dates Next Due Covid-19, Mrna, Lnp-s, PF, 1 00 mcg/0.5 mL Dose (Moderna) 12/08/2020 Influenza Vaccine greater than 3 yrs 07/27/2017 Influenza Vaccine, Quadrivalent, PF 07/07,08/19/2021,08/05/2020,2018,09/04/2018,07/27/2017 Influenza, Injectable, Quadrivalent 09/13/2016,1 Influenza, Quadrivalent, Adjuvanted 10/10/2023 Influenza, Seasonal, Injecta ble, Undefined 10/13/2019,08/26/2018,07/23/2017,2013 Influenza, Trivalent, Adjuvanted, PF 09/03/2024 PNEUMONIA ADULT IM [id number] 11/05/2011 Pneumococcal Vaccine - 13 Valent 07/27/2017,07/07 Pneumococcal Vaccine Adult - 23 Valent 04/09/2016,11/05/2011 TDAP Vaccine 04/11/2019 Family History Medical History Relation Name Comments Heart Surgery Brother 1 José Miguel Hypertension Brother 1 José Miguel Multiple Sclerosis Brother 1 José Miguel Other-comment Brother 1 José Miguel Shot when he w as young Alcohol Abuse Brother 2 Everett Heart Surgery Brother 2 Everett Hypertension Brother 2 Everett Alcohol Abuse Brother 3 Tu Congestive Heart Failure Brother 3 Tu Heart Disease Brother 3 Tu Heart Surgery Brother 3 Tu Congestive Heart Failure Brother 4 Elzie Heart Surgery Brother 4 Elzie Other-comment Brother 4 Elzie Agent [place] Heart Surgery Brother 5 Neftali Other-comment Brother 6 kimberlee at 2 from aspirin Heart Disease Daughter 1 Ada High Cholesterol Daughter 1 Ada Hypertension Daughter 1 Ada Rheumatoid Arthritis Daughter 1 Ada High Cholesterol Daughter 2 Kimberlee Rheumatoid Arthritis Daughter 3 Fouzia No Known Problems Father 40s Other-comment Mother accident Chronic Obstructive Pulmonary Disease Sister 1 Irma da Hypertension Sister 1 Shell Obstructive Sleep Apnea Sister 1 Shell No Known Problems Sister 2 Jimmy Cancer Sister 3 Donnell Heart Attack Son Henry Heart Disease Son Henry Heart Surgery Son Henry Stent placemen t High Cholesterol Son Henry Relation Name Status Comments Brother 1 José Miguel Alive Brother 2 Everett Brother 3 Tu Brother 4 Elzie Brother 5 Neftali Brother 6 kimberlee Brother 7 alexander Daughter 1 Ada Alive Daughter 2 Kimberlee Alive Daughter 3 Fouzia Alive Father Mother Sister 1 Shell Sister 2 Jimmy Alive Sister 3 Donnell Son Henry Alive Social History Tobacco Use Types Packs/Day Years Used Date Smoking Tobacco: Some Days Cigarettes 0.5 69.6 Started: 05/25/1955 Smokeless Tobacco: Never Tobacco Cessation:Ready to Q uit: Not Asked; Counseling Given: Not Answered Alcohol Use Standard Drinks/Week Comments No 0 (1 standard drink = 0.6 oz pur e alcohol) [facility] Utilities Answer Date Recorded In the past 12 months has [employer], gas, oil, or water [facility] threatened to shut off services in your [...] often do you attend chur ch or evangelical services? Never 04/08/2024 Do you belong to any clubs o r organizations such as amish groups, unions, fraternal or athletic groups, or [...] Recorded Total Score - Questions 1-9 0 02/2025 [facility] - Occupational Stress [...] place to sleep or slept in a fdc (including now)? No 04/08/2024 Education Answer Date [...] Sign Reading Time Taken Comments Blood Pressure 110/62 12/09/2024 10:26 AM DRAINLAYER Pulse 76 12/09/2024 10:26 AM DRAINLAYER Temperature 36.6 C (97.8 F) 12/09/2024 10:26 AM DRAINLAYER Respiratory Rate 16 09/03/2024 10:44 AM CDT Oxygen Saturation 94% 09/03/2024 10:44 AM CDT Inhaled Oxygen Concentration - - Weight 58.1 kg (128 lb) 12/09/2024 10:26 AM DRAINLAYER Height 157.5 cm (5' 2 ) 12/09/2024 10:26 AM DRAINLAYER Body Mass Index 23.41 12/09/2024 10:26 AM DRAINLAYER Plan of Treatment Upcoming Encounters Date Type Department Care Team (Late st Contact Info) Description 03/24/2025 10:30 AM CDT [facility] Visit [facility] [address] [place] [address] Angie Egan, PAC [address] [place] [address] Health Maintenance Due Date Last Done Comments Diabetes: Foot Exam 1945 Zoster Immunization (1 of 2) 1964 Respiratory Syncytial Virus (RSV) Immunization (Adult) (1 - 1-dose 75+ series) 2020 SARS-COV-2 Immunization (2 - Moderna risk series) 01/05/2021 12/08/2020 DEXA Bone Density 06/19/2024 06/19/2022 Lung Cancer Screening 07/26/2024 07/26/2023 , 03/23/2023, 11/29/2021, Additional history exists Diabetes: Eye Exam 12/19/2024 12/19/2023, 0 02/28/2021, 04/10/2018 Diabetes: Hemoglobin A1c 03/05/2025 024, 07/04/2024, 04/02/2024, Additional history exists Diabetes: Nephropathy Screening 12/09/2025 12/09/2024, 09/22/2024, 09/05/2024, Additional history exists Td Immunization Every 10 Years (Adults With 1 Tdap) 04/11/2029 04/11/2019 Pneumococcal Immunization (50+ years) Completed 07/27/2017, 07/27/2017, 04/09/2016, Additional history exists Pneumococcal Immunization Combined Discontinued 07/27/2017, 07/27/2017, 04/09/2016, Additional history exists Mammogram Discontinued 06/25/2020 Colonoscopy High Risk Discontinued 06/09/2021 Colonoscopy Discontinued 06/09/2021, 06/09/2021 Hepatitis C Virus (HCV) Screening Completed 07/10/2023 Influenza Immunization Completed , 10/10/2023, 07/25/2022, Additional history exists Cologuard Discontinued 10/28/2024, 12/14/2020 Colorectal Cancer Screening Discontinued Hepatitis B Immunization Aged Out No longer eligible based on patient's age to complete this topic Immunochemical Fecal Occult Blood Discontinued Meningococcal Immunization (ACWY) Aged Out No longer eligible based on patient's age to complete this topic Rotavirus Immunization Aged Out No lo nger eligible based on patient's age to complete this topic Procedures Procedure Name Priority Date/Time Associated Diagnosis Comments CBC WITH AUTO DIFFERENTIAL Routine 12/09/2024 11:23 AM DRAINLAYER Anemia, unspecified type URINALYSIS REFLEX IF INDICATED BY ABNORMAL RESULTS Routine 12/09/2024 11:23 AM DRAINLAYER Dysuria FOLIC ACID (FOLATE) Routine 12/09/2024 1 1:23 AM DRAINLAYER Paresthesia VITAMIN B12 Routine 12/09/2024 11:23 AM DRAINLAYER Paresthesia COMPLETE BLOOD COUNT (CBC) WITH DIFF Routine 12/09/2024 11:23 AM DRAINLAYER Anemia, unspecified type CMP (COMPREHENSIVE METABOLIC PANEL) Routine 12/09/2024 11:23 AM DRAINLAYER Anemia, unspecified type COLOGUARD Routine 10/28/2024 10:00 AM DRAINLAYER Screening for colon cancer HEMOGLOBIN A1C W/ ESTIMATED GLUCOSE Routine 09/05/2024 12:00 AM CDT Type 2 diabetes mellitus with diabetic neuropathy, without long-term current use of insulin (HCC) HM DILATED EYE EXAM 12/19/2023 1 2:[address] CHEST W/O CONTRAST Routine 07/26/2023 12:55 PM CDT Chronic obstructive pulmonary disease, unspecified COPD type (HCC) HEPATITIS C ANTIBODY Routine 07/10/2023 11:06 AM CDT Encounter for hepatitis C screening test for low risk patient MARK BONE DENSITOMETRY AXIAL SKELETON Routine 06/19/2022 1:31 PM CDT Post-menopausal MARK SCREENING BILATERAL DIGITAL W CAD W PATTIE Routine 06/25/2020 3:10 PM CDT Screening for breast cancer from Last 3 Months or Most Recently Relevant to Health Maintenance Results * (ABNORMAL) URINALYSIS REFLEX IF INDICATED BY ABNORMAL RESULTS (12/09/2024 11:23 AM DRAINLAYER) SPECIFIC GRAVITY 1.015 1.003 - 1.030 12/09/2024 1:27 PM DRAINLAYER [facility] URINE PH 6.0 5.0 - 9.0 12/09/2024 1:[address] [facility] WBC ESTERASE 25 /ul(A) Negative 12/09/2024 1:[address] [facility] NITRITE Negative Negative 12/09/2024 1:[address] [facility] PROTEIN, RANDOM URINE 30 mg/dL(A) Negative 12/09/2024 1:[address] [facility] URINE GLUCOSE, QUAL Negative Negative 12/09/2024 1:[address] [facility] URINE KETONES Negative Negative 12/09/2024 1:[address] [facility] UROBILINOGEN Normal Normal mg/dL 12/09/2024 1:27 PM DRAINLAYER [facility] URINE BLOOD Negative Negative conner/ul 12/09/2024 1:27 PM DRAINLAYER [facility] URINALYSIS COLOR Dark Yellow 025 1:[address] [facility] URINALYSIS CLARITY Clear 12/09/2024 1:27 PM DRAINLAYER [facility] WBC (Urine) 0-5 Negative, 0-5 /hpf 12/09/2024 1:27 PM DRAINLAYER [facility] URINE RBC'S 0-2 Negative, 0-2 /hpf 12/09/2024 1:27 PM DRAINLAYER [facility] EPITHELIAL CELLS Moderate amount /lpf 12/09/2024 1:27 PM DRAINLAYER [facility] BACTERIA, URINE Few(A) Negative /hpf 12/09/2024 1:27 PM DRAINLAYER [facility] URINE MUCOUS Few 12/09/2024 1:27 PM DRAINLAYER [facility] CASTS 5-10/LPF Finely Granular Casts(A) Negative, 0-2/lpf, 3-5/lpf, 6-10/lpf, 11-20/lpf, >20/lpf /lpf 12/09/2024 1:27 PM DRAINLAYER [facility] Urine URINE SPECIMEN COLLECTION, CLEAN CATCH / Unknown Non-Phlebotomy Collection / Unknown 12/09/2024 11:23 AM DRAINLAYER 12/09/2024 11:23 AM DRAINLAYER us Angie Egan PAC URINE ORDERABLES Final R esult [facility] [address] [place] [address] * (ABNORMAL) CBC WITH AUTO DIFFERENTIAL (12/09/2024 11:23 AM DRAINLAYER) [facility] WBC 7.80 4.00 - 12.00 10(3)/mcL 12/09/2024 1:05 PM [facility] RBC 2.76(L) 3.80 - 5.30 10(6)/mcL 12/09/2024 1:05 PM [facility] HEMOGLOBIN (HGB) 9.3(L) 12.0 - 15.8 g/dL 12/09/2024 1:05 PM [facility] HEMATOCRIT (HCT) 28.3(L) 36.0 - 47.0 % 12/09/2024 1:05 PM [facility] MCV 102.5(H) 82.0 - 96.0 fL 12/09/2024 1:05 PM [facility] MCH 33.7 26.0 - 34.0 pg 12/09/2024 1:05 PM [facility] MCHC 32.9 31.0 - 36.0 g/dL 12/09/2024 1:05 PM [facility] PLATELET COUNT 163 140 - 440 10(3)/[facility] 12/09/2024 1:05 PM [facility] RDW 17.4(H) 11.8 - 15.5 % 12/09/2024 1:05 PM [facility] MPV 10.1 9.7 - 12.4 fL 12/09/2024 1:05 PM [facility] NEUTROPHILS 32.2(L) 47.0 - 73.0 % 12/09/2024 1:05 PM [facility] LYMPHOCYTES 42.6(H) 18.0 - 42.0 % 12/09/2024 1:05 PM [facility] MONOCYTES 23.1(H) 4.0 - 12.0 % 12/09/2024 1:05 PM [facility] EOSINOPHILS 1.3 0.0 - 5.0 % 12/09/2024 1:05 PM [facility] BASOPHILS 0.8 0.0 - 1.0 % 12/09/2024 1:05 PM [facility] ABSOLUTE NEUTROPHILS 2.52 1.60 - 7.70 10(3)/[facility] 12/09/2024 1:05 PM [facility] ABSOLUTE LYMPHOCYTES 3.32(H) 1.30 - 3.20 10(3)/[facility] 12/09/2024 1:05 PM [facility] ABSOLUTE MONOCYTES 1.80(H) 0.20 - 1.00 10(3)/[facility] 12/09/2024 1:05 PM [facility] ABSOLUTE EOSINOPHIL 0.10 0.00 - 0.40 10(3)/[facility] 12/09/2024 1:05 PM [facility] ABSOLUTE BASOPHILS 0.06 0.00 - 0.10 10(3)/[facility] 12/09/2024 1:05 PM [facility] NRBC PER 100 WBC 0 12/09/19 1:05 PM [facility] RESULTS ARE CONSISTENT WITH PERIPHERAL SMEAR REVIEW Yes 12/09/2024 1:05 PM [facility] RBC MORPHOLOGY CONSISTENT WITH INDICES Yes 12/09/2024 1:05 PM [facility] OVAL MACROCYTES Present 1:05 PM [facility] Blood Venipuncture / Unknown 12/09/2024 11:23 AM DRAINLAYER 12/09/2024 11:23 AM DRAINLAYER Narrative [facility] - 12/09/2024 1:05 PM DRAINLAYER Macrocytosis us Angie Egan PAC HEMATOLOGY ORDERABLES Fi nal Result [facility] [address] [place] [address] * VITAMIN B12 (12/09/2024 11:23 AM DRAINLAYER) VITAMIN B12 805 213 - 816 pg/mL 12/09/2024 1:25 PM [facility] Blood Venipuncture / Unknown 12/09/2024 11:23 AM DRAINLAYER 12/09/2024 11:23 AM DRAINLAYER Angie Egan PAC CHEMISTRY ORDERABLES Fin al Result Performing Organization Address City/[facility]/ZIP Co de Phone Number [facility] [address] [place] [address] * FOLIC ACID (FOLATE) (12/09/2024 11:23 AM DRAINLAYER) FOLATE 12.8 7.0 - 31.4 ng/mL 12/09/2024 1:[address] [facility] IS THE PATIENT REQUIRED TO BE FASTING? No 12/09/2024 1:[address] [facility] Blood Venipuncture / Unknown 12/09/2024 11:23 AM DRAINLAYER 12/09/2024 11:23 AM DRAINLAYER Angie Palafoxdagoberto PAC CHEMISTRY ORDERABLES Fin al Result Performing Organization Address City/[facility] Co de Phone Number [facility] [address] [place] [address] * (ABNORMAL) CMP (COMPREHENSIVE METABOLIC PANEL) (12/09/2024 11:23 AM DRAINLAYER) SODIUM 135(L) 136 - 145 mmol/L 12/09/2024 12:[address] [facility] POTASSIUM 4.2 3.5 - 5.1 mmol/L 12/09/2024 12:[address] [facility] CHLORIDE 102 98 - 107 mmol/L 12/09/2024 12:49 [address] [facility] CO2, VENOUS 26 22 - 30 mmol/L 12/09/2024 12:49 [address] [facility] ANION GAP 11.2 <18.0 mmol/L 12/09/2024 12:49 [address] [facility] GLUCOSE 75 70 - 99 mg/dL 12/09/2024 12:49 PM [facility] BUN 14 10 - 20 mg/dL 12/09/2024 12:49 PM [facility] CREATININE, BLOOD 1.10(H) 0.60 - 1.00 mg/dL 12/09/2024 12:49 PM [facility] BUN/CREATININE RATIO 13 12 - 20 ratio 12/09/2024 12:49 PM [facility] TOTAL PROTEIN 7.6 6.0 - 8.0 g/dL 12/09/2024 12:49 PM [facility] ALBUMIN 4.2 3.5 - 5.0 g/dL 12/09/2024 12:49 PM [facility] A/G RATIO 1.2 1.0 - 2.2 12/09/2024 12:49 PM [facility] CALCIUM 9.0 8.7 - 10.5 mg/dL 12/09/2024 12:49 PM [facility] T BILI 0.4 0.2 - 1.2 mg/dL 12/09/2024 12:49 PM [facility] SGOT (AST) 28 6 - 42 U/L 12/09/2024 12:49 PM [facility] SGPT (ALT) 12 6 - 55 U/L 12/09/2024 12:49 PM [facility] ALKALINE PHOSPHATASE 66 40 - 150 U/L 12/09/2024 12:49 PM [facility] IS THE PATIENT REQUIRED TO BE FASTING? No 12/09/2024 12:49 PM [facility] GFR, ESTIMATED 51(L) >=60 12/09/2024 12:49 PM [facility] Comment: Creatinine Clearance is the preferred criteria for selecting drug dose adjustments in renally impaired patients. The GFR is provided as additional pertinent clinical information. GFR is reported in mL/min/1.73 sq m. Calculation based on the Chronic Kidney Disease Epidemiology Collaboration (CKD- EPI) equation refit without adjustment for race. GFR, EST. 58(L) >=60 025 12:49 PM DRAINLAYER [facility] GFR, EST. NONAFRICAN 48(L) >=60 12/09/2024 12:49 PM DRAINLAYER [facility] Blood Venipuncture / Unknown 12/09/2024 11:23 AM DRAINLAYER 12/09/2024 11:23 AM DRAINLAYER us Angie Egan PAC CHEMISTRY ORDERABLES Fin al Result [facility] [address] [place] [address] * COLOGUARD (10/28/2024 10:00 AM DRAINLAYER) Cologuard Negative Negative [facility] Comment: NEGATIVE TEST RESULT. A negative Cologuard result indicates a low likelihood that a colorectal cancer (CRC) or advanced adenoma (adenomatous polyps with more advanced pre-malignant features) is present. The chance that a person with a negative Cologuard test has a colorectal cancer is less than 1 in 1500 (negative predictive value >99.9%) or has an advanced adenoma is less than 5.3% (negative predictive value 94.7%). These data are based on a prospective cross-sectional study of 10,000 individuals at average risk for colorectal cancer who were screened with both Cologuard and colonoscopy. (Reilly Dias et al, N Engl J Med 2014;370(14):3726-7398) The normal value (reference range) for this assay is negative. COLOGUARD RE-SCREENING RECOMMENDATION: Periodic colorectal cancer screening is an important part of preventive healthcare for asymptomatic individuals at average risk for colorectal cancer. Following a negative Cologuard result, the [place] [employer] and U.S. Multi-Society Task Force screening guidelines recommend a Cologuard re-screening interval of 3 years. References: [place] [employer] Guideline for Colorectal Cancer Screening: https://www.cancer.org/cancer/swxhj-kfewop-kvdatm/wxlfgvuda-uzygcrlxu-nqwvsio/ acs-recommendations.html.; Roland TRINIDAD, Clara HERNANDEZ, Travis MARIE, Colorectal Cancer Screening: Recommendations for Physicians and Patients from the U.S. Multi-Society Task Force on Colorectal Cancer Screening , Am J Gastroenterology 2017; 112:1107-4108. TEST DESCRIPTION: Composite algorithmic analysis of stool DNA-biomarkers with hemoglobin immunoassay. Quantitative values of individual biomarkers are not reportable and are not associated with individual biomarker result reference ranges. Cologuard is intended for colorectal cancer screening of adults of either sex, 45 years or older, who are at average-risk for colorectal cancer (CRC). Cologuard has been approved for use by the U.S. FDA. The performance of Cologuard was established in a cross sectional study of average-risk adults aged 50-84. Cologuard performance in patients ages 45 to 49 years was estimated by sub-group analysis of near-age groups. Colonoscopies performed for a positive result may find as the most clinically significant lesion: colorectal cancer [4.0%], advanced adenoma (including sessile serrated polyps greater than or equal to 1cm diameter) [20%] or non- advanced adenoma [31%]; or no colorectal neoplasia [45%]. These estimates are derived from a prospective cross-sectional screening study of 10,000 individuals at average risk for colorectal cancer who were screened with both Cologuard and colonoscopy. (Reilly Carty al, N Engl J Med 2014;370(14):6148-2405.) Cologuard may produce a false negative or false positive result (no colorectal cancer or precancerous polyp present at colonoscopy follow up). A negative Cologuard test result does not guarantee the absence of CRC or advanced adenoma (pre-cancer). The current Cologuard screening interval is every 3 years. ([place] [employer] and U.S. Multi-Society Task Force). Cologuard performance data in a 10,000 patient pivotal study using colonoscopy as the reference method can be accessed at the following location: www.[employer]sens[employer]/results. Additional description of the Cologuard test process, warnings and precautions can be found at www.[employer].com. Stool 10/28/2024 10:0 0 AM DRAINLAYER 10/30/2024 9:04 AM DRAINLAYER Angie Egan PAC BODY FLUIDS & STOOLS ORD ERABLES Final Result Performing Organization Address [facility] de Phone Number [address] [place] [address], [place] [phone] [employer] [address] [place] [address] * HEMOGLOBIN A1C W/ ESTIMATED GLUCOSE (09/05/2024 12:00 AM CDT) HGB-A1C 4.9 SCAN Blood Angie Garcia PAC CHEMISTRY ORDERABLES Fin al Result Performing Organization Address [facility] de Phone Number SCAN * HM DILATED EYE EXAM (12/19/2023 12:00 AM DRAINLAYER) 12/19/2023 Angie Egan PAC PROCEDURE/MINOR SURGICAL ORDERABLES Final Result Performing Organization Address [facility] de Phone Number SCAN * CT CHEST W/O CONTRAST (07/26/2023 12:55 PM CDT) Anatomical Region Laterality Modality Chest N/A Computed Tomogra phy 07/31/2023 7:13 AM CDT Impressions 07/31/2023 7:16 AM CDT IMPRESSION: 1. Interval resolution of consolidation in the left lingula compatible with pneumonia. No pulmonary mass or suspicious noncalcified pulmonary nodule. Recommend return to routine annual low-dose CT lung screen. 2. Mucous plugging in the left lingula and left lower lobe. Narrative 07/31/2023 7:16 AM CDT EXAM DESCRIPTION: CT CHEST W/O CONTRAST REASON FOR STUDY: follow up to prior CT lung Screening on 03/13/23 showing nodules area of consolidation in the lingula. TECHNIQUE: CT scan of the chest performed without intravenous contrast using helical scanning technique. Reconstructed coronal and sagittal MPR images reviewed. All images stored on PACS. Automated exposure control was used as a dose optimization technique for this examination. COMPARISON: Low-dose CT lung screen March 23, 2023 November 29, 2021 FINDINGS: The sensitivity for detection of solid visceral lesions is diminished without the use of intravenous contrast. LUNGS: Mild emphysema. Mucous plugging in the left lower lobe and to a lesser degree left lingula. Scattered benign calcified granulomas. Stable tiny micronodule in the right middle lobe measuring 0.2 cm. No pulmonary mass. Improved aeration of the left lingula with resolution of previously described consolidation. PLEURA: No pleural effusion or pneumothorax. MEDIASTINUM/RACHEL: Calcified left hilar lymph nodes. No lymphadenopathy. HEART: Heart size is normal with no pericardial effusion. CORONARY ARTERY CALCIFICATION: Present. VASCULATURE: No thoracic aortic aneurysm. AXILLA: No adenopathy. UPPER ABDOMEN: Fluid density lesion exophytic from the upper pole of the left kidney likely cyst, no follow-up recommended. MUSCULOSKELETAL: Spondylosis of the thoracic spine. Thoracic vertebral body heights are intact. Mild kyphotic curvature of the upper thoracic spine. OTHER: No other significant abnormality. THIS IS AN ELECTRONICALLY VERIFIED FINAL REPORT 07/31/2023 7:13 AM - Electronically signed by Concepcion Donnelly D.O. AC: FELICITA Report ID: [id number] Reading Location: [id number] Procedure Note Concepcion Donnelly, - 07/31/2023 EXAM DESCRIPTION: CT CHEST W/O CONTRAST REASON FOR STUDY: follow up to prior CT lung Screening on 03/13/23 showing nodules area of consolidation in the lingula. TECHNIQUE: CT scan of the chest performed without intravenous contrast using helical scanning technique. Reconstructed coronal and sagittal MPR images reviewed. All images stored on PACS. Automated exposure control was used as a dose optimization technique for this examination. COMPARISON: Low-dose CT lung screen March 23, 2023 November 29, 2021 FINDINGS: The sensitivity for detection of solid visceral lesions is diminished without the use of intravenous contrast. LUNGS: Mild emphysema. Mucous plugging in the left lower lobe and to a lesser degree left lingula. Scattered benign calcified granulomas. Stable tiny micronodule in the right middle lobe measuring 0.2 cm. No pulmonary mass. Improved aeration of the left lingula with resolution of previously described consolidation. PLEURA: No pleural effusion or pneumothorax. MEDIASTINUM/RACHEL: Calcified left hilar lymph nodes. No lymphadenopathy. HEART: Heart size is normal with no pericardial effusion. CORONARY ARTERY CALCIFICATION: Present. VASCULATURE: No thoracic aortic aneurysm. AXILLA: No adenopathy. UPPER ABDOMEN: Fluid density lesion exophytic from the upper pole of the left kidney likely cyst, no follow-up recommended. MUSCULOSKELETAL: Spondylosis of the thoracic spine. Thoracic vertebral body heights are intact. Mild kyphotic curvature of the upper thoracic spine. OTHER: No other significant abnormality. THIS IS AN ELECTRONICALLY VERIFIED FINAL REPORT 07/31/2023 7:13 AM - Electronically signed by Concepcion Donnelly D.O. AC: FELICITA Report ID: [id number] Reading Location: [id number] IMPRESSION: 1. Interval resolution of consolidation in the left lingula compatible with pneumonia. No pulmonary mass or suspicious noncalcified pulmonary nodule. Recommend return to routine annual low-dose CT lung screen. 2. Mucous plugging in the left lingula and left lower lobe. Angie Egan PAC IMG CT ORDERABLES Final Result * HEPATITIS C ANTIBODY (07/10/2023 11:06 AM CDT) hepatitis C antibody 0.11 <1 S/CO [facility] ARCH [id number] B 07/10/2023 8:57 PM CDT [facility] Comment: Signal/Cutoff ratio < 0.79 is Nondetected Signal/Cutoff ratio 0.80-0.99 is Grayzone Signal/Cutoff ratio > 0.99 is Detected Supplemental assays are recommended if signal/cutoff ratio is >/=1.00. Signal/cutoff ratio result >/= 5.00 is 97% predictive of positivity for recombinant immunoblot assay (RIBA) and will be reported to the [place] Department of Public Health as required. Blood Venipuncture / Unknown 07/10/2023 11:06 AM CDT 07/10/2023 11:06 AM CDT Angie Egan PAC CHEMISTRY ORDERABLES Fin al Result [facility] [address] [place] [address], * [facility] BONE DENSITOMETRY AXIAL SKELETON (06/19/2022 1:31 PM CDT) Anatomical Region Laterality Modality BODY N/A Computed Radiogr aphy 06/19/2022 4:04 PM CDT Impressions 06/19/2022 4:07 PM CDT IMPRESSION: 1. Normal bone mineral density. REFERENCE: Bone mineral density: Normal (T-score above or = -1.0) Low bone mass (T-score between -1.0 and -2.5) replaces the previously used term osteopenia Osteoporosis (T-score = or below -2.5) Medical evaluation for secondary causes of low bone mineral density may be appropriate. FRAX is a World Health Organization validated fracture risk assessment tool that calculates a person's 10 year probability of a major osteoporosis related fracture and hip fracture. According to the National Osteoporosis Foundation guidelines, postmenopausal women and men age 50 or older with low bone mass and a 10 year probability of a major osteoporosis related fracture = or greater than 20% or a 10 year probability of a hip fracture = or greater than 3% should be considered for treatment. For further information, including treatment recommendations, please refer to the 2013 ISCD Official Positions (http://www.iscd.org) and the NOF's Clinician's Guide to Prevention and Treatment of Osteoporosis (http://www.nof.org/professionals/clinical-guidelines) Narrative 06/19/2022 4:07 PM CDT EXAM DESCRIPTION: [facility] BONE DENSITOMETRY AXIAL SKELETON REASON FOR STUDY: 76 y/o year old F with given history of screening. Rehabilitation Aide/Model: [employer] (S/N [id number]) CLINICAL INFORMATION: Current height: 62 inches Maximum height: 62 inches Weight: 165 pounds Risk factors: Current smoker. COMPARISON: None available. FINDINGS: AP LUMBAR SPINE L1-L4: Total BMD is 1.525 g/cm2 T-score is 2.7 There is degenerative sclerosis affecting the L3 and L4 vertebrae. Excluding L3 and L4, and utilizing only L1 and L2, the following values are obtained: Total BMD is 1.406 g/cm2 T-score is 1.9 LEFT HIP: Total BMD is 1.061 g/cm2 T-score is 0.4 Femoral neck BMD is 0.940 g/cm2 T-score is -0.7 FRAX: FRAX not reported due to T-scores of hip, femoral neck and/or spine being at or above -1.0 (Normal). THIS IS AN ELECTRONICALLY VERIFIED FINAL REPORT 06/19/2022 4:04 PM - Electronically signed by Darin Mello M.D. BC: VIDAL Report ID: [id number] [place] Location: [place] [address] Procedure Note Darin Mello MD - 06/19/2022 EXAM DESCRIPTION: [facility] BONE DENSITOMETRY AXIAL SKELETON REASON FOR STUDY: 76 y/o year old F with given history of screening. Rehabilitation Aide/Model: [employer] (S/N [id number]) CLINICAL INFORMATION: Current height: 62 inches Maximum height: 62 inches Weight: 165 pounds Risk factors: Current smoker. COMPARISON: None available. FINDINGS: AP LUMBAR SPINE L1-L4: Total BMD is 1.525 g/cm2 T-score is 2.7 There is degenerative sclerosis affecting the L3 and L4 vertebrae. Excluding L3 and L4, and utilizing only L1 and L2, the following values are obtained: Total BMD is 1.406 g/cm2 T-score is 1.9 LEFT HIP: Total BMD is 1.061 g/cm2 T-score is 0.4 Femoral neck BMD is 0.940 g/cm2 T-score is -0.7 FRAX: FRAX not reported due to T-scores of hip, femoral neck and/or spine being at or above -1.0 (Normal). THIS IS AN ELECTRONICALLY VERIFIED FINAL REPORT 06/19/2022 4:04 PM - Electronically signed by Darin Mello M.D. BC: VIDAL Report ID: [id number] Reading Location: [place] [address] IMPRESSION: 1. Normal bone mineral density. REFERENCE: Bone mineral density: Normal (T-score above or = -1.0) Low bone mass (T-score between -1.0 and -2.5) replaces the previously used term osteopenia Osteoporosis (T-score = or below -2.5) Medical evaluation for secondary causes of low bone mineral density may be appropriate. FRAX is a World Health Organization validated fracture risk assessment tool that calculates a person's 10 year probability of a major osteoporosis related fracture and hip fracture. According to the National Osteoporosis Foundation guidelines, postmenopausal women and men age 50 or older with low bone mass and a 10 year probability of a major osteoporosis related fracture = or greater than 20% or a 10 year probability of a hip fracture = or greater than 3% should be considered for treatment. For further information, including treatment recommendations, please refer to the 2013 ISCD Official Positions (http://www.iscd.org) and the NOF's Clinician's Guide to Prevention and Treatment of Osteoporosis (http://www.nof.org/professionals/clinical-guidelines) us Angie Egan PAC IMG DEXA ORDERABLES Felisa ervin Result * MARK SCREENING BILATERAL DIGITAL W CAD W PATTIE (06/25/2020 3:10 PM CDT) Anatomical Region Laterality Modality breast Bilateral Mammography 06/25/2020 2:41 PM CDT Narrative 07/08/2020 3:34 PM CDT - MARK SCREENING BILATERAL DIGITAL W CAD W PATTIE BILATERAL DIGITAL SCREENING MAMMOGRAM 3D/2D WITH CAD WITH MEDIOLATERAL OBLIQUE CRANIOCAUDAL: 06/25/2020 The study was acquired using digital technology and interpreted from soft copy. Current study was also evaluated with ICAD version 7.2. CLINICAL: Routine screening. Patient has no complaints. No personal history of cancer. No family history of breast cancer. COMPARISONS: Comparison is made to exams dated: 02/27/2014 and 10/02/2008 [facility]. BREAST TISSUE:There are scattered fibroglandular densities in both breasts. FINDINGS: No significant masses, calcifications, or other findings are seen in either breast. There has been no significant interval change. IMPRESSION: BI-RAD 1 NEGATIVE There is no mammographic evidence of malignancy. A 1 year screening mammogram is recommended. The patient has been or will be contacted. The patient will be entered into a reminder system with a target due date of 1 year for her next screening exam. Electronically signed by: Grey peacock/penrad:07/08/2020 11:37:55 Shop Service Technician: Jayla MARTINEZ (R)), [facility] letter sent: Normal Exam Reading location: [place] BI-RADS: 1 Negative Procedure Note Grey Hinkle MD - 07/08/2020 - MARK SCREENING BILATERAL DIGITAL W CAD W PATTIE BILATERAL DIGITAL SCREENING MAMMOGRAM 3D/2D WITH CAD WITH MEDIOLATERAL OBLIQUE CRANIOCAUDAL: 06/25/2020 The study was acquired using digital technology and interpreted from soft copy. Current study was also evaluated with ICAD version 7.2. CLINICAL: Routine screening. Patient has no complaints. No personal history of cancer. No family history of breast cancer. COMPARISONS: Comparison is made to exams dated: 02/27/2014 and 10/02/2008 [facility]. BREAST TISSUE:There are scattered fibroglandular densities in both breasts. FINDINGS: No significant masses, calcifications, or other findings are seen in either breast. There has been no significant interval change. IMPRESSION: BI-RAD 1 NEGATIVE There is no mammographic evidence of malignancy. A 1 year screening mammogram is recommended. The patient has been or will be contacted. The patient will be entered into a reminder system with a target due date of 1 year for her next screening exam. Electronically signed by: Grey peacock/penrad:07/08/2020 11:37:55 Shop Service Technician: Jayla AGUILA (R)(Neel), [facility] sent: Normal Exam Reading location: [place] BI-RADS: 1 Negative Bunny Monserrat Cruz MD IMG MAMMO ORDERABLES Fin al Result from Last 3 Months or Most Recently Relevant to Health Maintenance Insurance MEDICAID [place] Advance Directives * Full Code (Latest Code Status on File) Date Activated Date Inactivated Comments 12/19/2023 10:11 AM 02/14/2024 6:28 AM Care Teams Chemical Dependency Counselor Relationship Specialty Start Date End Date Angie Egan PAC [address] [place] [address] PCP - General Physician Farmhand 12/07/17 Dav Barillas MD Consulting Physician Nephrology 03/26/17 Reggie Lazar MD Consulting Physician Urology 07/27/17 Alvarez Rivera MD [address] [place] [address] Consulting Physician Pulmonary Disease 07/19/23 Bunny Cruz MD [address] [place] [address] Consulting Physician Medical Oncology 02/25/24
--- OUTSIDE RECORDS SUMMARY | 2024-12-31 13:33 | XMS_ITS | Encounter Summary ---
Author Organization [facility] Address [address] [place] [address] Phone Care Team Providers Care Body Straightener Name Role Phone Dav Barillas MD Unavailable [phone] Reggie Lazar MD Unavailable Angie Egan PAC Primary Care Provider + Alvarez Rivera MD Unavailable Bunny Cruz MD Unavailable [phone] Reason for Visit * Reason Comments Medication Refill Encounter Details Date Type Department Care Team (Late st Contact Info) Description 08/07/2023 Refill [facility] - Family Medicine [facility] [address] [place] [address] Angie Egan, BLAYNE [address] [place] [address] Medication Refill Social History Tobacco Use Types [...] PM CDT documented as of this encounter Plan of Treatment Upcoming Encounters Date Type Department Care Team (Late st Contact Info) Description 03/24/2025 10:30 AM CDT Office Visit [facility] [address] [place] [address] Angie Egan PAC [address] [place] [address] documented as of this encounter Visit Diagnoses Diagnosis Hypertension, essential Unspecified essential hypertension documented in this encounter Additional Health Concerns Assessment Noted Time PHQ-9 Depression Total Score: 0 07/10/20 10:27 AM CDT documented as of this encounter Care Teams Body Straightener Relationship Specialty Start Date End Date Angie Egan PAC [address] [place] [address] PCP - General Physician Industrial Maintenance Tech 12/07/17 Dav Barillas MD Consulting Physician Nephrology 03/26/17 Reggie Lazar MD Consulting Physician Urology 07/27/17 Alvarez Rivera MD [address] [place] [address] Consulting Physician Pulmonary Disease 07/19/23 Bunny Cruz MD [address] [place] [address] Consulting Physician Medical Oncology 02/25/24 documented as of this encounter
--- OUTSIDE RECORDS SUMMARY | 2024-12-31 13:33 | XMS_ITS | Encounter Summary ---
Author Organization [facility] Address [address] [place] [address] Phone Care Team Providers Care Labeling Machine Operator Name Role Phone Dav Barillas MD Unavailable Reggie Lazar MD Unavailable Angie Egan PAC Primary Care Provider + Alvarez Rivera MD Unavailable Bunny Cruz MD Unavailable Reason for Visit * Reason Comments Medication Refill Encounter Details Date Type Department Care Team (Late st Contact Info) Description 03/14/2024 Refill [facility] [address] [place] [address] Angie Egan, BLAYNE [address] [place] [address] Medication Refill Social History Tobacco Use Types Packs/Day Years Used Date Smoking Tobacco: Some Days Cigarettes 0.5 69.6 Started: 05/25/1955 Smokeless Tobacco: Never Alcohol Use Standard Drinks/Week Comments No 0 (1 standard drink = 0.6 oz pur e alcohol) [facility] Utilities Answer Date Recorded In the past 12 months has [employer] electric, gas, oil, or water company threatened [...] and Family Not on file 12/03/2023 Attends [employer] Services Not on file 12/03 Active Member [...] Score - Questions 1-9 0 03/0 02/2024 [facility] - Occupational Stress Questionnaire Answer Date Recorded [...] Telephone Encounter - Sofía Joe RN - 03/17/2024 7:51 AM CDT Medication failed the protocol, provider to review and approve the medication order if appropriate. Requested Prescriptions Pending Prescriptions Disp Refills pregabalin (LYRICA) 150 MG Capsule [Pharmacy Med Name: PREGABALIN 150 MG CAPS 150 Capsule] 90 Capsule 3 Sig: TAKE 1 CAPSULE BY MOUTH 3 TIMES DAILY. *FILL 11/21/23* Not Delegated - Anticonvulsants Excluding Benzodiazepines Protocol Failed - 03/14/2024 6:01 PM Failed - This refill cannot be delegated Passed - Visit with relevant provider in past 12 months or upcoming 90 days Recent Visits Date Type Provider Dept 01/07/24 Office Visit Angie Egan, PAC [facility] 12/03/23 Office Visit Ira Jack APRN, POLISHING MACHINE OPERATOR HELPER [facility] 10/10/23 Office Visit Angie Egan, PAC [facility] 07/19/23 Office Visit Angie Egan, PAC [facility] 07/10/23 Office Visit Angie Egan, PAC [facility] 04/06/23 Office Visit Angie Egan, PAC [facility] Showing recent visits within past 365 days and meeting all other requirements Future Appointments Date Type Provider Dept 03/19/24 Appointment Angie Egan, PAC [facility] 04/10/24 Appointment Angie Egan, PAC [facility] Showing future appointments within next 90 days and meeting all other requirements tiZANidine (ZANAFLEX) 4 MG Tablet [Pharmacy Med Name: TIZANIDINE 4MG TAB 4 Tablet] 60 Tablet 10 Sig: Take 1 Tablet by mouth every 6 hours as needed for Muscle spasms. Not Delegated - Muscle Relaxants Protocol Failed - 03/14/2024 6:01 PM Failed - This refill cannot be delegated Failed - Not delegated, patient not between 1 and 65 years of age Passed - Visit with relevant provider in past 12 months or upcoming 90 days Recent Visits Date Type Provider Dept 01/07/24 Office Visit Angie Egan, PAC [facility] 12/03/23 Office Visit Ira Jack APRN, POLISHING MACHINE OPERATOR HELPER [facility] 10/10/23 Office Visit Angie Egan, PAC [facility] 07/19/23 Office Visit Angie Egan, PAC [facility] 07/10/23 Office Visit Angie Egan, PAC [facility] 04/06/23 Office Visit Angie Egan, PAC [facility] Showing recent visits within past 365 days and meeting all other requirements Future Appointments Date Type Provider Dept 03/19/24 Appointment Angie Egan PAC [facility] 04/10/24 Appointment Angie Egan, PAC [facility] Showing future appointments within next 90 days and meeting all other requirements Passed - ALT less than 90 and AST less than 55 on record in past 12 months SGOT (AST) Date Value Ref Range Status 01/25/2024 23 5 - 34 U/L Final SGPT (ALT) Date Value Ref Range Status 01/25/2024 15 0 - 55 U/L Final documented in this encounter Plan of Treatment Upcoming Encounters Date Type Department Care Team (Late st Contact Info) Description 03/24/2025 10:30 AM CDT [facility] [address]2 [place] [address] Angie Egan PAC [address] [place] [address] documented as of this encounter Visit Diagnoses Diagnosis Neuropathy Mononeuritis of unspecified site Spinal stenosis of lumbar region, unspecified whether neurogenic claudication present Chronic bilateral thoracic back pain documented in this encounter Additional Health Concerns Assessment Noted Time PHQ-9 Depression Total Score: 0 01/07/20 10:02 AM CONSTRUCTION CRAFT LABORER documented as of this encounter Care Teams Labeling Machine Operator Relationship Specialty Start Date End Date Angie Egan PAC [address] [place] [address] PCP - General Physician Senior Audit Manager 12/07/17 Dav Barillas MD Consulting Physician Nephrology 03/26/17 Reggie Lazar MD Consulting Physician Urology 07/27/17 Alvarez Rivera MD [address] [place] [address] Consulting Physician Pulmonary Disease 07/19/23 Bunny Cruz MD [address] [place] [address] Consulting Physician Medical Oncology 02/25/24 documented as of this encounter
--- OUTSIDE RECORDS SUMMARY | 2024-12-31 13:33 | XMS_ITS | CONTINUITY OF CARE DOCUMENT ---
Author Name wei cravajal Address Unknown Organization [facility] Address [address] [place] [address] Phone [phone] Care Team Providers Care Registered Public Health Nurse Name Role Phone Tiffany Ghosh MD Unavailable [phone] Tiffany Ghosh MD Unavailable [phone] INSURANCE PROVIDERS Payer name Policy type / Coverage type [place] red green party ID [place] [employer] Medicaid [id number]
--- OUTSIDE RECORDS SUMMARY | 2024-12-31 13:33 | XMS_ITS | Encounter Summary ---
Author Organization [facility] Address [address] [place] [address] Phone Care Team Providers Care Automatic Splicing Machine Operator Name Role Phone Dav Barillas MD Unavailable Reggie Lazar MD Unavailable Angie Egan PAC Primary Care Provider + Alvarez Rivera MD Unavailable Bunyn Cruz MD Unavailable Reason for Visit * Reason Comments Medication Refill Encounter Details Date Type Department Care Team (Late st Contact Info) Description 04/15/2024 Refill [facility] - Family Medicine [facility] [address] [place] [address] Angie Egan, BLAYNE [address] [place] [address] Medication Refill Social History Tobacco Use Types Packs/Day Years Used Date Smoking Tobacco: Some Days Cigarettes 0.5 69.6 Started: 05/25/1955 Smokeless Tobacco: Never Alcohol Use Standard Drinks/Week Comments No 0 (1 standard drink = 0.6 oz pur e alcohol) [facility] Utilities Answer Date Recorded In the past 12 months has [employer] electric, gas, oil, or water company threatened [...] often do you attend chur ch or temple services? Never 04/08/2024 Do you belong to any clubs o r organizations such as anglican groups, unions, fraternal or athletic groups, or [...] Score - Questions 1-9 0 03/0 02/2024 [facility] Occupational Stress Questionnaire Answer Date Recorded [...] place to sleep or slept in a prison (including now)? No 04/08/2024 Education Answer Date [...] Telephone Encounter - Sofía Joe RN - 04/16/2024 8:06 AM CDT Images from the original note were not included. Atenolol Dispensed Days Supply Quantity Provider Pharmacy ATENOLOL 25MG TAB 04/15/2024 30 30 Tablet Angie Egan PAC [facility] ... ATENOLOL 25MG TAB 03/14/2024 30 30 Tablet Angie Egan PAC [facility] . documented in this encounter Plan of Treatment Upcoming Encounters Date Type Department Care Team (Late st Contact Info) Description 03/24/2025 10:30 AM CDT [facility] [address] [place] [address] Angie Egan, PAC [address] [place] [address] documented as of this encounter Visit Diagnoses Not on filedocumented in this encounter Additional Health Concerns Assessment Noted Time PHQ-9 Depression Total Score: 0 01/07/20 24 10:02 AM PROPOSAL EDITOR documented as of this encounter Care Teams Automatic Splicing Machine Operator Relationship Specialty Start Date End Date Angie Egan PAC [address] [place] [address] PCP - General Physician Receiving Coordinator 12/07/17 Dav Barillas MD Consulting Physician Nephrology 03/26/17 Reggie Lazar MD Consulting Physician Urology 07/27/17 Alvarez Rivera MD [address] [place] [id number] Consulting Physician Pulmonary Disease 07/19/23 Bunny Cruz MD [address] [place] [address] Consulting Physician Medical Oncology 02/25/24 documented as of this encounter
--- OUTSIDE RECORDS SUMMARY | 2024-12-31 13:33 | XMS_ITS | Encounter Summary ---
Author Organization [facility] Address [address] [place] [address] Phone Care Team Providers Care Casing Worker Name Role Phone Dav Barillas MD Unavailable Reggie Lazar MD Unavailable [phone] Angie Egan Primary Care Provider + Alvarez Rivera MD Unavailable Bunyn Cruz MD Unavailable Reason for Visit * Reason Comments Medication Refill Encounter Details Date Type Department Care Team (Late st Contact Info) Description 08/06/2023 Refill [facility] - Family Medicine [facility] [address] [place] [address] Kathryn Jimenez APRN, SALESPERSON [employer] [address] [address] Medication Refill Social History Tobacco Use Types [...] Telephone Encounter - Sofía Joe RN - 08/07/2023 9:08 AM CDT Name from pharmacy: TRULICITY 0.75MG/0.5ML SDP 0.5ML Will file in chart as: Trulicity 0.75 MG/0.5ML Solution Pen-injector The original prescription was discontinued on 07/19/2023 by Angie Egan PAC for the following reason: Dose adjustment. documented in this encounter Plan of Treatment Upcoming Encounters Date Type Department Care Team (Late st Contact Info) Description 03/24/2025 10:30 AM CDT [facility] [address] [place] [address] Angie Egan PAC [address] [place] [address] documented as of this encounter Visit Diagnoses Diagnosis Type 2 diabetes mellitus with diabetic neuropathy, without long-term current use of insulin (HCC) documented in this encounter Additional Health Concerns Assessment Noted Time PHQ-9 Depression Total Score: 0 07/10/20 23 10:27 AM CDT documented as of this encounter Care Teams Casing Worker Relationship Specialty Start Date End Date Angie Egan PAC [address] [place] [address] PCP - General Physician Horse Shoer 12/07/17 Dav Barillas MD Consulting Physician Nephrology 03/26/17 Reggie Lazar MD Consulting Physician Urology 07/27/17 Alvarez Rivera MD [address] [place] [address] Consulting Physician Pulmonary Disease 07/19/23 Bunny Cruz MD [address] [place] [address] Consulting Physician Medical Oncology 02/25/24 documented as of this encounter
--- OUTSIDE RECORDS SUMMARY | 2024-12-31 13:33 | XMS_ITS | Clinical Summary ---
Author Organization [facility] Address [address] [place] [address] Care Team Providers Care Educational Program Assistant Name Role Phone Angie Egan PA-C Primary Care Provider [phone] Social History Tobacco Use Types Packs/Day Years Used Date Smoking Tobacco: Never Assessed Comments Unknown Sex and Gender Information Value Date Recorded Sex Assigned at Not on file Legal Sex Female 7:22 PM CDT Gender Identity Not on file Sexual Orientation Not on file Plan of Treatment Health Maintenance Due Date Last Done Comments Hepatitis C 1963 Zoster Vaccines (1 of 2) 1995 Dexa Scan (General) 2010 RSV Immunization or 60+ Years (1 - 1-dose 75+ series) 2020 COVID-19 Vaccine (2 - season) 2024 12/08/2020 Influenza Adult (#1) 2024 07/25/2022, 08/19/2021, 08/05/2020, Additional history exists DTaP, Tdap and Td Vaccines (2 - Td or Tdap) 04/11/2029 04/11/2019 Pneumococcal Vaccine: 65+ Years Completed 07/27/2017, 04/09/2016, 11/05/2011 Meningococcal B Vaccine Aged Out No l onger eligible based on patient's age to complete this topic Meningococcal Vaccine Aged Out No fabienne dewey eligible based on patient's age to complete this topic RSV Immunizations Under 20 Months Aged Out No longer eligible based on patient's age to complete this topic Insurance [employer] Care Teams Educational Program Assistant Relationship Specialty Start Date End Date Angie Egan PA-C [address] [place] [address] PCP - General PHYSICIAN BATTERY ENGINEER 01/01/23
== END 2024-12-31 11:35 | disposition home or self-care (01) ==
PROVIDERS: PCP Physician Assistant; Visit Provider Neurological Surgery
DX: M47.892 Other spondylosis, cervical region (principal); M41.83 Other forms of scoliosis, cervicothoracic region; Z98.1 Arthrodesis status
CPT/HCPCS: 72040

== ENCOUNTER 2025-04-01 09:41 | Outpatient (CLI) | payer OTHER, SELFPAY ==
--- NOTE | ~2025-04-01 | XR_ITS ---
EXAMINATION:[id number] DATE: 04/01/2025 10:11 INDICATION: Arthrodesis status TECHNIQUE: AP view of the cervical spine was obtained COMPARISON: 12/31/2024 FINDINGS: 10 degrees cervicothoracic levocurvature. Odontoid appears intact. C3-C4 anterior spinal fusion with interbody fusion device and anterior plate-screw fixation. There is severe facet osteoarthritis at mu ltiple levels on both the left and right sides of the cervical spine. The endplates are especially pr ofiled due to the anterior tilt of the cervical spine on the frontal projection precluding assessment for vertebral body and disc heights. Appearance however appears unchanged since the prior AP radiogr aph. Visualized portions of the upper lungs are clear. IMPRESSION: 1. C3-C4 instrumented anterior spinal fusion. 2. Multilevel severe bilateral cervical facet osteoarthritis. Reviewed, dictated and finalized at location A.
--- OUTSIDE RECORDS SUMMARY | 2025-04-01 09:45 | XMS_ITS | Encounter Summary ---
Author Organization [facility] Address [address] [facility] [address] Phone Care Team Providers Care Counsel Name Role Phone Dav Barillas MD Unavailable Reggie Lazar MD Unavailable [phone] Angie Egan [facility] Primary Care Provider + Alvarez Rivera MD Unavailable Bunny Cruz MD Unavailable [phone] Reason for Visit * Reason Comments Medication Refill Encounter Details Date Type Department Care Team (Late st Contact Info) Description 06/04/2022 Refill [facility] - Family Medicine [facility] [address] [place] [address] Luz Maria Riggins MD [address] [place] [address] Medication Refill Social History Tobacco Use Types Packs/Day Years Used Date Smoking Tobacco: Some Days Cigarettes 0.5 69.9 Started: 05/25/1955 Smokeless Tobacco: Never Alcohol Use [...] 03/14/22 Office Visit Angie Egan, PAC [facility] 12/13/21 Office Visit Angie Egan, PAC [facility] 09/13/21 Office Visit Angie Egan, PAC [facility] 08/19/21 Office Visit Angie Egan, PAC [facility] 07/29/21 Office Visit Angie Egan, PAC [facility] Showing recent visits within past 365 days and meeting all other requirements Future Appointments No visits were found meeting these conditions. Showing future appointments within next 90 days and meeting all other requirements documented in this encounter Plan of Treatment Upcoming Encounters Date Type Department Care Team (Late st Contact Info) Description 07/10/2025 1:30 PM CDT Office Visit [facility] - Family Medicine - [facility] [address] [place] [address] Angie Egan PAC [address] [place] [address] documented as of this encounter Visit Diagnoses [...] documented as of this encounter Care Teams Counsel Relationship Specialty Start Date End Date Angie Egan PAC [address] [place] [address] PCP - General Physician Senior Analyst Developer 12/07/17 Dav Barillas MD Consulting Physician Nephrology 03/26/17 Reggie Lazar MD Consulting Physician Urology 07/27/17 Alvarez Rivera MD [address] [place] [address] Consulting Physician Pulmonary Disease 07/19/23 Bunny Cruz MD [address] [place] [address] Consulting Physician Medical Oncology 02/25/24 documented as of this encounter
--- OUTSIDE RECORDS SUMMARY | 2025-04-01 09:46 | XMS_ITS | Encounter Summary ---
Author Organization [facility] Address [address] [facility] [place] [address] Phone Care Team Providers Care Postal Service Clerk Name Role Phone Dav Barillas MD Unavailable Reggie Lazar MD Unavailable [phone] Angie Egan PAC Primary Care Provider + Alvarez Rivera MD Unavailable Bunny Cruz MD Unavailable [phone] Reason for Visit * Reason Comments Medication Refill Encounter Details Date Type Department Care Team (Late st Contact Info) Description 09/08/2024 Refill [facility] - Family Medicine [facility] [address] [place] [address] Angie Egan, BLAYNE [address] [place] [address] Medication Refill Social History Tobacco Use Types Packs/Day Years Used Date Smoking Tobacco: Some Days Cigarettes 0.5 69.9 Started: 05/25/1955 Smokeless Tobacco: Never Alcohol Use Standard Drinks/Week Comments No 0 (1 standard drink = 0.6 oz pur e alcohol) [facility] Utilities Answer Date Recorded In the past 12 months has [employer] electric, gas, oil, or water company threatened [...] often do you attend chur ch or restoration services? Never 04/08/2024 Do you belong to any clubs o r organizations such as yazdanism groups, unions, fraternal or athletic groups, or [...] Total Score - Questions 1-9 0 08/07 [facility]ational Stress Questionnaire Answer Date [...] place to sleep or slept in a fpc (including now)? No 04/08/2024 Education Answer Date [...] according to last Rx and fill Hx. RIAL ENGINEER documented in this encounter Plan of Treatment Upcoming Encounters Date Type Department Care Team (Late st Contact Info) Description 07/10/2025 1:30 PM CDT [facility] Visit [facility] [address] [place] [address] Angie Egan, BLAYNE [address] [place] [address] documented as of this encounter Visit Diagnoses Diagnosis Type 2 diabetes mellitus with diabetic neuropathy, without long-term current use of insulin (HCC) documented in this encounter Additional Health Concerns Assessment Noted Time PHQ-9 Depression Total Score: 0 09/03/20 10:53 AM CDT documented as of this encounter Care Teams Postal Service Clerk Relationship Specialty Start Date End Date Josedalila Angie JacobsenBLAYNE [address] [place] [address] PCP - General Physician Shop Mechanic 12/07/17 Dav Barillas MD Consulting Physician Nephrology 03/26/17 Reggie Lazar MD Consulting Physician Urology 07/27/17 Alvarez Rivera MD [address] [place] [address] Consulting Physician Pulmonary Disease 07/19/23 Bunny Cruz MD [address] [place] [address] Consulting Physician Medical Oncology 02/25/24 documented as of this encounter
--- OUTSIDE RECORDS SUMMARY | 2025-04-01 09:46 | XMS_ITS ---
Author Organization [facility] Address [address], [address] [address] Phone Care Team Providers Care Tractor Drill Operator Name Role Phone Dav Barillas MD Unavailable [phone] Reggie Lazar MD Unavailable [phone] Angie Egan [facility] Primary Care Provider + Alvarez Rivera MD Unavailable Bunny Cruz MD Unavailable [phone] [facility] Chronic Condition Monitoring Status:Enrolled (Active) Start date:10/17/2023 Enrollment date:10/18/2023 Current support & services provided:Diabetes Management, Hypertension Management Related social drivers of health:Intimate Partner Violence, Social Connections, Alcohol Use, Tobacco Use, Financial Resource Strain,Depression, Stress, Physical Activity, Food Insecurity, Transportation Needs, Housing Stability, Utilities Continued Care and Services Coordination
--- OUTSIDE RECORDS SUMMARY | 2025-04-01 09:46 | XMS_ITS | Encounter Summary ---
Author Organization [facility] Address [address] [facility] [place] [address] Phone Care Team Providers Care Developmental Services Worker Name Role Phone Dav Barillas MD Unavailable [phone] Reggie Lazar MD Unavailable [phone] Angie Egan [facility] Primary Care Provider + Alvarez Rivera MD Unavailable Bunny Cruz MD Unavailable Reason for Visit * Reason Comments Medication Refill Encounter Details Date Type Department Care Team (Late st Contact Info) Description 07/10/2021 Refill [facility] [address] [place] [address] Rolf Haider MD [address] [address] Medication Refill Social History Tobacco Use Types [...] Description 07/10/2025 1:30 PM CDT Office Visit [facility] - Family [facility] [address] [place] [address] Angie Egan PAC [address] [place] [address] documented as of this encounter Visit Diagnoses Not on filedocumented in this encounter Additional Health Concerns Infection Onset Date Last Indicated Resolved Time COVID - 19 07/25/2021 07/25/2021 08/14/2021 12:1 6 AM CDT COVID - 19 09/30/2021 09/30/2021 10/20/2021 12:1 6 AM PLACEMENT DIRECTOR COVID - 19 Confirmed 05/24/2022 05/24/2022 022 12:16 AM CDT COVID - 19 03/08/2023 03/08/2023 03/18/2023 12:1 6 AM CDT Assessment Noted Time PHQ-9 Depression Total Score: 0 08/05/20 1:56 PM CDT documented as of this encounter Care Teams Developmental Services Worker Relationship Specialty Start Date End Date Angie Egan PAC [address] [place] [address] PCP - General Physician Trail Construction Worker 12/07/17 Dav Barillas MD Consulting Physician Nephrology 03/26/17 Reggie Lazar MD Consulting Physician Urology 07/27/17 Alvarez Rivera MD [address] [place] [address] Consulting Physician Pulmonary Disease 07/19/23 Bunny Cruz MD [address] [place] [address] Consulting Physician Medical Oncology 02/25/24 documented as of this encounter
--- OUTSIDE RECORDS SUMMARY | 2025-04-01 09:46 | XMS_ITS | Encounter Summary ---
Author Organization [facility] Address [address] [facility] [place] [address] Phone Care Team Providers Care Knitter Hand Name Role Phone Dav Barillas MD Unavailable Reggie Lazar MD Unavailable [phone] Angie Egan PAC Primary Care Provider + Alvarez Rivera MD Unavailable Bunny Cruz MD Unavailable [phone] Reason for Visit * Reason Comments Medication Refill Encounter Details Date Type Department Care Team (Late st Contact Info) Description 05/10/2022 Refill [facility] - Family Medicine [facility] [address] [place] [address] Angie Egan, [facility] [address] [place] [address] Medication Refill Social History Tobacco Use Types [...] Description 07/10/2025 1:30 PM CDT Office Visit [facility] [address] [place] [address] Angie Egan PAC [address] [place] [address] documented as of this encounter Visit Diagnoses Not on filedocumented in this encounter Additional Health Concerns Infection Onset Date Last Indicated Resolved Time COVID - 19 Confirmed 05/24/2022 05/24/2022 022 12:16 AM CDT COVID - 19 03/08/2023 03/08/2023 03/18/2023 12:1 6 AM CDT Assessment Noted Time PHQ-9 Depression Total Score: 0 07/29/20 21 11:00 AM CDT documented as of this encounter Care Teams Knitter Hand Relationship Specialty Start Date End Date Angie Egan PAC [address] [place] [address] PCP - General Physician Call Center Supervisor 12/07/17 Dav Barillas MD Consulting Physician Nephrology 03/26/17 Reggie Lazar MD Consulting Physician Urology 07/27/17 Alvarez Rivera MD [address] [place] [address] Consulting Physician Pulmonary Disease 07/19/23 Bunny Curz MD [address] [place] [address] Consulting Physician Medical Oncology 02/25/24 documented as of this encounter
--- OUTSIDE RECORDS SUMMARY | 2025-04-01 09:46 | XMS_ITS | Encounter Summary ---
Author Organization [facility] Address [address] [facility] [facility] [place] [address] Phone Care Team Providers Care Expeditionary Force Combat Skills Name Role Phone Dav Barillas MD Unavailable Reggie Lazar MD Unavailable Angie Egan PAC Primary Care Provider + Alvarez Rivera MD Unavailable Bunny Cruz MD Unavailable [phone] Reason for Visit * Reason Comments Medication Refill Encounter Details Date Type Department Care Team (Late st Contact Info) Description 10/06/2023 Refill [facility] - Family Medicine [facility] [address] [place] [address] Angie Egan, BLAYNE [address] [place] [address] Medication Refill Social History Tobacco Use Types [...] Jimenez APRN, CNP - 10/09/2023 8:41 AM TRANSITION RN duplicate SITION RN * Telephone Encounter - Sofía Joe RN [...] PAC [facility] 07/10/23 Office Visit Angie Egan PAC [facility] 04/06/23 Office Visit Angie Egan, PAC [facility] 02/23/23 Office Visit Angie Egan PAC [facility] 01/01/23 Office Visit Angie Egan, PAC [facility] 11/30/22 Office Visit Angie Egan, PAC [facility] 11/02/22 Office Visit Angie Egan, PAC [facility] Showing recent visits within past 365 days and meeting all other requirements Future Appointments Date Type Provider Dept 12/06/23 Appointment Angie Egan PAC [facility] Showing future appointments within next 90 [...] 07/10/2023 37.0 36.0 - 47.0 % Final SITION RN documented in this encounter Plan of Treatment Upcoming Encounters Date Type Department Care Team (Late st Contact Info) Description 07/10/2025 1:30 PM CDT [facility] Visit [facility] [address] [place] [address] Angie Egan PAC [address] [place] [address] documented as of this encounter Visit Diagnoses Diagnosis Rheumatoid arthritis involving both hands, unspecified whether rheumatoid factor present (HCC) documented in this encounter Additional Health Concerns Assessment Noted Time PHQ-9 Depression Total Score: 0 07/10/20 23 10:27 AM CDT documented as of this encounter Care Teams [employer] Combat Skills Relationship Specialty Start Date End Date Angie Egan PAC [address] [place] [address] PCP - General Physician Medical Driver 12/07/17 Dav Barillas MD Consulting Physician Nephrology 03/26/17 Reggie Lazar MD Consulting Physician Urology 07/27/17 Alvarez Rivera MD [address] [place] [id number] Consulting Physician Pulmonary Disease 07/19/23 Bunny Cruz MD [address] [place] [address] Consulting Physician Medical Oncology 02/25/24 documented as of this encounter
--- OUTSIDE RECORDS SUMMARY | 2025-04-01 09:46 | XMS_ITS | Encounter Summary ---
Author Organization [facility] Address [address] [place] [address] Care Team Providers Care Dye Colorist Formulator Name Role Phone Luz Maria Riggins MD Primary Care Provider [phone] Encounter Details Date Type Department Care Team (Late st Contact Info) Description 02/14/2024 Lab Requisition [facility] - Pathology Lab [address] [place] [address] Emanuel De Oliveira MD [facility] [address] [address] Abnormality of plasma protein, unspecified; Anemia, unspecified Social History Tobacco Use Types Packs/Day Years Used Date Smoking Tobacco: Smoker, Current Status Unknown Cigarettes 1 50 Smokeless Tobacco: Never Alcohol Use Standard Drinks/Week Comments No 0 (1 standard drink = 0.6 oz pur e alcohol) Comments No Sex and Gender Information Value Date Recorded Sex Assigned at Not on file Legal Sex Female 12:55 PM CDT Gender Identity Not on file Sexual Orientation Not on file documented as of this encounter Functional Status * Is person deaf or have serious hearing difficulty? Answer Date of Assessment Author No 02/22/2021 8:40 AM EMAT Angeli Jimenez RN * Is person blind or have serious difficulty seeing? Answer Date of Assessment Author No 02/22/2021 8:40 AM EMAT Angeli Jimenez RN * Does person have serious difficulty walking/climbing stairs? Answer Date of Assessment Author No 02/22/2021 8:40 AM CDT Angeli Jimenez RN * Does person have difficulty dressing/bathing? Answer Date of Assessment Author No 02/22/2021 8:40 AM EMAT Angeli Jimenez RN * Does person have difficulty doing errands alone? Answer Date of Assessment Author No 02/22/2021 8:40 AM EMAT Angeli Jimenez RN documented as of this encounter Mental Status * Does person have difficulty concentrating/remembering/making decisions? Answer Entry Date Author No 02/22/2021 8:40 AM CDT Angeli Jimenez RN documented in this encounter Plan of Treatment Not on file documented as of this encounter Procedures Procedure Name Priority Date/Time Associated Diagnosis Comments FLOW CYTOMETRY BONE MARROW Routine 02/14/2024 8:15 AM CDT Abnormality of plasma protein, unspecified Anemia, unspecified documented in this encounter Results * FLOW CYTOMETRY BONE MARROW (02/14/2024 8:15 AM CDT) Case Report Flow Cytometry Case: [id number] Authorizing Provider: Emanuel De Oliveira MD Collected: 02/14/2024 08:15 AM Ordering Location: [facility] - Received: 02/14/2024 12:18 PM Pathology Lab Pathologist: Sydney Penn MD Specimen: Bone Marrow 02/14/2024 4:38 PM CDT [facility] Final Diagnosis Bone marrow, flow cytometric immunophenotypic analysis: - No evidence of a monoclonal B-cell population, high-grade myeloid neoplasm, or plasma cell dyscrasia - See interpretation 02/14/2024 4:38 PM CDT [facility] at 1638 CDT Flow Cytometry Interpretation Viability: 92% B-cells: polytypic, kappa:lambda ratio 1.3:1 Blasts: 0.5% of events Plasma cells: polytypic, kappa:lambda ratio 2.3:1, 0.1% of events A bone marrow aspirate smear prepared from the flow cytometry specimen has been reviewed for quality control assessor purposes. 02/14/2024 4:38 PM [facility] Flow Cytometry Results Differential Result Comment Flow Cell Count /uL 65,500 Total Viability % 92.0 Lymphocytes % 5 Dim CD45 Region % 2 Monocytes % 16 Granulocytes % 77 02/14/2024 4:38 PM [facility] Reason for test Abnormality of plasma protein, unspecified Anemia, unspecified 285.9 02/14/2024 4:38 PM [facility] Client Specimen ID # [id number] 02/14/2024 4:38 PM [facility] Number of markers 14 were performed. A-2 Flow CD10 A-3 Flow CD13 A-5 Flow CD20 A-13 Flow CD117 A-14 FLOW CD138 A-1 Flow CD5 A-4 Flow CD19 A-6 Flow CD33 A-7 Flow CD34 A-8 Flow CD45 A-11 Flow CD38 A-12 Flow CD56 A-9 Lewes+CD19+ A-10 Lambda+CD19+ A-15 cyKappa+CD138+ A-16 cyLambda+CD138 02/14/2024 4:38 PM [facility] Pathologist Location at [facility] 02/14/2024 4:38 PM [facility] Disclaimer Test performed at [facility], [address] [place] [address], [address]. *The established laboratory minimum viability is 70%. [...] high complexity clinical testing. 02/14/2024 4:38 PM [facility] Embedded Images 4:38 PM [facility] Pathology/Cytolo gy BONE MARROW SPECIMEN / Unknown 02/14/2024 8:15 AM CDT 02/14/2024 12:18 PM CDT us Emanuel De Oliveira MD LAB - PATHOLOGY/CYTOLOGY ORDERAB LES Final Result [facility] [address] [phone] documented in this encounter Visit Diagnoses Diagnosis Abnormality of plasma protein, unspecified Anemia, unspecified documented in this encounter Care Teams Dye Colorist Formulator Relationship Specialty Start Date End Date Luz Maria Riggins MD PCP - General 12/29/20 documented as of this encounter
--- OUTSIDE RECORDS SUMMARY | 2025-04-01 09:46 | XMS_ITS | Encounter Summary ---
Author Organization [facility] Address [address] [facility] [place] [address] Phone Care Team Providers Care Stripping And Booking Machine Operator Name Role Phone Dav Barillas MD Unavailable Reggie Lazar MD Unavailable Angie Egan PAC Primary Care Provider + Alvarez Rivera MD Unavailable Bunny Cruz MD Unavailable Reason for Visit * Reason Comments Medication Refill Encounter Details Date Type Department Care Team (Late st Contact Info) Description 10/06/2023 Refill [facility] - Family Medicine [facility] [address] [place] [address] Angie Egan, BLAYNE [address] [place] [address] Medication Refill Social History Tobacco Use Types [...] Jesika Croft RN - 10/06/2023 2:35 PM ELECTROPLATER APPRENTICE Medication failed the protocol, provider to review [...] 07/19/23 Office Visit Angie Egan, PAC [facility] 07/10/23 Office Visit Angie Egan, PAC [facility] 04/06/23 Office Visit Angie Egan, PAC [facility] 02/23/23 Office Visit Angie Egan, PAC [facility] 01/01/23 Office Visit Angie Egan PAC [facility] 11/30/22 Office Visit Angie Egan, PAC [facility] 11/02/22 Office Visit Angie Egan, [facility] [...] 07/10/2023 37.0 36.0 - 47.0 % Final TROPLATER APPRENTICE documented in this encounter Plan of Treatment Upcoming Encounters Date Type Department Care Team (Late st Contact Info) Description 07/10/2025 1:30 PM CDT Office Visit [facility] - [facility] [address] [place] [address] Angie Egan PAC [address] [place] [address] documented as of this encounter Visit Diagnoses Diagnosis Rheumatoid arthritis involving both hands, unspecified whether rheumatoid factor present (HCC) documented in this encounter Additional Health Concerns Assessment Noted Time PHQ-9 Depression Total Score: 0 07/10/20 23 10:27 AM CDT documented as of this encounter Care Teams Stripping And Booking Machine Operator Relationship Specialty Start Date End Date Angie Egan PAC [address] [place] [address] PCP - General Physician Marketing Community Liaison 12/07/17 Dav Barillas MD Consulting Physician Nephrology 03/26/17 Reggie Lazar MD Consulting Physician Urology 07/27/17 Alvarez Rivera MD [address] [place] [address] Consulting Physician Pulmonary Disease 07/19/23 Bunny Cruz MD [address] [place] [address] Consulting Physician Medical Oncology 02/25/24 documented as of this encounter
--- OUTSIDE RECORDS SUMMARY | 2025-04-01 09:46 | XMS_ITS | Encounter Summary ---
Author Organization [facility] Address [address] [facility] [place] [address] Phone Care Team Providers Care Ignition Mechanic Name Role Phone Dav Barillas MD Unavailable Reggie Lazar MD Unavailable [phone] Angie Egan [facility] Primary Care Provider + Alvarez Rivera MD Unavailable Bunny Cruz MD Unavailable [phone] Reason for Visit * Reason Comments Medication Refill Encounter Details Date Type Department Care Team (Late st Contact Info) Description 07/09/2021 Refill [facility] [address] [place] [phone] Rolf Haider MD [address] [address] Medication Refill Social History Tobacco Use Types [...] Description 07/10/2025 1:30 PM CDT Office Visit [facility] - Family [facility] [address] [place] [address] Angie Egan PAC [address] [place] [address] documented as of this encounter Visit Diagnoses Not on filedocumented in this encounter Additional Health Concerns Infection Onset Date Last Indicated Resolved Time COVID - 19 07/25/2021 07/25/2021 08/14/2021 12:1 6 AM CDT COVID - 19 09/30/2021 09/30/2021 10/20/2021 12:1 6 AM LAWYER CRIMINAL COVID - 19 Confirmed 05/24/2022 05/24/2022 022 12:16 AM CDT COVID - 19 03/08/2023 03/08/2023 03/18/2023 12:1 6 AM CDT Assessment Noted Time PHQ-9 Depression Total Score: 0 08/05/20 1:56 PM CDT documented as of this encounter Care Teams Ignition Mechanic Relationship Specialty Start Date End Date Angie Egan PAC [address] [place] [address] PCP - General Physician Hostess Cashier 12/07/17 Dav Barillas MD Consulting Physician Nephrology 03/26/17 Reggie Lazar MD Consulting Physician Urology 07/27/17 Alvarez Rivera MD [address] [place] [address] Consulting Physician Pulmonary Disease 07/19/23 Bunny Cruz MD [address] [place] [address] Consulting Physician Medical Oncology 02/25/24 documented as of this encounter
--- OUTSIDE RECORDS SUMMARY | 2025-04-01 09:46 | XMS_ITS | Encounter Summary ---
Author Organization [facility] Address [address] [place] [address] Phone Care Team Providers Care Promotional Marketing Agent Name Role Phone Dav Barillas MD Unavailable Reggie Lazar MD Unavailable [phone] Angie Egan PAC Primary Care Provider + Alvarez Rivera MD Unavailable Bunny Cruz MD Unavailable Reason for Visit * Reason Comments Medication Refill Encounter Details Date Type Department Care Team (Late st Contact Info) Description [facility]/06[facility]20[facility] [address] [place] [address] Angie Egan, PAC [address] [place] [address] Medication Refill Social History Tobacco Use Types [...] Description 07/10/2025 1:30 PM CDT Office Visit [facility] - Family [facility] [address] [place] [address] Angie Egan PAC [address] [place] [address] documented as of this encounter Visit Diagnoses Not on filedocumented in this encounter Additional Health Concerns Infection Onset Date Last Indicated Resolved Time COVID - 19 07/25/2021 07/25/2021 08/14/2021 12:1 6 AM CDT COVID - 19 09/30/2021 09/30/2021 10/20/2021 12:1 6 AM CONTINUITY TESTER COVID - 19 Confirmed 05/24/2022 05/24/2022 022 12:16 AM CDT COVID - 19 03/08/2023 03/08/2023 03/18/2023 12:1 6 AM CDT Assessment Noted Time PHQ-9 Depression Total Score: 0 08/05/20 1:56 PM CDT documented as of this encounter Care Teams Promotional Marketing Agent Relationship Specialty Start Date End Date Angie Egan PAC [address] [place] [address] PCP - General Physician Manager Applied 12/07/17 Dav Barillas MD Consulting Physician Nephrology 03/26/17 Reggie Lazar MD Consulting Physician Urology 07/27/17 Alvarez Rivera MD [address] [place] [address] Consulting Physician Pulmonary Disease 07/19/23 Bunny Cruz MD [address] [place], [place] [address] Consulting Physician Medical Oncology 02/25/24 documented as of this encounter
--- OUTSIDE RECORDS SUMMARY | 2025-04-01 09:46 | XMS_ITS | Encounter Summary ---
Author Organization [facility] Address [address] [facility] [place] [address] Phone Care Team Providers Care Appeals Officer Name Role Phone Dav Barillas MD Unavailable Reggie Lazar MD Unavailable [phone] Angie Egan PAC Primary Care Provider + Alvarez Rivera MD Unavailable Bunny Cruz MD Unavailable [phone] Reason for Visit * Reason Comments Medication Refill Encounter Details Date Type Department Care Team (Late st Contact Info) Description 01/02/2024 Refill [facility] Medical Group - Family Medicine [facility] [address] [place] [address] Angie Egan, BLAYNE [address] [place] [address] Medication Refill Social History Tobacco Use Types Packs/Day Years Used Date Smoking Tobacco: Some Days Cigarettes 0.5 69.9 Started: 05/25/1955 Smokeless Tobacco: Never Alcohol Use Standard Drinks/Week Comments No 0 (1 standard drink = 0.6 oz pur e alcohol) [facility] Utilities Answer Date Recorded In the past 12 months has [employer], gas, oil, or water company threatened [...] and Family Not on file 12/03/2023 Attends Anabaptism Services Not on file 12/03 Active Member [...] Score - Questions 1-9 0 09/0 03/2023 [facility] Occupat ional [facility] - Occupational Stress Questionnaire Answer Date [...] place to sleep or slept in a halfway (including now)? No 12/03/2023 Education Answer Date [...] discontinued on 06/20/2023 by Kathryn Jimenez APRN, KNIT GOODS CUTTER HAND. Incorrect dose. OR MANUFACTURING ENGINEER documented in this encounter Plan of Treatment Upcoming Encounters Date Type Department Care Team (Late st Contact Info) Description 07/10/2025 1:30 PM CDT Office Visit [facility] [address] [place] [address] Angie Egan, PAC [address] [place] [address] documented as of this encounter Visit Diagnoses Diagnosis Type 2 diabetes mellitus with diabetic neuropathy, without long-term current use of insulin (HCC) documented in this encounter Additional Health Concerns Assessment Noted Time PHQ-9 Depression Total Score: 0 07/10/20 10:27 AM CDT documented as of this encounter Care Teams Appeals Officer Relationship Specialty Start Date End Date Angie Egan PAC [address] [place] [address] PCP - General Physician Drug Abuse Worker 12/07/17 Dav Barillas MD Consulting Physician Nephrology 03/26/17 Reggie Lazar MD Consulting Physician Urology 07/27/17 Alvarez Rivera MD [address] [place] [address] Consulting Physician Pulmonary Disease 07/19/23 Bunny Cruz MD [address] [place] [address] Consulting Physician Medical Oncology 02/25/24 documented as of this encounter
--- OUTSIDE RECORDS SUMMARY | 2025-04-01 09:46 | XMS_ITS | Encounter Summary ---
Author Organization [facility] Address [address] [place] [address] Phone Care Team Providers Care Cloth Washer Operator Name Role Phone Dav Barillas MD Unavailable Reggie Lazar MD Unavailable [phone] Angie Egan [facility] Primary Care Provider + Alvarez Rivera MD Unavailable Bunny Cruz MD Unavailable [phone] Reason for Visit * Reason Onset Date Comments Home Health Admission 12/05/2023 Encounter Details Date Type Department Care Team (Late st Contact Info) Description 12/05/2023 Telephone [facility] [address] [place] [id number] Cassie Ramirez, PT [place] Home Health Admission Social History Tobacco Use Types Packs/Day Years Used Date Smoking Tobacco: Some Days Cigarettes 0.5 69.9 Started: 05/25/1955 Smokeless Tobacco: Never Alcohol Use Standard Drinks/Week Comments No 0 (1 standard drink = 0.6 oz pur e alcohol) [facility] Utilities Answer Date Recorded In the past 12 months has [employer], gas, oil, or water company threatened to [...] and Family Not on file 12/03/2023 Attends Synagogue Services Not on file 12/03 Active Member [...] Score - Questions 1-9 0 09/0 03/2023 [facility] Occupat ional [facility] - Occupational Stress [...] place to sleep or slept in a penitentiary (including now)? No 12/03/2023 Education Answer Date [...] orders for PT/OT? Please advise, thank you [employer] documented in this encounter Plan of Treatment Upcoming Encounters Date Type Department Care Team (Late st Contact Info) Description 07/10/2025 1:30 PM CDT Office Visit [facility] Medical Group - Family [facility] [address] [place] [address] Angie Egan PAC [address] [place] [address] documented as of this encounter Visit Diagnoses Not on filedocumented in this encounter Additional Health Concerns Assessment Noted Time PHQ-9 Depression Total Score: 0 07/10/20 23 10:27 AM CDT documented as of this encounter Care Teams Cloth Washer Operator Relationship Specialty Start Date End Date Angie Egan PAC [address] [place] [address] PCP - General Physician Occupancy Specialist 12/07/17 Dav Barillas MD Consulting Physician Nephrology 03/26/17 Reggie Lazar MD Consulting Physician Urology 07/27/17 Alvarez Rivera MD [address] [place] [address] Consulting Physician Pulmonary Disease 07/19/23 Bunny Cruz MD [address] [place] [address] Consulting Physician Medical Oncology 02/25/24 documented as of this encounter
--- OUTSIDE RECORDS SUMMARY | 2025-04-01 09:46 | XMS_ITS | Encounter Summary ---
Author Organization [facility] Address [address] [facility] [place] [place] [address] Phone Care Team Providers Care Service Liaison Representative Name Role Phone Dav Barillas MD Unavailable [phone] Reggie Lazar MD Unavailable [phone] Angie Egan PAC Primary Care Provider + Alvarez Rivera MD Unavailable Bunny Cruz MD Unavailable [phone] Reason for Referral * Consult, Test & Initiate Treatment (Routine) - Open Specialty Diagnoses / Procedures Referred By Garcia pozo Referred To Contact Diagnoses Chronic renal impairment, unspecified CKD stage Angie Egan, [facility] [address] [place] [address] Phone: tel: fax: Referral ID Status Reason Start Date Expiration Date Visits Re quested Visits Authorized [id number] Open 03/31/2025 1 1 Scheduling Instructions Janet is being referred to nephrology or other specialist in patient's insurance network for chronic renal insufficiency See below for Janet's current medications, allergies and problem list. CURRENT MEDS: Current Outpatient Medications: albuterol 108 (90 Base) MCG/ACT Aerosol Solution, INHALE 2 PUFFS BY MOUTH EVERY 4 HOURS NEEDED FOR WHEEZING OR COUGH, Disp: 8.5 g, Rfl: 10 allopurinol (ZYLOPRIM) 100 MG Tablet, TAKE 1 TABLET BY MOUTH DAILY, Disp: 90 Tablet, Rfl: 3 atenolol (TENORMIN) 25 MG Tablet, TAKE 1 TABLET BY MOUTH DAILY., Disp: 30 Tablet, Rfl: 10 atorvastatin (LIPITOR) 40 MG Tablet, TAKE 1 TABLET BY MOUTH DAILY, Disp: 30 Tablet, Rfl: 8 Azelastine HCl 137 MCG/SPRAY Solution, INSTILL TWO (2) SPRAYS IN EACH NOSTRIL TWICE DAILY DIRECTED, Disp: 30 mL, Rfl: 10 Blood Glucose Monitoring Suppl (Vedero Software Verio Flex System) w/Device Kit, Use to check blood glucose daily, Disp: 1 Kit, Rfl: 0 Cholecalciferol 50 mcg Tablet, Take 50 mcg by mouth daily., Disp: , Rfl: cycloSPORINE (Restasis) 0.05 % Emulsion, Place 1 Drop in both eyes 2 times daily. Indications: Drying and Inflammation of Cornea and Conjunctiva of Eyes, Disp: 60 Each, Rfl: 4 Dulaglutide (Trulicity) 3 MG/0.5ML Solution Auto-injector, 3 mg by Subcutaneous route once a week., Disp: 2 mL, Rfl: 0 Easy Touch Lancets 33G/Twist Misc, USE TO CHECK BLOOD GLUCOSE DAILY, Disp: 100 Each, Rfl: 3 fluticasone-salmeterol (Advair Diskus) 250-50 MCG/ACT AEROSOL POWDER, BREATH ACTIVATED, take 1 Puff by inhalation 2 times daily., Disp: 60 Each, Rfl: 3 furosemide (LASIX) 40 MG Tablet, TAKE 1 TABLET BY MOUTH DAILY NEEDED FOR SWELLING IN LEGS, Disp: 30 Tablet, Rfl: 10 Glucose Blood (Glucose Meter Test) Strip, Test once daily, Disp: 90 Strip, Rfl: 3 HYDROcodone-acetaminophen (NORCO) 5-325 MG Tablet, Take 2 Tablets by mouth every 8 hours as needed for Moderate or more severe pain., Disp: 180 Tablet, Rfl: 0 hydroxychloroquine (PLAQUENIL) 200 MG Tablet, Take 200 mg by mouth in the morning and at bedtime. [id number], Disp: , Rfl: ipratropium (ATROVENT) 0.02 % Solution, INHALE 1.25ML VIA NEBULIZER EVERY 6 HOURS, Disp: 300 mL, Rfl: 10 loratadine (CLARITIN) 10 MG Tablet, Take 10 mg by mouth Daily as needed for Allergies., Disp: , Rfl: magnesium oxide (MAG-OX) 400 MG Tablet, TAKE 1 TABLET BY MOUTH DAILY, Disp: 30 Tablet, Rfl: 5 Misc. Devices Misc, Supply and instructions:, Disp: 1 Each, Rfl: 0 Multiple Vitamin (MULTIVITAMIN PO), Take 1 Tablet by mouth daily. Angel, Disp: , Rfl: [place]-3 Fatty Acids (FISH OIL PO), Take by mouth., Disp: , Rfl: OneTouch Ultra Test Strip, USE TO CHECK BLOOD GLUCOSE DAILY, Disp: 50 Each, Rfl: 5 OXYGEN CONCENTRATOR, 2 L/ minute via nasal cannula continuously. Titrate O2 liter flow via pulse oximetry to achieve SpO2 of greater than 90% at rest and during activities of daily living., Disp: , Rfl: OXYGEN TANK PORTABLE, 2 L/ minute via nasal cannula continuously. Titrate O2 liter flow via pulse oximetry to achieve SpO2 of greater than 90% at rest and during activities of daily living. Use portable tank when concentrator not available., Disp: , Rfl: pantoprazole (PROTONIX) 40 MG Tablet Delayed Response, TAKE 1 TABLET BY MOUTH DAILY., Disp: 30 Tablet, Rfl: 10 potassium chloride CR (KLORCON) 10 MEQ Tablet Controlled Release, Take 1 Tablet by mouth daily as needed (take potassium if takes furosemide)., Disp: 30 Tablet, Rfl: 2 pregabalin (LYRICA) 150 MG Capsule, TAKE 1 CAPSULE BY MOUTH THREE TIMES DAILY, Disp: 90 Capsule, Rfl: 3 Respiratory Therapy Supplies (Nebulizer/Tubing/Mouthpiece) Kit, 1 Device by Does not apply route every 4 hours as needed (cough, wheezing, or shortness of breath)., Disp: 1 Each, Rfl: 0 tiZANidine (ZANAFLEX) 4 MG Tablet, TAKE 1 TABLET BY MOUTH EVERY 6 HOURS NEEDED FOR MUSCLE SPASMS, Disp: 60 Tablet, Rfl: 11 traZODone (DESYREL) 150 MG Tablet, TAKE 1 TABLET BY MOUTH EVERY NIGHT, Disp: 90 Tablet, Rfl: 1 triamcinolone (KENALOG) 0.1 % Cream, Application Site: apply to hand as needed, Disp: 45 g, Rfl: 0 Trulicity 3 MG/0.5ML Solution Pen-injector injection, ADMINISTER 3 MG UNDER THE SKIN 1 TIME A WEEK, Disp: 6 mL, Rfl: 1 No current facility-administered medications for this visit. 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9 Started: 05/25/1955 Smokeless Tobacco: Never Alcohol Use Standard Drinks/Week Comments No 0 (1 standard drink = 0.6 oz pur e alcohol) [facility] Utilities Answer Date Recorded In the past 12 months has [employer], oil, or water [employer] threatened to shut off services in your [...] 04/08/2024 How often do you attend chur or mosque services? Never 04/08/2024 Do you belong to any clubs o r organizations such as shinto groups, unions, fraternal or athletic groups, or [...] Recorded Total Score - Questions 1-9 0 03/06 [facility] - Occupational Stress Questionnaire Answer Date [...] place to sleep or slept in a snf (including now)? No 04/08/2024 Education Answer Date [...] as of this encounter Functional Status * Question Answer Date of Assessment Author Little interest or pleasure in doing things Not at all 03/24/2025 10:49 AM EMAT Dimple Irizarry CMA Feeling down, depressed, or hopeless Not at all 03/24/2025 10:49 AM CDT Dimple Irizarry CMA * Over the past 2 weeks, how often have you been bothered by any of the following problems? Question Answer Date of Assessment Author Patient Health Questionnaire -2 Score 0 03/24/2025 10:49 AM EMAT Dimple Irizarry CMA documented as of this encounter Miscellaneous Notes * Telephone Encounter - Jesika Croft RN - 03/26/2025 11:54 AM CDT Spoke to patient and relayed result note. She verbalized understanding and is agreeable to plan. She states she does not see nephrology currently, but would like a referral. She will utilize hospital lab's walk-in hours for labs in 1-2 weeks. Pended referral. documented in this encounter Plan of Treatment Upcoming Encounters Date Type Department Care Team (Late st Contact Info) Description 07/10/2025 1:30 PM CDT Office Visit [facility] - [facility] [address] [place] [address] Angie Egan PAC [address] [place] [address] Scheduled Orders Name Type Priority Associated Diagnoses Orde r Schedule BASIC METABOLIC PANEL W/ CALCIUM TOTAL Lab Routine Elevated serum creatinine Expected: 03/24/2025 (Approximate), Expires: 09/24/2025 Scheduled Referrals Name Type Priority Associated Diagnoses Orde r Schedule EXTERNAL NEPHROLOGY REFERRAL Outpatient Referral Routine Chronic renal impairment, unspecified CKD stage Expected: 03/31/2025, Expires: 03/26/2026 documented as of this encounter Visit Diagnoses Diagnosis Elevated serum creatinine- Primary Other nonspecific findings on examination of blood Chronic renal impairment, unspecified CKD stage documented in this encounter Additional Health Concerns Assessment Noted Time PHQ-9 Depression Total Score: 0 03/24/20 25 10:49 AM CDT documented as of this encounter Care Teams Service Liaison Representative Relationship Specialty Start Date End Date Angie Egan PAC [address] [place] [address] PCP - General Physician Audio Production Instructor 12/07/17 Dav Barillas MD Consulting Physician Nephrology 03/26/17 Reggie Lazar MD Consulting Physician Urology 07/27/17 Alvarez Rivera MD [address] [place] [address] Consulting Physician Pulmonary Disease 07/19/23 Bunny Cruz MD [address] [place] [address] Consulting Physician Medical Oncology 02/25/24 documented as of this encounter
--- OUTSIDE RECORDS SUMMARY | 2025-04-01 09:46 | XMS_ITS | Clinical Summary ---
Author Organization [facility] Address [address] [address] Care Team Providers Care Tin Plater Name Role Phone Unavailable Primary Care Provider [...] 09/14/2021 Osteoarthritis 09/14/2021 Diabetes mellitus 09/14/2021 Immunizations Immunization Administration Dates Next Due Influenza TIV (IM) [...] Comments Blood Pressure 122/60 10/17/2022 11:51 AM VOCATIONAL REHABILITATION SPECIALIST Pulse 84 10/17/2022 11:51 AM VOCATIONAL REHABILITATION SPECIALIST Temperature 36.2 C (97.2 F) 10/17/2022 11:51 AM VOCATIONAL REHABILITATION SPECIALIST Respiratory Rate 18 10/17/2022 11:51 AM VOCATIONAL REHABILITATION SPECIALIST Oxygen Saturation 90% 10/17/2022 11:51 AM VOCATIONAL REHABILITATION SPECIALIST Inhaled Oxygen Concentration - - Weight 78.9 kg (174 lb) 10/17/2022 11:51 AM VOCATIONAL REHABILITATION SPECIALIST Height 157.5 cm (5' 2) 10/17/2022 11:51 AM VOCATIONAL REHABILITATION SPECIALIST Body Mass Index 31.83 10/17/2022 11:51 AM VOCATIONAL REHABILITATION SPECIALIST Plan of Treatment Health Maintenance Due Date Last Done Comments Hepatitis B Vaccine (1 of 3 - Risk 3-dose series) 2005 Diabetes: Ophthalmology Exam 03/31/2021 Diabetes: Pedal Pulse Checked 03/31/2021 Diabetes: Sensory Foot Exam 03/31/2021 Diabetes: Visual Foot Exam 03/31/2021 Diabetes: Hemoglobin A1C 01/14/2023 022, 09/27/2022, 05/01/2022, Additional history exists Influenza Vaccine (Season Ended) 2025 07/25/2022, 08/19/2021, 08/05/2020, Additional history exists Pneumococcal Vaccine: 50+ Years Completed 07/27/2017, 04/09/2016, 11/05/2011 Procedures Procedure [...] 10.7 mg/dL Phosphorus, Serum 3.7 eGFR Non-Afr [place] 50 Vitamin D, 25-OH, Total 45.4 ng/mL Hemoglobin A1C 6.4(A) 4.0 - 6.0 Protein Urine Random 9 Creatinine, Urine Random 62.35 mg/dL Urine Protein/Creatin ine Ratio 0.1 mg/g creat 10/16/2022 us Historical Provider LAB BLOOD ORDERABLES Felisa l Result from Last 3 Months or Most Recently Relevant to Health Maintenance Insurance [place] Medicaid
--- OUTSIDE RECORDS SUMMARY | 2025-04-01 09:46 | XMS_ITS | Encounter Summary ---
Author Organization [facility] Address [address] [facility] [place] [address] Phone Care Team Providers Care Angio Technologist Name Role Phone Dav Barillas MD Unavailable Reggie Lazra MD Unavailable Angie Egan PAC Primary Care Provider + Alvarez Rivera MD Unavailable Bunny Cruz MD Unavailable Reason for Visit * Reason Comments Medication Refill Encounter Details Date Type Department Care Team (Late st Contact Info) Description 08/29/2023 Refill [facility] - Family Medicine [facility] [address] [place] [address] Angie Egan, [address] [place] [address] Medication Refill Social History Tobacco Use Types [...] Visit [facility] [address] [place] [address] Angie Egan PAC [address] [place] [address] documented as of this encounter Visit Diagnoses Diagnosis Type 2 diabetes mellitus with diabetic neuropathy, without long-term current use of insulin (HCC) documented in this encounter Additional Health Concerns Assessment Noted Time PHQ-9 Depression Total Score: 0 07/10/20 23 10:27 AM CDT documented as of this encounter Care Teams Angio Technologist Relationship Specialty Start Date End Date Angie Egan PAC [address] [place] [address] PCP - General Physician Adjunct English Instructor 12/07/17 Dav Barillas MD Consulting Physician Nephrology 03/26/17 Reggie Lazar MD Consulting Physician Urology 07/27/17 Alvarez Rivera MD [address] [place] [address] Consulting Physician Pulmonary Disease 07/19/23 Bunny Cruz MD [address] [place] [address] Consulting Physician Medical Oncology 02/25/24 documented as of this encounter
--- OUTSIDE RECORDS SUMMARY | 2025-04-01 09:46 | XMS_ITS | Encounter Summary ---
Author Organization [facility] Address [address] [facility] [place] [address] Phone Care Team Providers Care Vegetable Worker Name Role Phone Dav Barillas MD Unavailable [phone] Reggie Lazar MD Unavailable [phone] Angie Egan PAC Primary Care Provider + Alvarez Rivera MD Unavailable Bunny Cruz MD Unavailable Reason for Visit * Reason Comments Medication Refill Encounter Details Date Type Department Care Team (Late st Contact Info) Description 02/18/2023 Refill [facility] - Family [facility] [address] [place] [address] Angie Egan, [facility] [address] [place] [address] Medication Refill Social History Tobacco Use Types [...] CDT Office Visit [facility] [address] [place] [address] Angie Egan PAC [address] [place] [address] documented as of this encounter Visit Diagnoses Diagnosis Rheumatoid arthritis involving both hands, unspecified whether rheumatoid factor present (HCC) documented in this encounter Additional Health Concerns Infection Onset Date Last Indicated Resolved Time COVID - 19 03/08/2023 03/08/2023 03/18/2023 12:1 6 AM CDT Assessment Noted Time PHQ-9 Depression Total Score: 0 07/25/20 22 9:00 AM CDT documented as of this encounter Care Teams Vegetable Worker Relationship Specialty Start Date End Date Angie Egan PAC [address] [place] [address] PCP - General Physician Mold Stamper And Repairer 12/07/17 Dav Barillas MD Consulting Physician Nephrology 03/26/17 Reggie Lazar MD Consulting Physician Urology 07/27/17 Alvarez Rivera MD [address] [place] [address] Consulting Physician Pulmonary Disease 07/19/23 Bunny Cruz MD [address] [place] [address] Consulting Physician Medical Oncology 02/25/24 documented as of this encounter
--- OUTSIDE RECORDS SUMMARY | 2025-04-01 09:46 | XMS_ITS | Encounter Summary ---
Author Organization [facility] Address [address] [facility] [place] [address] Phone Care Team Providers Care Cultured Marble Products Maker Name Role Phone Dav Barillas MD Unavailable Reggie Lazar MD Unavailable Angie Egan PAC Primary Care Provider + Alvarez Rivera MD Unavailable Bunny Cruz MD Unavailable Reason for Visit * Reason Comments Medication Refill Encounter Details Date Type Department Care Team (Late st Contact Info) Description 04/09/2023 Refill [facility] - Family Medicine [facility] [address] [place] [address] Angie Egan, BLAYNE [address] [place] [address] Medication Refill Social History Tobacco Use Types [...] Description 07/10/2025 1:30 PM CDT Office Visit [facility] - Family Medicine [facility] [address] [place] [address] Angie Egan PAC [address] [place] [address] documented as of this encounter Visit Diagnoses Not on filedocumented in this encounter Additional Health Concerns Assessment Noted Time PHQ-9 Depression Total Score: 0 07/25/20 22 9:00 AM CDT documented as of this encounter Care Teams Cultured Marble Products Maker Relationship Specialty Start Date End Date Angie Egan PAC [address] [place] [address] PCP - General Physician Advertising Editor 12/07/17 Dav Barillas MD Consulting Physician Nephrology 03/26/17 Reggie Lazar MD Consulting Physician Urology 07/27/17 Alvarez Rivera MD [address] [place] [address] Consulting Physician Pulmonary Disease 07/19/23 Bunny Cruz MD [address] [place], [place] [address] Consulting Physician Medical Oncology 02/25/24 documented as of this encounter
--- OUTSIDE RECORDS SUMMARY | 2025-04-01 09:46 | XMS_ITS | Encounter Summary ---
Author Organization [facility] Address [address] [facility] [place] [address] Phone Care Team Providers Care Certified Bench Jeweler Technician Name Role Phone Dav Barillas MD Unavailable Reggie Lazar MD Unavailable Angie Egan PAC Primary Care Provider + Alvarez Rivera MD Unavailable Bunny Cruz MD Unavailable [phone] Reason for Visit * Reason Comments Medication Refill Encounter Details Date Type Department Care Team (Late st Contact Info) Description 04/20/2023 Refill [facility] - Family Medicine [facility] [address] [place] [address] Angie Egan, BLAYNE [address] [place] [address] Medication Refill Social History Tobacco Use Types [...] 04/06/23 Office Visit Angie Egan PAC [facility] 02/23/23 Office Visit Angie Egan, PAC [facility] 01/01/23 Office Visit Angie Egan PAC [facility] 11/30/22 Office Visit Angie Egan PAC [facility] 11/02/22 Office Visit Angie Egan PAC [facility] 09/27/22 Office Visit Angie Egan PAC [facility] 07/25/22 Office Visit Kathryn Jimenez APRN, PAYROLL SUPERVISOR [facility] 05/23/22 Office Visit Angie Egan PAC [facility] Showing recent visits within past 365 days and meeting all other requirements Future Appointments Date Type Provider Dept 07/10/23 Appointment Angie Egan PAC [facility] Showing future appointments within next 90 days and meeting all other requirements documented in this encounter Plan of Treatment Upcoming Encounters Date Type Department Care Team (Late st Contact Info) Description 07/10/2025 1:30 PM CDT Office Visit [facility] - [facility] [address] [place] [address] Angie Egan PAC [address] [place] [address] documented as of this encounter Visit Diagnoses Diagnosis Neuropathy Mononeuritis of unspecified site documented in this encounter Additional Health Concerns Assessment Noted Time PHQ-9 Depression Total Score: 0 07/25/20 9:00 AM CDT documented as of this encounter Care Teams Certified Bench Jeweler Technician Relationship Specialty Start Date End Date Angie Egan PAC [address] [place] [address] PCP - General Physician Golf Cart Repairer 12/07/17 Dav Barillas MD Consulting Physician Nephrology 03/26/17 Reggie Lazar MD Consulting Physician Urology 07/27/17 Alvarez Rivera MD [address] [place] [address] Consulting Physician Pulmonary Disease 07/19/23 Bunny Cruz MD [address] [place] [address] Consulting Physician Medical Oncology 02/25/24 documented as of this encounter
--- OUTSIDE RECORDS SUMMARY | 2025-04-01 09:46 | XMS_ITS | Encounter Summary ---
Author Organization [facility] Address [address] [place] [address] Care Team Providers Care Diesel Locomotive Crane Operator Name Role Phone Luz Maria Riggins MD Primary Care Provider [phone] Encounter Details Date Type Department Care Team (Late st Contact Info) Description 02/15/2024 Lab Requisition [facility] - Pathology Lab [address] [place] [address] Emanuel De Oliveira MD [facility] [address] [address] Illness, unspecified Social History Tobacco [...] Report Bone Marrow Patholog y Report Case: [id number] Authorizing Provider: Emanuel De Oliveira MD Collected: 02/14/2024 08:14 AM Ordering Location: [facility] - Received: 02/15/2024 02:55 PM Pathology Lab Pathologist: Sydney Penn MD Specimens: A) - Bone Marrow Core B) - Bone Marrow Clot 02/18/2024 9:30 AM CDT [facility] Final Diagnosis Bone marrow, aspirate, clot section, and core biopsy: - Hypercellular marrow with maturing trilineage hematopoiesis - No evidence of lymphoma, high-grade myeloid neoplasm, or plasma cell dyscrasia - See description Peripheral blood smear: - Macrocytic anemia - See description 02/18/2024 9:30 AM CDT [facility] at 0930 CDT AP Comment Overall, the bone marrow specimen is hypercellular for age with maturing trilineage hematopoiesis and no evidence of lymphoma, a high-grade myeloid neoplasm, significant dyspoiesis, or plasma cell dyscrasia. Correlation with clinical findings and relevant cytogenetic/molecular testing is required. 02/18/2024 9:30 AM [facility] Peripheral Smear Description [...] normal. Platelet morphology: normal. 02/18/2024 9:30 AM [facility] Bone Marrow Aspirate [...] Control is appropriately reactive. 02/18/2024 9:30 AM [facility] Bone Marrow Core [...] less than 5% of the marrow cellularity. [place] and lambda show a mix of expression with no demonstrable monoclonality. 02/18/2024 9:30 AM [facility] Flow Cytometry Summary Concurrent flow cytometry ([id number]) shows no evidence of a monoclonal B-cell population, high-grade myeloid neoplasm, or plasma cell dyscrasia. 02/18/2024 9:30 AM [facility] Clinical History 78 year old woman with anemia, exclude MDS. 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 02/18/2024 9:30 AM [facility] Materials Received Received are 20 slides and 2 blocks labeled [id number] along with a copy of the outside pathology report. The materials originate from [facility], [address] [place] [address]. All original materials are returned to the referring institution, along with a copy of our final report. 02/18/2024 9:30 AM [facility] Pathologist Location at [facility] 02/18/2024 9:30 AM [facility] Disclaimer The performance characteristics of all immunohistochemical and indirect immunofluorescence stains (if any) cited in this report were determined by the Histopathology Laboratory of [facility]. Some of these tests were [...] the attending (teaching) pathologist. 02/18/2024 9:30 AM [facility] Embedded Images 02/18/2024 9:30 AM [facility] Pathology/Cytology BONE MARROW CLOT SPECIMEN / Unknown 02/14/2024 8:14 AM CDT 02/15/2024 2:55 PM CDT Miscellaneous samples (specimen) BONE MARROW CLOT SPECIMEN / Unknown 02/14/2024 8:14 AM CDT 02/15/2024 2:55 PM CDT us Emanuel De Oliveira MD LAB - PATHOLOGY/CYTOLOGY ORDERAB LES Final Result [facility] [address] [phone] documented in this encounter Visit Diagnoses Diagnosis Illness, unspecified documented in this encounter Care Teams Diesel Locomotive Crane Operator Relationship Specialty Start Date End Date Luz Maria Riggins MD PCP - General 12/29/20 documented as of this encounter
--- OUTSIDE RECORDS SUMMARY | 2025-04-01 09:46 | XMS_ITS | Clinical Summary ---
Author Organization [facility] Address [address] [place] [address] Care Team Providers Care Film Composer Name Role Phone Luz Maria Riggins MD Primary Care Provider [phone] Source Comments [facility],non-owned Affiliates and Associated Physician Practices is amultiple site organization consisting of ambulatory clinics and hospital sitesin [place], [place] and [place]. This disclosure is being madepursuant to the Care Everywhere program and may not contain all information available regarding this patient. Last updated 18.[facility] Allergies No known active allergies Medications * Be aware that medications may not be up to date on this document. Alwaysverify current medications with the patient. ASPIRIN LOW DOSE 81 MG Take 81 mg by mouth once daily 9 Active atorvastatin (LIPITOR) 40 MG tablet Take 40 mg by mouth once daily 9 Active tiZANidine (ZANAFLEX) 4 MG tablet TAKE 1 TABLET BY MOUTH EVERY 6 HOURS NEEDED FOR MUSCLE SPASMS 0 Active traZODone (DESYREL) 150 MG tablet trazodone 150 mg tablet TAKE ONE TABLET BY MOUTH EVERY NIGHT AT BEDTIME 0 Active atenolol (TENORMIN) 25 MG tablet Take 25 mg by mouth once daily 1 Active metFORMIN (GLUCOPHAGE) 500 MG tablet 1 Active nicotine (NICODERM CQ) 21 MG/24HR patch Apply 1 patch to skin 1 Active pregabalin (LYRICA) 150 MG capsule Take 150 mg by mouth 3 times daily 1 Active albuterol HFA (PROVENTIL;VENT AMELIA;PROAIR) 108 (90 Base) MCG/ACT inhaler Inhale 2 puffs by mouth Active pantoprazole EC (PROTONIX) 40 MG tablet Take 40 mg by mouth once daily 1 Active Active Problems Problem Noted Date Diagnosed [...] 1:14 PM CDT Height 157.5 cm (5' 2) 07/20/2021 1:14 PM CDT Body Mass Index [...] 02/21/2021, 02/17/2021, Additional history exists COVID-19 VACCINE ( season) 2024 12/08/2020 DEPRESSION SCREENING 11/05/2024 DIABETES - URINE PROTEIN SCREENING 11/05/2024 01/08/2019 INFLUENZA VACCINE (Season Ended) 2025 08/05/2020, 08/11/2019, 09/04/2018, Additional history exists HEPATITIS B VACCINE Aged Out No longe r eligible based on patient's age to complete this topic HIB VACCINE Aged Out No longer eligi ble based on patient's age to complete this topic HPV VACCINE Aged Out No longer eligi ble based on patient's age to complete this topic MENINGOCOCCAL (Group B) VACCINE SHARED DECISION-MAKING Aged Out No longer eligible based on patient's age to complete this topic MENINGOCOCCAL GROUPS A/C/Y/W VACCINE Aged Out No longer eligible based [...] - 105 mg/dL 02/21/2021 1:37 PM CDT [facility] Sodium 140 136 - 145 mmol/L 02/21/2021 1:37 PM CDT [facility] Potassium 4.1 3.5 - 5.1 mmol/L 02/21/2021 1:37 PM CDT [facility] Chloride 106 98 - 107 mmol/L 02/21/2021 1:37 PM CDT [facility] CO2 23 23 - 31 mmol/L 02/21/2021 1:37 PM CDT [facility] Calcium 9.1 8.4 - 10.4 mg/dL 02/21/2021 1:37 PM CDT [facility] Anion Gap 11 8 - 18 mmol/L 02/21/2021 1:37 PM CDT [facility] Comment:Attention clinician: Reference Range change. BUN 16 9.8 - 20.1 mg/dL 02/21/2021 1:37 PM CD[address] [facility] Creatinine 1.08 0.57 - 1.11 mg/dL 02/21/2021 1:37 PM CD[address] [facility] eGFR by MDRD 49 mL/min/1.7 3m2 02/21/2021 1:37 PM CD[address] [facility] eGFR by MDRD 60 mL/min/1.7 3m2 02/21/2021 1:37 PM CD[address] [facility] Blood BLOOD SPECIMEN / Unknown Lab Venipuncture / Unknown 02/21/2021 12:57 PM CDT 02/21/2021 1:12 PM CDT Zaheer Kay Felix MD LAB - CHEMISTRY ORDERABLES Felisa ervin Result [facility] [address] [place] [address] from Last 3 Months or Most Recently Relevant to Health Maintenance Insurance [facility] Care Teams Film Composer Relationship Specialty Start Date End Date Luz Maria Riggins MD PCP - General 12/29/20
--- OUTSIDE RECORDS SUMMARY | 2025-04-01 09:46 | XMS_ITS | Encounter Summary ---
Author Organization [facility] Address [address] [place] [address] Phone Care Team Providers Care Sponsorship Coordinator Name Role Phone Dav Barillas MD Unavailable [phone] Reggie Lazar MD Unavailable [phone] Angie Egan PAC Primary Care Provider + Alvarez Rivera MD Unavailable Bunny Cruz MD Unavailable Reason for Visit * Reason Onset Date Comments Medication Refill 10/01/2020 norco Encounter Details Date Type Department Care Team (Late st Contact Info) Description 10/01/2020 Refill [facility] Medical Group - Family [facility] [address] [place] [address] Angie Egan, PAC [address] [place] [address] Medication Refill (norco ) Social History Tobacco [...] Jimenez APN, CNP - 10/01/2020 4:05 PM ENVIRONMENTAL SERVICES TECHNICIAN [place] monitoring site reviewed, UDS UTD. approved RONMENTAL SERVICES TECHNICIAN * Telephone Encounter - Sofía Joe RN [...] neuropathy, without long-term current use of insulin ([facility]) [facility] Angie Salgado PAC 5 months ago Type 2 diabetes mellitus with diabetic neuropathy, without long- term current use of insulin ([facility]) [facility] Angie Salgado PAC 10 months ago Type 2 diabetes mellitus with diabetic neuropathy, without long- term current use of insulin ([facility]) [facility] Angie Salgado PAC 1 year ago Type 2 diabetes mellitus with diabetic neuropathy, without long-term current use of insulin ([facility]) [facility] Angie Salgado PAC 1 year ago Other diabetic neurological complication associated with type 2 diabetes mellitus ([facility]) [facility] Angie Salgado PAC Upcoming Appointments Future Appointments In 2 months Angie Egan PAC [facility] Bunny Cruz MD [facility] On[facility], [facility] ADVERTISING INTERN - Recent and Past Visits Recent Visits Date Type Provider Dept 08/05/20 Office Visit Angie Egan, PAC [facility] 04/27/20 Office Visit Angie Egan, PAC [facility] 11/11/19 Office Visit Angie Egan, PAC [facility] 08/11/19 Office Visit Angie Egan, PAC [facility] Showing recent visits within past 460 days with a meds authorizing provider and meeting all other requirements Future Appointments Date Type Provider Dept 12/07/20 Appointment Angie Egan PAC [facility] Showing future appointments within next 90 days with a meds authorizing provider and meeting all other requirements RONMENTAL SERVICES TECHNICIAN * Telephone Encounter - Leigh Cota - [...] []Verified medication with pharmacy ramandeep Medication Management RONMENTAL SERVICES TECHNICIAN documented in this encounter Plan of Treatment Upcoming Encounters Date Type Department Care Team (Late st Contact Info) Description 07/10/2025 1:30 PM CDT Office Visit [facility] Medical Group - Family [facility] [address] [place] [address] Angie Egan, PAC [address] [place] [address] documented as of this encounter Visit Diagnoses Diagnosis Chronic bilateral thoracic back pain documented in this encounter Additional Health Concerns Infection Onset Date Last Indicated Resolved Time COVID - 19 07/25/2021 07/25/2021 08/14/2021 12:1 6 AM CDT COVID - 19 09/30/2021 09/30/2021 10/20/2021 12:1 6 AM ENVIRONMENTAL SERVICES TECHNICIAN COVID - 19 Confirmed 05/24/2022 05/24/2022 022 12:16 AM CDT COVID - 19 03/08/2023 03/08/2023 03/18/2023 12:1 6 AM CDT Assessment Noted Time PHQ-9 Depression Total Score: 0 08/05/20 1:56 PM CDT documented as of this encounter Care Teams Sponsorship Coordinator Relationship Specialty Start Date End Date Angie Egan, BLAYNE [address] [place] [address] PCP - General Physician Dry Cell And Battery Assembler 12/07/17 Dav Barillas MD Consulting Physician Nephrology 03/26/17 Reggie Lazar MD Consulting Physician Urology 07/27/17 Alvarez Rivera MD [address] [place] [id number] Consulting Physician Pulmonary Disease 07/19/23 Bunny Cruz MD [address] [place] [address] Consulting Physician Medical Oncology 02/25/24 documented as of this encounter
--- OUTSIDE RECORDS SUMMARY | 2025-04-01 09:46 | XMS_ITS | Encounter Summary ---
Author Organization [facility] Address [address] [facility] [facility] [place] [address] Phone Care Team Providers Care Ear Nose Throat Physician Name Role Phone Dav Barillas MD Unavailable Reggie Lazar MD Unavailable Angie Egan PAC Primary Care Provider + Alvarez Rivera MD Unavailable Bunny Cruz MD Unavailable Reason for Visit * Reason Comments Medication Refill Encounter Details Date Type Department Care Team (Late st Contact Info) Description 01/16/2024 Refill [facility] Medical Group - Family Medicine [facility] [address] [place] [address] Angie Egan, BLAYNE [address] [place] [address] Medication Refill Social History Tobacco Use Types Packs/Day Years Used Date Smoking Tobacco: Some Days Cigarettes 0.5 69.9 Started: 05/25/1955 Smokeless Tobacco: Never Alcohol Use Standard Drinks/Week Comments No 0 (1 standard drink = 0.6 oz pur e alcohol) [facility] Utilities Answer Date Recorded In the past 12 months has [employer] electric, gas, oil, or water company threatened [...] and Family Not on file 12/03/2023 Attends Jewish Services Not on file 12/03 Active Member [...] Score - Questions 1-9 0 03/0 02/2024 [facility] ional [facility] - Occupational Stress Questionnaire Answer [...] place to sleep or slept in a mcfp (including now)? No 12/03/2023 Education Answer Date [...] [facility] 12/03/23 Office Visit Ira Jack APRN, JAVA SOFTWARE [facility] 10/10/23 Office Visit Angie Egan, PAC [facility] 07/19/23 Office Visit Angie Egan, PAC [facility] 07/10/23 Office Visit Angie EganBLAYNE [facility] 04/06/23 Office Visit Viviennemarshadalila Angie JacobsenBLAYNE [facility] 02/23/23 Office Visit Viviennemarshadalila Angie JacobsenBLAYNE [facility] Showing recent visits within past 365 days and meeting all other requirements Future Appointments Date Type Provider Dept 02/12/24 Appointment Angie Egan PAC [facility] 04/10/24 Appointment Angie gEan MariBLAYNE montes [facility] Showing future appointments within next [...] Visit [facility] [address] [place] [address] Angie Egan PAC [address] [place] [address] documented as of this encounter Visit Diagnoses Not on filedocumented in this encounter Additional Health Concerns Assessment Noted Time PHQ-9 Depression Total Score: 0 01/07/20 10:02 AM CLOTHING SUPERVISOR documented as of this encounter Care Teams Ear Nose Throat Physician Relationship Specialty Start Date End Date Angie Egan PAC [address] [place] [address] PCP - General Physician Grades 7 And 8 Visiting Teacher 12/07/17 Dav Barillas MD Consulting Physician Nephrology 03/26/17 Reggie Lazar MD Consulting Physician Urology 07/27/17 Alvarez Rivera MD [address] [place] [address] Consulting Physician Pulmonary Disease 07/19/23 Bunny Cruz MD [address] [place] [address] Consulting Physician Medical Oncology 02/25/24 documented as of this encounter
--- OUTSIDE RECORDS SUMMARY | 2025-04-01 09:46 | XMS_ITS | Encounter Summary ---
Author Organization [facility] Address [address] [facility] [address] [facility] [address] Phone Care Team Providers Care Middle School Music Teacher Name Role Phone Dav Barillas MD Unavailable Reggie Lazar MD Unavailable Angie Egan PAC Primary Care Provider + Alvarez Rivera MD Unavailable Bunny Cruz MD Unavailable Reason for Visit * Reason Comments Medication Refill Encounter Details Date Type Department Care Team (Late st Contact Info) Description 08/24/2023 Refill [facility] Medical Group - Family [facility] [address] [place] [address] Angie Egan, BLAYNE [address] [place] [address] Medication Refill Social History Tobacco Use Types [...] Angie Egan, BLAYNE [facility] 07/10/23 Office Visit Viviennemarshadalila Moni, PAC [facility] 04/06/23 Office Visit Angie Egan PAC [facility] Showing recent visits within past 182 days and meeting all other requirements Future Appointments Date Type Provider Dept 10/10/23 Appointment JosedalilaAngieMoni, PAC [facility] Showing future appointments within next 90 days and meeting all other requirements Passed - GFR on record in past 6 months GFR, EST. NONAFRICAN Date Value Ref Range Status 07/10/2023 45 (L) >=60 Final documented in this encounter Plan of Treatment Upcoming Encounters Date Type Department Care Team (Late st Contact Info) Description 07/10/2025 1:30 PM CDT Office Visit [facility] Medical Group - Family [facility] [address] [place] [address] Angie Egan PAC [address] [place] [address] documented as of this encounter Visit Diagnoses Diagnosis Type 2 diabetes mellitus with diabetic neuropathy, without long-term current use of insulin (HCC) documented in this encounter Additional Health Concerns Assessment Noted Time PHQ-9 Depression Total Score: 0 07/10/20 10:27 AM CDT documented as of this encounter Care Teams Middle School Music Teacher Relationship Specialty Start Date End Date Angie Egan PAC [address] [place] [address] PCP - General Physician Certified Control Systems Technician 12/07/17 Dav Barillas MD Consulting Physician Nephrology 03/26/17 Reggie Lazar MD Consulting Physician Urology 07/27/17 Alvarez Rivera MD [address] [place] [address] Consulting Physician Pulmonary Disease 07/19/23 Bunny Cruz MD [address] [place] [address] Consulting Physician Medical Oncology 02/25/24 documented as of this encounter
--- OUTSIDE RECORDS SUMMARY | 2025-04-01 09:46 | XMS_ITS | Encounter Summary ---
Author Organization [facility] Address [address] [facility] [place] [address] Phone Care Team Providers Care Sheet Metal Fabricator Name Role Phone Dav Barillas MD Unavailable [phone] Reggie Lazar MD Unavailable Angie Egan PAC Primary Care Provider + Alvarez Rivera MD Unavailable Bunny Cruz MD Unavailable [phone] Reason for Visit * Reason Comments Medication Refill Encounter Details Date Type Department Care Team (Late st Contact Info) Description 06/19/[address] [facility] Medical Group - Family Medicine [facility] [address] [place] [address] Angie Egan, BLAYNE [address] [place] [address] Medication Refill Social History Tobacco Use Types [...] Star 01/01/23 Office Visit [facility] Showing recent visits within past 182 days and meeting all other requirements Future Appointments Date Type Provider Dept 07/10/23 Appointment Angie Egan PAC [facility] Showing future appointments within next 90 [...] Visit [facility] [address] [place] [address] Angie Egan PAC [address] [place] [address] documented as of this encounter Visit Diagnoses Diagnosis Type 2 diabetes mellitus with diabetic neuropathy, without long-term current use of insulin (HCC) documented in this encounter Additional Health Concerns Assessment Noted Time PHQ-9 Depression Total Score: 0 07/25/20 9:00 AM CDT documented as of this encounter Care Teams Sheet Metal Fabricator Relationship Specialty Start Date End Date Angie Egan PAC [address] [place] [address] PCP - General Physician Palletizer Operator 12/07/17 Dav Barillas MD Consulting Physician Nephrology 03/26/17 Reggie Lazar MD Consulting Physician Urology 07/27/17 Alvarez Rivera MD [address] [place] [address] Consulting Physician Pulmonary Disease 07/19/23 Bunny Cruz MD [address] [place] [address] Consulting Physician Medical Oncology 02/25/24 documented as of this encounter
--- OUTSIDE RECORDS SUMMARY | 2025-04-01 09:47 | XMS_ITS | Encounter Summary ---
Author Organization [facility] Address [address] [facility] [place] [address] Phone Care Team Providers Care Wet Process Assistant Head Miller Name Role Phone Dav Barillas MD Unavailable Reggie Lazar MD Unavailable Angie Egan PAC Primary Care Provider + Alvarez Rivera MD Unavailable Bunny Cruz MD Unavailable [phone] Reason for Visit * Reason Comments Medication Refill Encounter Details Date Type Department Care Team (Late st Contact Info) Description 04/15/2024 Refill [facility] Medical Group - Family Medicine [facility] [address] [place] [address] Angie Egan, BLAYNE [address] [place] [address] Medication Refill Social History Tobacco Use Types Packs/Day Years Used Date Smoking Tobacco: Some Days Cigarettes 0.5 69.9 Started: 05/25/1955 Smokeless Tobacco: Never Alcohol Use Standard Drinks/Week Comments No 0 (1 standard drink = 0.6 oz pur e alcohol) [facility] Utilities Answer Date Recorded In the past 12 months has [employer] electric, gas, oil, or water company threatened [...] often do you attend chur ch or pentecostal services? Never 04/08/2024 Do you belong to any clubs o r organizations such as baptism groups, unions, fraternal or athletic groups, or [...] Score - Questions 1-9 0 03/0 02/2024 [facility] Questionnaire Answer Date [...] place to sleep or slept in a skilled nursing (including now)? 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
--- OUTSIDE RECORDS SUMMARY | 2025-04-01 09:47 | XMS_ITS | Encounter Summary ---
Author Organization [facility] Address [address] [facility] [facility] [address] Phone Care Team Providers Care Ldr Rn Name Role Phone Dav Barillas MD Unavailable Reggie Lazar MD Unavailable Angie Egan PAC Primary Care Provider + Alvarez Rivera MD Unavailable Bunny Cruz MD Unavailable Reason for Visit * Reason Comments Medication Refill Encounter Details Date Type Department Care Team (Late st Contact Info) Description 03/11/2025 Refill [facility] Medical Group - Family Medicine [facility] [address] [place] [address] Angie Egan, BLAYNE [address] [place] [address] Medication Refill Social History Tobacco Use Types Packs/Day Years Used Date Smoking Tobacco: Some Days Cigarettes 0.5 69.9 Started: 05/25/1955 Smokeless Tobacco: Never Alcohol Use Standard Drinks/Week Comments No 0 (1 standard drink = 0.6 oz pur e alcohol) [facility] Utilities Answer Date Recorded In the past 12 months has [employer] electric, gas, oil, or water company threatened [...] often do you attend chur ch or latter-day services? Never 04/08/2024 Do you belong to any clubs o r organizations such as jew groups, unions, fraternal or athletic groups, or [...] Total Score - Questions 1-9 0 02/2025 [facility] Questionnaire Answer Date [...] place to sleep or slept in a fci (including now)? No 04/08/2024 Education Answer Date [...] Telephone Encounter - Sofía Joe RN - 03/12/2025 9:38 AM CDT Both medications filled for 30 days on 03/11/25 per [facility] documented in this encounter Plan of Treatment Upcoming Encounters Date Type Department Care Team (Late st Contact Info) Description 07/10/2025 1:30 PM CDT Office Visit [facility] - [facility] [address] [place] [address] Angie Egan, BLAYNE [address] [place] [address] documented as of this encounter Visit Diagnoses Diagnosis Neuropathy Mononeuritis of unspecified site documented in this encounter Additional Health Concerns Assessment Noted Time PHQ-9 Depression Total Score: 0 12/09/19 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
--- OUTSIDE RECORDS SUMMARY | 2025-04-01 09:47 | XMS_ITS | Encounter Summary ---
Author Organization [facility] Address [address] [place] [address] Phone Care Team Providers Care Integration Developer Name Role Phone Dav Barillas MD Unavailable Reggie Lazar MD Unavailable [phone] Angie Egan PAC Primary Care Provider + Alvarez Rivera MD Unavailable Bunny Cruz MD Unavailable Reason for Visit * Reason Comments Medication Refill Encounter Details Date Type Department Care Team (Late st Contact Info) Description 03/14/2024 Refill [facility] - [facility] [address] [place] [address] Angie Egan, BLAYEN [address] [place] [address] Medication Refill Social History Tobacco Use Types Packs/Day Years Used Date Smoking Tobacco: Some Days Cigarettes 0.5 69.9 Started: 05/25/1955 Smokeless Tobacco: Never Alcohol Use Standard Drinks/Week Comments No 0 (1 standard drink = 0.6 oz pur e alcohol) [facility] Utilities Answer Date Recorded In the past 12 months has [employer] electric, gas, oil, or water company threatened [...] and Family Not on file 12/03/2023 Attends [employer] Not on file 12/03 Active Member [...] Score - Questions 1-9 0 03/0 02/2024 [facility] of Occupat ional [facility] - Occupational Stress Questionnaire Answer [...] slept in a fdc (including now)? No 12/03/2023 Education Answer Date [...] [facility] 12/03/23 Office Visit Ira Jack APRN, INTERFACE CONTROL OFFICER [facility] 10/10/23 Office Visit Angie Egan, PAC [facility] 07/19/23 Office Visit Angie Egan, PAC [facility] 07/10/23 Office Visit Angie Egan, [facility] 01/07/24 Office Visit Angie Egan, PAC [facility] [place] 12/03/23 Office Visit Ira Jack APRN, INTERFACE CONTROL OFFICER [facility] 10/10/23 Office Visit Angie Egan, PAC [facility] 07/19/23 Office Visit Angie Egan, PAC [facility] [place] 07/10/23 Office Visit Angie Egan, PAC [facility] [place] 04/06/23 Office Visit Angie Egan, PAC [facility] [place] Showing recent visits within past 365 days and meeting all other requirements Future Appointments Date Type Provider Dept 03/19/24 Appointment Angie Egan PAC [facility] [place] 04/10/24 Appointment Angie Egan, PAC [facility] [place] Showing future appointments within next 90 days [...] [facility] [address] [place] [address] Angie Egan PAC [address] [place] [address] documented as of this encounter Visit Diagnoses Diagnosis Neuropathy Mononeuritis of unspecified site Spinal stenosis of lumbar region, unspecified whether neurogenic claudication present Chronic bilateral thoracic back pain documented in this encounter Additional Health Concerns Assessment Noted Time PHQ-9 Depression Total Score: 0 01/07/20 24 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
--- OUTSIDE RECORDS SUMMARY | 2025-04-01 09:47 | XMS_ITS | Encounter Summary ---
Author Organization [facility] Address [address] [facility] [place] [address] Phone Care Team Providers Care Brood Station Manager Name Role Phone Dav Barillas MD Unavailable Reggie Lazar MD Unavailable [phone] Angie Egan PAC Primary Care Provider + Alvarez Rivera MD Unavailable Bunny Cruz MD Unavailable Reason for Visit * Reason Comments Medication Refill Encounter Details Date Type Department Care Team (Late st Contact Info) Description 02/15/2024 Refill [facility] - Family Medicine [facility] [address] [place] [address] Angie Egan, BLAYNE [address] [place] [address] Medication Refill Social History Tobacco Use Types Packs/Day Years Used Date Smoking Tobacco: Some Days Cigarettes 0.5 69.9 Started: 05/25/1955 Smokeless Tobacco: Never Alcohol Use Standard Drinks/Week Comments No 0 (1 standard drink = 0.6 oz pur e alcohol) [facility] Utilities Answer Date Recorded In the past 12 months has [employer] electric, gas, oil, or water company threatened [...] and Family Not on file 12/03/2023 Attends [employer] Not on file 12/03 Active Member [...] Score - Questions 1-9 0 03/0 02/2024 [facility] of Occupat ional [facility] - Occupational Stress Questionnaire Answer Date Recorded [...] slept in a fpc (including now)? No 12/03/2023 Education Answer Date [...] [facility] 12/03/23 Office Visit Ira Jack APRN, KICKBOXING INSTRUCTOR [facility] 10/10/23 Office Visit Angie Egan PAC [facility] [place] Showing recent visits within past 182 days and meeting all other requirements Future Appointments Date Type Provider Dept 03/19/24 Appointment Angie Egan PAC [facility] [place] 04/10/24 Appointment Angie Egan PAC [facility] Showing future appointments within next 90 days and meeting all other requirements Passed - No PRN Use for Trazodone Passed - Patient has established therapy with Serotonin Modulators for at least 6 months documented in this encounter Plan of Treatment Upcoming Encounters Date Type Department Care Team (Late st Contact Info) Description 07/10/2025 1:30 PM CDT Office Visit [facility] - [facility] [address] [place] [address] Angie Egan PAC [address] [place] [address] documented as of this encounter Visit Diagnoses Not on filedocumented in this encounter Additional Health Concerns Assessment Noted Time PHQ-9 Depression Total Score: 0 01/07/20 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
--- OUTSIDE RECORDS SUMMARY | 2025-04-01 09:47 | XMS_ITS | Encounter Summary ---
Author Organization [facility] Address [address] [facility] [place] [address] Phone Care Team Providers Care Senior Water Resources Engineer Name Role Phone Dav Barillas MD Unavailable [phone] Reggie Lazar MD Unavailable [phone] Angie Egan PAC Primary Care Provider + Alvarez Rivera MD Unavailable Bunny Cruz MD Unavailable Reason for Visit * Reason Comments Medication Refill Encounter Details Date Type Department Care Team (Late st Contact Info) Description 02/17/2025 Refill [facility] - Family Medicine [facility] [address] [place] [address] Angie Egan, BLAYNE [address] [place] [address] Medication Refill Social History Tobacco Use Types Packs/Day Years Used Date Smoking Tobacco: Some Days Cigarettes 0.5 69.9 Started: 05/25/1955 Smokeless Tobacco: Never Alcohol Use Standard Drinks/Week Comments No 0 (1 standard drink = 0.6 oz pur e alcohol) [facility] Utilities Answer Date Recorded In the past 12 months has [employer] electric, gas, oil, or water company threatened [...] often do you attend chur ch or hoahaoism services? Never 04/08/2024 Do you belong to any clubs o r organizations such as evangelical groups, unions, fraternal or athletic groups, or [...] Total Score - Questions 1-9 0 02/2025 [facility] Answer Date [...] Telephone Encounter - Sofía Joe RN - 02/18/2025 10:15 AM CDT Images from the original note were not included. traZODone HCl Dispensed Days Supply Quantity Provider Pharmacy TRAZODONE 150MG TAB 02/14/2025 30 30 Angie Egan PAC [facility] ... TRAZODONE 150 MG TABS 01/19/2025 30 30 Angie Egan PAC [facility] ... 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
--- OUTSIDE RECORDS SUMMARY | 2025-04-01 09:47 | XMS_ITS | Clinical Summary ---
Author Organization [facility] Address [address] [address] Phone Care Team Providers Care Floodplain Manager Name Role Phone Dav Barillas MD Unavailable Reggie Lazar MD Unavailable [phone] Angie Egan [facility] Primary Care Provider + Alvarez Rivera MD Unavailable Bunny Cruz MD Unavailable [phone] Allergies No known active allergies Medications Misc. Devices MiscIndications:T ype 2 diabetes mellitus with diabetic neuropathy, without long-term current use of insulin ([facility]) Supply and instructions: 1 Each 021 Active Multiple Vitamin (MULTIVITAMIN PO) Take 1 Tablet by mouth daily. [facility] Active Blood Glucose Monitoring Suppl (OneTouch Verio Flex System) w/Device Kit Use to check blood glucose daily 1 Kit 022 Active hydroxychloroquin e (PLAQUENIL) 200 MG Tablet Take 200 mg by mouth in the morning and at bedtime. [id number] 023 Active potassium chloride CR (KLORCON) 10 MEQ Tablet Controlled ReleaseIndication s:Bilateral leg edema Take 1 Tablet by mouth daily as needed (take potassium if takes furosemide). 30 Tablet 2 023 Active fluticasone-salme terol (Advair Diskus) 250-50 MCG/ACT AEROSOL POWDER, BREATH ACTIVATEDIndicati ons:Pulmonary emphysema, unspecified emphysema type (HCC) take 1 Puff by inhalation 2 times daily. 60 Each 3 023 Active OXYGEN CONCENTRATOR 2 L/ minute via [...] mouth Daily as needed for Allergies. Active atenolol (TENORMIN) 25 MG Tablet TAKE 1 TABLET BY MOUTH DAILY. 30 Tablet 10 Active pantoprazole (PROTONIX) 40 MG Tablet Delayed Response TAKE 1 TABLET BY MOUTH DAILY. 30 Tablet Active Trulicity 3 MG/0.5ML Solution Pen-injector injectionIndicati ons:Type 2 diabetes mellitus with diabetic neuropathy, without long-term current use of insulin ([facility]) ADMINISTER 3 MG UNDER THE SKIN 1 TIME A WEEK 6 mL 1 Active OneTouch Ultra Test StripIndications: Type 2 diabetes mellitus with diabetic neuropathy, without long-term current use of insulin ([facility]) USE TO CHECK BLOOD GLUCOSE DAILY 50 Each 5 024 Active Easy Touch Lancets 33G/Twist MiscIndications:T ype 2 diabetes mellitus with diabetic neuropathy, without long-term current use of insulin ([facility]) USE TO CHECK BLOOD GLUCOSE DAILY 100 Each 3 024 Active Glucose Blood (Glucose Meter Test) StripIndications: Type 2 diabetes mellitus with diabetic neuropathy, without long-term current use of insulin ([facility]) Test once daily 90 Strip 3 024 Active Oketo-3 Fatty Acids (FISH OIL PO) Take by mouth. Activ e cycloSPORINE (Restasis) 0.05 % EmulsionIndicatio ns:Dry Eye Syndrome Place 1 Drop in both eyes 2 times daily. Indications: Drying and Inflammation of Cornea and Conjunctiva of Eyes 60 Each 4 024 Active ipratropium (ATROVENT) 0.02 % Solution INHALE 1.25ML VIA NEBULIZER EVERY 6 HOURS 300 mL 10 024 Active furosemide (LASIX) 40 MG Tablet TAKE 1 TABLET BY MOUTH DAILY NEEDED FOR SWELLING IN LEGS 30 Tablet 10 024 Active Azelastine HCl 137 MCG/SPRAY Solution INSTILL TWO (2) SPRAYS IN EACH NOSTRIL TWICE DAILY DIRECTED 30 mL 024 Active albuterol 108 (90 Base) MCG/ACT Aerosol SolutionIndicatio ns:COPD without exacerbation (HCC) INHALE 2 PUFFS BY MOUTH EVERY 4 HOURS NEEDED FOR WHEEZING OR COUGH 8.5 g 10 024 Active pregabalin (LYRICA) 150 MG CapsuleIndication s:Neuropathy TAKE 1 CAPSULE BY MOUTH THREE TIMES DAILY 90 Capsule 3 025 Active triamcinolone (KENALOG) 0.1 % CreamIndications: Dermatitis Application Site: apply to hand as needed 45 g 025 Active allopurinol (ZYLOPRIM) 100 MG Tablet TAKE 1 TABLET BY MOUTH DAILY 90 Tablet 3 025 Active traZODone (DESYREL) 150 MG Tablet TAKE 1 TABLET BY MOUTH EVERY NIGHT 90 Tablet 1 025 Active atorvastatin (LIPITOR) 40 MG TabletIndications :Mixed hyperlipidemia TAKE 1 TABLET BY MOUTH DAILY 30 Tablet 8 025 Active tiZANidine (ZANAFLEX) 4 MG TabletIndications :Spinal stenosis of lumbar region, unspecified whether neurogenic claudication present,Chronic bilateral thoracic back pain TAKE 1 TABLET BY MOUTH EVERY 6 HOURS NEEDED FOR MUSCLE SPASMS 60 Tablet 11 025 Active HYDROcodone-aceta minophen (NORCO) 5-325 MG TabletIndications :Chronic bilateral thoracic back pain,Spinal stenosis of lumbar region, unspecified whether neurogenic claudication present Take 2 Tablets by mouth every 8 hours as needed for Moderate or more severe pain. 180 Tablet 025 Active Dulaglutide (Trulicity) 3 MG/0.5ML Solution Auto-injector 3 mg by Subcutaneous route once a week. 2 mL 025 Active magnesium oxide (MAG-OX) 400 MG TabletIndications :Low magnesium level TAKE 1 TABLET BY MOUTH DAILY 30 Tablet 5 025 Active Respiratory Therapy Supplies (Nebulizer/Tubing /Mouthpiece) KitIndications:Ch ronic obstructive pulmonary disease, unspecified COPD type (HCC) 1 Device by Does not apply route every 4 hours as needed (cough, wheezing, or shortness of breath). 1 Each 025 Active magnesium oxide (MAG-OX) 400 MG TabletIndications :Low magnesium level TAKE 1 TABLET BY MOUTH DAILY. 30 Tablet 10 024 2024 Discontinued celecoxib (CeleBREX) 200 MG CapsuleIndication s:Rheumatoid arthritis involving both hands, unspecified whether rheumatoid factor present (HCC) TAKE ONE (1) CAPSULE BY MOUTH TWICE DAILY 60 Capsule 10 024 2024 Discontinued(M ed List Clean Up) Dulaglutide (Trulicity) 3 MG/0.5ML Solution Auto-injector 3 mg by Subcutaneous route once a week. 2 mL 025 2024 Discontinued(R eorder) HYDROcodone-aceta minophen (NORCO) 5-325 MG TabletIndications :Chronic bilateral thoracic back pain,Spinal stenosis of lumbar region, unspecified whether neurogenic claudication present Take 2 Tablets by mouth every 8 hours as needed for Moderate or more severe pain. 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 chronic kidney disease 024 Iron deficiency 02/25/2024 MGUS (monoclonal gammopathy of [...] Encounters Date Type Department Care Team Description 03/26/2025 Telephone [facility] [address] [place] [address] Angie Egan PAC Follow-up 03/25/2025 Documentation Only [facility] [address] [place] [address] Angie Egan PAC 03/24/2025 11:50 AM CDT Lab [facility] [address] [address] [facility] Anemia, unspecified type; Low magnesium level; High risk medication use; Type 2 diabetes mellitus with diabetic neuropathy, without long-term current use of insulin (HCC) Discharge Disposition: Discharged to home or Selfcare 03/24/2025 10:30 AM CDT Office Visit [facility] [address] [place] [address] Angie gEan PAC Spinal stenosis of lumbar region, unspecified whether neurogenic claudication present (Primary Dx); Left foot drop; Chronic obstructive pulmonary disease, unspecified COPD type (HCC); Anemia, unspecified type; Low magnesium level; High risk medication use; Type 2 diabetes mellitus with diabetic neuropathy, without long-term current use of insulin (HCC) Discharge Disposition: Discharged to home or Selfcare 03/24/2025 Results Follow-Up [facility] [address] [place] [address] Angie Egan PAC CMP (COMPREHENSIVE METABOLIC PANEL), MAGNESIUM (MG), FERRITIN, Additional followed-up results: 6 03/24/2025 Travel 03/13/2025 Refill [facility] [address] [place] [address] Angie Egan PAC Medication Refill 03/12/2025 Refill [facility] [address] [place] [address] Angie Egan, PAC Medication Refill 03/11/2025 Refill [facility] [address] [place] [address] Angie Egan, PAC Medication Refill 02/17/2025 Refill [facility] [address] [place] [address] Angie Egan, PAC Medication Refill 02/13/2025 Refill [facility] [address] [place] [address] Angie Egane, PAC Medication Refill 02/13/2025 Refill [facility] [address] [place] [address] Angie Egane, PAC Medication Refill 02/10/2025 Refill [facility] [address] [place] [address] Angie Egan, PAC Medication Refill 01/30/2025 Telephone [facility] [address] [place] [phone] Marija Hull RN Hypotension; Diabetes Mellitus; Low Blood Sugar 01/12/2025 Refill [facility] [address] [place] [address] Angie Egan, PAC Medication Refill 01/12/2025 Refill [facility] [address] [place] [address] Angie Egane, PAC Medication Refill from Last 3 Months Immunizations Immunization Administration Dates Next Due Covid-19, Mrna, Lnp-s, PF, 1 00 mcg/0.5 mL Dose (Moderna) 12/08/2020 Influenza Vaccine greater than 3 yrs 07/27/2017 Influenza Vaccine, Quadrivalent, PF 07/07,08/19/2021,08/05/2020,2018,09/04/2018,07/27/2017,09/13/2016 Influenza, Injectable, Quadrivalent 09/13/2016,1 Influenza, Quadrivalent, Adjuvanted [...] 4 Elzie Other-comment Brother 4 Elzie Agent [facility] Brother 5 Neftali Other-comment Brother [...] 0.5 69.9 Started: 05/25/1955 Smokeless Tobacco: Never Tobacco Cessation:Ready to Q uit: Not Asked; Counseling Given: Not Answered Alcohol Use Standard Drinks/Week Comments No 0 (1 standard drink = 0.6 oz pur e alcohol) [facility] Utilities Answer Date Recorded In the past 12 months has e Aneumed, gas, oil, or water [employer] threatened to shut off services in your [...] week 04/08/2024 How often do you attend [facility] or buddhism services? Never 04/08/2024 Do you belong to any clubs o r organizations such as jain groups, unions, fraternal or athletic groups, or [...] Recorded Total Score - Questions 1-9 0 2 [facility] [place] [facility] [employer]at [employer] - Occupational Stress [...] slept in a halfway (including now)? No 04/08/2024 Education Answer Date [...] Sign Reading Time Taken Comments Blood Pressure 122/64 03/24/2025 10:43 AM CDT Pulse 75 03/24/2025 10:43 AM CDT Temperature 36.4 C (97.5 F) 03/24/2025 10:43 AM CDT Respiratory Rate 18 03/24/2025 10:43 AM CDT Oxygen Saturation 88% 03/24/2025 10:43 AM CDT Inhaled Oxygen Concentration - - Weight 58.1 kg (128 lb) 03/24/2025 10:43 AM CDT Height 157.5 cm (5' 2) 03/24/2025 10:43 AM CDT Body Mass Index 23.41 03/24/2025 10:43 AM CDT Plan of Treatment Upcoming Encounters Date Type Department Care Team (Late st Contact Info) Description 07/10/2025 1:30 PM CDT [facility] [address] [place] [address] Angie Egan, [place] [address] [place] [address] Health Maintenance Due Date Last Done Comments [...] 12/19/2023, 0 02/28/2021, 04/10/2018 Diabetes: Hemoglobin A1c 09/24/2025 025, 09/05/2024, 07/04/2024, Additional history exists Diabetes: Nephropathy Screening 03/24/2026 03/24/2025, 12/09/2024, 09/22/2024, Additional history exists Td Immunization Every 10 Years (Adults With 1 Tdap) 04/11/2029 04/11/2019 Pneumococcal Immunization (50+ years) Completed 07/27/2017, 07/27/2017, 04/09/2016, Additional history exists Pneumococcal Immunization Combined Discontinued 07/27/2017, 07/27/2017, 04/09/2016, Additional history exists Mammogram Discontinued 06/25/2020 Colonoscopy High Risk Discontinued 06/09/2021 Colonoscopy Discontinued 06/09/2021, 06/09/2021 Hepatitis C Virus (HCV) Screening Completed 07/10/2023 Influenza Immunization Completed 4, 10/10/2023, 07/25/2022, Additional history exists Cologuard Discontinued 10/28/2024, 12/14/2020 Colorectal Cancer Screening Discontinued Hepatitis B Immunization Aged Out No longer eligible based on patient's age to complete this topic Human Papillomavirus (HPV) Immunization Aged Out No longer eligible based [...] Diagnosis Comments CBC WITH AUTO DIFFERENTIAL Routine 03/24/2025 11:41 AM CDT Anemia, unspecified type HEMOGLOBIN A1C W/ ESTIMATED GLUCOSE Routine 03/24/2025 11:41 AM CDT Type 2 diabetes mellitus with diabetic neuropathy, without long-term current use of insulin (HCC) VITAMIN D, 25 HYDROXY TOTAL Routine 03/24/2025 11:41 AM CDT High risk medication use FOLIC ACID (FOLATE) Routine 03/24/2025 1 1:41 AM CDT Anemia, unspecified type VITAMIN B12 Routine 03/24/2025 11:41 AM CDT Anemia, unspecified type IRON,TRANSFERN,CALC.T IBC,%SAT Routine 03/24/2025 11:41 AM CDT Anemia, unspecified type FERRITIN Routine 03/24/2025 11:41 AM CDT Anemia, unspecified type MAGNESIUM (MG) Routine 03/24/2025 11:41 AM CDT Anemia, unspecified type Low magnesium level COMPLETE BLOOD COUNT (CBC) WITH DIFF Routine 03/24/2025 11:41 AM CDT Anemia, unspecified type CMP (COMPREHENSIVE METABOLIC PANEL) Routine 03/24/2025 11:41 AM CDT Anemia, unspecified type UR TOXICOLOGY SCREEN 03/24/2025 12:00 AM CDT COLOGUARD Routine 10/28/2024 10:00 AM CHIEF TECHNICAL OFFICER Screening for colon cancer HM DILATED EYE EXAM 12/19/2023 1 2:00 AM CHIEF TECHNICAL OFFICER CT CHEST W/O CONTRAST Routine 07/26/2023 12:55 [...] Recently Relevant to Health Maintenance Results * VITAMIN D, 25 HYDROXY TOTAL (03/24/2025 11:41 AM CDT) VITAMIN D, 25 HYDROX 52.4 ng/mL 03/24/2025 1:07 PM CDT [facility] Blood Venipuncture / Unknown 03/24/2025 11:41 AM CDT 03/24/2025 11:50 AM CDT Narrative [facility] - 03/24/2025 1:07 PM CDT Published reference ranges for Vitamin D vary depending on time and place and method of testing, and on patient's age, sex, ethnicity and levels of other measured analytes such as parathormone, calcium and phosphorus. The result should be evaluated in conjunction with clinical findings and suspicions. [place] [employer] and Endocrine Clinical Practice Guidelines: Status Vitamin D levels (ng/mL) Deficient <=20 At risk of inadequacy 21-29 Sufficient 30-100 Centers of Disease Control and Prevention Guidelines: Status Vitamin D levels (ng/mL) Deficient <13 At risk of inadequacy 13-19 Sufficient 20-50 Possibly harmful >50 References: [place] [employer], 2010 Dietary reference intakes for calcium and vitamin D. [place]: The National Academies Press. Keven M, Mayuri N, Romario MERRILL, et al., Evaluation, treatment, and prevention of Vitamin D deficiency: an Endocrinology Clinical Practice Guideline. JCEM 2011 96: 7 0413-9546. Ash A, Yonis C, Richard D, et al., Vitamin D Status: [place], 2124-1052, [facility] data brief, no. 59, MD [place]: [facility] for Health Statistics. 2011. MoniAnn-Marie Egan PAC CHEMISTRY ORDERABLES Fin al Result Performing Organization Address City/[facility] Co de Phone Number [facility] [address] [place] [address] * IRON,TRANSFERN,CALC.TIBC,%SAT (03/24/2025 11:41 AM CDT) IRON 64 25 - 156 mcg/dL 03/24/2025 12:42 PM CDT [facility] TRANSFERRIN 297 173 - 360 mg/dL 03/24/2025 12:42 PM CDT [facility] TIBC, CALCULATED 371 265 - 497 mcg/dL 03/24/2025 12:42 PM CDT [facility] % SATURATION * 17 15 - 62 % 03/24/2025 12:42 PM CDT [facility] Blood Venipuncture / Unknown 03/24/2025 11:41 AM CDT 03/24/2025 11:50 AM CDT Moni DerbySoftdagoberto PAC CHEMISTRY ORDERABLES Fin al Result Performing Organization Address [facility] Co de Phone Number [facility] [address] [place] [address] * HEMOGLOBIN A1C W/ ESTIMATED GLUCOSE (03/24/2025 11:41 AM CDT) [facility] HGB-A1C 5.0 4.0 - 6.0 % 03/24/2025 12:14 PM CDT [facility] Est Average Glucose 96.8 mg/dL 03/24/2025 12:14 PM CDT [facility] Blood Venipuncture / Unknown 03/24/2025 11:41 AM CDT 03/24/2025 11:50 AM CDT Narrative [facility] - 03/24/2025 12:14 PM CDT HEMOGLOBIN A1C: DIABETIC PATIENTS: WELL-CONTROLLED: 6.2 - 7.0 INTERMEDIATE WELL-CONTROLLED: 7.0 - 9.0 POORLY-CONTROLLED: >9.0 Specimens containing greater than 5% of Hemoglobin F may result in lower than expected % HbA1C results. us Angie Egan PAC CHEMISTRY ORDERABLES Fin al Result [facility] [address] [place] [address] * (ABNORMAL) CBC WITH AUTO DIFFERENTIAL (03/24/2025 11:41 AM CDT) [facility] WBC 7.94 4.00 - 12.00 10(3)/mcL 03/24/2025 2:12 PM CDT [facility] RBC 3.08(L) 3.80 - 5.30 10(6)/mcL 03/24/2025 2:12 PM CDT [facility] HEMOGLOBIN (HGB) 10.1(L) 12.0 - 15.8 g/dL 03/24/2025 2:12 PM CDT [facility] HEMATOCRIT (HCT) 30.4(L) 36.0 - 47.0 % 03/24/2025 2:12 PM CDT [facility] MCV 98.7(H) 82.0 - 96.0 fL 03/24/2025 2:12 PM CDT [facility] MCH 32.8 26.0 - 34.0 pg 03/24/2025 2:12 PM CDT [facility] MCHC 33.2 31.0 - 36.0 g/dL 03/24/2025 2:12 PM CDT [facility] PLATELET COUNT 175 140 - 440 10(3)/mcL 03/24/2025 2:12 PM CDT [facility] RDW 15.6(H) 11.8 - 15.5 % 03/24/2025 2:12 PM CDT [facility] MPV 10.0 9.7 - 12.4 fL 03/24/2025 2:12 PM CDT [facility] NEUTROPHILS 45.2(L) 47.0 - 73.0 % 03/24/2025 2:12 PM CDT [facility] LYMPHOCYTES 30.6 18.0 - 42.0 % 03/24/2025 2:12 PM CDT [facility] MONOCYTES 22.9(H) 4.0 - 12.0 % 03/24/2025 2:12 PM CDT [facility] EOSINOPHILS 0.5 0.0 - 5.0 % 03/24/2025 2:12 PM CDT [facility] BASOPHILS 0.8 0.0 - 1.0 % 03/24/2025 2:12 PM CDT [facility] ABSOLUTE NEUTROPHILS 3.59 1.60 - 7.70 10(3)/mcL 03/24/2025 2:12 PM CDT [facility] ABSOLUTE LYMPHOCYTES 2.43 1.30 - 3.20 10(3)/mcL 03/24/2025 2:12 PM CDT [facility] ABSOLUTE MONOCYTES 1.82(H) 0.20 - 1.00 10(3)/mcL 03/24/2025 2:12 PM CDT [facility] ABSOLUTE EOSINOPHIL 0.04 0.00 - 0.40 10(3)/mcL 03/24/2025 2:12 PM CDT [facility] ABSOLUTE BASOPHILS 0.06 0.00 - 0.10 10(3)/mcL 03/24/2025 2:12 PM CDT [facility] NRBC PER 100 WBC 0 03/24/20 2:12 PM CDT [facility] RESULTS ARE CONSISTENT WITH PERIPHERAL SMEAR REVIEW Yes 03/24/2025 2:12 PM CDT [facility] RBC MORPHOLOGY CONSISTENT WITH INDICES Yes 03/24/2025 2:12 PM CDT [facility] Blood Venipuncture / Unknown 03/24/2025 11:41 AM CDT 03/24/2025 11:50 AM CDT Narrative [facility] - 03/24/2025 2:12 PM CDT Anisocytosis Macrocytosis us Angie Egan PAC HEMATOLOGY ORDERABLES Fi nal Result [facility] [address] [place] [address] * VITAMIN B12 (03/24/2025 11:41 AM CDT) VITAMIN B12 624 213 - 816 pg/mL 03/24/2025 1:07 PM CDT [facility] Blood Venipuncture / Unknown 03/24/2025 11:41 AM CDT 03/24/2025 11:50 AM CDT us Angie Egan PAC CHEMISTRY ORDERABLES Fin al Result [facility] [address] [place] [address] * MAGNESIUM (MG) (03/24/2025 11:41 AM CDT) MAGNESIUM 2.1 1.6 - 2.6 mg/dL 03/24/2025 12:42 PM CDT [facility] Blood Venipuncture / Unknown 03/24/2025 11:41 AM CDT 03/24/2025 11:50 AM CDT us Angie Egan PAC CHEMISTRY ORDERABLES Fin al Result Performing Organization Address City/[facility]/ZIP Co de Phone Number [facility] [address] [place] [address] * FOLIC ACID (FOLATE) (03/24/2025 11:41 AM CDT) FOLATE 12.9 7.0 - 31.4 ng/mL 03/24/2025 1:07 PM CDT [facility] IS THE PATIENT REQUIRED TO BE FASTING? No 03/24/2025 1:07 PM CDT [facility] Blood Venipuncture / Unknown 03/24/2025 11:41 AM CDT 03/24/2025 11:50 AM CDT us Angie Egan PAC CHEMISTRY ORDERABLES Fin al Result Performing Organization Address City/[facility]/ZIP Co de Phone Number [facility] [address] [place] [address] * FERRITIN (03/24/2025 11:41 AM CDT) FERRITIN 56 5 - 204 ng/mL 03/24/2025 12:53 PM CDT [facility] Blood Venipuncture / Unknown 03/24/2025 11:41 AM CDT 03/24/2025 11:50 AM CDT us Angie Egan PAC CHEMISTRY ORDERABLES Fin al Result [facility] [address] [place] [address] * (ABNORMAL) CMP (COMPREHENSIVE METABOLIC PANEL) (03/24/2025 11:41 AM CDT) SODIUM 134(L) 136 - 145 mmol/L 03/24/2025 12:42 PM CDT [facility] POTASSIUM 4.4 3.5 - 5.1 mmol/L 03/24/2025 12:42 PM CDT [facility] CHLORIDE 101 98 - 107 mmol/L 03/24/2025 12:42 PM CDT [facility] CO2, VENOUS 25 22 - 30 mmol/L 03/24/2025 12:42 PM CDT [facility] ANION GAP 12.4 <18.0 mmol/L 03/24/2025 12:42 PM CDT [facility] GLUCOSE 85 70 - 99 mg/dL 03/24/2025 12:42 PM CDT [facility] BUN 35(H) 10 - 20 mg/dL 03/24/2025 12:42 PM CDT [facility] CREATININE, BLOOD 2.02(H) 0.60 - 1.00 mg/dL 03/24/2025 12:42 PM CDT [facility] BUN/CREATININE RATIO 17 12 - 20 ratio 03/24/2025 12:42 PM CDT [facility] TOTAL PROTEIN 7.3 6.0 - 8.0 g/dL 03/24/2025 12:42 PM CDT [facility] ALBUMIN 4.4 3.5 - 5.0 g/dL 03/24/2025 12:42 PM CDT [facility] A/G RATIO 1.5 1.0 - 2.2 03/24/2025 12:42 PM CDT [facility] CALCIUM 8.9 8.7 - 10.5 mg/dL 03/24/2025 12:42 PM CDT [facility] T BILI 0.2 0.2 - 1.2 mg/dL 03/24/2025 12:42 PM CDT [facility] SGOT (AST) 31 <43 U/L 03/24/2025 12:42 PM CDT [facility] SGPT (ALT) 14 <56 U/L 03/24/2025 12:42 PM CDT [facility] ALKALINE PHOSPHATASE 68 40 - 150 U/L 03/24/2025 12:42 PM CDT [facility] IS THE PATIENT REQUIRED TO BE FASTING? No 03/24/2025 12:42 PM CDT [facility] GFR, ESTIMATED 25(L) >=60 03/24/2025 12:42 PM CDT [facility] Comment: Creatinine Clearance is the preferred criteria for selecting drug dose adjustments in renally impaired patients. The GFR is provided as additional pertinent clinical information. GFR is reported in mL/min/1.73 sq m. Calculation based on the Chronic Kidney Disease Epidemiology Collaboration (CKD- EPI) equation refit without adjustment for race. GFR, EST. 29(L) >=60 025 12:42 PM CDT [facility] GFR, EST. NONAFRICAN 24(L) >=60 03/24/2025 12:42 PM CDT [facility] Blood Venipuncture / Unknown 03/24/2025 11:41 AM CDT 03/24/2025 11:50 AM CDT Angie Egan PAC CHEMISTRY ORDERABLES Fin al Result Performing Organization Address City/[facility]/ZIP Co de Phone Number [facility] [address] [place] [address] * UR TOXICOLOGY SCREEN (03/24/2025 12:00 AM CDT) 03/24/2025 Monienrique Egan PAC URINE ORDERABLES Final R esult SCAN * COLOGUARD (10/28/2024 10:00 AM CHIEF TECHNICAL OFFICER) Pathologist [facility] Cologuard Negative Negative [facility] Comment: NEGATIVE TEST RESULT. A negative [...] (Reilly Carty al, N Engl J Med 2014;370(14):6726-6959) The normal value (reference range) for this assay is negative. COLOGUARD RE-SCREENING RECOMMENDATION: Periodic colorectal cancer screening is an important part of preventive healthcare for asymptomatic individuals at average risk for colorectal cancer. Following a negative Cologuard result, the [place] Cancer Society and [place]. Multi-Society Task Force screening guidelines recommend a Cologuard re-screening interval of 3 years. References: Canadian Cancer Society Guideline for Colorectal Cancer Screening: https://www.cancer.org/cancer/dfsmd-bdqgyu-bgjkbh/psiaxuwqs-wmwnsicjy-isiypdx/ acs-recommendations.html.; Roland DK, Clara HERNANDEZ, Travis HurleyK, Colorectal Cancer Screening: Recommendations for Physicians and Patients from the U.S. Multi-Society Task Force on Colorectal Cancer Screening , Am J Gastroenterology 2017; 112:7642-6807. TEST DESCRIPTION: Composite algorithmic analysis of stool [...] (Reilly Carty al, N Engl J Med 2014;370(14):0313-2631.) Cologuard may produce a false negative or false positive result (no colorectal cancer or precancerous polyp present at colonoscopy follow up). A negative Cologuard test result does not guarantee the absence of CRC or advanced adenoma (pre-cancer). The current Cologuard screening interval is every 3 years. (Canadian Cancer Society and U.S. Multi-Society Task Force). Cologuard performance data in a 10,000 patient pivotal study using colonoscopy as the reference method can be accessed at the following location: www.Surveypal/results. Additional description of the Cologuard test process, warnings and precautions can be found at www.[employer] Service[employer]uard.com. Stool 10/28/2024 10:0 0 AM CHIEF TECHNICAL OFFICER 10/30/2024 9:04 AM CHIEF TECHNICAL OFFICER Angie Egan PAC BODY FLUIDS & STOOLS ORD ERABLES Final Result [facility], [facility] [address] [place] [address], [facility] [address] [place] [address] * HM DILATED EYE EXAM (12/19/2023 12:00 AM CHIEF TECHNICAL OFFICER) 12/19/2023 Angie Egan PAC PROCEDURE/MINOR SURGICAL ORDERABLES Final Result SCAN * CT CHEST W/O CONTRAST (07/26/2023 [...] Concepcion Donnelly D.O. AC: FELICITA Report ID: [id number] Reading Location: [place] [address] Procedure Note Concepcion Donnelly DO - 07/31/2023 EXAM DESCRIPTION: CT CHEST W/O [...] Concepcion Donnelly D.O. AC: FELICITA Report ID: [id number] Reading Location: [id number] IMPRESSION: 1. Interval resolution of consolidation in the left lingula compatible with pneumonia. No pulmonary mass or suspicious noncalcified pulmonary nodule. Recommend return to routine annual low-dose CT lung screen. 2. Mucous plugging in the left lingula and left lower lobe. [facility] ORDERAB[facility] Final Result * HEPATITIS C ANTIBODY (07/10/2023 11:06 AM CDT) hepatitis C antibody 0.11 <1 S/[facility] ARCH [id number] B 07/10/2023 8:57 PM CDT [facility] Comment: Signal/Cutoff ratio < 0.79 is Nondetected Signal/Cutoff ratio 0.80-0.99 is Grayzone Signal/Cutoff ratio > 0.99 is Detected Supplemental assays are recommended if signal/cutoff ratio is >/=1.00. Signal/cutoff ratio result >/= 5.00 is 97% predictive of positivity for recombinant immunoblot assay (RIBA) and will be reported to the [place] Department of Public [facility] as required. Blood Venipuncture / Unknown 07/10/2023 11:06 AM CDT 07/10/2023 11:06 AM CDT us Angie Egan PAC CHEMISTRY ORDERABLES Fin al Result [facility] [address] [place] [address], [place] * MARK BONE DENSITOMETRY AXIAL SKELETON (06/19/2022 1:31 PM [...] Narrative 06/19/2022 4:07 PM CDT EXAM DESCRIPTION: [facility] BONE DENSITOMETRY AXIAL SKELETON REASON FOR STUDY: 76 y/o year old F with given history of screening. Special Effects Person/Model: Voya.ge (S/N [id number]) CLINICAL INFORMATION: Current height: 62 inches Maximum [...] Darin Mello M.D. BC: VIDAL Report ID: [id number] Reading Location: [place] [address] Procedure Note Darin Mello MD - 06/19/2022 EXAM DESCRIPTION: [facility] BONE DENSITOMETRY AXIAL SKELETON REASON FOR STUDY: 76 y/o year old F with given history of screening. Special Effects Person/Model: Voya.ge (S/N [id number]) CLINICAL INFORMATION: Current height: 62 inches Maximum [...] Darin Mello M.D. BC: VIDAL Report ID: [id number] Reading Location: [id number] IMPRESSION: 1. Normal bone mineral density. REFERENCE: [...] Treatment of Osteoporosis (http://www.nof.org/professionals/clinical-guidelines) us Angie Egan [facility] IMG DEXA ORDERABLES Felisa ervin Result * [...] made to exams dated: 02/27/2014 and 10/02/2008 [facility]. BREAST TISSUE:There are scattered fibroglandular densities in [...] next screening exam. Electronically signed by: Grey peacock/adam:07/08/2020 11:37:55 Nuclear Worker Technician: Jayla AGUILA(Diane)(Neel), [facility] letter sent: Normal Exam Reading location: [facility] BI-RADS: 1 Negative Procedure Note Grey Hinkle [...] made to exams dated: 02/27/2014 and 10/02/2008 [facility]. BREAST TISSUE:There are scattered fibroglandular densities in [...] exam. Electronically signed by: Grey peacock/penrad:07/08/2020 11:37:55 Nuclear Worker Technician: Jalya HESTER)(M), [facility] letter sent: Normal Exam Reading location: [place] BI-RADS: 1 Negative Bunny Monserrat Cruz MD IMG MAMMO ORDERABLES Fin al Result from Last 3 Months or Most Recently Relevant to Health Maintenance Insurance MEDICAID [facility] Advance Directives * Full Code (Latest Code Status on File) Date Activated Date Inactivated Comments 12/19/2023 10:11 AM 02/14/2024 6:28 AM Care Teams Floodplain Manager Relationship Specialty Start Date End Date Angie Egan PAC [address] [place] [address] PCP - General Physician Forms Designer 12/07/17 Dav Barillas MD Consulting Physician Nephrology 03/26/17 Reggie Lazar MD Consulting Physician Urology 07/27/17 Alvarez Rivera MD [address] [place] [address] Consulting Physician Pulmonary Disease 07/19/23 Bunny Cruz MD [address] [place] [address] Consulting Physician Medical Oncology 02/25/24
--- OUTSIDE RECORDS SUMMARY | 2025-04-01 09:47 | XMS_ITS | Encounter Summary ---
Author Organization [facility] Address [address] [place] [address] Phone Care Team Providers Care Tongue And Groove Machine Operator Name Role Phone Dav Barillas MD Unavailable Reggie Lazar MD Unavailable [phone] Angie Egan [facility] Primary Care Provider + Alvarez Rivear MD Unavailable Bunny Cruz MD Unavailable Reason for Visit * Reason Comments Medication Refill Encounter Details Date Type Department Care Team (Late st Contact Info) Description 08/06/2023 Refill [facility] Medical [facility] - Family Medicine [facility] [address] [place] [address] Kathryn Jimenez APRN, MEDICATION RECONCILIATION TECHNICIAN [address] [address] Medication Refill Social History Tobacco [...] Medicine [facility] [address] [place] [address] Angie Egan PAC [address] [place] [address] documented as of this encounter Visit Diagnoses Diagnosis Type 2 diabetes mellitus with diabetic neuropathy, without long-term current use of insulin (HCC) documented in this encounter Additional Health Concerns Assessment Noted Time PHQ-9 Depression Total Score: 0 07/10/20 23 10:27 AM CDT documented as of this encounter Care Teams Tongue And Groove Machine Operator Relationship Specialty Start Date End Date Angie Egan PAC [address] [place] [address] PCP - General Physician Loan Servicing Representative 12/07/17 Dav Barillas MD Consulting Physician Nephrology 03/26/17 Reggie Lazar MD Consulting Physician Urology 07/27/17 Alvarez Rivera MD [address] [place] [address] Consulting Physician Pulmonary Disease 07/19/23 Bunny Cruz MD [address] [place] [address] Consulting Physician Medical Oncology 02/25/24 documented as of this encounter
--- OUTSIDE RECORDS SUMMARY | 2025-04-01 09:47 | XMS_ITS | CONTINUITY OF CARE DOCUMENT ---
Author Name wei carvajal Address Unknown Organization [facility] Address [address] [facility] [place] [address] Phone [phone] Care Team Providers Care Psych Assistant Name Role Phone Tiffany Ghosh MD Unavailable [phone] Tiffany Ghosh MD Unavailable [phone] INSURANCE PROVIDERS Payer name Policy type / Coverage type [place] red constitution party ID [place] Medicaid [id number]
--- OUTSIDE RECORDS SUMMARY | 2025-04-01 09:47 | XMS_ITS | Encounter Summary ---
Author Organization [facility] Address [address] [facility] [place] [address] Phone Care Team Providers Care Creping Machine Operator Name Role Phone Dav Barillas MD Unavailable [phone] Reggie Lazar MD Unavailable [phone] Angie Egan PAC Primary Care Provider + Alvarez Rivera MD Unavailable Bunny Cruz MD Unavailable [phone] Reason for Visit * Reason Comments Medication Refill Encounter Details Date Type Department Care Team (Late st Contact Info) Description 08/07/2023 Refill [facility] Medical [facility] - Family Medicine [facility] [address] [place] [address] Angie Egan, BLAYNE [address] [place] [address] Medication Refill Social History Tobacco Use Types [...] Office Visit [facility] Family [facility] [address] [place] [address] Angie Egan PAC [address] [place] [address] documented as of this encounter Visit Diagnoses Diagnosis Hypertension, essential Unspecified essential hypertension documented in this encounter Additional Health Concerns Assessment Noted Time PHQ-9 Depression Total Score: 0 07/10/20 23 10:27 AM CDT documented as of this encounter Care Teams Creping Machine Operator Relationship Specialty Start Date End Date Angie Egan PAC [address] [place] [address] PCP - General Physician Sweetbread Trimmer 12/07/17 Dav Barillas MD Consulting Physician Nephrology 03/26/17 Reggie Lazar MD Consulting Physician Urology 07/27/17 Alvarez Rivera MD [address] [place] [address] Consulting Physician Pulmonary Disease 07/19/23 Bunny Cruz MD [address] [place] [address] Consulting Physician Medical Oncology 02/25/24 documented as of this encounter
== END 2025-04-01 09:42 | disposition home or self-care (01) ==
PROVIDERS: Visit Provider Neurological Surgery
DX: M47.812 Spondylosis without myelopathy or radiculopathy, cervical region (principal); Z98.1 Arthrodesis status
CPT/HCPCS: 72040

== ENCOUNTER 2025-05-19 14:31 | Outpatient (CLI) | payer OTHER, SELFPAY ==
--- NOTE | ~2025-05-19 | MR_ITS ---
MRI of the cervical spine Clinical History: Radiculopathy Technique: Axial T2-weighted and gradient images, and sagittal T1-weighted, T2-weighted, and STIR moises ges were acquired. COMPARISON: 07/28/2024 Findings: Status post interval anterior fusion from C3 to C4 with associated hardware and susceptibil ity artifact. No acute fracture or subluxation. No suspicious bone marrow signal abnormality seen. At C2-C3, there is no significant disc bulge or herniation. No spinal canal stenosis, cord compressio n, or neural foraminal narrowing. At C3-C4, there is and mild canal stenosis without endy cord compression. Right neural foramen proba amish preserved. Possible mild left neural foraminal narrowing. At C4-C5, there is no significant disc bulge or herniation. There is probable bilateral neural forami nal narrowing, right worse than left. No definite cord compression. Probable mild canal stenosis. At C5-C6, there is no significant disc bulge or herniation. No canal stenosis or cord compression. Ne ural foramina are preserved. At C6-C7, there is no significant disc bulge or herniation. No spinal canal stenosis, cord compressio n, or neural foraminal narrowing. No abnormal signal seen in the spinal cord. Paravertebral soft tissues are unremarkable. 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 Reviewed, dictated and finalized at [facility]. 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
--- OUTSIDE RECORDS SUMMARY | 2025-05-19 14:36 | XMS_ITS | Encounter Summary ---
Author Organization [facility] Address [address] [facility] [place] [address] Phone Care Team Providers Care Lap Cutter Truer Operator Name Role Phone Dav Barillas MD Unavailable Reggie Lazar MD Unavailable [phone] Angie Egan Primary Care Provider + Alvarez Rivera MD Unavailable Bunny Cruz MD Unavailable [phone] Reason for Visit * Reason Comments Medication Refill Encounter Details Date Type Department Care Team (Late st Contact Info) Description 09/08/2024 Refill [facility] Medical Group - Family Medicine [facility] [address] [place] [address] Angie Egan, BLAYNE [address] [place] [address] Medication Refill Social History Tobacco Use Types Packs/Day Years Used Date Smoking Tobacco: Some Days Cigarettes 0.5 70 Started: 05/25/1955 Smokeless Tobacco: Never Alcohol Use Standard Drinks/Week Comments No 0 (1 standard drink = 0.6 oz pur e alcohol) [facility] Utilities Answer Date Recorded In the past 12 months has [employer] electric, gas, oil, or water company threatened to shut off services in your home? No 04/08/2024 Social Connection and Isolation Panel Answer Date Recorded In a typical week, how many times do you talk on the phone with family, friends, or neighbors? More than three times a week 04/08/2024 How often do you get togethe r with friends or relatives? More than three times a week 04/08/2024 How often do you attend chur ch or jew services? Never 04/08/2024 Do you belong to any clubs o r organizations such as roman catholic groups, unions, fraternal or athletic groups, or [...] Total Score - Questions 1-9 0 08/07 [facility] - Occupational Stress Questionnaire Answer [...] according to last Rx and fill Hx. ING TOOL OPERATOR documented in this encounter Plan of Treatment Upcoming Encounters Date Type Department Care Team (Late st Contact Info) Description 07/10/2025 1:30 PM CDT [facility] [place] [address] [place] [address] Angie Egan, BLAYNE [address] [place] [address] documented as of this encounter Visit Diagnoses Diagnosis Type 2 diabetes mellitus with diabetic neuropathy, without long-term current use of insulin (HCC) documented in this encounter Additional Health Concerns Assessment Noted Time PHQ-9 Depression Total Score: 0 09/03/20 10:53 AM CDT documented as of this encounter Care Teams Lap Cutter Truer Operator Relationship Specialty Start Date End Date Angie Egan PAC [address] [place] [address] PCP - General Physician Organization Development Consultant 12/07/17 Dav Barillas MD Consulting Physician Nephrology 03/26/17 Reggie Lazar MD Consulting Physician Urology 07/27/17 Alvarez Rivera MD [address] [place] [address] Consulting Physician Pulmonary Disease 07/19/23 Bunny Cruz MD [address] [place] [address] Consulting Physician Medical Oncology 02/25/24 documented as of this encounter
--- OUTSIDE RECORDS SUMMARY | 2025-05-19 14:36 | XMS_ITS | Encounter Summary ---
Author Organization [facility] Address [address] [facility] [place] [address] Phone Care Team Providers Care Wigs Salesperson Name Role Phone Dav Barillas MD Unavailable Reggie Lazar MD Unavailable [phone] Angie Egan [facility] Primary Care Provider + Alvarez Rivera MD Unavailable Bunny Cruz MD Unavailable Reason for Visit * Reason Comments Medication Refill Encounter Details Date Type Department Care Team (Late st Contact Info) Description 07/10/2021 Refill [facility] Periop [address] [place] [address] Rolf Haider MD [address] [address] Medication Refill Social History Tobacco Use Types [...] 07/10/2025 1:30 PM CDT Office Visit [facility] Medical Group - Family [facility] [address] [place] [address] Angie Egan PAC [address] [place] [address] documented as of this encounter Visit Diagnoses Not on filedocumented in this encounter Additional Health Concerns Infection Onset Date Last Indicated Resolved Time COVID - 19 07/25/2021 07/25/2021 08/14/2021 12:1 6 AM CDT COVID - 19 09/30/2021 09/30/2021 10/20/2021 12:1 6 AM STAPLER HAND COVID - 19 Confirmed 05/24/2022 05/24/2022 08 022 12:16 AM CDT COVID - 19 03/08/2023 03/08/2023 03/18/2023 12:1 6 AM CDT Assessment Noted Time PHQ-9 Depression Total Score: 0 08/05/20 1:56 PM CDT documented as of this encounter Care Teams Wigs Salesperson Relationship Specialty Start Date End Date Angie Egan PAC [address] [place] [address] PCP - General Physician Director Of Physical Therapy 12/07/17 Dav Barillas MD Consulting Physician Nephrology 03/26/17 Reggie Lazar MD Consulting Physician Urology 07/27/17 Alvarez Rivera MD [address] [place] [address] Consulting Physician Pulmonary Disease 07/19/23 Bunny Cruz MD [address] [place] [address] Consulting Physician Medical Oncology 02/25/24 documented as of this encounter
--- OUTSIDE RECORDS SUMMARY | 2025-05-19 14:36 | XMS_ITS | Encounter Summary ---
Author Organization [facility] Address [address] [facility] [place] [address] Phone Care Team Providers Care Elementary School Tutor Name Role Phone Dav Barillas MD Unavailable Reggie Lazar MD Unavailable [phone] Angie Egan Primary Care Provider + Alvarez Rivera MD Unavailable Bunny Cruz MD Unavailable Reason for Visit * Reason Comments Medication Refill Encounter Details Date Type Department Care Team (Late st Contact Info) Description 01/02/2024 Refill [facility] Medical Group - Family Medicine [facility] [address] [place] [address] Angie Egan, BLAYNE [address] [place] [address] Medication Refill Social History Tobacco Use Types Packs/Day Years Used Date Smoking Tobacco: Some Days Cigarettes 0.5 70 Started: 05/25/1955 Smokeless Tobacco: Never Alcohol Use Standard Drinks/Week Comments No 0 (1 standard drink = 0.6 oz pur e alcohol) [facility] Utilities Answer Date Recorded In the past 12 months has [employer] electric, gas, oil, or water company threatened to shut off services in your home? No 12/03/2023 Social Connection and Isolation Panel Answer Date Recorded In a typical week, how many times do you talk on the phone with family, friends, or neighbors? More than three times a week 12/03/2023 Frequency of Social Gatherin gs with Friends and Family Not on file 12/03/2023 Attends Shinto Services Not on file 12/03 Active Member [...] - Questions 1-9 0 09/0 03/2023 [facility] - Occupational [...] place to sleep or slept in a correction (including now)? No 12/03/2023 Education Answer Date [...] discontinued on 06/20/2023 by Kathryn Jimenez APRN, NETWORK CONTRACT MANAGER. Incorrect dose. SITION NURSE documented in this encounter Plan of Treatment Upcoming Encounters Date Type Department Care Team (Late st Contact Info) Description 07/10/2025 1:30 PM CDT [facility] [address] [place] [address] Angie Egan, BLAYNE [address] [place] [address] documented as of this encounter Visit Diagnoses Diagnosis Type 2 diabetes mellitus with diabetic neuropathy, without long-term current use of insulin (HCC) documented in this encounter Additional Health Concerns Assessment Noted Time PHQ-9 Depression Total Score: 0 07/10/20 10:27 AM CDT documented as of this encounter Care Teams Elementary School Tutor Relationship Specialty Start Date End Date Julisa Angie JacobsenBLAYNE [address] [place] [address] PCP - General Physician Wastewater Treatment Engineer 12/07/17 Dav Barillas MD Consulting Physician Nephrology 03/26/17 Reggie Lazar MD Consulting Physician Urology 07/27/17 Alvarez Rivera MD [address] [place] [address] Consulting Physician Pulmonary Disease 07/19/23 Bunny Cruz MD [address] [place] [address] Consulting Physician Medical Oncology 02/25/24 documented as of this encounter
--- OUTSIDE RECORDS SUMMARY | 2025-05-19 14:36 | XMS_ITS | Encounter Summary ---
Author Organization [facility] Address [address] [facility] [place] [address] Phone Care Team Providers Care Kiln Loader Name Role Phone Dav Barillas MD Unavailable Reggie Lazar MD Unavailable Angie Egan [facility] Primary Care Provider + Alvarez Rivera MD Unavailable Bunny Cruz MD Unavailable [phone] Reason for Visit * Reason Comments Medication Refill Encounter Details Date Type Department Care Team (Late st Contact Info) Description 06/04/2022 Refill [facility] Medical Group - Family Medicine [facility] [address] [place] [address] Luz Maria Riggins MD [address] [place] [address] Medication Refill Social History Tobacco Use Types [...] 12/13/21 Office Visit Angie Egan, PAC [facility] 09/13/21 Office Visit Angie Egan, PAC [facility] 08/19/21 Office Visit Angie Egan, PAC [facility] 07/29/21 Office Visit [facility] Egan, [facility] [...] 07/10/2025 1:30 PM CDT Office Visit [facility] Medical Group - Family Medicine - [place] [address] [place] [address] Angie Egan, BLAYNE [address] [place] [address] documented as of this encounter Visit Diagnoses [...] documented as of this encounter Care Teams Kiln Loader Relationship Specialty Start Date End Date Viviennemarshadalila MoniBLAYNE Garcia [address] [place] [address] PCP - General Physician Psychometrist 12/07/17 Dav Barillas MD Consulting Physician Nephrology 03/26/17 Reggie Lazar MD Consulting Physician Urology 07/27/17 Alvarez Rivera MD [address] [place] [address] Consulting Physician Pulmonary Disease 07/19/23 Bunny Cruz MD [address] [place] [address] Consulting Physician Medical Oncology 02/25/24 documented as of this encounter
--- OUTSIDE RECORDS SUMMARY | 2025-05-19 14:36 | XMS_ITS | Encounter Summary ---
Author Organization [facility] Address [address] [place] [address] Phone Care Team Providers Care Transportation Sales Consultant Name Role Phone Dav Barillas MD Unavailable [phone] Reggie Lazar MD Unavailable Angie Egan Primary Care Provider + Alvarez Rivera MD Unavailable Bunny Cruz MD Unavailable Reason for Visit * Reason Comments Medication Refill Encounter Details Date Type Department Care Team (Late st Contact Info) Description 08/29/2023 Refill [facility] Medical Group - Family Medicine [facility] [address] [place] [address] Angie Egan, BLAYNE [address] [place] [address] Medication Refill Social History Tobacco Use Types [...] Visit [facility] [address] [place] [address] Angie Egan PAC [address] [place] [address] documented as of this encounter Visit Diagnoses Diagnosis Type 2 diabetes mellitus with diabetic neuropathy, without long-term current use of insulin (HCC) documented in this encounter Additional Health Concerns Assessment Noted Time PHQ-9 Depression Total Score: 0 07/10/20 23 10:27 AM CDT documented as of this encounter Care Teams Transportation Sales Consultant Relationship Specialty Start Date End Date Angie Egan PAC [address] [place] [address] PCP - General Physician Teaching Dietitian 12/07/17 Dav Barillas MD Consulting Physician Nephrology 03/26/17 Reggie Lazar MD Consulting Physician Urology 07/27/17 Alvarez Rivera MD [address] [place] [address] Consulting Physician Pulmonary Disease 07/19/23 Bunny Cruz MD [address] [place] [address] Consulting Physician Medical Oncology 02/25/24 documented as of this encounter
--- OUTSIDE RECORDS SUMMARY | 2025-05-19 14:36 | XMS_ITS | Encounter Summary ---
Author Organization [facility] Address [address] [facility] [place] [address] Phone Care Team Providers Care Commercial Producer Name Role Phone Dav Barillas MD Unavailable [phone] Reggie Lazar MD Unavailable [phone] Angie Egan PAC Primary Care Provider + Alvarez Rivera MD Unavailable Bunny Cruz MD Unavailable Reason for Visit * Reason Comments Medication Refill Encounter Details Date Type Department Care Team (Late st Contact Info) Description 05/10/2022 Refill [facility] - Family Medicine [facility] [address] [place] [address] Angie Egan, [facility] [address] [place] [address] Medication Refill Social History Tobacco Use Types [...] Description 07/10/2025 1:30 PM CDT Office Visit [facility] [address] [place] [address] Angie Egan PAC [address] [place] [address] documented as of this encounter Visit Diagnoses Not on filedocumented in this encounter Additional Health Concerns Infection Onset Date Last Indicated Resolved Time COVID - 19 Confirmed 05/24/2022 05/24/2022 022 12:16 AM CDT COVID - 19 03/08/2023 03/08/2023 03/18/2023 12:1 6 AM CDT Assessment Noted Time PHQ-9 Depression Total Score: 0 07/29/20 21 11:00 AM CDT documented as of this encounter Care Teams Commercial Producer Relationship Specialty Start Date End Date Angie Egan PAC [address] [place] [address] PCP - General Physician Hammer Smith 12/07/17 Dav Barillas MD Consulting Physician Nephrology 03/26/17 Reggie Lazar MD Consulting Physician Urology 07/27/17 Alvarez Rivera MD [address] [place] [address] Consulting Physician Pulmonary Disease 07/19/23 Bunny Cruz MD [address] [place] [address] Consulting Physician Medical Oncology 02/25/24 documented as of this encounter
--- OUTSIDE RECORDS SUMMARY | 2025-05-19 14:36 | XMS_ITS | Encounter Summary ---
Author Organization [facility] Address [address] [facility] [place] [address] Care Team Providers Care Custodian Blood Bank Name Role Phone Luz Maria Riggins MD Primary Care Provider [phone] Encounter Details Date Type Department Care Team (Late st Contact Info) Description 02/14/2024 Lab Requisition [facility] - Pathology Lab [address] [place] [address] Emanuel De Oliveira MD [facility] [address] [address] Abnormality of plasma protein, unspecified; [...] AM CDT) Case Report Flow Cytometry Case: [id number] Authorizing Provider: Emanuel De Oliveira MD Collected: 02/14/2024 08:15 AM Ordering Location: [facility] - Received: 02/14/2024 12:18 PM Pathology Lab Pathologist: Sydney Penn MD Specimen: Bone Marrow 02/14/2024 4:[address] [facility] Final Diagnosis Bone marrow, flow [...] cytometry specimen has been reviewed for quality and reliability engineer purposes. 02/14/2024 4:38 PM [facility] Flow Cytometry Results Differential Result Comment Flow Cell Count /uL 65,500 Total Viability % 92.0 Lymphocytes % 5 Dim CD45 Region % 2 Monocytes % 16 Granulocytes % 77 02/14/2024 4:38 PM [facility] Reason for test Abnormality of plasma protein, unspecified Anemia, unspecified 285.9 02/14/2024 4:38 PM [facility] Client Specimen ID # [id number] 02/14/2024 4:38 PM [facility] Number of markers 14 were performed. A-2 Flow CD10 A-3 Flow CD13 A-5 Flow CD20 A-13 Flow CD117 A-14 FLOW CD138 A-1 Flow CD5 A-4 Flow CD19 A-6 Flow CD33 A-7 Flow CD34 A-8 Flow CD45 A-11 Flow CD38 A-12 Flow CD56 A-9 [place]+CD19+ A-10 Lambda+CD19+ A-15 cyKappa+CD138+ A-16 cyLambda+CD138 02/14/2024 4:38 PM [facility] Pathologist Location at [facility] 02/14/2024 4:38 PM [facility] Disclaimer Test performed at [facility], [address] [place] [address], [address]. *The established laboratory minimum viability is 70%. [...] clinical testing. 02/14/2024 4:38 PM [facility] Embedded Images 4:38 PM [facility] Pathology/Cytolo gy BONE MARROW SPECIMEN / Unknown 02/14/2024 8:15 AM CDT 02/14/2024 12:18 PM CDT us Emanuel De Oliveira MD LAB - PATHOLOGY/CYTOLOGY ORDERAB LES Final Result [facility] [address] [phone] documented in this encounter Visit Diagnoses Diagnosis Abnormality of plasma protein, unspecified Anemia, unspecified documented in this encounter Care Teams Custodian Blood Bank Relationship Specialty Start Date End Date Luz Maria Riggins MD PCP - General 12/29/20 documented as of this encounter
--- OUTSIDE RECORDS SUMMARY | 2025-05-19 14:36 | XMS_ITS | Encounter Summary ---
Author Organization [facility] Address [address] [place] [address] Phone Care Team Providers Care Behavioral School Counselors Name Role Phone Dav Barillas MD Unavailable Reggie Lazar MD Unavailable [phone] Angie Egan Primary Care Provider + Alvarez Rivera MD Unavailable Bunny Cruz MD Unavailable Reason for Visit * Reason Comments Medication Refill Encounter Details Date Type Department Care Team (Late st Contact Info) Description 10/06/2023 Refill [facility] - Family Medicine [facility] [address] [place] [address] Angie Egan, [place] [address] [place] [address] Medication Refill Social History Tobacco Use Types [...] Jimenez APRN, CNP - 10/09/2023 8:41 AM BULLET LUBRICATING MACHINE OPERATOR duplicate ET LUBRICATING MACHINE OPERATOR * Telephone Encounter - Sofía Joe RN [...] Type Provider Dept 07/19/23 Office Visit Angie Egan PAC [facility] 07/10/23 Office Visit Angie Egan PAC [facility] 04/06/23 Office Visit Angie Egan PAC [facility] 02/23/23 Office Visit Angie Egan PAC [facility] 01/01/23 Office Visit Angie Egan PAC [facility] 11/30/22 Office Visit Angie Egan PAC [facility] 11/02/22 Office Visit Angie Egan PAC [facility] Showing recent visits within past 365 days and meeting all other requirements Future Appointments Date Type Provider Dept 10/10/23 Appointment Angie Egan PAC [facility] Showing future appointments within next [...] 07/10/2023 37.0 36.0 - 47.0 % Final ET LUBRICATING MACHINE OPERATOR documented in this encounter Plan of Treatment Upcoming Encounters Date Type Department Care Team (Late st Contact Info) Description 07/10/2025 1:30 PM CDT Office Visit [facility] - Family [facility] [address] [place] [address] Angie Egan PAC [address] [place] [address] documented as of this encounter Visit Diagnoses Diagnosis Rheumatoid arthritis involving both hands, unspecified whether rheumatoid factor present (HCC) documented in this encounter Additional Health Concerns Assessment Noted Time PHQ-9 Depression Total Score: 0 07/10/20 23 10:27 AM CDT documented as of this encounter Care Teams Behavioral School Counselors Relationship Specialty Start Date End Date Angie Egan PAC [address] [place] [address] PCP - General Physician Monument Erector 12/07/17 Dav Barillas MD Consulting Physician Nephrology 03/26/17 Reggie Lazar MD Consulting Physician Urology 07/27/17 Alvarez Rivera MD [address] [place] [address] Consulting Physician Pulmonary Disease 07/19/23 Bunny Cruz MD [address] [place] [address] Consulting Physician Medical Oncology 02/25/24 documented as of this encounter
--- OUTSIDE RECORDS SUMMARY | 2025-05-19 14:36 | XMS_ITS | Encounter Summary ---
Author Organization [facility] Address [address] [place] [address] Phone Care Team Providers Care Material Stockkeeper Yard Name Role Phone Dav Barillas MD Unavailable [phone] Reggie Lazar MD Unavailable Angie Egan Primary Care Provider + Alvarez Rivera MD Unavailable Bunny Cruz MD Unavailable [phone] Reason for Visit * Reason Comments Medication Refill Encounter Details Date Type Department Care Team (Late st Contact Info) Description 10/06/2023 Refill [facility] - Family Medicine [facility] [address] [place] [address] Angie Egan, BLAYNE [address] [place] [address] Medication Refill Social History Tobacco Use Types [...] Jesika Croft RN - 10/06/2023 2:35 PM UNHAIRING INSPECTOR Medication failed the protocol, provider to review [...] 07/19/23 Office Visit Angie Egan, PAC [facility] 07/10/23 Office Visit Angie Egan, PAC [facility] 04/06/23 Office Visit Angie Egan, PAC [facility] 02/23/23 Office Visit Angie Egan, PAC [facility] 01/01/23 Office Visit Angie Egan, PAC [facility] 11/30/22 Office Visit Angie Egan, PAC [facility] 11/02/22 Office Visit Angie Egan, PAC [facility] Showing recent visits within past 365 days and meeting all other requirements Future Appointments Date Type Provider Dept 10/10/23 Appointment Angie Egan PAC [facility] Showing future appointments within next 90 days [...] 07/10/2023 37.0 36.0 - 47.0 % Final IRING INSPECTOR documented in this encounter Plan of Treatment Upcoming Encounters Date Type Department Care Team (Late st Contact Info) Description 07/10/2025 1:30 PM CDT Office Visit [facility] - [facility] [address] [place] [address] Angie Egan PAC [address] [place] [address] documented as of this encounter Visit Diagnoses Diagnosis Rheumatoid arthritis involving both hands, unspecified whether rheumatoid factor present (HCC) documented in this encounter Additional Health Concerns Assessment Noted Time PHQ-9 Depression Total Score: 0 07/10/20 23 10:27 AM CDT documented as of this encounter Care Teams Material Stockkeeper Yard Relationship Specialty Start Date End Date Angie Egan PAC [address] [place] [address] PCP - General Physician Rotary Pump Operator 12/07/17 Dav Barillas MD Consulting Physician Nephrology 03/26/17 Reggie Lazar MD Consulting Physician Urology 07/27/17 Alvarez Rivera MD [address] [place] [address] Consulting Physician Pulmonary Disease 07/19/23 Bunny Cruz MD [address] [place] [address] Consulting Physician Medical Oncology 02/25/24 documented as of this encounter
--- OUTSIDE RECORDS SUMMARY | 2025-05-19 14:36 | XMS_ITS | Encounter Summary ---
Author Organization [facility] Address [address] [facility] [place] [address] Phone Care Team Providers Care Planning Consultant Name Role Phone Dav Barillas MD Unavailable Reggie Lazar MD Unavailable [phone] Angie Egan [facility] Primary Care Provider + Alvarez Rivera MD Unavailable Bunny Cruz MD Unavailable Reason for Visit * Reason Comments Medication Refill Encounter Details Date Type Department Care Team (Late st Contact Info) Description 07/09/2021 Refill [facility] Periop [address] [place] [address] Rolf Haider MD [address] [address] Medication Refill Social History Tobacco Use Types [...] Visit [facility] - Family [facility] [address] [place] [address] Angie Egan PAC [address] [place] [address] documented as of this encounter Visit Diagnoses Not on filedocumented in this encounter Additional Health Concerns Infection Onset Date Last Indicated Resolved Time COVID - 19 07/25/2021 07/25/2021 08/14/2021 12:1 6 AM CDT COVID - 19 09/30/2021 09/30/2021 10/20/2021 12:1 6 AM DIRECTOR OF MEDICAL REVIEW COVID - 19 Confirmed 05/24/2022 05/24/2022 022 12:16 AM CDT COVID - 19 03/08/2023 03/08/2023 03/18/2023 12:1 6 AM CDT Assessment Noted Time PHQ-9 Depression Total Score: 0 08/05/20 1:56 PM CDT documented as of this encounter Care Teams Planning Consultant Relationship Specialty Start Date End Date Angie Egan PAC [address] [place] [address] PCP - General Physician Menu Planner 12/07/17 Dav Barillas MD Consulting Physician Nephrology 03/26/17 Reggie Lazar MD Consulting Physician Urology 07/27/17 Alvarez Rivera MD [address] [place] [address] Consulting Physician Pulmonary Disease 07/19/23 Bunny Cruz MD [address] [place] [address] Consulting Physician Medical Oncology 02/25/24 documented as of this encounter
--- OUTSIDE RECORDS SUMMARY | 2025-05-19 14:36 | XMS_ITS | Clinical Summary ---
Author Organization [facility] Address [address] [place] [address] Care Team Providers Care Gear Lapper Name Role Phone Luz Maria Riggins MD Primary Care Provider [phone] Source Comments [facility] [employer],non-owned Affiliates and Associated Physician Practices is amultiple site organization consisting of ambulatory clinics and hospital sitesin [place], [place] and [place]. This disclosure is being madepursuant to the Care Everywhere program and may not contain all information available regarding this patient. Last updated 18.[facility] [employer] Allergies No known active allergies Medications * [...] 02/17/2021, Additional history exists COVID-19 VACCINE ( - season) 2024 12/08/2020 DEPRESSION SCREENING 11/05/2024 DIABETES - URINE PROTEIN SCREENING 11/05/2024 01/08/2019 INFLUENZA VACCINE (#1) 2025 , 08/11/2019, 09/04/2018, Additional history exists HEPATITIS B [...] - 18 mmol/L 02/21/2021 1:[address] [facility] Comment:Attention clinician: Reference Range change. BUN 16 9.8 - 20.1 mg/dL 02/21/2021 1:[address] [facility] Creatinine 1.08 0.57 - 1.11 mg/dL 02/21/2021 1:[address] [facility] eGFR by MDRD 49 mL/min/1.7 3m2 02/21/2021 1:[address] [facility] eGFR by MDRD 60 mL/min/1.7 3m2 02/21/2021 1:[address] [facility] Blood BLOOD SPECIMEN / Unknown Lab Venipuncture / Unknown 02/21/2021 12:57 PM CDT 02/21/2021 1:12 PM CDT Zaheer Kay Felix MD LAB - CHEMISTRY ORDERABLES Felisa ervin Result [facility] [address] [place] [address] from Last 3 Months or Most Recently Relevant to Health Maintenance Insurance [facility] Care Teams Gear Lapper Relationship Specialty Start Date End Date Luz Maria Riggins MD PCP - General 12/29/20
--- OUTSIDE RECORDS SUMMARY | 2025-05-19 14:36 | XMS_ITS | Encounter Summary ---
Author Organization [facility] Address [address] [place] [address] Phone Care Team Providers Care Wound Specialist Name Role Phone Dav Barillas MD Unavailable Reggie Lazar MD Unavailable Angie Egan PAC Primary Care Provider + Alvarez Rivera MD Unavailable Bunny Cruz MD Unavailable [phone] Reason for Visit * Reason Comments Medication Refill Encounter Details Date Type Department Care Team (Late st Contact Info) Description [facility]/06[facility]20[facility] [address] [place] [address] Angie Egan, PAC [address] [place] [address] Medication Refill Social History Tobacco Use Types [...] Description 07/10/2025 1:30 PM CDT Office Visit [facility] [address] [place] [address] Angie Egan PAC [address] [place] [address] documented as of this encounter Visit Diagnoses Not on filedocumented in this encounter Additional Health Concerns Infection Onset Date Last Indicated Resolved Time COVID - 19 07/25/2021 07/25/2021 08/14/2021 12:1 6 AM CDT COVID - 19 09/30/2021 09/30/2021 10/20/2021 12:1 6 AM STRUCTURAL ANALYST COVID - 19 Confirmed 05/24/2022 05/24/2022 022 12:16 AM CDT COVID - 19 03/08/2023 03/08/2023 03/18/2023 12:1 6 AM CDT Assessment Noted Time PHQ-9 Depression Total Score: 0 08/05/20 1:56 PM CDT documented as of this encounter Care Teams Wound Specialist Relationship Specialty Start Date End Date Angie Egan PAC [address] [place] [address] PCP - General Physician Candy Mixer 12/07/17 Dav Barillas MD Consulting Physician Nephrology 03/26/17 Reggie Lazar MD Consulting Physician Urology 07/27/17 Alvarez Rivera MD [address] [place] [address] Consulting Physician Pulmonary Disease 07/19/23 Bunny Cruz MD [address] [place] [address] Consulting Physician Medical Oncology 02/25/24 documented as of this encounter
--- OUTSIDE RECORDS SUMMARY | 2025-05-19 14:36 | XMS_ITS | Encounter Summary ---
Author Organization [facility] Address [address] [facility] [place] [address] Phone Care Team Providers Care Basketball Commentator Name Role Phone Dav Barillas MD Unavailable Reggie Lazar MD Unavailable [phone] Angie Egan PAC Primary Care Provider + Alvarez Rivera MD Unavailable Bunny Cruz MD Unavailable Reason for Visit * Reason Comments Medication Refill Encounter Details Date Type Department Care Team (Late st Contact Info) Description 02/18/2023 Refill [facility] - Family Medicine [facility] [address] [place] [address] Angie Egan, [facility] [address] [place] [address] Medication Refill Social History Tobacco Use Types [...] CDT Office Visit [facility] [address] [place] [address] Angie Egan PAC [address] [place] [address] documented as of this encounter Visit Diagnoses Diagnosis Rheumatoid arthritis involving both hands, unspecified whether rheumatoid factor present (HCC) documented in this encounter Additional Health Concerns Infection Onset Date Last Indicated Resolved Time COVID - 19 03/08/2023 03/08/2023 03/18/2023 12:1 6 AM CDT Assessment Noted Time PHQ-9 Depression Total Score: 0 07/25/20 22 9:00 AM CDT documented as of this encounter Care Teams Basketball Commentator Relationship Specialty Start Date End Date Angie Egan PAC [address] [place] [address] PCP - General Physician Roast Master 12/07/17 Dav Barillas MD Consulting Physician Nephrology 03/26/17 Reggie Lazar MD Consulting Physician Urology 07/27/17 Alvarez Rivera MD [address] [place] [address] Consulting Physician Pulmonary Disease 07/19/23 Bunny Cruz MD [address] [place] [address] Consulting Physician Medical Oncology 02/25/24 documented as of this encounter
--- OUTSIDE RECORDS SUMMARY | 2025-05-19 14:36 | XMS_ITS | Encounter Summary ---
Author Organization [facility] Address [address] [place] [address] Phone Care Team Providers Care Smash Fixer Name Role Phone Dav Barillas MD Unavailable [phone] Reggie Lazar MD Unavailable [phone] Angie Egan [facility] Primary Care Provider + Alvarez Rivera MD Unavailable Bunny Cruz MD Unavailable [phone] Reason for Visit * Reason Onset Date Comments Home Health Admission 12/05/2023 Encounter Details Date Type Department Care Team (Late st Contact Info) Description 12/05/2023 Telephone [facility] [address] [place] [address] Cassie Ramirez, PT [place] Home Health Admission Social History Tobacco Use Types Packs/Day Years Used Date Smoking Tobacco: Some Days Cigarettes 0.5 70 Started: 05/25/1955 Smokeless Tobacco: Never Alcohol Use Standard Drinks/Week Comments No 0 (1 standard drink = 0.6 oz pur e alcohol) [facility] Utilities Answer Date Recorded In the past 12 months has [employer], gas, oil, or water company threatened to shut off services in your home? No 12/03/2023 Social Connection and Isolation Panel Answer Date Recorded In a typical week, how many times do you talk on the phone with family, friends, or neighbors? More than three times a week 12/03/2023 Frequency of Social Gatherin gs with Friends and Family Not on file 12/03/2023 Attends Buddhist Services Not on file 12/03 Active Member [...] Score - Questions 1-9 0 09/0 03/2023 [facility] - [...] place to sleep or slept in a group home (including now)? No 12/03/2023 Education Answer [...] orders for PT/OT? Please advise, thank you LLOGRAPHY TEACHER documented in this encounter Plan of Treatment Upcoming Encounters Date Type Department Care Team (Late st Contact Info) Description 07/10/2025 1:30 PM CDT Office Visit [facility] - Family Medicine [facility] [address] [place] [address] Angie Egan PAC [address] [place] [address] documented as of this encounter Visit Diagnoses Not on filedocumented in this encounter Additional Health Concerns Assessment Noted Time PHQ-9 Depression Total Score: 0 07/10/20 23 10:27 AM CDT documented as of this encounter Care Teams Smash Fixer Relationship Specialty Start Date End Date Angie Egan PAC [address] [place] [address] PCP - General Physician Stope Miner 2/2/18 Dav Barillas MD Consulting Physician Nephrology 03/26/17 Reggie Lzaar MD Consulting Physician Urology 07/27/17 Alvarez Rivera MD [address] [place] [address] Consulting Physician Pulmonary Disease 07/19/23 Bunny Cruz MD [address] [place] [address] Consulting Physician Medical Oncology 02/25/24 documented as of this encounter
--- OUTSIDE RECORDS SUMMARY | 2025-05-19 14:36 | XMS_ITS | Encounter Summary ---
Author Organization [facility] Address [address] [place] [address] Phone Care Team Providers Care Licensed Clinical Psychologist Name Role Phone Dav Barillas MD Unavailable Reggie Lazar MD Unavailable [phone] Angie Egan Primary Care Provider + Alvarez Rivera MD Unavailable Bunny Cruz MD Unavailable Reason for Visit * Reason Comments Medication Refill Encounter Details Date Type Department Care Team (Late st Contact Info) Description 04/09/2023 Refill [facility] - Family Medicine [facility] [address] [place] [address] Angie Egan, BLAYNE [address] [place] [address] Medication Refill Social History Tobacco Use Types [...] Visit [facility] - Family Medicine [facility] [address] [place] [address] Angie Egan PAC [address] [place] [address] documented as of this encounter Visit Diagnoses Not on filedocumented in this encounter Additional Health Concerns Assessment Noted Time PHQ-9 Depression Total Score: 0 07/25/20 22 9:00 AM CDT documented as of this encounter Care Teams Licensed Clinical Psychologist Relationship Specialty Start Date End Date Angie Egan PAC [address] [place] [address] PCP - General Physician Soft Drink Powder Mixer 12/07/17 Dav Barillas MD Consulting Physician Nephrology 03/26/17 Reggie Lazar MD Consulting Physician Urology 07/27/17 Alvarez Rivera MD [address] [place] [address] Consulting Physician Pulmonary Disease 07/19/23 Bunny Cruz MD [address] [place] [address] Consulting Physician Medical Oncology 02/25/24 documented as of this encounter
--- OUTSIDE RECORDS SUMMARY | 2025-05-19 14:36 | XMS_ITS | Encounter Summary ---
Author Organization [facility] Address [address] [facility] [place] [address] Care Team Providers Care Hardware Installer Name Role Phone Luz Maria Riggins MD Primary Care Provider [phone] Encounter Details Date Type Department Care Team (Late st Contact Info) Description 02/15/2024 Lab Requisition [facility] - Pathology Lab [address] [place] [address] Emanuel De Oliveira MD [facility] [address] [address] Illness, unspecified Social History Tobacco [...] Report Bone Marrow Patholog y Report Case: [id number] Authorizing Provider: Emanuel De Oliveira MD Collected: 02/14/2024 08:14 AM Ordering Location: [facility] - Received: 02/15/2024 02:55 PM Pathology Lab Pathologist: Sydney Penn MD Specimens: A) - Bone Marrow Core B) - Bone Marrow Clot 02/18/2024 9:30 AM CDT [facility] Final Diagnosis Bone marrow, aspirate, clot section, and core biopsy: - Hypercellular marrow with maturing trilineage hematopoiesis - No evidence of lymphoma, high-grade myeloid neoplasm, or plasma cell dyscrasia - See description Peripheral blood smear: - Macrocytic anemia - See description 02/18/2024 9:30 AM CDT [facility] at 0930 CDT AP Comment Overall, the bone marrow specimen is hypercellular for age with maturing trilineage hematopoiesis and no evidence of lymphoma, a high-grade myeloid neoplasm, significant dyspoiesis, or plasma cell dyscrasia. Correlation with clinical findings and relevant cytogenetic/molecular testing is required. 02/18/2024 9:30 AM [facility] Peripheral Smear Description CBC Data: WBC - 7.36, Hgb - 11.3, MCV - 96.5, MCHC - 33.8, and Platelets - 224. Manual Differential Count (100 cells): 40% neutrophils, 48% lymphocytes, and 12% monocytes. Leukocyte number: normal. Granulocyte morphology: normal. Lymphocyte morphology: normal. Erythrocyte number: decreased. Erythrocyte morphology: macrocytic. Anisopoikilocytosis: mild. Polychromasia: mild. Platelet number: normal. Platelet morphology: normal. 02/18/2024 9:30 AM [facility] Bone Marrow Aspirate Differential count [...] Control is appropriately reactive. 02/18/2024 9:30 AM [facility] Bone Marrow Core Biopsy and [...] less than 5% of the marrow cellularity. [place] and lambda show a mix of expression with no demonstrable monoclonality. 02/18/2024 9:30 AM [facility] Flow Cytometry Summary Concurrent flow cytometry ([id number]) shows no evidence of a monoclonal B-cell population, high-grade myeloid neoplasm, or plasma cell dyscrasia. 02/18/2024 9:30 AM [facility] Clinical History 78 year old woman with anemia, exclude MDS. 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 02/18/2024 9:30 AM [facility] Materials Received Received are 20 slides and 2 blocks labeled [id number] along with a copy of the outside pathology report. The materials originate from [facility], [address] [address]. All original materials are returned to the referring institution, along with a copy of our final report. 02/18/2024 9:30 AM [facility] Pathologist Location at [facility] 02/18/2024 9:30 AM [facility] Disclaimer The performance characteristics of all immunohistochemical and indirect immunofluorescence stains (if any) cited in this report were determined by the Histopathology Laboratory of [facility]. Some of these tests were developed [...] the attending (teaching) pathologist. 02/18/2024 9:30 AM [facility] Embedded Images 02/18/2024 9:30 AM [facility] Pathology/Cytology BONE MARROW CLOT SPECIMEN / Unknown 02/14/2024 8:14 AM CDT 02/15/2024 2:55 PM CDT Miscellaneous samples (specimen) BONE MARROW CLOT SPECIMEN / Unknown 02/14/2024 8:14 AM CDT 02/15/2024 2:55 PM CDT us Emanuel De Oliveira MD LAB - PATHOLOGY/CYTOLOGY ORDERAB LES Final Result [facility] [address] [phone] documented in this encounter Visit Diagnoses Diagnosis Illness, unspecified documented in this encounter Care Teams Hardware Installer Relationship Specialty Start Date End Date Luz Maria Riggins MD PCP - General 12/29/20 documented as of this encounter
--- OUTSIDE RECORDS SUMMARY | 2025-05-19 14:36 | XMS_ITS | Encounter Summary ---
Author Organization [facility] Address [address] [place] [address] Phone Care Team Providers Care Camelid Fiber Sorter Name Role Phone Dav Barillas MD Unavailable [phone] Reggie Lazar MD Unavailable [phone] Angie Egan Primary Care Provider + Alvarez Rivera MD Unavailable Bunny Cruz MD Unavailable Reason for Visit * Reason Comments Medication Refill Encounter Details Date Type Department Care Team (Late st Contact Info) Description 08/24/2023 Refill [facility] Medical [facility] - Family Medicine [facility] [address] [place] [address] Angie Egan, BLAYNE [address] [place] [address] Medication Refill Social History Tobacco Use Types [...] Angie Egan, BLAYNE Graves 07/10/23 Office Visit Angie Egan PAC [facility] 04/06/23 [facility] Show[facility] recent visits within past 182 days and meeting all other requirements Future Appointments Date Type Provider Dept 10/10/23 Appointment Angie Egan PAC [facility] Showing future appointments within next 90 days and meeting all other requirements Passed - GFR on record in past 6 months GFR, EST. NONAFRICAN Date Value Ref Range Status 07/10/2023 45 (L) >=60 Final documented in this encounter Plan of Treatment Upcoming Encounters Date Type Department Care Team (Late st Contact Info) Description 07/10/2025 1:30 PM CDT Office Visit [facility] Medical Group - Family [facility] [address] [place] [address] Angie Egan PAC [address] [place] [address] documented as of this encounter Visit Diagnoses Diagnosis Type 2 diabetes mellitus with diabetic neuropathy, without long-term current use of insulin (HCC) documented in this encounter Additional Health Concerns Assessment Noted Time PHQ-9 Depression Total Score: 0 07/10/20 10:27 AM CDT documented as of this encounter Care Teams Camelid Fiber Sorter Relationship Specialty Start Date End Date Angie Egan PAC [address] [place] [address] PCP - General Physician Training Associate 12/07/17 Dav Barillas MD Consulting Physician Nephrology 03/26/17 Reggie Lazar MD Consulting Physician Urology 07/27/17 Alvarez Rivera MD [address] [place] [address] Consulting Physician Pulmonary Disease 07/19/23 Bunny Cruz MD [address] [place] [address] Consulting Physician Medical Oncology 02/25/24 documented as of this encounter
--- OUTSIDE RECORDS SUMMARY | 2025-05-19 14:37 | XMS_ITS | Encounter Summary ---
Author Organization [facility] Address [address] [facility] [place] [address] Phone Care Team Providers Care Tie Binder Name Role Phone Dav Barillas MD Unavailable [phone] Reggie Lazar MD Unavailable [phone] Angie Egan Primary Care Provider + Alvarez Rivera MD Unavailable Bunny Cruz MD Unavailable Reason for Visit * Reason Comments Medication Refill Encounter Details Date Type Department Care Team (Late st Contact Info) Description 03/11/2025 Refill [facility] Medical Group - Family Medicine [facility] [address] [place] [address] Angie Egan, BLAYNE [address] [place] [address] Medication Refill Social History Tobacco Use Types Packs/Day Years Used Date Smoking Tobacco: Some Days Cigarettes 0.5 70 Started: 05/25/1955 Smokeless Tobacco: Never Alcohol Use Standard Drinks/Week Comments No 0 (1 standard drink = 0.6 oz pur e alcohol) [facility] Utilities Answer Date Recorded In the past 12 months has [employer] electric, gas, oil, or water company threatened [...] often do you attend chur ch or zoroastrianism services? Never 04/08/2024 Do you belong to any clubs o r organizations such as yarsanism groups, unions, fraternal or athletic groups, or [...] Total Score - Questions 1-9 0 02/2025 [facility] - Occupational Stress [...] place to sleep or slept in a long term (including now)? No 04/08/2024 Education Answer Date [...] Group - Family Medicine - [facility] [address] [place] [address] Angie Egan, BLAYNE [address] [place] [address] documented as of this encounter Visit Diagnoses Diagnosis Neuropathy Mononeuritis of unspecified site documented in this encounter Additional Health Concerns Assessment Noted Time PHQ-9 Depression Total Score: 0 12/09/19 25 10:37 AM COMPUTER SYSTEMS SECURITY ANALYST documented as of this encounter Care Teams Tie Binder Relationship Specialty Start Date End Date Angie Egan PAC [address] [place] [address] PCP - General Physician Painter Mirror 12/07/17 Dav Barillas MD Consulting Physician Nephrology 03/26/17 Reggie Lazar MD Consulting Physician Urology 07/27/17 Alvarez Rivera MD [address] [place] [id number] Consulting Physician Pulmonary Disease 07/19/23 Bunny Cruz MD [address] [place] [address] Consulting Physician Medical Oncology 02/25/24 documented as of this encounter
--- OUTSIDE RECORDS SUMMARY | 2025-05-19 14:37 | XMS_ITS | Encounter Summary ---
Author Organization [facility] Address [address] [facility] [place] [address] Phone Care Team Providers Care Finisher Hand Name Role Phone Dav Barillas MD Unavailable [phone] Reggie Lazar MD Unavailable [phone] Angie Egan Primary Care Provider + Alvarez Rivera MD Unavailable Bunny Cruz MD Unavailable [phone] Reason for Visit * Reason Comments Medication Refill Encounter Details Date Type Department Care Team (Late st Contact Info) Description 02/17/2025 Refill [facility] Medical Group - Family Medicine [facility] [address] [place] [address] Angie Egan, BLAYNE [address] [place] [address] Medication Refill Social History Tobacco Use Types Packs/Day Years Used Date Smoking Tobacco: Some Days Cigarettes 0.5 70 Started: 05/25/1955 Smokeless Tobacco: Never Alcohol Use Standard Drinks/Week Comments No 0 (1 standard drink = 0.6 oz pur e alcohol) [facility] Utilities Answer Date Recorded In the past 12 months has [employer] electric, gas, oil, or water company [...] often do you attend chur ch or sabianism services? Never 04/08/2024 Do you belong to any clubs o r organizations such as latter day groups, unions, fraternal or athletic groups, or [...] Total Score - Questions 1-9 0 02/2025 [facility] - Occupational Stress [...] place to sleep or slept in a senior living (including now)? 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
--- OUTSIDE RECORDS SUMMARY | 2025-05-19 14:37 | XMS_ITS | Encounter Summary ---
Author Organization [facility] Address [address] [facility] [place] [address] Phone Care Team Providers Care Talent Acquisition Specialist Name Role Phone Dav Barillas MD Unavailable Reggie Lazar MD Unavailable [phone] Angie Egan Primary Care Provider + Alvarez Rivera MD Unavailable Bunny Cruz MD Unavailable [phone] Reason for Visit * Reason Comments Medication Refill Encounter Details Date Type Department Care Team (Late st Contact Info) Description 05/12/2025 Refill [facility] Medical Group - Family Medicine [facility] [address] [place] [address] Angie Egan, BLAYNE [address] [place] [address] Medication Refill Social History Tobacco Use Types Packs/Day Years Used Date Smoking Tobacco: Some Days Cigarettes 0.5 70 Started: 05/25/1955 Smokeless Tobacco: Never Alcohol Use Standard Drinks/Week Comments No 0 (1 standard drink = 0.6 oz pur e alcohol) [facility] Utilities Answer Date Recorded In the past 12 months has [employer] electric, gas, oil, or water company threatened [...] often do you attend chur ch or hindu services? Never 04/08/2024 Do you belong to any clubs o r organizations such as pentecostal groups, unions, fraternal or athletic groups, or [...] Total Score - Questions 1-9 0 03/06 [facility] - Occupational Stress Questionnaire Answer [...] [place] [facility] (including now)? No 04/08/2024 Education Answer Date [...] Telephone Encounter - Sofía Joe RN - 05/13/2025 10:53 AM CDT Rx was discontinued by provider due to cost, 04/22/25. documented in this encounter Plan of Treatment Upcoming Encounters Date Type Department Care Team (Late st Contact Info) Description 07/10/2025 1:30 PM CDT Office Visit [facility] - [facility] [address] [place] [address] Angie Egan, PAC [address] [place] [address] documented as of this encounter Visit Diagnoses Not on filedocumented in this encounter Additional Health Concerns Assessment Noted Time PHQ-9 Depression Total Score: 0 03/24/20 25 10:49 AM CDT documented as of this encounter Care Teams Talent Acquisition Specialist Relationship Specialty Start Date End Date Angie Egan PAC [address] [place] [address] PCP - General Physician Location Analyst 12/07/17 Dav Barillas MD Consulting Physician Nephrology 03/26/17 Reggie Lazar MD Consulting Physician Urology 07/27/17 Alvarez Rivera MD [address] [place] [id number] Consulting Physician Pulmonary Disease 07/19/23 Bunny Cruz MD [address] [place] [address] Consulting Physician Medical Oncology 02/25/24 documented as of this encounter
--- OUTSIDE RECORDS SUMMARY | 2025-05-19 14:37 | XMS_ITS | Encounter Summary ---
Author Organization [facility] Address [address] [facility] [place] [address] Phone Care Team Providers Care Supervisor Partial Denture Department Name Role Phone Dav Barillas MD Unavailable Reggie Lazar MD Unavailable [phone] Angie Egan Primary Care Provider + Alvarez Rivera MD Unavailable Bunny Cruz MD Unavailable Reason for Visit * Reason Comments Medication Refill Encounter Details Date Type Department Care Team (Late st Contact Info) Description 01/16/2024 Refill [facility] Medical Group - Family Medicine [facility] [address] [place] [address] Angie Egan, BLAYNE [address] [place] [address] Medication Refill Social History Tobacco Use Types Packs/Day Years Used Date Smoking Tobacco: Some Days Cigarettes 0.5 70 Started: 05/25/1955 Smokeless Tobacco: Never Alcohol Use Standard Drinks/Week Comments No 0 (1 standard drink = 0.6 oz pur e alcohol) [facility] Utilities Answer Date Recorded In the past 12 months has [employer] electric, gas, oil, or water company threatened to shut off services in your home? No 12/03/2023 Social Connection and Isolation Panel Answer Date Recorded In a typical week, how many times do you talk on the phone with family, friends, or neighbors? More than three times a week 12/03/2023 Frequency of Social Gatherin gs with Friends and Family Not on file 12/03/2023 Attends Sabianist Services Not on file 12/03 Active Member [...] Recorded Total Score - Questions 1-9 0 /0 02/2024 [facility] - [...] in a senior living (including now)? No 12/03/2023 Education Answer Date [...] AM CDT Med[facility]) [facility] Ref[facility] Standing Order for Pediatricand [...] [facility] 12/03/23 Office Visit Ira Jack APRN, RECEIVABLE EXECUTIVE [facility] 10/10/23 Office Visit Angie Egan, PAC [facility] 07/19/23 Office Visit Angie Egan, PAC [facility] 07/10/23 Office Visit Christal Egana MarieBLAYNE [facility] 04/06/23 Office Visit Viviennemarshadalila Angie Jacobsen PAC [facility] 02/23/23 Office Visit Viviennemarshadalila Angie JacobsenBLAYNE [facility] Showing recent visits within past 365 days and meeting all other requirements Future Appointments Date Type Provider Dept 02/12/24 Appointment JosedalilaAngie PAC [facility] 04/10/24 Appointment Angie Egan MariBLAYNE montes [facility] Showing future appointments within next 90 days [...] Family Medicine [facility] [address] [place] [address] Julisa Moni, PAC [address] [place] [address] documented as of this encounter Visit Diagnoses Not on filedocumented in this encounter Additional Health Concerns Assessment Noted Time PHQ-9 Depression Total Score: 0 01/07/20 10:02 AM PRIMING POWDER PREMIX BLENDER documented as of this encounter Care Teams Supervisor Partial Denture Department Relationship Specialty Start Date End Date Angie Egan PAC [address] [place] [address] PCP - General Physician Director Of Psychology 12/07/17 Dav Barillas MD Consulting Physician Nephrology 03/26/17 Reggie Lazar MD Consulting Physician Urology 07/27/17 Alvarez Rivera MD [address] [place] [address] Consulting Physician Pulmonary Disease 07/19/23 Bunny Cruz MD [address] [place] [address] Consulting Physician Medical Oncology 02/25/24 documented as of this encounter
--- OUTSIDE RECORDS SUMMARY | 2025-05-19 14:37 | XMS_ITS | Clinical Summary ---
Author Organization [facility] Address [address] [address] Phone Care Team Providers Care Brass Buffer Name Role Phone Dav Barillas MD Unavailable [phone] Reggie Lazar MD Unavailable [phone] Angie Egan [facility] Primary Care Provider + Alvarez Rivera MD Unavailable Bunny Cruz MD Unavailable [phone] Allergies No known active allergies Medications Misc. Devices MiscIndications:Ty pe 2 diabetes mellitus with diabetic neuropathy, without long-term current use of insulin (HCC) Supply and instructions: 1 Each 01/18/20 21 Active Blood Glucose Monitoring Suppl (OneTouch Verio Flex System) w/Device Kit Use to check blood glucose daily 1 Kit 08/13/20 22 Active hydroxychloroquine (PLAQUENIL) 200 MG Tablet Take 200 mg by mouth in the morning and at bedtime. [id number] 07/03/20 23 Active fluticasone-salmet sapphire (Advair Diskus) 250-50 MCG/ACT AEROSOL POWDER, BREATH ACTIVATEDIndicatio ns:Pulmonary emphysema, unspecified emphysema type (HCC) take 1 Puff by inhalation 2 times daily. 60 Each 3 07/26/20 23 Active OXYGEN CONCENTRATOR 2 L/ minute via nasal cannula continuously. Titrate O2 liter flow via pulse oximetry to achieve SpO2 of greater than 90% at rest and during activities of daily living. 07/29/20 Active OXYGEN TANK PORTABLE 2 L/ minute via nasal cannula continuously. Titrate O2 liter flow via pulse oximetry to achieve SpO2 of greater than 90% at rest and during activities of daily living. Use portable tank when concentrator not available. 07/29/20 Active loratadine (CLARITIN) 10 MG Tablet Take 10 mg by mouth Daily as needed for Allergies. Active atenolol (TENORMIN) 25 MG Tablet TAKE 1 TABLET BY MOUTH DAILY. 30 Tablet 05/09/20 Active Trulicity 3 MG/0.5ML Solution Pen-injector injectionIndicatio ns:Type 2 diabetes mellitus with diabetic neuropathy, without long-term current use of insulin ([facility]) ADMINISTER 3 MG UNDER THE SKIN 1 TIME A WEEK 6 mL 1 06/30/20 24 Active OneTouch Ultra Test StripIndications:T ype 2 diabetes mellitus with diabetic neuropathy, without long-term current use of insulin ([facility]) USE TO CHECK BLOOD GLUCOSE DAILY 50 Each 5 08/05/20 24 Active Easy Touch Lancets 33G/Twist MiscIndications:Ty pe 2 diabetes mellitus with diabetic neuropathy, without long-term current use of insulin ([facility]) USE TO CHECK BLOOD GLUCOSE DAILY 100 Each 3 08/15/20 24 Active Glucose Blood (Glucose Meter Test) StripIndications:T ype 2 diabetes mellitus with diabetic neuropathy, without long-term current use of insulin ([facility]) Test once daily 90 Strip 3 09/01/20 24 Active cycloSPORINE (Restasis) 0.05 % EmulsionIndication s:Dry Eye Syndrome Place 1 Drop in both eyes 2 times daily. Indications: Drying and Inflammation of Cornea and Conjunctiva of Eyes 60 Each 4 09/03/20 24 Active albuterol 108 (90 Base) MCG/ACT Aerosol SolutionIndication s:COPD without exacerbation ([facility]) INHALE 2 PUFFS BY MOUTH EVERY 4 HOURS NEEDED FOR WHEEZING OR COUGH 8.5 g 10 10/15/20 24 Active pregabalin (LYRICA) 150 MG CapsuleIndications :Neuropathy TAKE 1 CAPSULE BY MOUTH THREE TIMES DAILY 90 Capsule 3 11/14/19 25 Active traZODone (DESYREL) 150 MG Tablet TAKE 1 TABLET BY MOUTH EVERY NIGHT 90 Tablet 1 01/01/20 25 Active atorvastatin (LIPITOR) 40 MG TabletIndications: Mixed hyperlipidemia TAKE 1 TABLET BY MOUTH DAILY 30 Tablet 8 01/14/20 25 Active Respiratory Therapy Supplies (Nebulizer/Tubing/ Mouthpiece) KitIndications:Chr onic obstructive pulmonary disease, unspecified COPD type (HCC) 1 Device by Does not apply route every 4 hours as needed (cough, wheezing, or shortness of breath). 1 Each 03/24/20 25 Active pantoprazole (PROTONIX) 40 MG Tablet Delayed Response TAKE 1 TABLET BY MOUTH DAILY 30 Tablet 11 04/12/20 25 Active Dulaglutide (Trulicity) 3 MG/0.5ML Solution Auto-injector 3 mg by Subcutaneous route once a week. 2 mL 04/21/20 25 Active HYDROcodone-acetam inophen (NORCO) 5-325 MG TabletIndications: Chronic bilateral thoracic back pain,Spinal stenosis of lumbar region, unspecified whether neurogenic claudication present Take 2 Tablets by mouth every 8 hours as needed for Moderate or more severe pain. 180 Tablet 04/21/20 25 Active lactulose (CHRONULAC) 10 GM/15ML Solution Take 30 mL by mouth 4 times daily. 473 mL 3 04/22/20 25 Active Multiple Vitamin (MULTIVITAMIN PO) Take 1 Tablet by mouth daily. Flinstones 025 Discontin ued(Med List Clean Up) potassium chloride CR (KLORCON) 10 MEQ Tablet Controlled ReleaseIndications :Bilateral leg edema Take 1 Tablet by mouth daily as needed (take potassium if takes furosemide). 30 Tablet 2 07/10/20 23 025 Discontin ued(Med List Clean Up) Cholecalciferol 50 mcg Tablet Take 50 mcg by mouth daily. 025 Discontin ued(Med List Clean Up) [place]-3 Fatty Acids (FISH OIL PO) Take by mouth. 025 Discontin ued(Med List Clean Up) ipratropium (ATROVENT) 0.02 % Solution INHALE 1.25ML VIA NEBULIZER EVERY 6 HOURS 300 mL 10 09/29/20 24 025 Discontin ued(Avail ability) furosemide (LASIX) 40 MG Tablet TAKE 1 TABLET BY MOUTH DAILY NEEDED FOR SWELLING IN LEGS 30 Tablet 10 10/15/20 24 025 Discontin ued(Med List Clean Up) Azelastine HCl 137 MCG/SPRAY Solution INSTILL TWO (2) SPRAYS IN EACH NOSTRIL TWICE DAILY DIRECTED 30 mL 10 10/15/20 24 025 Discontin ued(Avail ability) triamcinolone (KENALOG) 0.1 % CreamIndications:D ermatitis Application Site: apply to hand as needed 45 g 12/09/19 25 025 Discontin ued(Med List Clean Up) allopurinol (ZYLOPRIM) 100 MG Tablet TAKE 1 TABLET BY MOUTH DAILY 90 Tablet 3 12/15/19 25 025 Discontin ued(Med List Clean Up) tiZANidine (ZANAFLEX) 4 MG TabletIndications: Spinal stenosis of lumbar region, unspecified whether neurogenic claudication present,Chronic bilateral thoracic back pain TAKE 1 TABLET BY MOUTH EVERY 6 HOURS NEEDED FOR MUSCLE SPASMS 60 Tablet 11 02/13/20 25 025 Discontin ued(Med List Clean Up) HYDROcodone-acetam inophen (NORCO) 5-325 MG TabletIndications: Chronic bilateral thoracic back pain,Spinal stenosis of lumbar region, unspecified whether neurogenic claudication present Take 2 Tablets by mouth every 8 hours as needed for Moderate or more severe pain. 180 Tablet 03/17/20 25 025 Discontin ued(Reord er) Dulaglutide (Trulicity) 3 MG/0.5ML Solution Auto-injector 3 mg by Subcutaneous route once a week. 2 mL 03/12/20 25 025 Discontin ued(Reord er) magnesium oxide (MAG-OX) 400 MG TabletIndications: Low magnesium level TAKE 1 TABLET BY MOUTH DAILY 30 Tablet 5 03/13/20 25 025 Discontin ued(Cost of medicatio n) hydrOXYzine (ATARAX) 25 MG Tablet Take 1 Tablet by mouth every 6 hours as needed for Itching. 30 Tablet 04/09/20 25 025 Discontin ued(Error ) prochlorperazine (COMPAZINE) 5 MG Tablet Take 1-2 Tablets by mouth every 6 hours as needed for Nausea - 1st line. 20 Tablet 04/16/20 25 025 Discontin ued(Error ) Active Problems Problem Noted Date Diagnosed Date [...] Encounters Date Type Department Care Team Description 05/18/2025 Telephone [facility] [address] [place] [address] Angie Egan, PAC Medication Management [facility] [place] [address] Angie Egan, PAC Medication Refill 05/14/2025 [facility] [place] [address] Angie Egan, PAC Medication Refill 05/12/2025 [facility] [place] [address] Angie Egan, PAC Medication Refill 05/06/2025 [facility] [address] [place] [address] Angie Egan, PAC Referral 04/22/2025 9:15 AM CDT Office Visit [facility] [address] [place] [address] Raji Lynn MD Chronic renal impairment, unspecified CKD stage (Primary Dx); Hypertension, essential; Neuropathy Discharge Disposition: Discharged to home or Selfcare 04/22/2025 Travel 04/20/2025 Refill [facility] [address] [place] [address] Angie Egan, BLAYNE Medication Refill 04/16/2025 12:53 PM CDT - 04/16/2025 6:22 PM CDT [facility] [address] [place] [address] Boyd Keene MD Nausea Discharge Disposition: Discharged to home or Selfcare 04/16/2025 Travel 04/16/2025 Results Follow-Up [facility] [address] [place] [address] Angie Egan, BLAYNE BASIC METABOLIC PANEL W/ CALCIUM TOTAL 04/15/2025 Travel 04/10/2025 [facility] [place] [address] Angie Egan, BLAYNE Medication Refill 04/09/2025 Nurse Triage [facility] [address] [place] [phone] Angie Egan, BLAYNE Neck Pain 03/26/2025 Telephone [facility] [address] [place] [phone] Angie Egan, PAC Follow-up 03/25/2025 Documentation Only [facility] [address] [place] [address] Angie Egan, PAC 03/24/2025 11:50 AM CDT Lab [facility] [address] [facility] [address] [place] [address] [facility] Anemia, unspecified type; Low magnesium level; High risk medication use; Type 2 diabetes mellitus with diabetic neuropathy, without long-term current use of insulin ([facility]) Discharge Disposition: Discharged to home or Selfcare 03/24/2025 10:30 AM CDT Office Visit [facility] [address] [place] [address] Angie Egan, PAC Spinal stenosis of lumbar region, unspecified whether neurogenic claudication present (Primary Dx); Left foot drop; Chronic obstructive pulmonary disease, unspecified COPD type (HCC); Anemia, unspecified type; Low magnesium level; High risk medication use; Type 2 diabetes mellitus with diabetic neuropathy, without long-term current use of insulin ([facility]) Discharge Disposition: Discharged to home or Selfcare 03/24/2025 Results Follow-Up [facility] [address] [place] [address] Angie Egan, PAC CMP (COMPREHENSIVE METABOLIC PANEL), MAGNESIUM (MG), FERRITIN, Additional followed-up results: 6 03/24/2025 Travel 03/13/2025 Refill [facility] [address] [place] [address] Angie Egan, PAC Medication Refill 03/12/2025 Refill [facility] [address] [place] [address] Angie Egan, PAC Medication Refill 03/11/2025 Refill [facility] [address] [facility] [place] [address] Angie Egan, PAC Medication Refill 02/17/2025 Refill [facility] [address] [facility] [place] [address] Angie Egan, PAC Medication Refill from Last [...] 4 Elzie Other-comment Brother 4 Elzie 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 Never 04/08/2024 Do you belong to any clubs o r organizations such as methodist groups, unions, fraternal or athletic groups, or [...] Total Score - Questions 1-9 0 03/06 [facility] of Occupat ional Health - Occupational Stress [...] place to sleep or slept in a residential (including now)? No 04/08/2024 Education Answer Date [...] Sign Reading Time Taken Comments Blood Pressure 112/64 04/22/2025 9:09 AM CDT Pulse 79 04/22/2025 9:09 AM CDT Temperature 36.2 C (97.2 F) 04/22/2025 9:09 AM CDT Respiratory Rate 16 04/22/2025 9:09 AM CDT Oxygen Saturation 96% 04/22/2025 9:09 AM CDT Inhaled Oxygen Concentration - - Weight 58.2 kg (128 lb 4.8 oz) 04/22/2025 9:09 A M CDT Height 157.5 cm (5' 2) 04/22/2025 9:09 AM CDT Body Mass Index 23.47 04/22/2025 9:09 AM CDT Plan of Treatment Upcoming Encounters Date Type Department Care Team (Late st Contact Info) Description 07/10/2025 1:30 PM CDT Office Visit [facility] [place] [address] [place] [address] Angie Egan, PAC [address] [place] [address] Health Maintenance Due Date Last Done Comments Diabetes: Foot Exam 1945 Zoster Immunization (1 of 2) 1964 Respiratory Syncytial Virus (RSV) Immunization (Adult) (1 - 1-dose 75+ series) 2020 SARS-COV-2 Immunization (2 - Moderna risk series) 01/05/2021 12/08/2020 DEXA Bone Density 06/19/2024 06/19/2022 Lung Cancer Screening 07/26/2024 07/26/2023 , 03/23/2023, 11/29/2021, Additional history exists Diabetes: Eye Exam 12/19/2024 12/19/2023, 0 02/28/2021, 04/10/2018 Influenza Immunization (#1) 07/06/202508/07, 10/10/2023, 07/25/2022, Additional history exists Diabetes: Hemoglobin A1c 09/24/2025 025, 09/05/2024, 07/04/2024, Additional history exists Diabetes: Nephropathy Screening 04/16/2026 04/16/2025, 03/24/2025, 12/09/2024, Additional history exists Td Immunization Every 10 Years (Adults With 1 Tdap) 04/11/2029 04/11/2019 Pneumococcal Immunization (50+ years) Completed 07/27/2017, 07/27/2017, 04/09/2016, Additional history exists Pneumococcal Immunization Combined Discontinued 07/27/2017, 07/27/2017, 04/09/2016, Additional history exists Mammogram Discontinued 06/25/2020 Colonoscopy Discontinued 06/09/2021, 06/09/2021 Hepatitis C Virus (HCV) Screening Completed 07/10/2023 Cologuard Discontinued 10/28/2024, 12/14/2020 Colorectal Cancer Screening Discontinued Immunochemical Fecal Occult Blood Discontinued 04/16/2025 Hepatitis B Immunization Aged Out No longer eligible based on patient's age to complete this topic Human Papillomavirus (HPV) Immunization Aged Out No longer eligible based on patient's age to complete this topic Meningococcal Immunization (ACWY) Aged Out No longer eligible based on patient's age to complete this topic Rotavirus Immunization Aged Out No lo nger eligible based on patient's age to complete this topic Procedures Procedure Name Priority Date/Time Associated Diagnosis Comments STOOL, OCCULT BLOOD, DIAGNOSTIC, VIA GUAIAC STAT 04/16/2025 5:[address] ABDOMEN PELVIS W/ CONTRAST Stat with Interpretation 04/16/2025 4:34 PM CDT URINALYSIS REFLEX IF INDICATED BY ABNORMAL RESULTS STAT 04/16/2025 4:22 PM CDT CBC WITH AUTO DIFFERENTIAL STAT 04/16/2025 3:57 PM CDT COMPLETE BLOOD COUNT (CBC) WITH DIFF STAT 04/16/2025 3:57 PM CDT LACTIC ACID (LACTATE) STAT 04/16/2025 3:25 PM CDT CMP (COMPREHENSIVE METABOLIC PANEL) STAT 04/16/2025 3:18 PM CDT LIPASE STAT 04/16/2025 3:18 PM CDT BASIC METABOLIC PANEL W/ CALCIUM TOTAL Routine 04/15/2025 3:02 PM CDT Elevated serum creatinine CBC WITH AUTO DIFFERENTIAL Routine 03/24/2025 11:41 AM CDT Anemia, unspecified type HEMOGLOBIN A1C W/ ESTIMATED GLUCOSE Routine 03/24/2025 11:41 AM CDT Type 2 diabetes mellitus with diabetic neuropathy, without long-term current use of insulin (HCC) VITAMIN D, 25 HYDROXY TOTAL Routine 03/24/2025 11:41 AM CDT High risk medication use FOLIC ACID (FOLATE) Routine 03/24/2025 11:41 AM CDT Anemia, unspecified type VITAMIN B12 Routine 03/24/2025 11:41 AM CDT Anemia, unspecified type IRON,TRANSFERN,RUBI C.TIBC,%SAT Routine 03/24/2025 11:41 AM CDT Anemia, unspecified [...] AM CDT COLOGUARD Routine 10/28/2024 10:00 AM 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 Screening for colon cancer [facility] DILATED EYE EXAM 12/19/2023 12:00 AM 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 CT CHEST W/O CONTRAST Routine 07/26/2023 12:55 PM CDT Chronic obstructive pulmonary disease, unspecified COPD type (HCC) HEPATITIS C ANTIBODY Routine 07/10/2023 11:06 AM CDT Encounter for hepatitis C screening test for low risk patient [facility] BONE DENSITOMETRY AXIAL SKELETON Routine 06/19/2022 1:31 PM CDT Post-menopausal [facility] SCREENING BILATERAL DIGITAL W CAD W PATTIE Routine 06/25/2020 3:10 PM CDT Screening for breast cancer from Last 3 Months or Most Recently Relevant to Health Maintenance Results * Stool, Occult Blood, Diagnostic (04/16/2025 5:34 PM CDT) OCCULT BLOOD DIAG Negative Negative 04/16/2025 5:51 PM CDT [facility] Stool STOOL SPECIMEN / Unknown Non-Phlebotomy Collection / Unknown 04/16/2025 5:34 PM CDT 04/16/2025 5:47 PM CDT Boyd Keene MD BODY FLUIDS & STOOLS ORDER RUPINDER Final Result [facility] [address] [place] [address] * CT ABDOMEN PELVIS W/ CONTRAST (04/16/2025 4:34 PM CDT) Anatomical Region Laterality Modality Abdomen N/A Computed Tomogra phy 04/16/2025 4:51 PM CDT Impressions 04/16/2025 4:53 PM CDT IMPRESSION: 1. Cholelithiasis. 2. Very severe acquired spinal stenosis at L3-4. Correlation with the patient's symptoms would be helpful. Consider MRI. Narrative 04/16/2025 4:53 PM CDT EXAM DESCRIPTION: CT ABDOMEN PELVIS W/ CONTRAST REASON FOR STUDY: Medial abdominal pain with nausea x 5 days. Hx of DM, HTN, gout, CKD, and GERD TECHNIQUE: CT scan of the abdomen and pelvis performed with intravenous and without oral contrast using helical scanning technique with dynamic intravenous contrast injection. Reconstructed coronal and sagittal MPR images reviewed. All images stored on PACS. Automated exposure control was used as a dose optimization technique for this examination. CONTRAST TYPE/DOSE: 100mL of IOPAMIDOL 76 % IV SOLN injected via Intravenous COMPARISON: None FINDINGS: LOWER CHEST: No significant pulmonary abnormalities. No effusion. LIVER: Normal size. No identified cystic or solid masses. GALLBLADDER: Stones. No wall thickening or pericholecystic fluid BILE DUCTS: No intrahepatic or extrahepatic ductal dilatation. SPLEEN: Normal size. No focal lesions. PANCREAS: No identified cystic or solid masses. No significant calcifications. No adjacent inflammation or peripancreatic fluid collections. Pancreatic duct not dilated. ADRENALS: Normal. KIDNEYS/URINARY TRACT: No identified significant cystic or solid masses. No visualized stones. No hydronephrosis or hydroureter. Symmetric enhancement. Urinary bladder is unremarkable. GI: No bowel obstruction or inflammatory bowel disease was seen. PERITONEUM: No ascites or free air. RETROPERITONEUM: No mass or adenopathy. REPRODUCTIVE: No significant abnormality. VASCULATURE: No abdominal aortic aneurysm. MUSCULOSKELETAL: There is a concave deformity of a few vertebral bodies probably due to osteoporosis. Very severe acquired spinal stenosis is seen at L3-4. OTHER: No other abnormality. THIS IS AN ELECTRONICALLY VERIFIED FINAL REPORT 04/16/2025 4:51 PM - Electronically signed by Mathew Hay M.D. AKILA: AKILA Report ID: [id number] Reading Location: [id number] Procedure Note Ivan Hay MD - 04/16/2025 EXAM DESCRIPTION: CT ABDOMEN PELVIS W/ CONTRAST REASON FOR STUDY: Medial abdominal pain with nausea x 5 days. Hx of DM, HTN, gout, CKD, and GERD TECHNIQUE: CT scan of the abdomen and pelvis performed with intravenous and without oral contrast using helical scanning technique with dynamic intravenous contrast injection. Reconstructed coronal and sagittal MPR images reviewed. All images stored on PACS. Automated exposure control was used as a dose optimization technique for this examination. CONTRAST TYPE/DOSE: 100mL of IOPAMIDOL 76 % IV SOLN injected via Intravenous COMPARISON: None FINDINGS: LOWER CHEST: No significant pulmonary abnormalities. No effusion. LIVER: Normal size. No identified cystic or solid masses. GALLBLADDER: Stones. No wall thickening or pericholecystic fluid BILE DUCTS: No intrahepatic or extrahepatic ductal dilatation. SPLEEN: Normal size. No focal lesions. PANCREAS: No identified cystic or solid masses. No significant calcifications. No adjacent inflammation or peripancreatic fluid collections. Pancreatic duct not dilated. ADRENALS: Normal. KIDNEYS/URINARY TRACT: No identified significant cystic or solid masses. No visualized stones. No hydronephrosis or hydroureter. Symmetric enhancement. Urinary bladder is unremarkable. GI: No bowel obstruction or inflammatory bowel disease was seen. PERITONEUM: No ascites or free air. RETROPERITONEUM: No mass or adenopathy. REPRODUCTIVE: No significant abnormality. VASCULATURE: No abdominal aortic aneurysm. MUSCULOSKELETAL: There is a concave deformity of a few vertebral bodies probably due to osteoporosis. Very severe acquired spinal stenosis is seen at L3-4. OTHER: No other abnormality. THIS IS AN ELECTRONICALLY VERIFIED FINAL REPORT 04/16/2025 4:51 PM - Electronically signed by Mathew Hay M.D. AKILA: AKILA Report ID: [id number] Reading Location: [place] [address] IMPRESSION: 1. Cholelithiasis. 2. Very severe acquired spinal stenosis at L3-4. Correlation with the patient's symptoms would be helpful. Consider MRI. us Boyd Keene MD IMG CT ORDERABLES Final Re sult * Urinalysis w/ Reflex (04/16/2025 4:22 PM CDT) SPECIFIC GRAVITY 1.010 1.003 - 1.030 04/16/2025 4:45 PM CDT [facility] URINE PH 6.5 5.0 - 9.0 04/16/2025 4:45 PM CDT [facility] WBC ESTERASE Negative Negative 04/16/2025 4:45 PM CDT [facility] NITRITE Negative Negative 04/16/2025 4:45 PM CDT [facility] PROTEIN, RANDOM URINE Negative Negative 04/16/2025 4:45 PM CDT [facility] URINE GLUCOSE, QUAL Negative Negative 04/16/2025 4:45 PM CDT [facility] URINE KETONES Negative Negative 04/16/2025 4:45 PM CDT [facility] UROBILINOGEN Normal Normal mg/dL 04/16/2025 4:45 PM CDT [facility] URINE BLOOD Negative Negative conner/ul 04/16/2025 4:45 PM CDT [facility] URINALYSIS COLOR Yellow 04/16/20 4:45 PM CDT [facility] URINALYSIS CLARITY Clear 04/16/2025 4:45 PM CDT [facility] Urine URINE SPECIMEN / Unknown Non-Phlebotomy Collection / Unknown 04/16/2025 4:22 PM CDT 04/16/2025 4:37 PM CDT us Boyd Keene MD URINE ORDERABLES Final Res ult [facility] [address] [place] [address] * (ABNORMAL) CBC with Auto Differential (04/16/2025 3:57 PM CDT) Only the most recent of2 resultswithin the time period is included. WBC 6.84 4.00 - 12.00 10(3)/mcL 04/16/2025 4:35 PM CDT [facility] RBC 2.63(L) 3.80 - 5.30 10(6)/mcL 04/16/2025 4:35 PM CDT [facility] HEMOGLOBIN (HGB) 8.7(L) 12.0 - 15.8 g/dL 04/16/2025 4:35 PM CDT [facility] HEMATOCRIT (HCT) 25.9(L) 36.0 - 47.0 % 04/16/2025 4:35 PM CDT [facility] MCV 98.5(H) 82.0 - 96.0 fL 04/16/2025 4:35 PM CDT [facility] MCH 33.1 26.0 - 34.0 pg 04/16/2025 4:35 PM CDT [facility] MCHC 33.6 31.0 - 36.0 g/dL 04/16/2025 4:35 PM CDT [facility] PLATELET COUNT 163 140 - 440 10(3)/[facility] 04/16/2025 4:35 PM CDT [facility] RDW 16.7(H) 11.8 - 15.5 % 04/16/2025 4:35 PM CDT [facility] MPV 10.0 9.7 - 12.4 fL 04/16/2025 4:35 PM CDT [facility] NEUTROPHILS 36.8(L) 47.0 - 73.0 % 04/16/2025 4:35 PM CDT [facility] LYMPHOCYTES 36.5 18.0 - 42.0 % 04/16/2025 4:35 PM CDT [facility] MONOCYTES 24.9(H) 4.0 - 12.0 % 04/16/2025 4:35 PM CDT [facility] EOSINOPHILS 0.9 0.0 - 5.0 % 04/16/2025 4:35 PM CDT [facility] BASOPHILS 0.9 0.0 - 1.0 % 04/16/2025 4:35 PM CDT [facility] ABSOLUTE NEUTROPHILS 2.52 1.60 - 7.70 10(3)/mcL 04/16/2025 4:35 PM CDT [facility] ABSOLUTE LYMPHOCYTES 2.50 1.30 - 3.20 10(3)/[facility] 04/16/2025 4:35 PM CDT [facility] ABSOLUTE MONOCYTES 1.70(H) 0.20 - 1.00 10(3)/[facility] 04/16/2025 4:35 PM CDT [facility] ABSOLUTE EOSINOPHIL 0.06 0.00 - 0.40 10(3)/[facility] 04/16/2025 4:35 PM CDT [facility] ABSOLUTE BASOPHILS 0.06 0.00 - 0.10 10(3)/[facility] 04/16/2025 4:35 PM CDT [facility] NRBC PER 100 WBC 0 04/16/20 4:35 PM CDT [facility] RESULTS ARE CONSISTENT WITH PERIPHERAL SMEAR REVIEW Yes 04/16/2025 4:35 PM CDT [facility] RBC MORPHOLOGY CONSISTENT WITH INDICES Yes 04/16/2025 4:35 PM CDT [facility] Blood Venipuncture / Unknown 04/16/2025 3:57 PM CDT 04/16/2025 4:02 PM CDT Boyd Keene MD HEMATOLOGY ORDERABLES Felisa l Result [facility] [address] [place] [address] * (ABNORMAL) Lactic Acid (Lactate) (04/16/2025 3:25 PM CDT) LACTIC ACID 0.5(L) 0.7 - 2.0 mmol/L 04/16/2025 4:00 PM CDT [facility] Blood Venipuncture / Unknown 04/16/2025 3:25 PM CDT 04/16/2025 3:34 PM CDT Boyd Keene MD CHEMISTRY ORDERABLES Final Result Performing Organization Address City/[facility]/ZIP Co de Phone Number [facility] [address] [place] [address] * (ABNORMAL) Lipase (04/16/2025 3:18 PM CDT) LIPASE 87(H) 8 - 78 U/L 04/16/2025 3:59 PM CDT [facility] Blood Venipuncture / Unknown 04/16/2025 3:18 PM CDT 04/16/2025 3:34 PM CDT Boyd Keene MD CHEMISTRY ORDERABLES Final Result [facility] [address] [place] [address] * (ABNORMAL) CMP (04/16/2025 3:18 PM CDT) Only the most recent of2 resultswithin the time period is included. SODIUM 139 136 - 145 mmol/L 04/16/2025 3:59 PM CDT [facility] POTASSIUM 4.9 3.5 - 5.1 mmol/L 04/16/2025 3:59 PM CDT [facility] CHLORIDE 110(H) 98 - 107 mmol/L 04/16/2025 3:59 PM CDT [facility] CO2, VENOUS 20(L) 22 - 30 mmol/L 04/16/2025 3:59 PM CDT [facility] ANION GAP 13.9 <18.0 mmol/L 04/16/2025 3:59 PM CDT [facility] GLUCOSE 70 70 - 99 mg/dL 04/16/2025 3:59 PM CDT [facility] BUN 10 10 - 20 mg/dL 04/16/2025 3:59 PM CDT [facility] CREATININE, BLOOD 0.80 0.60 - 1.00 mg/dL 04/16/2025 3:59 PM CDT [facility] BUN/CREATININE RATIO 13 12 - 20 ratio 04/16/2025 3:59 PM CDT [facility] TOTAL PROTEIN 6.7 6.0 - 8.0 g/dL 04/16/2025 3:59 PM CDT [facility] ALBUMIN 3.8 3.5 - 5.0 g/dL 04/16/2025 3:59 PM CDT [facility] A/G RATIO 1.3 1.0 - 2.2 04/16/2025 3:59 PM CDT [facility] CALCIUM 8.4(L) 8.7 - 10.5 mg/dL 04/16/2025 3:59 PM CDT [facility] T BILI 0.4 0.2 - 1.2 mg/dL 04/16/2025 3:59 PM CDT [facility] SGOT (AST) 38 <43 U/L 04/16/2025 3:59 PM CDT [facility] Comment: Specimen is hemolyzed. In vitro hemolysis could affect results. Clinical correlation advised. SGPT (ALT) 14 <56 U/L 04/16/2025 3:59 PM CDT [facility] ALKALINE PHOSPHATASE 65 40 - 150 U/L 04/16/2025 3:59 PM CDT [facility] GFR, ESTIMATED >60 >=60 04/16/2025 3:59 PM CDT [facility] Comment: Creatinine Clearance is the preferred criteria for selecting drug dose adjustments in renally impaired patients. The GFR is provided as additional pertinent clinical information. GFR is reported in mL/min/1.73 sq m. Calculation based on the Chronic Kidney Disease Epidemiology Collaboration (CKD- EPI) equation refit without adjustment for race. GFR, EST. >60 >=60 025 3:59 PM CDT [facility] GFR, EST. NONAFRICAN >60 >=60 04/16/2025 3:59 PM CDT [facility] Blood Venipuncture / Unknown 04/16/2025 3:18 PM CDT 04/16/2025 3:34 PM CDT Boyd Keene MD CHEMISTRY ORDERABLES Final Result [facility] [address] [place] [address] * (ABNORMAL) BASIC METABOLIC PANEL W/ CALCIUM TOTAL (04/15/2025 3:02 PM CDT) SODIUM 140 136 - 145 mmol/L 04/15/2025 3:43 PM CDT [facility] POTASSIUM 5.1 3.5 - 5.1 mmol/L 04/15/2025 3:43 PM CDT [facility] CHLORIDE 110(H) 98 - 107 mmol/L 04/15/2025 3:43 PM CDT [facility] CO2, VENOUS 23 22 - 30 mmol/L 04/15/2025 3:43 PM CDT [facility] ANION GAP 12.1 <18.0 mmol/L 04/15/2025 3:43 PM CDT [facility] GLUCOSE 77 70 - 99 mg/dL 04/15/2025 3:43 PM CDT [facility] BUN 12 10 - 20 mg/dL 04/15/2025 3:43 PM CDT [facility] CREATININE, BLOOD 0.86 0.60 - 1.00 mg/dL 04/15/2025 3:43 PM CDT [facility] BUN/CREATININE RATIO 14 12 - 20 ratio 04/15/2025 3:43 PM CDT [facility] CALCIUM 9.2 8.7 - 10.5 mg/dL 04/15/2025 3:43 PM CDT [facility] IS THE PATIENT REQUIRED TO BE FASTING? No 04/15/2025 3:43 PM CDT [facility] GFR, ESTIMATED >60 >=60 04/15/2025 3:43 PM CDT [facility] Comment: Creatinine Clearance is the preferred criteria for selecting drug dose adjustments in renally impaired patients. The GFR is provided as additional pertinent clinical information. GFR is reported in mL/min/1.73 sq m. Calculation based on the Chronic Kidney Disease Epidemiology Collaboration (CKD- EPI) equation refit without adjustment for race. GFR, EST. >60 >=60 025 3:43 PM CDT [facility] GFR, EST. NONAFRICAN >60 >=60 04/15/2025 3:43 PM CDT [facility] Blood Venipuncture / Unknown 04/15/2025 3:02 PM CDT 04/15/2025 3:15 PM CDT us Angie Egan PAC CHEMISTRY ORDERABLES Fin al Result Performing Organization Address [facility] Co de Phone Number [facility] [address] [place] [address] * VITAMIN D, 25 HYDROXY TOTAL (03/24/2025 11:41 AM CDT) VITAMIN D, 25 HYDROX 52.4 ng/mL 03/24/2025 1:07 PM CDT [facility] Blood Venipuncture / Unknown 03/24/2025 11:41 AM CDT 03/24/2025 11:50 AM CDT Narrative [facility] - 03/24/2025 1:07 PM CDT Published reference ranges for Vitamin D vary depending on time and place and method of testing, and on patient's age, sex, ethnicity and levels of other measured analytes such as parathormone, calcium and phosphorus. The result should be evaluated in conjunction with clinical findings and suspicions. [employer] of [employer] and Endocrine Clinical Practice Guidelines: Status Vitamin D levels (ng/mL) Deficient <=20 At risk of inadequacy 21-29 Sufficient 30-100 Centers of Disease Control and Prevention Guidelines: Status Vitamin D levels (ng/mL) Deficient <13 At risk of inadequacy 13-19 Sufficient 20-50 Possibly harmful >50 References: [employer], 2010 Dietary reference intakes for calcium and vitamin D. [place]: The National Academies Press. Keven M, Mayuri N, Romario MERRILL, et al., Evaluation, treatment, and prevention of Vitamin D deficiency: an Endocrinology Clinical Practice Guideline. JCEM 2011 96: 7 6384-5270. Ash A, Yonis C, Richard D, et al., Vitamin D Status: [place], 5645-4736, TNHS data brief, no. 59, MD [place]: National Center for Health Statistics. 2011. us Angie Palafoxmarshadalila PAC CHEMISTRY ORDERABLES Fin al Result Performing Organization Address City/[facility]/ZIP Co de Phone Number [facility] [address] [place] [address] * IRON,TRANSFERN,CALC.TIBC,%SAT (03/24/2025 11:41 AM CDT) IRON 64 25 - 156 mcg/dL 03/24/2025 12:42 PM CDT [facility] TRANSFERRIN 297 173 - 360 mg/dL 03/24/2025 12:42 PM CDT [facility] TIBC, CALCULATED 371 265 - 497 mcg/dL 03/24/2025 12:42 PM CDT [facility] % SATURATION * 17 15 - 62 % 03/24/2025 12:42 PM CDT [facility] Blood Venipuncture / Unknown 03/24/2025 11:41 AM CDT 03/24/2025 11:50 AM CDT Angie Egan PAC CHEMISTRY ORDERABLES Fin al Result Performing Organization Address City/[facility] Co de Phone Number [facility] [address] [place] [address] * HEMOGLOBIN A1C W/ ESTIMATED GLUCOSE (03/24/2025 11:41 AM CDT) Pathologist [facility] HGB-A1C 5.0 4.0 - 6.0 % 03/24/2025 12:14 PM CDT [facility] Est Average Glucose 96.8 mg/dL 03/24/2025 12:14 PM CDT [facility] Blood Venipuncture / Unknown 03/24/2025 11:41 AM CDT 03/24/2025 11:50 AM CDT Narrative [facility] - 03/24/2025 12:14 PM CDT HEMOGLOBIN A1C: DIABETIC PATIENTS: WELL-CONTROLLED: 6.2 - 7.0 INTERMEDIATE WELL-CONTROLLED: 7.0 - 9.0 POORLY-CONTROLLED: >9.0 Specimens containing greater than 5% of Hemoglobin F may result in lower than expected % HbA1C results. Angie Egan PAC CHEMISTRY ORDERABLES Fin al Result Performing Organization Address City/State/[facility] Co de Phone Number [facility] [address] [place] [address] * VITAMIN B12 (03/24/2025 11:41 AM CDT) VITAMIN B12 624 213 - 816 pg/mL 03/24/2025 1:07 PM CDT [facility] Blood Venipuncture / Unknown 03/24/2025 11:41 AM CDT 03/24/2025 11:50 AM CDT Moni Fritcher PAC CHEMISTRY ORDERABLES Fin al Result Performing Organization Address [facility] Co de Phone Number [facility] [address] [place] [address] * MAGNESIUM (MG) (03/24/2025 11:41 AM CDT) Pathologist [facility] MAGNESIUM 2.1 1.6 - 2.6 mg/dL 03/24/2025 12:42 PM CDT [facility] Blood Venipuncture / Unknown 03/24/2025 11:41 AM CDT 03/24/2025 11:50 AM CDT Moni Fritcher PAC CHEMISTRY ORDERABLES Fin al Result Performing Organization Address City/[facility]/ZIP Co de Phone Number [facility] [address] [place] [address] * FOLIC ACID (FOLATE) (03/24/2025 11:41 AM CDT) FOLATE 12.9 7.0 - 31.4 ng/mL 03/24/2025 1:07 PM CDT [facility] IS THE PATIENT REQUIRED TO BE FASTING? No 03/24/2025 1:07 PM CDT [facility] Blood Venipuncture / Unknown 03/24/2025 11:41 AM CDT 03/24/2025 11:50 AM CDT us Angie Garciaer PAC CHEMISTRY ORDERABLES Fin al Result Performing Organization Address [facility] Co de Phone Number [facility] [address] [place] [address] * FERRITIN (03/24/2025 11:41 AM CDT) Pathologist [facility] FERRITIN 56 5 - 204 ng/mL 03/24/2025 12:53 PM CDT [facility] Blood Venipuncture / Unknown 03/24/2025 11:41 AM CDT 03/24/2025 11:50 AM CDT Angie Garciaer PAC CHEMISTRY ORDERABLES Fin al Result Performing Organization Address [facility] de Phone Number [facility] [address] [place] [address] * UR TOXICOLOGY SCREEN (03/24/2025 12:00 AM CDT) 03/24/2025 Angie Egan PAC URINE ORDERABLES Final R esult Performing Organization Address [facility] de Phone Number SCAN * COLOGUARD (10/28/2024 10:00 AM 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) [facility] Cologuard Negative Negative [facility] [facility] Comment: NEGATIVE TEST RESULT. A negative [...] screened with both Cologuard and colonoscopy. (Reilly Hodges. ashley al, N Engl J Med 2014;370(14):7644-3736) The normal value (reference range) for this assay is negative. COLOGUARD RE-SCREENING RECOMMENDATION: Periodic colorectal cancer screening is an important part of preventive healthcare for asymptomatic individuals at average risk for colorectal cancer. Following a negative Cologuard result, the [place] Cancer Society and U.S. Multi-Society Task Force screening guidelines recommend a Cologuard re-screening interval of 3 years. References: [place] Cancer Society Guideline for Colorectal Cancer Screening: https://www.cancer.org/cancer/fewps-efzegj-uylztg/mvbhhkkul-osrxwaxmc-llylarm/ acs-recommendations.html.; Roland TRINIDAD, Clara HERNANDEZ, Travis HurleyK, Colorectal Cancer Screening: Recommendations for Physicians and Patients from the U.S. Multi-Society Task Force on Colorectal Cancer Screening , Am J Gastroenterology 2017; 112:3596-3159. TEST DESCRIPTION: Composite algorithmic analysis of stool [...] screened with both Cologuard and colonoscopy. (Reilly Davidson, N Engl J Med 2014;370(14):4643-2789.) Cologuard may produce a false negative or false positive result (no colorectal cancer or precancerous polyp present at colonoscopy follow up). A negative Cologuard test result does not guarantee the absence of CRC or advanced adenoma (pre-cancer). The current Cologuard screening interval is every 3 years. (Italian Cancer Society and U.S. Multi-Society Task Force). Cologuard performance data in a 10,000 patient pivotal study using colonoscopy as the reference method can be accessed at the following location: www.[employer].Meitu/results. Additional description of the Cologuard test process, warnings and precautions can be found at www.[employer]Biolaserd.com. Stool 10/28/2024 10:0 0 AM 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 10/30/2024 9:04 AM 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 Angie Egan PAC BODY FLUIDS & STOOLS ORD ERABLES Final Result Performing Organization Address [facility] Co de Phone Number [employer], [facility] [address] [place] [address], [employer] [address] [place] [address] * HM DILATED EYE EXAM (12/19/2023 12:00 AM 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) 12/19/2023 Angie Egan PAC PROCEDURE/MINOR SURGICAL ORDERABLES Final Result Performing Organization Address [facility] Co de Phone Number SCAN * CT CHEST [...] Concepcion Donnelly D.O. AC: FELICITA Report ID: [id number] Reading Location: [id number] Procedure Note Concepcion Donnelly DO - 07/31/2023 [...] Concepcion Donnelly D.O. AC: FELICITA Report ID: [id number] Reading Location: [place] [address] IMPRESSION: 1. Interval resolution of consolidation in the left lingula compatible with pneumonia. No pulmonary mass or suspicious noncalcified pulmonary nodule. Recommend return to routine annual low-dose CT lung screen. 2. Mucous plugging in the left lingula and left lower lobe. Moni Fritcher [facility] IMG CT ORDERABLES Final Result * HEPATITIS C ANTIBODY (07/10/2023 11:06 AM CDT) hepatitis C antibody 0.11 <1 S/[facility]CH [id number] 07/10/2023 8:57 PM CDT [facility] Comment: Signal/Cutoff ratio < 0.79 is Nondetected [...] CDT 07/10/2023 11:06 AM CDT us Angie Palfaoxmarshadalila PAC CHEMISTRY ORDERABLES Fin al Result [facility] [address] [place] [address], * [facility] BONE DENSITOMETRY AXIAL SKELETON (06/19/2022 1:31 PM [...] Narrative 06/19/2022 4:07 PM CDT EXAM DESCRIPTION: [facility] BONE DENSITOMETRY AXIAL SKELETON REASON FOR STUDY: 76 y/o year old F with given history of screening. Panel Coverer/Model: SSN Funding (S/N [id number]) CLINICAL INFORMATION: Current height: 62 inches Maximum [...] Darin Mello M.D. BC: VIDAL Report ID: [id number] Reading Location: [place] [address] Procedure Note Darin Mello MD - 06/19/2022 EXAM DESCRIPTION: [facility] BONE DENSITOMETRY AXIAL SKELETON REASON FOR STUDY: 76 y/o year old F with given history of screening. Panel Coverer/Model: SSN Funding (S/N [id number]) CLINICAL INFORMATION: Current height: 62 inches Maximum [...] Darin Mello M.D. BC: VIDAL Report ID: [id number] Reading Location: [id number] IMPRESSION: 1. Normal bone mineral density. REFERENCE: [...] Angie Egan PAC IMG DEXA ORDERABLES Felisa l Result * MARK SCREENING BILATERAL DIGITAL W CAD W PATTIE (06/25/2020 3:10 PM CDT) Anatomical Region Laterality Modality breast Bilateral Mammography 06/25/2020 2:4 1 PM CDT Narrative 07/08/2020 3:34 PM CDT [...] made to exams dated: 02/27/2014 and 10/02/2008 [facility]. BREAST TISSUE:There are scattered fibroglandular densities in [...] exam. Electronically signed by: Grey peacock/penrad:07/08/2020 11:37:55 Flatbed Stitcher: Jayla HESTER)(Neel), [facility] Normal Exam Reading location: [...] made to exams dated: 02/27/2014 and 10/02/2008 [facility]. BREAST TISSUE:There are scattered fibroglandular densities in [...] exam. Electronically signed by: Grey peacock/penrad:07/08/2020 11:37:55 Flatbed Stitcher: Jayla HESTER)(Neel), [facility] letter sent: Normal Exam Reading location: [place] BI-RADS: 1 Negative [facility] Center[facility]unny[facility] Cruz MD IMG MAMMO ORDERABLES Fin al Result from Last 3 Months or Most Recently Relevant to Health Maintenance Insurance MEDICAID [place] Advance Directives * Full Code (Latest Code Status on File) Date Activated Date Inactivated Comments 12/19/2023 10:11 AM 02/14/2024 6:28 AM Care Teams Brass Buffer Relationship Specialty Start Date End Date Angie Egan PAC [address] [place] [address] PCP - General Physician Assembler Semiconductor 12/07/17 Dav Barillas MD Consulting Physician Nephrology 03/26/17 Reggie Lazar MD Consulting Physician Urology 07/27/17 Alvarez Rivera MD [address] [place] [id number] Consulting Physician Pulmonary Disease 07/19/23 Bunny Cruz MD [address] [place] [address] Consulting Physician Medical Oncology 02/25/24
--- OUTSIDE RECORDS SUMMARY | 2025-05-19 14:37 | XMS_ITS | Encounter Summary ---
Author Organization [facility] Address [address] [place] [address] Phone Care Team Providers Care Press Smith Helper Name Role Phone Dav Barillas MD Unavailable [phone] Reggie Lazar MD Unavailable Angie Egan Primary Care Provider + Alvarez Rivera MD Unavailable Bunny Cruz MD Unavailable Reason for Visit * Reason Comments Medication Refill Encounter Details Date Type Department Care Team (Late st Contact Info) Description 04/20/2023 Refill [facility] - Family Medicine [facility] [address] [place] [address] Angie Egan, BLAYNE [address] [place] [address] Medication Refill Social History Tobacco Use Types [...] 04/06/23 Office Visit Angie Egan PAC [facility] 02/23/23 Office Visit Angie Egan PAC [facility] 01/01/23 Office Visit Angie Egan PAC [facility] 11/30/22 Office Visit Angie Egan PAC [facility] 11/02/22 Office Visit Angie Egan PAC [facility] 09/27/22 Office Visit Angie Egan PAC [facility] 07/25/22 Office Visit Kathryn Jimenez APRN, JOVANNI [facility] 05/23/22 Office Visit Angie Egan PAC [facility] Showing recent visits within past 365 days and meeting all other requirements Future Appointments Date Type Provider Dept 07/10/23 Appointment Angie Egan PAC [facility] Showing future appointments within next 90 days and meeting all other requirements documented in this encounter Plan of Treatment Upcoming Encounters Date Type Department Care Team (Late st Contact Info) Description 07/10/2025 1:30 PM CDT Office Visit [facility] - [facility] [address] [place] [address] Angie Egan PAC [address] [place] [address] documented as of this encounter Visit Diagnoses Diagnosis Neuropathy Mononeuritis of unspecified site documented in this encounter Additional Health Concerns Assessment Noted Time PHQ-9 Depression Total Score: 0 07/25/20 9:00 AM CDT documented as of this encounter Care Teams Press Smith Helper Relationship Specialty Start Date End Date Angie Egan PAC [address] [place] [address] PCP - General Physician Rehabilitation Inspector 12/07/17 Dav Barillas MD Consulting Physician Nephrology 03/26/17 Reggie Lazar MD Consulting Physician Urology 07/27/17 Alvarez Rivera MD [address] [place] [address] Consulting Physician Pulmonary Disease 07/19/23 Bunny Cruz MD [address] [place] [address] Consulting Physician Medical Oncology 02/25/24 documented as of this encounter
--- OUTSIDE RECORDS SUMMARY | 2025-05-19 14:37 | XMS_ITS | Data Portability ---
Author Organization [facility] Address [address] [facility] [place] [place] [address] Assessment No assessment recorded. Plan of Treatment Reminders Order Date Submit Date Provider Last Modified By Organization Details Last Modified Time Details Appointments None recorded. Lab unlisted lab - complianc e drug analysis, ur 2016 017 [facility], [address] [place], [place] [address], [address], [place], [address], 7 06:13:16 HbA1c (hemoglob in A1c), blood 2016 017 [facility], [address] [place], [place] [address] [address], [address], [place], [address], 7 08:19:53 CMP, serum or plasma 2016 017 [facility], [address] [place] [address], [address], [place], [address], 7 08:19:52 microalbu min, urine 2016 017 CAT[facility] In-Office Order, Internal Use Only DO Not Attach Compendium DO Not Attach Compendium, Do Not Delete/merge, [id number] 7 15:16:20 lipid panel, serum 2016 017 [facility], [address] [place], [place] [address], [address], [place], [address], 7 08:19:53 CBC 2016 017 [facility], [address], [address], [place], [address], 7 08:19:52 CBC 2015 016 [facility], [address], [address], [place], [address], 6 06:14:10 CMP, serum or plasma 2015 016 [facility], [address], [address], [place], [address], 6 06:14:10 TSH, serum or plasma 2015 016 [facility], [address], [address], [place], [address], 6 06:14:11 HbA1c (hemoglob in A1c), blood 2015 016 [facility], [address], [address], [place], [address], 6 06:14:12 lipid panel, serum 2015 016 [facility], [address], [address], [place], [address], 6 06:14:11 albumin, urine 2015 016 [email or web address] [facility], [address], [address], [place], [address], 6 13:57:21 Referral urologist referral 2016 017 [email or web address] Lazar MD, [address], [place], [address], 7 13:20:27 physical therapy back referral - Please call patient to schedule. 2016 [email or web address] [facility], [address] [place], [address], 7 13:25:17 podiatris t referral - Please [...] 017 [facility], [address] [place], [address], 7 15:53:01 tramadol 50 mg tablet 2016 017 [email or web address] [facility], [address] [place], [address], 7 15:36:09 metformin 500 mg tablet 2015 016 DBA_PATCH_2 [id number] [facility], [address] [place], [address], 6 04:30:33 gabapenti n 600 mg tablet 2015 016 DBA_PATCH_2 [id number] [facility], [address] [place], [address], 6 04:31:17 tramadol 50 mg tablet 2015 016 DBA_PATCH_[email or web address] [id number] [facility], [address] [place], [address], 6 04:30:52 aspirin 81 mg tablet,de layed release 2015 016 INTERFACE [facility], [address] [place], [address], 6 13:56:48 gabapenti n 600 mg tablet 2015 016 [email or web address] [facility], [address] [place], [address], 6 17:45:19 Patient TargetsNo targets recorded. Patient Instructions Encounter Date Encounter Id Patient Instructions Last Modified By Organization Details Last Modified Time 03/29/2017 [id number] atrophic vaginitis: care instructions [email or web address] Not available 03/30/2017 15:09:57 mammogram: about this test [email or web address] Not available 03/29/2017 16:55:[address] Orderly Referral for Onyc homycosis Diabetic foot care Please call patient to schedule Referring Physician: Daivs Thomason, Internal Medicine, Encounter Date: 06/29/2016 Please call patient to [email or web address] [email or web address]. Referring Physician: Davis Thomason, Internal Medicine, Encounter Date: 02/01/2017 Urologist Referral for Cysto sera history of hysterectomy and cystocele repair years ago Referring Physician: Salas Fletcher, SENIOR SPECIALIST, Encounter Date: 03/29/2017 Results Created Date Observation Date Name Description Value Unit Range Abnormal Flag Note LastModifiedBy Organization Detail LastModifiedTime 06/29/20 16 06/30/2016 CMP, serum or plasm a glucose, serum 95 mg/dL 65-99 Not Available [facility]) [address] [facility], [place], [address], 07/04/2016 06:14:10 06/29/20 16 06/30/2016 CMP, serum or plasm a BUN 14 mg/dL 8-27 Not Available [facility] ([facility]) [address] [facility] [place], [address], 07/04/2016 06:14:10 06/29/20 16 06/30/2016 CMP, serum or plasm a creatinine, serum 0.96 mg/dL 0.57-1 .00 Not Available [facility] ([facility]) [address] [facility] [place], [address], 07/04/2016 06:14:10 06/29/20 16 06/30/2016 CMP, serum or plasm a eGFR if nonafricn AM 60 mL/mi n/1.7 3 >59 Not Available [facility] ([facility]) [address] [facility] [place], [address], 07/04/2016 06:14:10 06/29/20 16 06/30/2016 CMP, serum or plasm a eGFR if africn AM 69 mL/mi n/1.7 3 >59 Not Available [facility] ([facility]) [address] [facility] [place], [address], 07/04/2016 06:14:10 06/29/20 16 06/30/2016 CMP, serum or plasm a BUN/creatini ne ratio 15 11-26 Not Available [facility] ([facility]) [address] [place], [address], 07/04/2016 06:14:10 06/29/20 16 06/30/2016 CMP, serum or plasm a sodium, serum 141 mmol/ L 134-14 4 Not Available [facility] ([facility]) [address] [place], [address], 07/04/2016 06:14:10 06/29/20 16 06/30/2016 CMP, serum or plasm a potassium, serum 4.8 mmol/ L 3.5-5. 2 Not Available [facility] ([facility]) [address] [facility] [place], [address], 07/04/2016 06:14:10 06/29/20 16 06/30/2016 CMP, serum or plasm a chloride, serum 97 mmol/ L 97-108 Not Available [facility] ([facility]) [address] [facility] [place], [address], 07/04/2016 06:14:10 06/29/20 16 06/30/2016 CMP, serum or plasm a carbon dioxide, total 25 mmol/ L 18-29 Not Available [facility] ([facility]) [address] [facility] [place], [address], 07/04/2016 06:14:10 06/29/20 16 06/30/2016 CMP, serum or plasm a calcium, serum 9.6 mg/dL 8.7-10 .3 Not Available [facility] ([facility]) [address] [facility] [place], [address], 07/04/2016 06:14:10 06/29/20 16 06/30/2016 CMP, serum or plasm a protein, total, serum 7.3 g/dL 6.0-8. 5 Not Available [facility] ([facility]) [address] [facility] [place], [address], 07/04/2016 06:14:10 06/29/20 16 06/30/2016 CMP, serum or plasm a albumin, serum 4.5 g/dL 3.5-4. 8 Not Available [facility] ([facility]) [address] [facility] [place], [address], 07/04/2016 06:14:10 06/29/20 16 06/30/2016 CMP, serum or plasm a globulin, total 2.8 g/dL 1.5-4. 5 Not Available [facility] ([facility]) [address] [facility] [place], [address], 07/04/2016 06:14:10 08/25/20 16 06/30/2016 CMP, serum or plasm a A/G ratio 1.6 1.1-2. 5 Not Available [facility] ([facility]) [address] [facility] [place], [address], 07/04/2016 06:14:10 06/29/20 16 06/30/2016 CMP, serum or plasm a bilirubin, total 0.4 mg/dL 0.0-1. 2 Not Available [facility] ([facility]) [address] [facility] [place], [address], 07/04/2016 06:14:10 06/29/20 16 06/30/2016 CMP, serum or plasm a alkaline phosphatase, S 62 IU/L 39-117 Not Available [facility] ([facility]) [address] [facility] [place], [address], 07/04/2016 06:14:10 06/29/20 16 06/30/2016 CMP, serum or plasm a AST (SGOT) 18 IU/L 0-40 Not Available [facility] ([facility]) [address] [facility] [place], [address], 07/04/2016 06:14:10 06/29/20 16 06/30/2016 CMP, serum or plasm a ALT (SGPT) 17 IU/L 0-32 Not Available [facility] ([facility]) [address] [facility] [place], [address], 07/04/2016 06:14:10 06/29/20 16 06/30/2016 CBC WBC 9.6 x10e3 /uL 3.4-10 .8 Not Available [facility] ([facility]) [address] [facility] [place], [address], 07/04/2016 06:14:10 06/29/20 16 06/30/2016 CBC RBC 4.14 x10e6 /uL 3.77-5 .28 Not Available [facility] ([facility]) [address] [place], [address], 07/04/2016 06:14:10 06/29/20 16 06/30/2016 CBC hemoglobin 12.1 g/dL 11.1-1 5.9 Not Available [facility] ([facility]) [address] [facility] [place], [address], 07/04/2016 06:14:10 06/29/20 16 06/30/2016 CBC hematocrit 37.5 % 34.0-4 6.6 Not Available [facility] ([facility]) [address] [facility] [place], [address], 07/04/2016 06:14:10 06/29/20 16 06/30/2016 CBC MCV 91 fL 79-97 Not Available [facility] ([facility]) [address] [facility] [place], [address], 07/04/2016 06:14:10 06/29/20 16 06/30/2016 CBC MCH 29.2 pg 26.6-3 3.0 Not Available [facility] ([facility]) [address] [facility] [place], [address], 07/04/2016 06:14:10 06/29/20 16 06/30/2016 CBC MCHC 32.3 g/dL 31.5-3 5.7 Not Available [facility] ([facility]) [address] [facility] [place], [address], 07/04/2016 06:14:10 06/29/20 16 06/30/2016 CBC RDW 14.9 % 12.3-1 5.4 Not Available [facility] ([facility]) [address] [facility] [place], [address], 07/04/2016 06:14:10 06/29/20 16 06/30/2016 CBC platelets 309 x10e3 /uL 150-37 9 Not Available [facility] ([facility]) [address] [facility] [place], [address], 07/04/2016 06:14:10 06/29/20 16 06/30/2016 CBC NRBC MANAGER HELPDESK Not Available [facility] ([facility]) [address] [place], [address], 07/04/2016 06:14:10 06/29/20 16 06/30/2016 lipid panel , serum cholesterol, total 181 mg/dL 100-19 9 Not Available [facility] ([facility]) [address] [place], [address], 07/04/2016 06:14:11 06/29/20 16 06/30/2016 lipid panel , serum triglyceride s 244 mg/dL 0-149 above high normal Not Available [facility] ([facility]) [address] [place], [address], 07/04/2016 06:14:11 06/29/20 16 06/30/2016 lipid panel , serum HDL cholesterol 51 mg/dL >39 ACCOR DING TO ATP-I II GUIDE LINES , HDL-C >59 MG/DL IS CONSI DERED A NEGAT ANTONETTE RISK FACTO R FOR CHD. Not Available [facility] ([facility]) [address] [place], [address], 07/04/2016 06:14:11 06/29/20 16 06/30/2016 lipid panel , serum VLDL cholesterol yenny 49 mg/dL 5-40 above high normal Not Available [facility] ([facility]) [address] [place], [address], 07/04/2016 06:14:11 06/29/20 16 06/30/2016 lipid panel , serum LDL cholesterol calc 81 mg/dL 0-99 Not Available [facility] ([facility]) [address] [place], [address], 07/04/2016 06:14:11 06/29/20 16 06/30/2016 lipid panel , serum comment: MANAGER HELPDESK Not Available [facility] ([facility]) [address] [place], [address], 07/04/2016 06:14:11 06/29/20 16 06/30/2016 lipid panel , serum LDL/HDL ratio 1.6 ratio _unit s 0.0-3. 2 LDL/H DL RATIO MEN WOMEN 1/2 AVG.R ISK 1.0 1.5 AVG.R ISK 3.6 3.2 2X AVG.R ISK 6.2 5.0 3X AVG.R ISK 8.0 6.1 Not Available [facility] ([facility]) [address] [facility], [place], [address], 07/04/2016 06:14:11 06/29/20 16 07/03/2016 TSH, serum or plasm a TSH-icma 1.7 uu/mL REFER ENCE RANGE : PUBER ADRIANA CHILD JULIANA AND ADULT S: 0.5 - 4.8 Not Available [facility] [address] [place] [address], [address], 07/04/2016 06:14:11 06/29/20 16 06/30/2016 HbA1c (hemo globi n A1c), blood hemoglobin A1C 5.8 % 4.8-5. 6 above high normal PRE-D IABET ES: 5.7 - 6.4 DIABE VIOLA: >6.4 GLYCE LISSA CONTR OL FOR ADULT S WITH DIABE VIOLA: <7.0 Not Available [facility] ([facility]) [address] [place], [address], 07/04/2016 06:14:12 06/29/20 16 06/30/2016 micro album in, urine microalbumin , urine 17.7 ug/mL not estab. Not Available [facility] ([facility]) [address] [place], [address], 07/04/2016 06:14:12 02/02/20 17 02/02/2017 CMP, serum or plasm a glucose, serum 95 mg/dL 65-99 Not Available [facility] ([facility]) [address] [place], [address], 02/02/2017 08:19:52 02/02/20 17 02/02/2017 CMP, serum or plasm a BUN 20 mg/dL 8-27 Not Available [facility] ([facility]) [address] [place], [address], 02/02/2017 08:19:52 02/02/20 17 02/02/2017 CMP, serum or plasm a creatinine, serum 0.96 mg/dL 0.57-1 .00 Not Available [facility] ([facility]) [address] [place], [address], 02/02/2017 08:19:52 02/02/20 17 02/02/2017 CMP, serum or plasm a eGFR if nonafricn AM 60 mL/mi n/1.7 3 >59 Not Available [facility] ([facility]) [address] [place], [address], 02/02/2017 08:19:52 02/02/20 17 02/02/2017 CMP, serum or plasm a eGFR if africn AM 69 mL/mi n/1.7 3 >59 Not Available [facility] ([facility]) [address] [place], [address], 02/02/2017 08:19:52 02/02/20 17 02/02/2017 CMP, serum [...] 54 7 MONTH S - 1 YEAR - 71 20 - 71 2 YEARS - 5 YEARS 19 - 51 19 - 49 6 YEARS - 12 YEARS 14 - 34 13 - 32 13 YEARS - 17 YEARS 10 - 22 10 - 22 18 YEARS - 59 YEARS 9 - 20 9 - 23 >59 YEARS 10 - 24 12 - 28 Not Available [facility] ([facility]) [address] [facility] [place], [address], 02/02/2017 08:19:52 02/02/2002/02/2017 CMP, serum or plasm a sodium, serum 141 mmol/ L 134-14 4 Not Available [facility] ([facility]) [address] [facility] [place], [address], 02/02/2017 08:19:52 02/02/2002/02/2017 CMP, serum or plasm a potassium, serum 4.9 mmol/ L 3.5-5. 2 Not Available [facility] ([facility]) [address] [facility] [place], [address], 02/02/2017 08:19:52 02/02/2002/02/2017 CMP, serum or plasm a chloride, serum 97 mmol/ L 96-106 Not Available [facility] ([facility]) [address] [place], [address], 02/02/2017 08:19:52 02/02/2002/02/2017 CMP, serum or plasm a carbon dioxide, total 26 mmol/ L 18-29 Not Available [facility] ([facility]) [address] [facility] [place], [address], 02/02/2017 08:19:52 02/02/2002/02/2017 CMP, serum or plasm a calcium, serum 9.5 mg/dL 8.7-10 .3 Not Available [facility] ([facility]) [address] [place], [address], 02/02/2017 08:19:52 02/02/2002/02/2017 CMP, serum or plasm a protein, total, serum 6.8 g/dL 6.0-8. 5 Not Available [facility] ([facility]) [address] [place], [address], 02/02/2017 08:19:52 02/02/2002/02/2017 CMP, serum or plasm a albumin, serum 4.1 g/dL 3.5-4. 8 Not Available [facility] ([facility]) [address] [place], [address], 02/02/2017 08:19:52 02/02/20 17 02/02/2017 CMP, serum or plasm a globulin, total 2.7 g/dL 1.5-4. 5 Not Available [facility] ([facility]) [address] [place], [address], 02/02/2017 08:19:52 02/02/20 17 02/02/2017 CMP, serum or plasm a A/G ratio 1.5 1.2-2. 2 PLE ASE NOTE REFER ENCE INTER NATANAEL Flores Not Available [facility] ([facility]) [address] [place], [address], 02/02/2017 08:19:52 02/02/20 17 02/02/2017 CMP, serum or plasm a bilirubin, total 0.3 mg/dL 0.0-1. 2 Not Available [facility] ([facility]) [address] [place], [address], 02/02/2017 08:19:52 02/02/20 17 02/02/2017 CMP, serum or plasm a alkaline phosphatase, S 60 IU/L 39-117 Not Available [facility] ([facility]) [address] [place], [address], 02/02/2017 08:19:52 02/02/20 17 02/02/2017 CMP, serum or plasm a AST (SGOT) 12 IU/L 0-40 Not Available [facility] ([facility]) [address] [place], [address], 02/02/2017 08:19:52 02/02/20 17 02/02/2017 CMP, serum or plasm a ALT (SGPT) 15 IU/L 0-32 Not Available [facility] ([facility]) [address] [facility] [place], [address], 02/02/2017 08:19:52 02/02/20 17 02/02/2017 CBC WBC 12.3 x10e3 /uL 3.4-10 .8 above high normal Not Available [facility] ([facility]) [address] [facility] [place], [address], 02/02/2017 08:19:52 02/02/20 17 02/02/2017 CBC RBC 4.38 x10e6 /uL 3.77-5 .28 Not Available [facility] ([facility]) [address] [facility] [place], [address], 02/02/2017 08:19:52 02/02/20 17 02/02/2017 CBC hemoglobin 12.5 g/dL 11.1-1 5.9 Not Available [facility] ([facility]) [address] [facility] [place], [address], 02/02/2017 08:19:52 02/02/20 17 02/02/2017 CBC hematocrit 37.5 % 34.0-4 6.6 Not Available [facility] ([facility]) [address] [facility] [place], [address], 02/02/2017 08:19:52 02/02/20 17 02/02/2017 CBC MCV 86 fL 79-97 Not Available [facility] ([facility]) [address] [facility] [place], [address], 02/02/2017 08:19:52 02/02/20 17 02/02/2017 CBC MCH 28.5 pg 26.6-3 3.0 Not Available [facility] ([facility]) [address] [facility] [place], [address], 02/02/2017 08:19:52 02/02/20 17 02/02/2017 CBC MCHC 33.3 g/dL 31.5-3 5.7 Not Available [facility] ([facility]) [address] [place], [address], 02/02/2017 08:19:52 02/02/20 17 02/02/2017 CBC RDW 13.9 % 12.3-1 5.4 Not Available [facility] ([facility]) [address] [place], [address], 02/02/2017 08:19:52 02/02/20 17 02/02/2017 CBC platelets 364 x10e3 /uL 150-37 9 Not Available [facility] ([facility]) [address] [place], [address], 02/02/2017 08:19:52 02/02/20 17 02/02/2017 CBC NRBC MANAGER HELPDESK Not Available [facility] ([facility]) [address] [place], [address], 02/02/2017 08:19:52 02/02/20 17 02/02/2017 lipid panel , serum cholesterol, total 172 mg/dL 100-19 9 Not Available [facility] ([facility]) [address] [place], [address], 02/02/2017 08:19:53 02/02/20 17 02/02/2017 lipid panel , serum triglyceride s 211 mg/dL 0-149 above high normal Not Available [facility] ([facility]) [address] [place], [address], 02/02/2017 08:19:53 02/02/20 17 02/02/2017 lipid panel , serum HDL cholesterol 50 mg/dL >39 Not Available [facility] [address] [place], [address], 02/02/2017 08:19:53 02/02/20 17 02/02/2017 lipid panel , serum VLDL cholesterol yenny 42 mg/dL 5-40 above high normal Not Available [facility] ([facility]) [address] [place], [address], 02/02/2017 08:19:53 02/02/20 17 02/02/2017 lipid panel , serum LDL cholesterol calc 80 mg/dL 0-99 Not Available [facility] [address] [facility] [place], [address], 02/02/2017 08:19:53 02/02/20 17 02/02/2017 lipid panel , serum comment: MANAGER HELPDESK Not Available [facility] ([facility]) [address] [facility], [place], [address], 02/02/2017 08:19:53 02/02/20 17 02/02/2017 HbA1c (hemo globi n A1c), blood hemoglobin A1C 6.0 % 4.8-5. 6 above high normal PRE-D IABET ES: 5.7 - 6.4 DIABE VIOLA: >6.4 GLYCE LISSA CONTR OL FOR ADULT S WITH DIABE VIOLA: <7.0 Not Available [facility] ([facility]) [address] [facility], [place], [address], 02/02/2017 08:19:53 02/29/2003/06/2017 drug scree n, urine [...] ===== === Not Available [facility] [address], [place], [address], 03/06/2017 06:13:16 02/29/20 17 03/06/2017 drug scree n, urine pdf . Not Available [facility] [address], [place], [address], 03/06/2017 06:13:16 01/16/20 17 01/15/2017 CT, lumba r spine , w/o contr ast No observ ation record ed. [address] (Imaging) [address] [place], [address], 01/19/2017 01:40:04 03/02/20 17 03/01/2017 XR, hip, unila teral No observ ation record ed. [facility] (Imaging) [address] [place], [address], 03/29/2017 18:27:29 11/20/19 23 11/20/2022 XR, chest , 2 view No observ ation record ed. [address], [place], [address], 11/21/2022 11:42:21 Result Notes None recorded. Problems Name Problem SNOMED Code Status Onset Date Resolution Date Notes Provider Name and Address Organization Details Recorded Time Diabetes mellitus 00612291 Active SELWYN [place] [facility] 7 15:51:49 Essential hypertension 83511283 Active Lexis Elise [place], [place] [facility] 7 15:51:49 Chronic renal impairment Active [place] [facility] 7 15:51:49 Scapulalgia 04683569 Active SELWYN [place] [facility] 7 15:51:49 Pleuritic pain 5723189 Active Lexis El[place] [facility] 7 15:51:49 Hyperlipidemia 23180582 Active Lexis El[place] [facility] 7 15:51:49 Pain of shoulder region 15588544 Active Lexis El[place] [facility] 7 15:51:49 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 Lexis El[place] [facility] 7 15:51:49 Neuropathy 875026777 Active Lexis El[place] [facility] 7 15:51:49 Gastroesophage al reflux disease 806043350 Active Lexis El[place] [facility] 7 15:51:49 Knee pain Active SELWYN [place] [facility] 7 15:51:49 Onychomycosis 414881606 Active [place]EL[place] [facility] 7 15:51:49 Fatigue 25583834 Active Lexis El[place] [facility] 7 15:51:49 Active immunization Active 2015 SEL[place] [facility] 7 15:51:49 Chronic low back pain 050709121 Active 2016 SEL[place] [facility] 7 15:51:49 Pain of hip region 29024588 Active 2016 Lexis El[place] [facility] 7 15:51:49 Medication monitoring Active 2016 SEL[place]YN [place] [facility] 7 15:51:49 Problem Notes None recorded. Procedures Surgical History Date Name Laterality Status Provider Name and Address Organization Details Recorded Time 11/05/19 14 Date of Last Pap Smear completed SELWYN Torres - [facility]/29/2017 15:54:55 11/05/19 14 Most Recent Mammogram completed SELWYN Torres - [facility]03/29/2017 15:55:56 Total hysterectomy completed Lexis Elise MA [facility] 03/29/2017 16:04:35 Tubal Ligation completed Lexis Elise MA [facility] 03/29/2017 16:04:41 Other completed Lexis Elise MA [facility] 03/29/2017 16:05:08 Orthopedic Surgery completed Lexis Elise MA [facility] 03/29/2017 16:05:41 Eye Surgery completed Kurt Milana SELWYN [facility] 12/09/2015 14:51:55 Imaging Results None recorded. Procedure Notes None recorded. Medical Equipment None [...] Not Available Not Available No t Available [facility] spacer active Not Available Not Available Not Available Vitals Date Recorded Body height Body weight Body mass index (BMI) Heart rate Oxygen saturation Oxygen saturation in Arterial blood by Pulse oximetry Body temperature Systolic And Diastolic Provider Name and Address Organization Details Last Updated DateTime 7 157.48 cm 41529.6 5 g 34.3 kg/m2 84 /min 97 % 97 % 98.3 [degF] 106/68 mm[Hg] Hellen Mendieta MA [facility] 7 14:43:52 Date Recorded Body height Body weight Body mass index (BMI) Body temperature Heart rate Oxygen saturation Oxygen saturation in Arterial blood by Pulse oximetry Systolic And Diastolic Provider Name and Address Organization Details Last Updated DateTime 7 157.48 cm 20899.0 2 g 35.1 kg/m2 98.3 [degF] 78 /min 95 % 95 % 108/76 mm[Hg] Teresa Mercedes MA [facility] 7 10:43:49 Date Recorded Body height Body weight Body mass index (BMI) Systolic And Diastolic Provider Name and Address Organization Details Last Updated DateTime 03/29/2017 157.48 cm 64734.74 g 35.1 kg/m2 102/60 mm[Hg] Lexis Elise MA [facility] 03/29/2017 16:09:09 Date Recorded Body weight Body mass index (BMI) Body temperature Body height Systolic And Diastolic Provider Name and Address Organization Details Last Updated DateTime 06/29/2016 90520.88 163 g 36.4 kg/m2 97.6 [degF] 157.48 cm 140/72 mm[Hg] Teresa Mercedes MA [facility] 6 13:12:01 Date Recorded Body height Body weight Body mass index (BMI) Body temperature Heart rate Oxygen saturation Oxygen saturation in Arterial blood by Pulse oximetry Systolic And Diastolic Provider Name and Address Organization Details Last Updated DateTime 6 157.48 cm 03658.0 9 g 37 kg/m2 98 [degF] 84 /min 97 % 97 % 122/80 mm[Hg] Teresa Mercedes MA [place] - [place] 6 12:06:14 Social History Question Answer Notes LastModified by Organizat ion Details LastModified Time Tobacco Smoking Status Former Smoker Kurt Cortés MA null, [place] - [place] 12/09/2015 14:51:55 Do You Have An Advance Directive? No Information not available 03/29/2017 Is Blood Transfusion Acceptable In An Emergency? Yes Information not available 03/29/2017 What Is Your Level Of Caffeine Consumption? Heavy Information not available 03/29/2017 How Much Tobacco Do You Chew? None Information not available 03/29/2017 What Type Of Diet Are You Following? REGULAR Information not available 03/29/2017 Education Less Than 8th Grade Information not available 03/29/2017 Live Alone Or [...] D etails LastModified Time What is your level of alcohol consumption? None Information not available 03/29/2017 Are you currently employed? No Information not available 03/29/2017 What is your occupation? [employer] Information not available 03/29/2017 What is your exercise level? None Information [...] available 2016 16:02:11 Medical History Condition Response Other N High Blood Pressure Y Breast Cancer N Depression N COPD Y Blood Clots N Breast Problem N Muscle, Joint, or Bone Problems N Polyps N Acid Reflux (GERD) Y Cancer N Endometriosis N High Cholesterol Y Liver Disease N Kidney or Bladder Problems Y Thyroid Problems N GI Problems N Eating Disorder N Diabetes Y Ovarian Cancer N Blood Transfusions N Seizures/Epilepsy N Asthma N Pre-Eclampsia N Osteoporosis N Gynecological History [...] dose or 50 mcg/0.25mL dose 1 completed Henry ji [place] - [place] 05/10/2021 15:37:33 Influenza, split virus, quadrivalent, preservative 6 completed Not Available [facility] 11/22/2019 02:32:37 Past Encounters Encounter ID Performer Location Encounter Start Date Encounter Closed Date Diagnosis/Indication Diagnosis SNOMED-CT Code Diagnosis ICD10 Code Diagnosis Note [id number] MD Naty Goel (Adult Med) [address] [place] [address] [id number] 0 12/09/2015 14:31:33 12/09/2015 17:51:18 Diabetes mellitus 21902902 E13.9 Essential hypertension 53051071 I10 Chronic re nal impairment 816403223 N18.9 Scapulalgia 43503724 M89 .8X1 Need recent labs before possible nsaid use. Pleuritic pain 5992993 R 07.81 Hyperlipidemia 13863736 E78.5 Screening for osteoporosis 974139491 Z13.820 [id number] Davis Thomason MD 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 53829228 L60.3 Neuropathy 231986870 G62 .9 Gastroesop hageal reflux disease 400637725 K21.9 [id number] [facility] [address] [place] [address] [id number] 05/15/2016 15:17:58 05/15/2016 18:08:54 Diabetes mellitus 87015259 E13.9 Neuropathy 896811509 G62 .9 Essential hypertension 99736821 I10 Knee pain 41284868 M25.5 69 [id number] Davis Thomason MD [facility] (Adult Med) [address] [place] [address] [id number] 06/29/2016 12:03:51 06/30/2016 10:30:05 Essential hypertension 50452875 I10 Diabetes mellitus 493101 09 E13.9 Onychomycosis 163735431 B35.1 Fatigue 57171344 R53.83 Hyperlipidemia 15224554 E78.5 Gastroesop hageal reflux disease 338626896 K21.9 Neuropathy 017429384 G62 .9 Awaiting PA for lyrica [id number] MD Naty Goel (Adult Med) [address] [place] [address] [id number] 0 09/13/2016 11:43:31 09/13/2016 13:09:26 Diabetes mellitus 22747919 E13.9 Essential hypertension 37083204 I10 Hyperlipidemia 55887236 E78.5 Knee pain 12740236 M25.5 69 Chronic re nal impairment 914020267 N18.9 Gastroesop hageal reflux disease 907064919 K21.9 Neuropathy 566482140 G62 .9 Active immunization 3387 9002 Z23 [id number] MD Naty Goel (Adult Med) [address] [place] [address] [id number] 02/01/2017 14:33:44 02/01/2017 16:01:47 Diabetes mellitus 78734115 E13.9 Essential hypertension 46010576 I10 Pain of sh oulder region 06036604 M25.519 Also in right arm Knee pain 17980311 M25.5 69 Chronic low back pain 27 5600126 M54.5 [id number] MD Naty Goel (Adult Med) [address] [place] [address] [id number] 02/28/2017 10:12:47 02/28/2017 17:44:51 Chronic low back pain 282698159 M54.5 Pain of hip region 33122 002 M25.552 Knee pain 11174454 M25.5 69 Medication monitoring 39 9146936 Z51.81 [id number] MD Naty Vega (SENIOR SPECIALIST) [address] [place] [address] [id number] 03/29/2017 15:03:24 04/04/2017 10:03:54 Screening mammography 47134769 Z12.31 Atrophic vaginitis 09757 000 N95.2 Cystocele 588288089 N81. 10 Health Concerns Section Related Observation LastModified by Organization Detai ls LastModified Time None Recorded Concern Status LastModified by Organization Details LastModified Time None Recorded Advance Directives Directive N: Payers Insurance Date Sequence Insurance Name Policy Number Policy Johnson Covered Member ID Johnson Member ID Guarantor Name 04/16/2017 1 [facility] - DOS PRIOR TO 2021 (MEDICAID REPLACEMENT - HMO) Janet Gonzalez [id number] Janet Gonzalez Notes Date Note Type Note Provider Name and Address Organization Details Recorded Time 06/29/2016 text/html Has been fatigue d for 3 months. falls asleep easily. No benefit from gabapentin. Needs to see reclaimer. Davis Thomason MD Attn: Accounting,[address] [facility], [place], [address], [facility] - [facility] 06/29/2016 13:58:44 02/01/2017 text/html Has had pain ion her lower back for at least two months. CT lumbar spine shows degenerative changes similar to findings from 2014 Davis Thomason MD Attn: Accounting,[address] [facility], [place], [address], [facility] 02/01/2017 15:45:30 02/28/2017 text/html Seen in ER for l ow back pain with radiation into herleft groin. Pain relieved by hydrocodone and prednisone 60mg/d x 5 days Davis Thomason MD Attn: Accounting,[address] [facility], [place], [address], [facility] 02/28/2017 11:32:05 03/29/2017 text/html problems-FemaleRep orted bypatient.Onset/Ti miri:better Context:not sexually active; no sexual dysfunction; no prior history of STDs Associated Symptoms:no flank pain; no jaundice; no blood in the urine; no pain during urination; no vaginal discharge; no urgency 71 yowf , here to re-establish care. Voices no concerns. Salas [facility], [facility] 03/29/2017 18:36:43 OBGyn Episode Ob Episode Information Episode Created Date Number of Fetuses Patient Bloodtype Patient rh Status Prepregnancy Weight lbs Domestic Partner Domestic Partner Phone Father Name Underground Mine Superintendent Status 03/29/20 17 1 CLOSED Fetus Data First Name Last Name Admitted to NICU Weight (g) Sex Living Outcome Pediatric Complications Fetus ID Race Codes Race Delivery Type 2721.55 2 F Full Term 82609 Vaginal Hector Calculation Initial Hector Date Initial [...] 8 40 false Baby was born in [facility] Discharge Information Feeding Method Contraceptive Method Maternal HG B and HCT Levels Ob Episode Information Episode Created Date Number of Fetuses Patient Bloodtype Patient rh Status Prepregnancy Weight lbs Domestic Partner Domestic Partner Phone Father Name Underground Mine Superintendent Status 03/29/20 17 1 CLOSED Fetus Data First Name Last Name Admitted to NICU Weight (g) Sex Living Outcome Pediatric Complications Fetus ID Race Codes Race Delivery Type 3175.14 4 M Full Term 09624 Vaginal Hector Calculation Initial Hector Date Initial [...] Discharge Date Comments 9 General 40 false [place] wa s born [place] [facility] [place] Discharge Information Feeding Method Contraceptive Method Maternal HG B and HCT Levels Ob Episode Information Episode Created Date Number of Fetuses Patient Bloodtype Patient rh Status Prepregnancy Weight lbs Domestic Partner Domestic Partner Phone Father Name Underground Mine Superintendent Status 03/29/20 17 1 CLOSED Fetus Data First Name Last Name Admitted to NICU Weight (g) Sex Living Outcome Pediatric Complications Fetus ID Race Codes Race Delivery Type 2267.96 F Full Term 89720 Vaginal Hector Calculation Initial Hector Date Initial [...] 40 false Baby w as born in [facility] Discharge Information Feeding Method Contraceptive Method Maternal HG B and HCT Levels Ob Episode Information Episode Created Date Number of Fetuses Patient Bloodtype Patient rh Status Prepregnancy Weight lbs Domestic Partner Domestic Partner Phone Father Name Underground Mine Superintendent Status 03/29/20 17 1 CLOSED Fetus Data First Name Last Name Admitted to NICU Weight (g) Sex Living Outcome Pediatric Complications Fetus ID Race Codes Race Delivery Type 3175.14 4 F Full Term 75734 Vaginal Hector Calculation Initial Hector Date Initial [...] 40 false Baby w as born in [facility] Discharge Information Feeding Method Contraceptive Method Maternal HG B and HCT Levels
--- OUTSIDE RECORDS SUMMARY | 2025-05-19 14:37 | XMS_ITS | Encounter Summary ---
Author Organization [facility] Address [address] [facility] [place] [address] Phone Care Team Providers Care Life Tester [employer] Name Role Phone Dav Barillas MD Unavailable [phone] Reggie Lazar MD Unavailable [phone] Angie Egan Primary Care Provider + Alvarez Rivera MD Unavailable Bunny Cruz MD Unavailable Reason for Visit * Reason Comments Medication Refill Encounter Details Date Type Department Care Team (Late st Contact Info) Description 02/15/2024 Refill [facility] Medical [facility] - Family Medicine [facility] [address] [place] [address] Angie Egan, BLAYNE [address] [place] [address] Medication Refill Social History Tobacco Use Types Packs/Day Years Used Date Smoking Tobacco: Some Days Cigarettes 0.5 70 Started: 05/25/1955 Smokeless Tobacco: Never Alcohol Use Standard Drinks/Week Comments No 0 (1 standard drink = 0.6 oz pur e alcohol) [facility] Utilities Answer Date Recorded In the past 12 months has [employer] electric, gas, oil, or water company threatened to shut off services in your home? No 12/03/2023 Social Connection and Isolation Panel Answer Date Recorded In a typical week, how many times do you talk on the phone with family, friends, or neighbors? More than three times a week 12/03/2023 Frequency of Social Gatherin gs with Friends and Family Not on file 12/03/2023 Attends Faith Services Not on file 12/03 Active Member [...] Score - Questions 1-9 0 /0 02/2024 [facility] - [...] in a long term (including now)? No 12/03/2023 Education Answer Date [...] [facility] 12/03/23 Office Visit Ira Jack APRN, CHAIN OFFBEARER [facility] 10/10/23 Office Visit Angie Egan PAC [facility] Showing recent visits within past 182 days and meeting all other requirements Future Appointments Date Type Provider Dept 03/19/24 Appointment Angie Egan PAC [facility] 04/10/24 Appointment Angie Egan PAC [facility] Showing future appointments within next 90 days [...] Visit [facility] [address] [place] [address] Angie Egan PAC [address] [place] [address] documented as of this encounter Visit Diagnoses Not on filedocumented in this encounter Additional Health Concerns Assessment Noted Time PHQ-9 Depression Total Score: 0 01/07/20 24 10:02 AM PALM AND BACK FORGER documented as of this encounter Care Teams Life Tester [employer] Relationship Specialty Start Date End Date Angie Egan PAC [address] [place] [address] PCP - General Physician Instrument Repairer 12/07/17 Dav Barillas MD Consulting Physician Nephrology 03/26/17 Reggie Lazar MD Consulting Physician Urology 07/27/17 Alvarez Rivera MD [address] [place] [address] Consulting Physician Pulmonary Disease 07/19/23 Bunny Cruz MD [address] [place] [address] Consulting Physician Medical Oncology 02/25/24 documented as of this encounter
--- OUTSIDE RECORDS SUMMARY | 2025-05-19 14:37 | XMS_ITS | Encounter Summary ---
Author Organization [facility] Address [address] [place] [address] Phone Care Team Providers Care Advanced Nursing Professor Name Role Phone Dav Barillas MD Unavailable [phone] Reggie Lazar MD Unavailable [phone] Angie Egan Primary Care Provider + Alvarez Rivera MD Unavailable Bunny Cruz MD Unavailable Reason for Visit * Reason Comments Medication Refill Encounter Details Date Type Department Care Team (Late st Contact Info) Description 08/07/2023 Refill [facility] Medical [facility] - Family Medicine [facility] [address] [place] [address] Angie Egan, BLAYNE [address] [place] [address] Medication Refill Social History Tobacco Use Types [...] Office Visit [facility] - Family [facility] [address] [place] [address] Angie Egan PAC [address] [place] [address] documented as of this encounter Visit Diagnoses Diagnosis Hypertension, essential Unspecified essential hypertension documented in this encounter Additional Health Concerns Assessment Noted Time PHQ-9 Depression Total Score: 0 07/10/20 10:27 AM CDT documented as of this encounter Care Teams Advanced Nursing Professor Relationship Specialty Start Date End Date Angie Egan PAC [address] [place] [address] PCP - General Physician End Finder Forming Department 12/07/17 Dav Barillas MD Consulting Physician Nephrology 03/26/17 Reggie Lazar MD Consulting Physician Urology 07/27/17 Alvarez Rivera MD [address] [place] [address] Consulting Physician Pulmonary Disease 07/19/23 Bunny Cruz MD [address] [place] [address] Consulting Physician Medical Oncology 02/25/24 documented as of this encounter
--- OUTSIDE RECORDS SUMMARY | 2025-05-19 14:37 | XMS_ITS | Encounter Summary ---
Author Organization [facility] Address [address] [facility] [place] [address] Phone Care Team Providers Care Senior Hr Manager Name Role Phone Dav Barillas MD Unavailable [phone] Reggie Lazar MD Unavailable Angie Egan PAC Primary Care Provider + Alvarez Rivera MD Unavailable Bunny Cruz MD Unavailable [phone] Reason for Visit * Reason Onset Date Comments Medication Refill 10/01/2020 norco Encounter Details Date Type Department Care Team (Late st Contact Info) Description 10/01/2020 Refill [facility] Medical Group - Family [facility] [address] [place] [address] Angie Egan, PAC [address] [place] [address] Medication Refill (norco ) Social History Tobacco [...] Jimenez APN, CNP - 10/01/2020 4:05 PM RECONNAISSANCE CREWMEMBER MD monitoring site reviewed, UDS UTD. approved NNAISSANCE CREWMEMBER * Telephone Encounter - Sofía Joe RN [...] neuropathy, without long-term current use of insulin ([facility]) [facility] Angie Salgado PAC 5 months ago Type 2 diabetes mellitus with diabetic neuropathy, without long- term current use of insulin ([facility]) [facility] Angie Salgado PAC 10 months ago Type 2 diabetes mellitus with diabetic neuropathy, without long- term current use of insulin ([facility]) [facility] Angie Salgado PAC 1 year ago Type 2 diabetes mellitus with diabetic neuropathy, without long-term current use of insulin ([facility]) [facility] Angie Salgado PAC 1 year ago Other diabetic neurological complication associated with type 2 diabetes mellitus ([facility]) [facility] Angie Salgado PAC Upcoming Appointments Future Appointments In 2 months Angie Egan PAC [facility] Bunny Cruz MD [facility], [facility] - Recent and Past Visits Recent Visits Date Type Provider Dept 08/05/20 Office Visit Angie Egan, PAC [facility] 04/27/20 Office Visit Angie Egan, PAC [facility] 11/11/19 Office Visit Angie gEan, PAC [facility] 08/11/19 Office Visit Angie Egan, PAC [facility] Showing recent visits within past 460 days with a meds authorizing provider and meeting all other requirements Future Appointments Date Type Provider Dept 12/07/20 Appointment Angie Egan PAC [facility] Showing future appointments within next 90 days with a meds authorizing provider and meeting all other requirements NNAISSANCE CREWMEMBER * Telephone Encounter - Leigh Cota - [...] []Verified medication with pharmacy ramandeep Medication Management NNAISSANCE CREWMEMBER documented in this encounter Plan of Treatment Upcoming Encounters Date Type Department Care Team (Late st Contact Info) Description 07/10/2025 1:30 PM CDT Office Visit [facility] Medical Group - Family [facility] [address] [place] [address] Angie Egan, PAC [address] [place] [address] documented as of this encounter Visit Diagnoses Diagnosis Chronic bilateral thoracic back pain documented in this encounter Additional Health Concerns Infection Onset Date Last Indicated Resolved Time COVID - 19 07/25/2021 07/25/2021 08/14/2021 12:1 6 AM CDT COVID - 19 09/30/2021 09/30/2021 10/20/2021 12:1 6 AM RECONNAISSANCE CREWMEMBER COVID - 19 Confirmed 05/24/2022 05/24/2022 022 12:16 AM CDT COVID - 19 03/08/2023 03/08/2023 03/18/2023 12:1 6 AM CDT Assessment Noted Time PHQ-9 Depression Total Score: 0 08/05/20 1:56 PM CDT documented as of this encounter Care Teams Senior Hr Manager Relationship Specialty Start Date End Date Angie Egan, BLAYNE [address] [place] [address] PCP - General Physician Director Of Donor Relations 12/07/17 Dav Barillas MD Consulting Physician Nephrology 03/26/17 Reggie Lazar MD Consulting Physician Urology 07/27/17 Alvarez Rivera MD [address] [place] [address] Consulting Physician Pulmonary Disease 07/19/23 Bunny Cruz MD [address] [place] [address] Consulting Physician Medical Oncology 02/25/24 documented as of this encounter
--- OUTSIDE RECORDS SUMMARY | 2025-05-19 14:37 | XMS_ITS | Encounter Summary ---
Author Organization [facility] Address [address] [facility] [place] [address] Phone Care Team Providers Care Assembly Line Machine Operator Name Role Phone Dav Barillas MD Unavailable [phone] Reggie Lazar MD Unavailable [phone] Angie Egan Primary Care Provider + Alvarez Rivera MD Unavailable Bunny Cruz MD Unavailable [phone] Encounter Details Date Type Department Care Team (Late st Contact Info) Description 04/16/2025 Results Follow-Up [facility] Medical Group - Family Medicine [facility] [address] [place] [address] Angie Egan, PAC [address] [place] [address] BASIC METABOLIC PANEL W/ CALCIUM TOTAL Social History Tobacco Use Types Packs/Day Years Used Date Smoking Tobacco: Some Days Cigarettes 0.5 70 Started: 05/25/1955 Smokeless Tobacco: Never Alcohol Use Standard Drinks/Week Comments No 0 (1 standard drink = 0.6 oz pur e alcohol) [facility] Utilities Answer Date Recorded In the past 12 months has [employer] electric, gas, oil, or water company threatened [...] often do you attend chur ch or jain services? Never 04/08/2024 Do you belong to any clubs o r organizations such as uatsdin groups, unions, fraternal or athletic groups, or [...] Total Score - Questions 1-9 0 03/06 [facility] [...] slept in a correction (including now)? No 04/08/2024 Education Answer Date [...] Visit [facility] [address] [place] [address] Angie Egan PAC [address] [place] [address] documented as of this encounter Visit Diagnoses Not on filedocumented in this encounter Additional Health Concerns Assessment Noted Time PHQ-9 Depression Total Score: 0 03/24/20 25 10:49 AM CDT documented as of this encounter Care Teams Assembly Line Machine Operator Relationship Specialty Start Date End Date Angie Egan PAC [address] [place] [address] PCP - General Physician Semiconductor Processing Technician 12/07/17 Dav Barillas MD Consulting Physician Nephrology 03/26/17 Reggie Lazar MD Consulting Physician Urology 07/27/17 Alvarez Rivera MD [address] [place] [address] Consulting Physician Pulmonary Disease 07/19/23 Bunny Cruz MD [address] [place] [address] Consulting Physician Medical Oncology 02/25/24 documented as of this encounter
--- OUTSIDE RECORDS SUMMARY | 2025-05-19 14:37 | XMS_ITS | Encounter Summary ---
Author Organization [facility] Address [address] [place] [address] Phone Care Team Providers Care Branch Billing Payroll Clerk Name Role Phone Dav Barillas MD Unavailable [phone] Reggie Lazar MD Unavailable [phone] Angie Egan Primary Care Provider + Alvarez Rivera MD Unavailable Bunny Cruz MD Unavailable Reason for Visit * Reason Onset Date Comments Medication Refill 05/18/2025 Encounter Details Date Type Department Care Team (Late st Contact Info) Description 05/18/2025 Refill [facility] Medical Group - Family [facility] [address] [place] [address] Angie Egan, PAC [address] [place] [address] Medication Refill Social History Tobacco Use Types Packs/Day Years Used Date Smoking Tobacco: Some Days Cigarettes 0.5 70 Started: 05/25/1955 Smokeless Tobacco: Never Alcohol Use Standard Drinks/Week Comments No 0 (1 standard drink = 0.6 oz pur e alcohol) [facility] Utilities Answer Date Recorded In the past 12 months has [employer] electric, gas, oil, or water company threatened [...] often do you attend chur ch or muslim services? Never 04/08/2024 Do you belong to [...] Total Score - Questions 1-9 0 03/06 [facility] - Occupational Stress Questionnaire Answer Date [...] Telephone Encounter - Sofía Joe RN - 05/19/2025 10:13 AM CDT Images from the original note were not included. HYDROcodone-Acetaminophen Dispensed Days Supply Quantity Provider Pharmacy HYDROCODONE/ACETAMINOPHEN 5-325 TB 04/21/2025 30 180 [facility] HYDROCODONE/ACETAMINOPHEN 5-325 TB 03/17/2025 30 180 Each [facility]... HYDROCODONE/ACETAMINOPHEN 5-325 TB 02/15/2025 30 180 Each [facility]... Medication failed the protocol, provider to review and approve the medication order if appropriate. Requested Prescriptions Pending Prescriptions Disp Refills HYDROcodone-acetaminophen (NORCO) 5-325 MG Tablet 180 Tablet 0 Sig: Take 2 Tablets by mouth every 8 hours as needed for Moderate or more severe pain. Not Delegated - Opioid Combinations Protocol Failed - 05/19/2025 10:13 AM Failed - This refill cannot be delegated Passed - Visit with relevant provider in past 12 months or upcoming 90 days Recent Visits Date Type Provider Dept 04/22/25 Office Visit Raji Lynn MD [facility] 03/24/25 Office Visit Angie Egan PAC [facility] 12/09/24 Office Visit Angie Egan PAC [facility] 09/03/24 Office Visit Angie Egan PAC [facility] Showing recent visits within past 365 days and meeting all other requirements Future Appointments Date Type Provider Dept 07/10/25 Appointment Angie Egan PAC [facility] Showing future appointments within next 90 days and meeting all other requirements Dulaglutide (Trulicity) 3 MG/0.5ML Solution Auto-injector 2 mL 0 Si mg by Subcutaneous route once a week. GLP-1 Agonists Protocol Failed - 05/19/2025 10:13 AM Failed - Lipid panel result on file in past 12 months LDL Date Value Ref Range Status 04/02/2024 48 <130 mg/dL Final HDL CHOLESTEROL Date Value Ref Range Status 04/02/2024 57 >40 mg/dL Final CHOLESTEROL Date Value Ref Range Status 04/02/2024 118 <200 mg/dL Final TRIGLYCERIDES Date Value Ref Range Status 04/02/2024 67 <150 mg/dL Final VLDL Date Value Ref Range Status 04/02/2024 13 10 - 50 mg/dL Final CHOL/HDL RATIO Date Value Ref Range Status 04/02/2024 2.1 0.0 - 4.4 Final NON-HDL CHOLESTEROL Date Value Ref Range Status 04/02/2024 61 <130 mg/dL Final Passed - Visit with relevant provider in past 6 months or upcoming 90 days Recent Visits Date Type Provider Dept 04/22/25 Office Visit Raji Lynn MD [facility] 03/24/25 Office Visit Angie Egan PAC [facility] 12/09/24 [facility] Showing recent visits within past 182 days and meeting all other requirements Future Appointments Date Type Provider Dept 07/10/25 Appointment [facility]ie [facility] Showing future appointments within next 90 days and meeting all other requirements Passed - HgA1C result on record in past 6 months HGB-A1C Date Value Ref Range Status 03/24/2025 5.0 4.0 - 6.0 % Final Passed - GFR on record in past 6 months GFR, EST. NONAFRICAN Date Value Ref Range Status 04/16/2025 >60 >=60 Final documented in this encounter Plan of Treatment Upcoming Encounters Date Type Department Care Team (Late st Contact Info) Description 07/10/2025 1:30 PM CDT Office Visit [facility] [address] [place] [address] Angie Egan PAC [address] [place] [address] documented as of this encounter Visit Diagnoses Diagnosis Chronic bilateral thoracic back pain Spinal stenosis of lumbar region, unspecified whether neurogenic claudication present documented in this encounter Additional Health Concerns Assessment Noted Time PHQ-9 Depression Total Score: 0 03/24/20 10:49 AM CDT documented as of this encounter Care Teams Branch Billing Payroll Clerk Relationship Specialty Start Date End Date Angie Egan PAC [address] [place] [address] PCP - General Physician Occupational Therapy Department Chair 12/07/17 Dav Barillas MD Consulting Physician Nephrology 03/26/17 Reggie Lazar MD Consulting Physician Urology 07/27/17 Alvarez Rivera MD [address] [place] [address] Consulting Physician Pulmonary Disease 07/19/23 Bunny Cruz MD [address] [place] [address] Consulting Physician Medical Oncology 02/25/24 documented as of this encounter
--- OUTSIDE RECORDS SUMMARY | 2025-05-19 14:37 | XMS_ITS | Clinical Summary ---
Author Organization [facility] Address [address] [address] Care Team Providers Care Tip Scourer Name Role Phone Unavailable Primary Care Provider [...] Comments Blood Pressure 122/60 10/17/2022 11:51 AM INSTRUMENTATION CHEMIST Pulse 84 10/17/2022 11:51 AM INSTRUMENTATION CHEMIST Temperature 36.2 C (97.2 F) 10/17/2022 11:51 AM INSTRUMENTATION CHEMIST Respiratory Rate 18 10/17/2022 11:51 AM INSTRUMENTATION CHEMIST Oxygen Saturation 90% 10/17/2022 11:51 AM INSTRUMENTATION CHEMIST Inhaled Oxygen Concentration - - Weight 78.9 kg (174 lb) 10/17/2022 11:51 AM INSTRUMENTATION CHEMIST Height 157.5 cm (5' 2) 10/17/2022 11:51 AM INSTRUMENTATION CHEMIST Body Mass Index 31.83 10/17/2022 11:51 AM INSTRUMENTATION CHEMIST Plan of Treatment Health Maintenance Due Date Last Done Comments Hepatitis B Vaccine (1 of 3 - Risk 3-dose series) 2005 Diabetes: Ophthalmology Exam 03/31/2021 Diabetes: Pedal Pulse Checked 03/31/2021 Diabetes: Sensory Foot Exam 03/31/2021 Diabetes: Visual Foot Exam 03/31/2021 Diabetes: Hemoglobin A1C 06/24/2025 025, 07/04/2024, 10/16/2022, Additional history exists Influenza Vaccine (#1) 2025 4, 10/10/2023, 07/25/2022, Additional history exists Pneumococcal Vaccine: 50+ Years [...] 10.7 mg/dL Phosphorus, Serum 3.7 eGFR Non-Afr Icelandic 50 Vitamin D, 25-OH, Total 45.4 ng/mL Hemoglobin A1C 6.4(A) 4.0 - 6.0 Protein Urine Random 9 Creatinine, Urine Random 62.35 mg/dL Urine Protein/Creatin ine Ratio 0.1 mg/g creat 10/16/2022 us Historical Provider LAB BLOOD ORDERABLES Felisa l Result from Last 3 Months or Most Recently Relevant to Health Maintenance Insurance [place] Medicaid
--- OUTSIDE RECORDS SUMMARY | 2025-05-19 14:37 | XMS_ITS | Encounter Summary ---
Author Organization [facility] Address [address] [facility] [place] [address] Phone Care Team Providers Care River Pilot Name Role Phone Dav Barillas MD Unavailable [phone] Reggie Lazar MD Unavailable [phone] Angie Egan Primary Care Provider + Alvarez Rivera MD Unavailable Bunny Cruz MD Unavailable Reason for Visit * Reason Comments Medication Refill Encounter Details Date Type Department Care Team (Late st Contact Info) Description 03/14/2024 Refill [facility] Medical Group - Family Medicine [facility] [address] [place] [address] Angie Egan, BLAYNE [address] [place] [address] Medication Refill Social History Tobacco Use Types Packs/Day Years Used Date Smoking Tobacco: Some Days Cigarettes 0.5 70 Started: 05/25/1955 Smokeless Tobacco: Never Alcohol Use Standard Drinks/Week Comments No 0 (1 standard drink = 0.6 oz pur e alcohol) [facility] Utilities Answer Date Recorded In the past 12 months has [employer] electric, gas, oil, or water company threatened to shut off services in your home? No 12/03/2023 Social Connection and Isolation Panel Answer Date Recorded In a typical week, how many times do you talk on the phone with family, friends, or neighbors? More than three times a week 12/03/2023 Frequency of Social Gatherin gs with Friends and Family Not on file 12/03/2023 Attends Gnosticist Services Not on file 12/03 Active Member [...] Score - Questions 1-9 0 /0 02/2024 [facility] of Occupat ional Health - [...] 01/07/24 Office Visit Angie Egan, PAC [facility] 12/03/23 Office Visit Ira Jack MEMS PROCESS ENGINEER, PLANT QUALITY MANAGER [facility] 10/10/23 Office Visit Angie Egan, PAC [facility] 07/19/23 Office Visit Angie Egan, PAC [facility] 07/10/23 Office Visit Angie Egan, PAC [facility] 04/06/23 Office Visit Angie Egan, PAC [facility] Showing recent visits within past 365 days and meeting all other requirements Future Appointments Date Type Provider Dept 03/19/24 Appointment Angie Egan, PAC [facility] 04/10/24 Appointment Angie Egan PAC [facility] Showing [...] 01/07/24 Office Visit Angie Egan, PAC [facility] 12/03/23 Office Visit Ira Jack APRN, PLANT QUALITY MANAGER [facility] 10/10/23 Office Visit Angie Egan, PAC [facility] 07/19/23 Office Visit Angie Egan, PAC [facility] 07/10/23 Office Visit Angie Egan, PAC [facility] 04/06/23 Office Visit Angie Egan, PAC [facility] Showing recent visits within past 365 days and meeting all other requirements Future Appointments Date Type Provider Dept 03/19/24 Appointment Angie Egan PAC [facility] 04/10/24 Appointment Angie Egan, PAC [facility] [...] Office Visit [facility] [address] [place] [address] Angie Egan PAC [address] [place] [address] documented as of this encounter Visit Diagnoses Diagnosis Neuropathy Mononeuritis of unspecified site Spinal stenosis of lumbar region, unspecified whether neurogenic claudication present Chronic bilateral thoracic back pain documented in this encounter Additional Health Concerns Assessment Noted Time PHQ-9 Depression Total Score: 0 01/07/20 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
--- OUTSIDE RECORDS SUMMARY | 2025-05-19 14:37 | XMS_ITS | Encounter Summary ---
Author Organization [facility] Address [address] [place] [address] Phone Care Team Providers Care Blackener Name Role Phone Dav Barillas MD Unavailable Reggie Lazar MD Unavailable [phone] Angie Egan PAC Primary Care Provider + Alvarez Rivera MD Unavailable Bunny Cruz MD Unavailable [phone] Reason for Visit * Reason Onset Date Comments Medication Management 05/18/2025 Encounter Details Date Type Department Care Team (Late st Contact Info) Description 05/18/2025 Telephone [facility] [address] [place] [address] Angie Egan, PAC [address] [place] [address] Medication Management Social History Tobacco Use Types Packs/Day Years Used Date Smoking Tobacco: Some Days Cigarettes 0.5 70 Started: 05/25/1955 Smokeless Tobacco: Never Alcohol Use Standard Drinks/Week Comments No 0 (1 standard drink = 0.6 oz pur e alcohol) [facility] Utilities Answer Date Recorded In the past 12 months has [employer] electric, gas, oil, or water company threatened [...] often do you attend chur ch or mandaeism services? Never 04/08/2024 Do you belong to any clubs o r organizations such as mormonism groups, unions, fraternal or athletic groups, or [...] Total Score - Questions 1-9 0 03/06 [facility] of Occupat ional Health - Occupational [...] in a care home (including now)? No 04/08/2024 Education Answer Date [...] encounter Miscellaneous Notes * Telephone Encounter - Lenora Fuentes RN - 05/19/2025 9:46 AM CDT Order was sent to [facility] in [place] on 03-26-25 Fax was received back and sent back on 04-28-[address] [facility] and got the call center and she stated that they can not check this for me. Called and let patient know and gave her [facility] phone number to call and check on this * Telephone Encounter - José Pacheco - 05/18/2025 3:10 PM CDT Please call Janet (relationship to patient Self) back at primary phone number [phone] regarding above referenced patient. Call is concerning need a script sent over for Nebulizer machine. Patient states that it has already been approved from insurance but medical supplies is needing an order. Patient's PCP is BLAYNE Patel. Thank you. documented in this encounter Plan of Treatment Upcoming Encounters Date Type Department Care Team (Late st Contact Info) Description 07/10/2025 1:30 PM CDT [facility] [address] [place] [address] Angie Egan PAC [address] [place] [address] documented as of this encounter Visit Diagnoses Not on filedocumented in this encounter Additional Health Concerns Assessment Noted Time PHQ-9 Depression Total Score: 0 03/24/20 25 10:49 AM CDT documented as of this encounter Care Teams Blackener Relationship Specialty Start Date End Date Angie Egan PAC [address] [place] [address] PCP - General Physician Donkey Doctor 12/07/17 Dav Barillas MD Consulting Physician Nephrology 03/26/17 Reggie Lazar MD Consulting Physician Urology 07/27/17 Alvarez Rivera MD [address] [place] [address] Consulting Physician Pulmonary Disease 07/19/23 Bunny Cruz MD [address] [place] [address] Consulting Physician Medical Oncology 02/25/24 documented as of this encounter
--- OUTSIDE RECORDS SUMMARY | 2025-05-19 14:37 | XMS_ITS ---
Author Organization [facility] Address [address], [address] [address] Phone Care Team Providers Care Flying Squad Worker Name Role Phone Dav Barillas MD Unavailable [phone] Reggie Lazar MD Unavailable [phone] Angie Egan [facility] Primary Care Provider + Alvarez Rivera MD Unavailable Bunny Cruz MD Unavailable [phone] [facility] Chronic Condition Monitoring Status:Enrolled (Active) Start date:10/17/2023 Enrollment date:10/18/2023 Current support & services provided:Diabetes Management, Hypertension Management Related social drivers of health:Intimate Partner Violence, Social Connections, Alcohol Use, Tobacco Use, Financial Resource Strain,Depression, Stress, Physical Activity, Food Insecurity, Transportation Needs, Housing Stability, Utilities Continued Care and Services Coordination
--- OUTSIDE RECORDS SUMMARY | 2025-05-19 14:37 | XMS_ITS | Encounter Summary ---
Author Organization [facility] Address [address] [place] [address] Phone Care Team Providers Care Bessemer Converter Blower Name Role Phone Dav Barillas MD Unavailable Reggie Lazar MD Unavailable [phone] Angie Egan PAC Primary Care Provider + Alvarez Rivera MD Unavailable Bunny Cruz MD Unavailable [phone] Reason for Visit * Reason Onset Date Comments Referral 05/06/2025 Encounter Details Date Type Department Care Team (Late st Contact Info) Description 05/06/2025 Telephone [facility] [address] [place] [address] Angie Egan, PAC [address] [place] [address] Referral Social History Tobacco Use Types Packs/Day Years Used Date Smoking Tobacco: Some Days Cigarettes 0.5 70 Started: 05/25/1955 Smokeless Tobacco: Never Alcohol Use Standard Drinks/Week Comments No 0 (1 standard drink = 0.6 oz pur e alcohol) [facility] Utilities Answer Date Recorded In the past 12 months has [employer] electric, gas, oil, or water company threatened [...] often do you attend chur ch or christianity services? Never 04/08/2024 Do you belong to any clubs o r organizations such as confucianist groups, unions, fraternal or athletic groups, or [...] Total Score - Questions 1-9 0 03/06 [facility] of Occupat ional Health - [...] place to sleep or slept in a long-term (including now)? No 04/08/2024 Education Answer Date [...] encounter Miscellaneous Notes * Telephone Encounter - Sonal Somers - 05/06/2025 10:50 AM CDT Please call Ann Marie(relationship to patient nurse) back at primary phone number [phone] regarding above referenced patient. Secondary phone number is n/a. Call is concerning referral. Patient's PCP is BLAYNE Patel. Thank you. Ann Marie from Dr Goncalves with Nephrology office calling in stating that the dr is denying seeing the patient the provider reviewed everything regarding the patient and feels like the patient does not need to been seen. Ann Marie stated that the patient already sees a rn clinical appeals in [place] documented in this encounter Plan of Treatment Upcoming Encounters Date Type Department Care Team (Late st Contact Info) Description 07/10/2025 1:30 PM CDT [facility] [address] [place] [address] Angie Egan PAC [address] [place] [address] documented as of this encounter Visit Diagnoses Not on filedocumented in this encounter Additional Health Concerns Assessment Noted Time PHQ-9 Depression Total Score: 0 03/24/20 25 10:49 AM CDT documented as of this encounter Care Teams Bessemer Converter Blower Relationship Specialty Start Date End Date Angie Egan PAC [address] [place] [address] PCP - General Physician Milk Collector 12/07/17 Dav Barillas MD Consulting Physician Nephrology 03/26/17 Reggie Lazar MD Consulting Physician Urology 07/27/17 Alvarez Rivera MD [address] [place] [address] Consulting Physician Pulmonary Disease 07/19/23 Bunny Cruz MD [address] [place] [address] Consulting Physician Medical Oncology 02/25/24 documented as of this encounter
--- OUTSIDE RECORDS SUMMARY | 2025-05-19 14:37 | XMS_ITS | Encounter Summary ---
Author Organization [facility] Address [address] [place] [address] Phone Care Team Providers Care Vehicle Sales Professional Name Role Phone Dav Barillas MD Unavailable [phone] Reggie Lazar MD Unavailable [phone] Angie Egan [facility] Primary Care Provider + Alvarez Rivera MD Unavailable Bunny Cruz MD Unavailable Reason for Visit * Reason Comments Medication Refill Encounter Details Date Type Department Care Team (Late st Contact Info) Description 08/06/2023 Refill [facility] Medical Group - Family Medicine [facility] [address] [place] [address] Kathryn Jimenez APRN, PROJECTS MANAGER [address] [address] Medication Refill Social History Tobacco [...] Visit [facility] [address] [place] [address] Angie Egan PAC [address] [place] [address] documented as of this encounter Visit Diagnoses Diagnosis Type 2 diabetes mellitus with diabetic neuropathy, without long-term current use of insulin (HCC) documented in this encounter Additional Health Concerns Assessment Noted Time PHQ-9 Depression Total Score: 0 07/10/20 23 10:27 AM CDT documented as of this encounter Care Teams Vehicle Sales Professional Relationship Specialty Start Date End Date Angie Egan PAC [address] [place] [address] PCP - General Physician Nonprofit Financial Controller 12/07/17 Dav Barillas MD Consulting Physician Nephrology 03/26/17 Reggie Lazar MD Consulting Physician Urology 07/27/17 Alvarez Rivera MD [address] [place] [address] Consulting Physician Pulmonary Disease 07/19/23 Bunny Cruz MD [address] [place] [address] Consulting Physician Medical Oncology 02/25/24 documented as of this encounter
--- OUTSIDE RECORDS SUMMARY | 2025-05-19 14:37 | XMS_ITS | Encounter Summary ---
Author Organization [facility] Address [address] [place] [place] [address] Phone Care Team Providers Care Hris Developer Name Role Phone Dav Barillas MD Unavailable [phone] Reggie Lazar MD Unavailable Angie Egan Primary Care Provider + Alvarez Rivera MD Unavailable Bunny Cruz MD Unavailable [phone] Reason for Visit * Reason Comments Medication Refill Encounter Details Date Type Department Care Team (Late st Contact Info) Description 06/19/2023 Refill [facility] Medical Group - Family Medicine [facility] [address] [place] [address] Angie Egan, BLAYNE [address] [place] [address] Medication Refill Social History Tobacco Use Types [...] Provider Dept 07/10/23 Appointment Angie Egan PAC [facility] Showing future appointments within next [...] Visit [facility] Medicine [facility] [address] [place] [address] Angie Egan PAC [address] [place] [address] documented as of this encounter Visit Diagnoses Diagnosis Type 2 diabetes mellitus with diabetic neuropathy, without long-term current use of insulin (HCC) documented in this encounter Additional Health Concerns Assessment Noted Time PHQ-9 Depression Total Score: 0 07/25/20 9:00 AM CDT documented as of this encounter Care Teams Hris Developer Relationship Specialty Start Date End Date Angie Egan PAC [address] [place] [address] PCP - General Physician Mirror Department Supervisor 12/07/17 Dav Barillas MD Consulting Physician Nephrology 03/26/17 Reggie Lazar MD Consulting Physician Urology 07/27/17 Alvarez Rivera MD [address] [place] [address] Consulting Physician Pulmonary Disease 07/19/23 Bunny Cruz MD [address] [place] [address] Consulting Physician Medical Oncology 02/25/24 documented as of this encounter
--- OUTSIDE RECORDS SUMMARY | 2025-05-19 14:37 | XMS_ITS | Clinical Summary ---
Author Organization [facility] Address [address] [place] [address] Care Team Providers Care Java Analyst Name Role Phone Angie Egan PA-C Primary Care Provider Social History Tobacco Use Types Packs/Day Years [...] 75+ series) 2020 COVID-19 Vaccine (2 - 2023-2 5 season) 2024 12/08/2020 DTaP, Tdap and Td Vaccines ( 2 - Td or Tdap) 04/11/2029 04/11/2019 Pneumococcal Vaccine: 50+ Years Completed 07/27/2017, 04/09/2016, 11/05/2011 Meningococcal B Vaccine Aged Out No l onger eligible based on patient's age to complete this topic Meningococcal Vaccine Aged Out No fabienne dewey eligible based on patient's age to complete this topic RSV Immunizations Under 20 Months Aged Out No longer eligible b ased on patient's age to complete this topic Insurance [employer] Care Teams Java Analyst Relationship Specialty Start Date End Date Angie Egan PA-C [address] [place] [address] PCP - General PHYSICIAN SLOT OPERATIONS DIRECTOR 01/01/23
--- OUTSIDE RECORDS SUMMARY | 2025-05-19 14:37 | XMS_ITS | Encounter Summary ---
Author Organization [facility] Address [address] [place] [address] Phone Care Team Providers Care Pelt Dropper Name Role Phone Dav Barillas MD Unavailable [phone] Reggie Lazar MD Unavailable [phone] Angie Egan Primary Care Provider + Alvarez Rivera MD Unavailable Bunny Cruz MD Unavailable Reason for Visit * Reason Comments Medication Refill Encounter Details Date Type Department Care Team (Late st Contact Info) Description 04/15/2024 Refill [facility] - Family Medicine [facility] [address] [place] [address] Angie Egan, [address]NE [address] [place] [address] Medication Refill Social History Tobacco Use Types Packs/Day Years Used Date Smoking Tobacco: Some Days Cigarettes 0.5 70 Started: 05/25/1955 Smokeless Tobacco: Never Alcohol Use Standard Drinks/Week Comments No 0 (1 standard drink = 0.6 oz pur e alcohol) [facility] Utilities Answer Date Recorded In the past 12 months has [employer] electric, gas, oil, or water company threatened [...] often do you attend chur ch or jehovah's witness services? Never 04/08/2024 Do you belong to any clubs o r organizations such as orthodoxy groups, unions, fraternal or athletic groups, or [...] Recorded Total Score - Questions 1-9 0 02/2024 [facility] - Occupational Stress Questionnaire Answer Date [...] place to sleep or slept in a alf (including now)? No 04/08/2024 Education Answer Date [...] Description 07/10/2025 1:30 PM CDT Office Visit [facility] [address] [place] [address] Angie Egan, PAC [address] [place] [address] documented as of this encounter Visit Diagnoses Not on filedocumented in this encounter Additional Health Concerns Assessment Noted Time PHQ-9 Depression Total Score: 0 01/07/20 24 10:02 AM CERTIFIED ANESTHESIOLOGIST ASSISTANT documented as of this encounter Care Teams Pelt Dropper Relationship Specialty Start Date End Date Angie Egan [address] [place] [address] PCP - General Physician Senior Java Software Engineer 12/07/17 Dav Barillas MD Consulting Physician Nephrology 03/26/17 Reggie Lazar MD Consulting Physician Urology 07/27/17 Alvarez Rivera MD [address] [place] [id number] Consulting Physician Pulmonary Disease 07/19/23 Bunny Cruz MD [address] [place] [address] Consulting Physician Medical Oncology 02/25/24 documented as of this encounter
== END 2025-05-19 14:32 | disposition home or self-care (01) ==
PROVIDERS: PCP Neurological Surgery; Visit Provider Neurological Surgery
DX: M47.892 Other spondylosis, cervical region (principal); Z98.1 Arthrodesis status
CPT/HCPCS: 72141